=== PATIENT | female | born 1960 | race Caucasian/White ===

== ENCOUNTER 2020-04-18 10:58 | Outpatient (REF) | payer OTHER, SELFPAY ==
[2020-04-18 13:28] LABS: MANUAL DIFF FLAG NO
[2020-04-18 13:29] LABS: Basophils Absolute Auto 0.1 X10*3/uL (0.0-0.2); Basophils Percent Auto 0.6 % (0-2); Eosinophils Absolute Auto 0.2 X10*3/uL (0.0-0.4); Eosinophils Percent Auto 1.8 % (0-4); Hematocrit 41.8 % (37-47); Hemoglobin 14.6 g/dl (12.0-16.0); Imm Gran Abs Auto 0.02 X10*3/uL (0.00-0.03); Imm Gran Pct Auto 0.2 % (0.0-0.4); Lymphocytes Absolute Auto 2.3 X10*3/uL (1.2-4.9); Lymphocytes Percent Auto 25.7 % (20-40); Mean Corpuscular HGB Conc 34.9 g/dl (31.0-35.0); Mean Corpuscular Hemoglobin 32.3 pg (27.0-33.0); Mean Corpuscular Volume 92.5 fL (80-98); Mean Platelet Volume 10.5 fL (9.4-12.3); Monocytes Absolute Auto 0.6 X10*3/uL (0.1-1.2); Monocytes Percent Auto 6.2 % (2-11); Neutrophils Absolute Auto 5.9 X10*3/uL (2.0-8.3); Neutrophils Percent Auto 65.5 % (45-73); Platelet Count 192 X10*3/uL (160-400); Red Blood Count 4.52 X10*6/uL (4.20-5.50); Red Cell Distribution Width 13.1 % (11.0-16.0); White Blood Count 8.9 X10*3/uL (4.8-10.8)
[2020-04-18 13:59] LABS: Alanine Aminotransferase 12 U/L (0-31); Albumin Level 4.5 g/dL (3.5-5.0); Alkaline Phosphatase 111 U/L (39-117); Anion Gap 11 (12-20); Aspartate Amino Transferase 13 U/L (5-31); Bilirubin Total 0.6 mg/dL (0.0-1.0); Blood Urea Nitrogen 13 mg/dL (9-16); C Reactive Protein 0.04 mg/dL (< or = 0.50); Calcium 9.3 mg/dL (8.4-10.2); Carbon Dioxide 26 mmol/L (22-29); Chloride 106 mmol/L (96-108); Estimated Glomerular Filt Rate 60; Glucose Random 101 mg/dL (60-115); Potassium 4.3 mmol/l (3.3-5.1); Sodium 139 mmol/L (135-145); Total Protein 6.7 g/dL (6.5-8.0)
== END 2020-04-18 10:59 | disposition home or self-care (01) ==
LOC: HO.WFDLDS 10:58
PROVIDERS: Visit Provider Student in an Organized Health Care Education/Training Program
DX: M05.9 Rheumatoid arthritis with rheumatoid factor, unspecified (principal)
CPT/HCPCS: 36415; 80053; 85025; 86140

== ENCOUNTER 2020-05-17 10:00 | Outpatient (RCR) | payer OTHER, SELFPAY ==
--- NOTE | 2020-04-25 09:42 | MHC.PT.PR ---
[facility] [place] Office [place] Office [place] Office [address] Yovanny Bailey [address] [phone] F: [phone] F: [phone] F: [phone] F: [phone] Physical Therapy Progress Note Diagnosis: RIGHT ACHILLES STRAIN BILATERAL ANKLE PAIN Date of Surgery: Date of Evaluation: 03/24/20 Treatments to Date: 9 Cancellations to Date: No Shows to Date: Subjective: PATIENT REPORTS PAIN IS EXACERBATED WITH WALKING AND CAUSING CONSTANT ACHE TO RIGHT ACHILLES AND DISTAL LE MM. PATIENT REPORTS SENSATION OF ZINGING: SENSATION THAT RIDES UP FROM ACHILLES HEEL ATTACHMENT TO DISTAL GASTROCNEMIUS. PATIENT REPORTS INSTABILITY WITH ECCENTRIC CONTROL THROUGH DECELERATION AND STEP DOWN A STEP. PATIENT HAS CHANGED SHOE WEAR TO ALLOW FOR IMPROVED STABILITY AND COMFORT WELL TRIAL OF ORTHOTIC. Pain Score: 5 Pain Location: LATERAL ACHILLES MID BELLY OF RIGHT ACHILLES AND SOLEUS Objective Measures: RIGHT CIRCUMFERENTIAL: AD MID MALLEOLUS 25.4 CM LEFT: 27.6 RIGHT FIGURE 8: RIGHT: 53 CM LEFT: 53.3 CM POSITIVE VARUS STRESS TEST ON RIGHT: WITH PAIN TO LATERAL ACHILLES AND ATFL AROM: DF: RIGHT: 11 LEFT: 13 PF: RIGHT 26 LEFT 30 INVERSION RIGHT 22 LEFT 25 EVERSION RIGHT: 6 LEFT: 9 MMT: PF RIGHT 3-/5 LEFT 5/5 DF RIGHT 5/5 LEFT 5/5 INVERSION RIGHT 4/5 LEFT 5/5 EVERSION RIGHT 4-/5 LEFT 5/5 Assessment: PATIENT TOLERATED TREATMENT WELL WITH EMPHASIS ON STEPPING STRATEGIES AND SYMMETRICAL WEIGHT SHIFT. PT Plan: Continue with PT Frequency and Duration: The patient will be seen 2X WEEK X 4 WEEKS Treatment Plan: Therapeutic Exercise Dynamic Therapeutic Activities Neuromuscular Re-ed Manual Therapies Joint Mobilization Taping Gait Home Exercise Program Patient Education Ultrasound Hot or Cold Pack PATIENT IS A 60 Y/O FEMALE WITH C/O OF RIGHT ANKLE AND HEEL PAIN. PATIENT PRESENTS WITH WITH SIGNS AND SYMPTOMS CONSISTENT IF ACHILLES STRAIN. PATIENT HAS MADE STEADY PROGRESS IN REGARDS OF STRENGTHENING ACCESSORY LE AND HIP GIRDLE MUSCULATURE, IMPROVING SUPPORTIVE SHOE WEAR AND REDUCING SWELLING TO RIGHT ACHILLES BODY. PATIENT DOES PRESENT WITH INSTABILITY AND WEAKNESS THROUGH RECRUITMENT OF RIGHT PLANTARFLEXORS AND THROUGH ECCENTRIC CONTROL OF DISTAL LE WITH STEP DOWNS. PATIENT IS A GOOD CANDIDATE FOR UPCOMING ASSESSMENT BY LACING OPERATOR TO RULE OUT FURTHER DERANGEMENT TO ACHILLES ON RIGHT ANKLE. GOOD CANDIDATE FOR IMAGING PRESCRIBED BY PHYSICIAN FUTURE ASSESSMENT. PLAN OF CARE TO CONTINUE WITH PROGRESSION OF GAIT TRAINING AND ECCENTRIC CONTROL WITH MODIFIED EXERCISES TO RIGHT ANKLE. Reviewed/ Agreed with Student Documentation: Therapist: Thank you once again for your referral.
== END 2020-08-03 09:43 | disposition other institution (70) ==
LOC: HO.PTWFD 10:00
PROVIDERS: PCP Internal Medicine; Visit Provider Student in an Organized Health Care Education/Training Program
DX: M05.9 Rheumatoid arthritis with rheumatoid factor, unspecified (principal)
CPT/HCPCS: 97014; 97033; 97035; 97110; 97112; 97140; 97164; 97530

== ENCOUNTER → 2020-05-23 14:26 | Outpatient (BNVA) | payer OTHER, SELFPAY | PROVIDERS: PCP Internal Medicine; Referring Provider Internal Medicine; Visit Provider Student in an Organized Health Care Education/Training Program | DX: M05.9 Rheumatoid arthritis with rheumatoid factor, unspecified (principal); Z79.899 Other long term (current) drug therapy | CPT/HCPCS: 99212 ==

== ENCOUNTER 2020-08-17 15:24 | Outpatient (REF) | payer OTHER, SELFPAY ==
--- NOTE | ~2020-08-17 | MR_ITS ---
EXAMINATION: MR ANKLE WITHOUT AND WITH CONTRAST, RIGHT CLINICAL INFORMATION: Rheumatoid arthritis. COMPARISON: None TECHNIQUE: MRI of the ankle was performed before and after the intravenous administration of 10 mL Gadavist on a high-field scanner. FINDINGS: The Achilles tendon is diffusely thickened with a maximal AP diameter of 1.4 cm. In this location, approximately 2.5-5.5 cm proximal to the calcaneal insertion, there are linear foci of fluid signal intensity likely representing small interstitial partial tears. The tendon appears otherwise intact. The posterior tibialis tendon, peroneal tendons, flexor and extensor tendons are intact. Mild peroneal tenosynovitis. Ankle ligaments appear intact. Probable remote anterior talofibular sprain with attenuation of the ligament. No ankle joint effusion. No talar OCD. Small heel spur. Mild thickening of the proximal plantar fascia. No tear. The sinus tarsi is normal. No abnormal enhancement. MR/MR ankle RT wo/w con IMPRESSION: Moderate chronic Achilles tendinopathy with minimal interstitial partial tearing. Mild peroneal tenosynovitis. Mild chronic plantar fasciitis.
[2020-08-17 15:53] LABS: MANUAL DIFF FLAG NO
[2020-08-17 15:57] LABS: Basophils Percent Auto 0.3 % (0-2); Eosinophils Absolute Auto 0.1 X10*3/uL (0.0-0.4); Eosinophils Percent Auto 0.6 % (0-4); Hematocrit 40.7 % (37-47); Hemoglobin 13.7 g/dl (12.0-16.0); Imm Gran Abs Auto 0.03 X10*3/uL (0.00-0.03); Imm Gran Pct Auto 0.3 % (0.0-0.4); Lymphocytes Absolute Auto 2.9 X10*3/uL (1.2-4.9); Mean Corpuscular HGB Conc 33.7 g/dl (31.0-35.0); Mean Corpuscular Hemoglobin 31.4 pg (27.0-33.0); Mean Corpuscular Volume 93.1 fL (80-98); Mean Platelet Volume 9.7 fL (9.4-12.3); Monocytes Absolute Auto 0.6 X10*3/uL (0.1-1.2); Monocytes Percent Auto 6.6 % (2-11); Neutrophils Absolute Auto 5.7 X10*3/uL (2.0-8.3); Neutrophils Percent Auto 61.2 % (45-73); Platelet Count 256 X10*3/uL (160-400); Red Blood Count 4.37 X10*6/uL (4.20-5.50); White Blood Count 9.3 X10*3/uL (4.8-10.8)
[2020-08-17 16:18] LABS: Alanine Aminotransferase 9 U/L (0-31); Albumin Level 4.1 g/dL (3.5-5.0); Alkaline Phosphatase 115 U/L (39-117); Anion Gap 15 (12-20); Aspartate Amino Transferase 11 U/L (5-31); Bilirubin Total 0.3 mg/dL (0.0-1.0); Blood Urea Nitrogen 18 mg/dL (9-16); C Reactive Protein 0.36 mg/dL (< or = 0.50); Calcium 9.7 mg/dL (8.4-10.2); Carbon Dioxide 27 mmol/L (22-29); Chloride 107 mmol/L (96-108); Cholesterol 203 mg/dL; Estimated Glomerular Filt Rate 58; Glucose Random 102 mg/dL (60-115); HDL Cholesterol 54 mg/dL; LDL Cholesterol Calculated 110 mg/dl; Potassium 5.1 mmol/L (3.3-5.1); Sodium 144 mmol/L (135-145); Total Protein 6.9 g/dL (6.5-8.0); Triglycerides 197 mg/dL
[2020-08-17 17:51] LABS: Erythrocyte Sedimentation Rate 18 MM/HR (0-20)
[2020-08-17 19:35] LABS: Reflex LDLD? No
== END 2020-08-17 15:25 | disposition home or self-care (01) ==
LOC: HO.MRI 15:24
PROVIDERS: PCP Internal Medicine; Visit Provider Student in an Organized Health Care Education/Training Program
DX: M05.9 Rheumatoid arthritis with rheumatoid factor, unspecified (principal)
CPT/HCPCS: 36415; 73723; 80053; 80061; 85025; 85652; 86140; A9585

== ENCOUNTER → 2020-08-23 13:32 | Outpatient (BNVA) | payer OTHER, SELFPAY | PROVIDERS: PCP Internal Medicine; Referring Provider Internal Medicine; Visit Provider Student in an Organized Health Care Education/Training Program | DX: M05.9 Rheumatoid arthritis with rheumatoid factor, unspecified (principal) | CPT/HCPCS: 99212 ==

== ENCOUNTER → 2020-12-06 15:46 | Outpatient (BNVA) | payer OTHER, SELFPAY | PROVIDERS: PCP Internal Medicine; Visit Provider Student in an Organized Health Care Education/Training Program | DX: M05.9 Rheumatoid arthritis with rheumatoid factor, unspecified (principal); M77.11 Lateral epicondylitis, right elbow; M77.12 Lateral epicondylitis, left elbow; F17.200 Nicotine dependence, unspecified, uncomplicated; Z79.899 Other long term (current) drug therapy; Z71.6 Tobacco abuse counseling | CPT/HCPCS: 99212 ==

== ENCOUNTER → 2021-02-22 09:00 | Outpatient (BNVA) | payer OTHER, SELFPAY | PROVIDERS: Visit Provider Anesthesiology | DX: M53.3 Sacrococcygeal disorders, not elsewhere classified (principal); M46.1 Sacroiliitis, not elsewhere classified; M51.36 Other intervertebral disc degeneration, lumbar region; M47.816 Spondylosis without myelopathy or radiculopathy, lumbar region; Z79.891 Long term (current) use of opiate analgesic | CPT/HCPCS: 99212 ==

== ENCOUNTER 2021-02-22 10:42 | Outpatient (REF) | payer OTHER, SELFPAY ==
[2021-02-22 13:27] LABS: MANUAL DIFF FLAG NO
[2021-02-22 13:35] LABS: Basophils Percent Auto 0.4 % (0-2); Eosinophils Percent Auto 0.4 % (0-4); Hematocrit 38.8 % (37-47); Hemoglobin 12.5 g/dl (12.0-16.0); Imm Gran Abs Auto 0.03 X10*3/uL (0.00-0.03); Imm Gran Pct Auto 0.3 % (0.0-0.4); Lymphocytes Absolute Auto 1.4 X10*3/uL (1.2-4.9); Lymphocytes Percent Auto 14.6 % (20-40); Mean Corpuscular HGB Conc 32.2 g/dl (31.0-35.0); Mean Corpuscular Hemoglobin 30.5 pg (27.0-33.0); Mean Corpuscular Volume 94.6 fL (80-98); Mean Platelet Volume 10.2 fL (9.4-12.3); Monocytes Absolute Auto 0.6 X10*3/uL (0.1-1.2); Monocytes Percent Auto 5.7 % (2-11); Neutrophils Absolute Auto 7.8 X10*3/uL (2.0-8.3); Neutrophils Percent Auto 78.6 % (45-73); Platelet Count 248 X10*3/uL (160-400); Red Cell Distribution Width 13.5 % (11.0-16.0); White Blood Count 9.9 X10*3/uL (4.8-10.8)
[2021-02-22 14:32] LABS: Erythrocyte Sedimentation Rate 32 MM/HR (0-20)
[2021-02-22 14:47] LABS: Alanine Aminotransferase 10 U/L (0-31); Albumin Level 4.2 g/dL (3.5-5.0); Alkaline Phosphatase 108 U/L (39-117); Anion Gap 14 (12-20); Aspartate Amino Transferase 10 U/L (5-31); Bilirubin Total 0.6 mg/dL (0.0-1.0); Blood Urea Nitrogen 15 mg/dL (9-16); C Reactive Protein 1.54 mg/dL (< or = 0.50); Calcium 9.3 mg/dL (8.4-10.2); Carbon Dioxide 23 mmol/L (22-29); Chloride 108 mmol/L (96-108); Cholesterol 186 mg/dL; Estimated Glomerular Filt Rate > 60; Glucose Random 116 mg/dL (60-115); HDL Cholesterol 53 mg/dL; LDL Cholesterol Calculated 104 mg/dl; Potassium 4.6 mmol/L (3.3-5.1); Sodium 140 mmol/L (135-145); Total Protein 6.9 g/dL (6.5-8.0); Triglycerides 145 mg/dL
[2021-02-22 17:53] LABS: Reflex LDLD? No
== END 2021-02-22 10:43 | disposition home or self-care (01) ==
LOC: HO.10HDL 10:42
PROVIDERS: Visit Provider Student in an Organized Health Care Education/Training Program
DX: M05.9 Rheumatoid arthritis with rheumatoid factor, unspecified (principal)
CPT/HCPCS: 36415; 80053; 80061; 85025; 85652; 86140

== ENCOUNTER → 2021-02-23 09:57 | Outpatient (BNVA) | payer OTHER, SELFPAY | PROVIDERS: PCP Internal Medicine; Visit Provider Nurse Practitioner Family | DX: M05.9 Rheumatoid arthritis with rheumatoid factor, unspecified (principal); M77.11 Lateral epicondylitis, right elbow; M77.12 Lateral epicondylitis, left elbow; Z79.899 Other long term (current) drug therapy | CPT/HCPCS: 99212 ==

== ENCOUNTER → 2021-03-05 09:44 | Outpatient (BNVA) | payer OTHER, SELFPAY | PROVIDERS: PCP Internal Medicine; Visit Provider Anesthesiology | DX: M46.1 Sacroiliitis, not elsewhere classified (principal); M53.3 Sacrococcygeal disorders, not elsewhere classified; M51.36 Other intervertebral disc degeneration, lumbar region; M47.816 Spondylosis without myelopathy or radiculopathy, lumbar region; Z79.891 Long term (current) use of opiate analgesic | CPT/HCPCS: 99212 ==

== ENCOUNTER → 2021-04-02 08:59 | Outpatient (BNVA) | payer OTHER, SELFPAY | PROVIDERS: PCP Internal Medicine; Visit Provider Anesthesiology | DX: Z51.81 Encounter for therapeutic drug level monitoring (principal); M46.1 Sacroiliitis, not elsewhere classified; M53.3 Sacrococcygeal disorders, not elsewhere classified; M51.36 Other intervertebral disc degeneration, lumbar region; M47.816 Spondylosis without myelopathy or radiculopathy, lumbar region; Z79.891 Long term (current) use of opiate analgesic | CPT/HCPCS: 99212 ==

== ENCOUNTER → 2021-05-07 08:51 | Outpatient (BNVA) | payer OTHER, SELFPAY | PROVIDERS: PCP Internal Medicine; Visit Provider Anesthesiology ==

== ENCOUNTER 2021-05-07 10:10 | Outpatient (REF) | payer OTHER, SELFPAY ==
[2021-05-07 13:41] LABS: MANUAL DIFF FLAG NO
[2021-05-07 13:43] LABS: Basophils Percent Auto 0.5 % (0-2); Eosinophils Absolute Auto 0.1 X10*3/uL (0.0-0.4); Hematocrit 40.8 % (37.0-47.0); Hemoglobin 13.8 g/dl (12.0-16.0); Imm Gran Abs Auto 0.02 X10*3/uL (0.00-0.03); Imm Gran Pct Auto 0.3 % (0.0-0.4); Lymphocytes Absolute Auto 1.8 X10*3/uL (1.2-4.9); Mean Corpuscular HGB Conc 33.8 g/dl (31.0-35.0); Mean Corpuscular Hemoglobin 31.3 pg (27.0-33.0); Mean Corpuscular Volume 92.5 fL (80.0-98.0); Mean Platelet Volume 10.4 fL (9.4-12.3); Monocytes Absolute Auto 0.4 X10*3/uL (0.1-1.2); Monocytes Percent Auto 5.6 % (2-11); Neutrophils Absolute Auto 5.22 x10*3/uL (2.0-8.3); Neutrophils Percent Auto 68.6 % (45-73); Platelet Count 232 X10*3/uL (160-400); Red Blood Count 4.41 X10*6/uL (4.20-5.50); Red Cell Distribution Width 12.9 % (11.0-16.0); White Blood Count 7.6 X10*3/uL (4.8-10.8)
[2021-05-07 14:09] LABS: Alanine Aminotransferase 16 U/L (0-31); Albumin Level 4.4 g/dL (3.5-5.0); Alkaline Phosphatase 105 U/L (39-117); Anion Gap 12 (12-20); Aspartate Amino Transferase 18 U/L (5-31); Bilirubin Total 0.4 mg/dL (0.0-1.0); Blood Urea Nitrogen 12 mg/dL (9-16); C Reactive Protein 0.34 mg/dL (< or = 0.50); Calcium 9.3 mg/dL (8.4-10.2); Carbon Dioxide 24 mmol/L (22-29); Chloride 110 mmol/L (96-108); Cholesterol 176 mg/dL; Estimated Glomerular Filt Rate 57; Glucose Random 117 mg/dL (60-115); HDL Cholesterol 47 mg/dL; LDL Cholesterol Calculated 93 mg/dl; Potassium 4.9 mmol/L (3.3-5.1); Sodium 141 mmol/L (135-145); Total Protein 6.9 g/dL (6.5-8.0); Triglycerides 182 mg/dL
[2021-05-07 14:24] LABS: Erythrocyte Sedimentation Rate 12 MM/HR (0-20)
== END 2021-05-07 10:11 | disposition home or self-care (01) ==
LOC: HO.10HDL 10:10
PROVIDERS: Nurse Practitioner Family; Visit Provider Student in an Organized Health Care Education/Training Program
DX: M05.9 Rheumatoid arthritis with rheumatoid factor, unspecified (principal)
CPT/HCPCS: 36415; 80053; 80061; 85025; 85652; 86140

== ENCOUNTER → 2021-05-25 11:28 | Outpatient (BNVA) | payer OTHER, SELFPAY | PROVIDERS: PCP Internal Medicine; Visit Provider Nurse Practitioner Family | DX: M05.9 Rheumatoid arthritis with rheumatoid factor, unspecified (principal) | CPT/HCPCS: 99212 ==

== ENCOUNTER → 2021-06-04 09:51 | Outpatient (BNVA) | payer OTHER, SELFPAY | PROVIDERS: PCP Internal Medicine; Visit Provider Anesthesiology | DX: Z51.81 Encounter for therapeutic drug level monitoring (principal); M53.3 Sacrococcygeal disorders, not elsewhere classified; M46.1 Sacroiliitis, not elsewhere classified; M51.36 Other intervertebral disc degeneration, lumbar region; M47.816 Spondylosis without myelopathy or radiculopathy, lumbar region; G60.9 Hereditary and idiopathic neuropathy, unspecified; G89.4 Chronic pain syndrome; Z79.891 Long term (current) use of opiate analgesic | CPT/HCPCS: 99212 ==

== ENCOUNTER → 2021-07-04 14:08 | Outpatient (BNVA) | payer OTHER, SELFPAY | PROVIDERS: PCP Internal Medicine; Visit Provider Anesthesiology | DX: Z51.81 Encounter for therapeutic drug level monitoring (principal); F11.20 Opioid dependence, uncomplicated; M46.1 Sacroiliitis, not elsewhere classified; M53.3 Sacrococcygeal disorders, not elsewhere classified; M51.36 Other intervertebral disc degeneration, lumbar region; M47.816 Spondylosis without myelopathy or radiculopathy, lumbar region; G60.9 Hereditary and idiopathic neuropathy, unspecified; G89.4 Chronic pain syndrome; Z79.891 Long term (current) use of opiate analgesic | CPT/HCPCS: 99212 ==

== ENCOUNTER → 2021-08-09 08:38 | Outpatient (BNVA) | payer OTHER, SELFPAY | PROVIDERS: PCP Internal Medicine; Visit Provider Anesthesiology | DX: M46.1 Sacroiliitis, not elsewhere classified (principal); M53.3 Sacrococcygeal disorders, not elsewhere classified; M51.36 Other intervertebral disc degeneration, lumbar region; M47.816 Spondylosis without myelopathy or radiculopathy, lumbar region; G89.4 Chronic pain syndrome; G60.9 Hereditary and idiopathic neuropathy, unspecified; Z79.891 Long term (current) use of opiate analgesic | CPT/HCPCS: 99212 ==

== ENCOUNTER 2021-08-09 09:38 | Outpatient (REF) | payer OTHER, SELFPAY ==
[2021-08-09 10:35] LABS: MANUAL DIFF FLAG NO
[2021-08-09 10:42] LABS: Basophils Percent Auto 0.3 % (0-2); Eosinophils Percent Auto 0.2 % (0-4); Hematocrit 42.8 % (37.0-47.0); Hemoglobin 14.4 g/dl (12.0-16.0); Imm Gran Abs Auto 0.04 X10*3/uL (0.00-0.03); Imm Gran Pct Auto 0.4 % (0.0-0.4); Lymphocytes Absolute Auto 1.3 X10*3/uL (1.2-4.9); Lymphocytes Percent Auto 13.4 % (20-40); Mean Corpuscular HGB Conc 33.6 g/dl (31.0-35.0); Mean Corpuscular Hemoglobin 31.6 pg (27.0-33.0); Mean Corpuscular Volume 94.1 fL (80.0-98.0); Mean Platelet Volume 10.2 fL (9.4-12.3); Monocytes Absolute Auto 0.6 X10*3/uL (0.1-1.2); Monocytes Percent Auto 5.8 % (2-11); Neutrophils Absolute Auto 7.8 x10*3/uL (2.0-8.3); Neutrophils Percent Auto 79.9 % (45-73); Platelet Count 266 X10*3/uL (160-400); Red Blood Count 4.55 X10*6/uL (4.20-5.50); Red Cell Distribution Width 12.9 % (11.0-16.0); White Blood Count 9.7 X10*3/uL (4.8-10.8)
[2021-08-09 11:03] LABS: Alanine Aminotransferase 12 U/L (0-31); Albumin Level 4.4 g/dL (3.5-5.0); Alkaline Phosphatase 114 U/L (39-117); Anion Gap 12 (12-20); Aspartate Amino Transferase 16 U/L (5-31); Bilirubin Total 0.8 mg/dL (0.0-1.0); Blood Urea Nitrogen 14 mg/dL (9-16); C Reactive Protein 0.58 mg/dL (< or = 0.50); Calcium 10.1 mg/dL (8.4-10.2); Carbon Dioxide 26 mmol/L (22-29); Chloride 108 mmol/L (96-108); Estimated Glomerular Filt Rate > 60; Glucose Random 122 mg/dL (60-115); Potassium 4.9 mmol/L (3.3-5.1); Sodium 141 mmol/L (135-145); Total Protein 7.3 g/dL (6.5-8.0)
== END 2021-08-09 09:39 | disposition home or self-care (01) ==
LOC: HO.10HDL 09:38
PROVIDERS: Visit Provider Nurse Practitioner Family
DX: M05.9 Rheumatoid arthritis with rheumatoid factor, unspecified (principal)
CPT/HCPCS: 36415; 80053; 85025; 86140

== ENCOUNTER → 2021-08-23 10:30 | Outpatient (BNVA) | payer OTHER, SELFPAY | PROVIDERS: PCP Internal Medicine; Visit Provider Nurse Practitioner Family | DX: M05.9 Rheumatoid arthritis with rheumatoid factor, unspecified (principal) | CPT/HCPCS: 99212 ==

== ENCOUNTER → 2021-09-06 08:41 | Outpatient (BNVA) | payer OTHER, SELFPAY | PROVIDERS: PCP Internal Medicine; Visit Provider Anesthesiology | DX: Z51.81 Encounter for therapeutic drug level monitoring (principal); F11.20 Opioid dependence, uncomplicated; M46.1 Sacroiliitis, not elsewhere classified; M53.3 Sacrococcygeal disorders, not elsewhere classified; M51.36 Other intervertebral disc degeneration, lumbar region; M47.816 Spondylosis without myelopathy or radiculopathy, lumbar region; G60.9 Hereditary and idiopathic neuropathy, unspecified; G89.4 Chronic pain syndrome; Z79.891 Long term (current) use of opiate analgesic | CPT/HCPCS: 99212 ==

== ENCOUNTER → 2021-10-03 10:57 | Outpatient (BNVA) | payer OTHER, SELFPAY | PROVIDERS: PCP Internal Medicine; Visit Provider Anesthesiology | DX: Z51.81 Encounter for therapeutic drug level monitoring (principal); F11.20 Opioid dependence, uncomplicated | CPT/HCPCS: 99211 ==

== ENCOUNTER 2021-10-18 13:08 | Day surgery (SDC) | payer OTHER, SELFPAY ==
[2021-10-12 13:27] VITALS: BMI 35.2
--- NOTE | 2021-10-17 10:33 | HO.ANESPROP2 ---
Documented by User: Felicia Hernandez NP 10/17/21 10:36 HPI - Anesthesia Eval Consult details Narrative: 61yo F for Lumbar Spinal Cord Stimulation Trial Chronic opioids PMFSH Active Problems Active Problems: All Active Problems (Updated 10/12/21 @ 13:25 by Bhavna Navarro RN) Lateral epicondylitis of both elbows (Acute) Chronic pain syndrome (Acute) Idiopathic peripheral neuropathy (Acute) assisted (current) use of opiate analgesic (Acute) Spondylosis of lumbar region without myelopathy or radiculopathy (Acute) Disc degeneration, lumbar (Acute) Sacroiliac joint dysfunction of right side (Acute) Sacroiliitis (Acute) Seropositive rheumatoid arthritis (Acute) Past Medical History Medical History (Updated 10/12/21 @ 13:25 by Bhavna Navarro RN) Carpal tunnel syndrome, bilateral Chronic pain syndrome COVID-19 vaccine series completed Disc degeneration, lumbar Fluid retention in legs 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 Rheumatoid arthritis Sacroiliac joint dysfunction of right side Sacroiliitis Seropositive rheumatoid arthritis Spondylosis of lumbar region without myelopathy or radiculopathy Family History Family History Father Esophagus cancer Mother CVD (cardiovascular disease) Brother CVD (cardiovascular disease) Diabetes Surgical History Surgical History (Updated 10/12/21 @ 13:24 by Bhavna Navarro RN) H/O hernia repair H/O lithotripsy History of left knee replacement History of meniscectomy of left knee Hx of laparoscopy Hx of shoulder surgery Social History Social History Alcohol intake: never Patient Tobacco Use Status: Current everyday Tobacco user Tobacco use type: Cigarette Cigarettes Per Day: 10 Years Smoked: 40 Advance Directives Date on File: 04/11/20 Meds Allergies Allergy/AdvReac Type Severity Reaction Status Date / Time sarilumab [From Martinezzara] Allergy Severe blistery Verified 10/03/21 11:14 rash gabapentin Allergy Intermediate rash Verified 10/12/21 13:26 pregabalin Allergy Intermediate rash Verified 10/12/21 13:26 tofacitinib [Xeljanz] Allergy Intermediate Rash Verified 10/03/21 11:14 Home Medications Medication Instructions Recorded Confirmed Last Taken Type atorvastatin 10 mg tablet 10 mg PO DAILY 05/23/20 10/12/21 Unknown History melatonin 10 mg capsule 50 mg PO BEDTIME PRN cap 05/07/21 10/12/21 Unknown History diclofenac sodium 1 % topical gel 2 g TOPICAL QID g 08/23/21 10/12/21 Unknown History (Voltaren) hydrochlorothiazide 12.5 mg tablet 12.5 mg PO DAILY PRN 08/23/21 10/12/21 Unknown History duloxetine 60 mg capsule,delayed 60 mg PO BEDTIME 10/12/21 10/12/21 Unknown History release (Cymbalta) Exam Exam Date and Time: October 17, 2021 1033 Height,Weight and Vital Signs: Height 5 ft 5 in Weight 96.162 kg Pertinent Lab Results Pertinent Lab Results: Laboratory Tests 08/09/21 08/09/21 09:12 09:12 WBC 9.7 Hgb 14.4 Hct 42.8 Plt Count 266 Sodium 141 Potassium 4.9 Chloride 108 Carbon Dioxide 26 BUN 14 Creatinine 0.94 Assessment and Plan Assessment Anesthesia Assessment: Chart Reviewed Documented by User: Elvis Reyes MD 10/19/21 08:14 HPI - Anesthesia Eval Consult details Narrative: 61yo F for Lumbar Spinal Cord Stimulation Trial Active smoker Chronic opioids [facility] Past Medical History Medical History (Updated 10/12/21 @ 13:25 by Bhavna Navarro RN) Carpal tunnel syndrome, bilateral Chronic pain syndrome COVID-19 vaccine series completed Disc degeneration, lumbar Fluid retention in legs 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 Rheumatoid arthritis Sacroiliac joint dysfunction of right side Sacroiliitis Seropositive rheumatoid arthritis Spondylosis of lumbar region without myelopathy or radiculopathy Family History Family History Father Esophagus cancer Mother CVD (cardiovascular disease) Brother CVD (cardiovascular disease) Diabetes Family history of problems with anesthesia: No Surgical History Surgical History (Updated 10/12/21 @ 13:24 by Bhavna Navarro RN) H/O hernia repair H/O lithotripsy History of left knee replacement History of meniscectomy of left knee Hx of laparoscopy Hx of shoulder surgery History of Problems with Anesthesia: No Social History Social History Alcohol intake: never Patient Tobacco Use Status: Current everyday Tobacco user Tobacco use type: Cigarette Cigarettes Per Day: 10 Years Smoked: 40 Advance Directives Date on File: 04/11/20 Meds Allergies Allergy/AdvReac Type Severity Reaction Status Date / Time sarilumab [From Kevzara] Allergy Severe blistery Verified 10/03/21 11:14 rash gabapentin Allergy Intermediate rash Verified 10/12/21 13:26 pregabalin Allergy Intermediate rash Verified 10/12/21 13:26 tofacitinib [Xeljanz] Allergy Intermediate Rash Verified 10/03/21 11:14 Home Medications Medication Instructions Recorded Confirmed Last Taken Type atorvastatin 10 mg tablet 10 mg PO DAILY 05/23/20 10/12/21 Unknown History melatonin 10 mg capsule 50 mg PO BEDTIME PRN cap 05/07/21 10/12/21 Unknown History diclofenac sodium 1 % topical gel 2 g TOPICAL QID g 08/23/21 10/12/21 Unknown History (Voltaren) hydrochlorothiazide 12.5 mg tablet 12.5 mg PO DAILY PRN 08/23/21 10/12/21 Unknown History duloxetine 60 mg capsule,delayed 60 mg PO BEDTIME 10/12/21 10/12/21 Unknown History release (Cymbalta) Exam Airway Mallampati Class: II TM Dist: >3cm Neck ROM: Full Partial: Upper and Lower Loose/Missing/Broken Teeth: Yes (Chipped teeth and missing ) Heart: S1 S2 Lungs: b/l breath sounds Assessment and Plan Final Anesthetic Review Family History of Problems with Anesthesia: No History of Problems with Anesthesia: No NPO: Yes ASA Class: III Final Preanesthetic Review: No Changes in Pt Med Stat, Meds/Allgs Chart Reviewed, Consent Obtained/Reviewed and Anes Risks/Benef Reviewed Patient Risk: Intermediate Procedure Risk: Intermediate Anesthetic Plan Anesthetic Plan: MAC: Disposition: Standard PACU
--- NOTE | ~2021-10-18 | FL_ITS ---
EXAMINATION: XR FLUOROSCOPY WITH IMAGES CLINICAL INFORMATION: Spinal stimulation. COMPARISON: Radiographs lumbar spine 09/26/2014; chest radiographs 11/07/2011 TECHNIQUE: Fluoroscopy performed by Dr. Jason Ceron. Fluoroscopy time: 3.8 minutes DAP: 19.7 Gycm2 Images: 3 FINDINGS: There are 2 spinal stimulator leads ascending the posterior spinal canal with tips at mid dorsal spine. There is borderline loss of height midthoracic vertebral body. No spondylolisthesis. FL/FL guidance in OR IMPRESSION: Fluoroscopy for pain management procedure.
--- NOTE | 2021-10-18 12:10 | MHC.SHP ---
Pre-Procedural Eval Section A Date of Service: 10/18/21 Section B Chief Complaint: Hereditary and idiopathic neuropathy, Details of Present Illness: as above Relevant Family History (Specify if Yes): No Relevant Social History: None Present Medications: None Medical History: Significant History History of Previous Operations: No relevant previous surgery Allergies: Allergies Allergy/AdvReac Type Severity Reaction Status Date / Time sarilumab [From Kevzara] Allergy Severe blistery Verified 10/03/21 11:14 rash gabapentin Allergy Intermediate rash Verified 10/12/21 13:26 pregabalin Allergy Intermediate rash Verified 10/12/21 13:26 tofacitinib [Xeljanz] Allergy Intermediate Rash Verified 10/03/21 11:14 Review of Systems Sugical H&P ROS: Negative: Constitution, Cardiovascular, Respiratory, Neurological, Psychiatric, Hem-Onc, Allergic/Immunologic, Gastrointestinal, Genitourinary, Musculoskeletal, Integumentary, Endocrine and Eyes/Ears/Nose/Throat Exam Surgical H&P Exam: Normal: HEENT, Normal: Heart, Normal: Lungs, Normal: Extremities, Normal: Abdomen, Normal: Skin and Normal: Neurological Plan Diagnosis/Plan: Unchanged I have reviewed the history and physical and performed a pertinent physical examination on my patient. No changes have occurred unless specified.
--- NOTE | 2021-10-18 12:11 | W.PM.OPN ---
Operative Note Operative Note Date of Service: 10/18/21 Narrative: Raquel is 61 y.o. female? who came today into the operating room for trial of?[employer] scientific spinal cord stimulator for the treatment of axial lower back pain. Preoperatively patient received cefasolin 2 g approximately 30 minutes before the procedure. After obtaining informed consent the patient was brought to the operating room, She was positioned prone on operating table, [employer] monitors were applied and patient was deeply sedated.? ?Time-out was performed delineating correct site, side, the nature of the procedure, patient's allergy, preoperative antibiotic if needed.? All operating room staff was participating in OR time-out procedure. Patient's entire back was prepped with DuraPrep twice and draped with full body fenestrated drape.? Sterilely draped C-arm was brought over operating field and sqare picture of T12 L1 L2 L3 vertebrae as were demonstrated on the screen.? Attention FIRST? was concentrated on the L1-L2 epidural interspace.? The location of the projection of the right pedicle center of the? L3 vertebra was found on the skin using C-arm.? This location was injected with mixture of lidocaine 2% and Marcaine 0.5% 5 cc.? After that 11 blade was used to make a madhav on the skin.? 10 cm 14 gauge? introducer epidural needle was inserted through the madhav and advanced to? L1-L2 epidural interspace.? The advancement of the needle was performed on anterior posterior and lateral views.? Guitar wire and loss of resistance technique were used to locate epidural space.? When guitar wire was spread in the epidural fashion, epidural lead was inserted through the skin and it was advanced to ? top of [id number]? SLIGHTLY? right of the MIDLINE.? position of the lead in the posterior epidural space was verified. After that location of the projection of the LEFT pedicle center of the L3 vertebra was found on the skin using C-arm.? This location was injected with mixture of lidocaine 2% and Marcaine 0.5% 5 cc.? After that 11 blade was used to make a madhav on the skin.? 10 cm 14 gauge curved introducer epidural needle was inserted through the madhav and advanced to L1-L2 epidural interspace.? The advancement of the needle was performed on anterior posterior and lateral views.? Guitar wire and loss of resistance technique were used to locate epidural space.? When guitar wire was spread in the epidural fashion, epidural lead was inserted through the needle and advanced to the middle of T7 epidural interspace?.? It was inserted slightly? left to the existing electrode. position of the lead in the posterior epidural space was verified. After that the patient was awaken. Impedance was checked and was satisfactory . The trial of intra-operative stimulation was performed. The stimulation laterality was satisfactory. The patient reported the stimulation corresponding to her pain in the Lower back with radiation into the lower extremities. The needles were withdrawn, the stylette wires were removed from the epidural leads.? The anchoring devices were dislodged on the leads and advanced to the level of the skin.? The anchoring devices were sutured with two 0-0 silk sutures per each anchor to the skin of the patient. The central fixation screw of each anchor was rotated until three clicks were heard. The leads were connected to testing device.? Bacitracin ointment was applied to the entrance point of bilateral needles.? Sterile dressing was applied to the patient's back Using Medipore tape.? The testing device was also glued to the patient's back.? The patient tolerated procedure well she was taking outside of the operating room to recovery room where she recovered uneventfully.
[2021-10-18 13:11] VITALS: BP 154/78; PULSE 83; RESP 18; TEMP 36.9; O2SAT 97
[2021-10-18] MEDS: Lactated Ringers 1,000 ML 100 ML IVCONT (13:29)
--- NOTE | 2021-10-18 15:51 | P.BOP_ITS ---
Brief Operative Note Date of Service: 10/18/21 Pre-op diagnosis: peripheral neuropathy Post-op diagnosis: same Procedure: trial of spinal cord stimulator [employer] Implants: none per Surgeon: Jason Ceron MD Anesthesia: GETA Was an Lump Receiver used for this Procedure?: No Estimated blood loss (mL): 2 Pathology: none sent Condition: stable Disposition: PACU
[2021-10-18 15:53] VITALS: BP 168/84; PULSE 68; RESP 18; TEMP 36.5; O2SAT 100
[2021-10-18 16:03] VITALS: RESP 18
[2021-10-18] MEDS: fentaNYL citrate/PF 100 MCG/2 ML VIAL 25 MCG IVPUSH (16:03)
[2021-10-18] MEDS: Acetaminophen 325 MG TABLET 650 MG PO (16:03)
[2021-10-18 16:08] VITALS: BP 147/65; PULSE 63; RESP 18; TEMP 36.6; O2SAT 100
[2021-10-18 16:23] VITALS: BP 145/98; PULSE 55; RESP 18; O2SAT 100
== END 2021-10-18 16:52 | disposition home or self-care (01) ==
PROVIDERS: PCP Internal Medicine; Visit Provider Anesthesiology
PROC: (CPT 63650; principal; 2021-10-18 14:00)
DX: G60.9 Hereditary and idiopathic neuropathy, unspecified (principal); G89.29 Other chronic pain; M46.1 Sacroiliitis, not elsewhere classified; M53.3 Sacrococcygeal disorders, not elsewhere classified; M51.36 Other intervertebral disc degeneration, lumbar region; M47.816 Spondylosis without myelopathy or radiculopathy, lumbar region; M05.9 Rheumatoid arthritis with rheumatoid factor, unspecified; Z79.891 Long term (current) use of opiate analgesic; Z88.8 Allergy status to other drugs, medicaments and biological substances; Z96.652 Presence of left artificial knee joint; Z98.890 Other specified postprocedural states; F17.210 Nicotine dependence, cigarettes, uncomplicated
CPT/HCPCS: 63650 ×2; C1713; C1778; C1897; J0690; J2250; J3010

== ENCOUNTER → 2021-10-24 14:31 | Outpatient (BNVA) | payer OTHER, SELFPAY | PROVIDERS: PCP Internal Medicine; Visit Provider Anesthesiology | DX: M46.1 Sacroiliitis, not elsewhere classified (principal); M53.3 Sacrococcygeal disorders, not elsewhere classified; M51.36 Other intervertebral disc degeneration, lumbar region; M47.816 Spondylosis without myelopathy or radiculopathy, lumbar region; G60.9 Hereditary and idiopathic neuropathy, unspecified; G89.4 Chronic pain syndrome; Z79.891 Long term (current) use of opiate analgesic | CPT/HCPCS: 99212 ==

== ENCOUNTER → 2021-10-31 09:48 | Outpatient (BNVA) | payer OTHER, SELFPAY | PROVIDERS: PCP Internal Medicine; Visit Provider Anesthesiology | DX: Z51.81 Encounter for therapeutic drug level monitoring (principal); F11.20 Opioid dependence, uncomplicated | CPT/HCPCS: 99211 ==

== ENCOUNTER → 2021-12-05 09:59 | Outpatient (BNVA) | payer OTHER, SELFPAY | PROVIDERS: PCP Internal Medicine; Visit Provider Anesthesiology | DX: Z51.81 Encounter for therapeutic drug level monitoring (principal); F11.20 Opioid dependence, uncomplicated | CPT/HCPCS: 99211 ==

== ENCOUNTER → 2022-01-02 10:30 | Outpatient (BNVA) | payer OTHER, SELFPAY | PROVIDERS: PCP Internal Medicine; Visit Provider Nurse Practitioner Family | DX: G89.4 Chronic pain syndrome (principal); M46.1 Sacroiliitis, not elsewhere classified; M51.36 Other intervertebral disc degeneration, lumbar region; M47.816 Spondylosis without myelopathy or radiculopathy, lumbar region; G60.9 Hereditary and idiopathic neuropathy, unspecified; Z79.891 Long term (current) use of opiate analgesic | CPT/HCPCS: 99212 ==

== ENCOUNTER 2022-01-15 08:57 | Outpatient (REF) | payer OTHER, SELFPAY ==
[2022-01-15 11:25] LABS: MANUAL DIFF FLAG NO
[2022-01-15 11:36] LABS: Basophils Absolute Auto 0.1 X10*3/uL (0.0-0.2); Basophils Percent Auto 0.5 % (0-2); Eosinophils Absolute Auto 0.1 X10*3/uL (0.0-0.4); Eosinophils Percent Auto 1.2 % (0-4); Hematocrit 40.8 % (37.0-47.0); Imm Gran Abs Auto 0.03 X10*3/uL (0.00-0.03); Imm Gran Pct Auto 0.3 % (0.0-0.4); Lymphocytes Absolute Auto 1.7 X10*3/uL (1.2-4.9); Lymphocytes Percent Auto 18.5 % (20-40); Mean Corpuscular HGB Conc 34.3 g/dl (31.0-35.0); Mean Corpuscular Hemoglobin 31.6 pg (27.0-33.0); Mean Corpuscular Volume 92.1 fL (80.0-98.0); Mean Platelet Volume 10.5 fL (9.4-12.3); Monocytes Absolute Auto 0.8 X10*3/uL (0.1-1.2); Neutrophils Absolute Auto 6.7 x10*3/uL (2.0-8.3); Neutrophils Percent Auto 71.5 % (45-73); Platelet Count 278 X10*3/uL (160-400); Red Blood Count 4.43 X10*6/uL (4.20-5.50); Red Cell Distribution Width 13.2 % (11.0-16.0); White Blood Count 9.4 X10*3/uL (4.8-10.8)
[2022-01-15 11:48] LABS: Alanine Aminotransferase 12 U/L (0-31); Albumin Level 4.5 g/dL (3.5-5.0); Alkaline Phosphatase 115 U/L (39-117); Anion Gap 13 (12-20); Aspartate Amino Transferase 14 U/L (5-31); Bilirubin Total 0.7 mg/dL (0.0-1.0); Blood Urea Nitrogen 16 mg/dL (9-16); C Reactive Protein 0.38 mg/dL (< or = 0.50); Calcium 9.6 mg/dL (8.4-10.2); Carbon Dioxide 23 mmol/L (22-29); Chloride 108 mmol/L (96-108); Estimated Glomerular Filt Rate 51; Glucose Random 117 mg/dL (60-115); Potassium 4.7 mmol/L (3.3-5.1); Sodium 139 mmol/L (135-145); Total Protein 7.2 g/dL (6.5-8.0)
[2022-01-15 12:18] LABS: Erythrocyte Sedimentation Rate 19 MM/HR (0-20)
== END 2022-01-15 08:58 | disposition home or self-care (01) ==
LOC: HO.WFDLDS 08:57
PROVIDERS: Visit Provider Nurse Practitioner Family
DX: M05.9 Rheumatoid arthritis with rheumatoid factor, unspecified (principal)
CPT/HCPCS: 36415; 80053; 85025; 85652; 86140

== ENCOUNTER → 2022-02-06 09:19 | Outpatient (BNVA) | payer OTHER, SELFPAY | PROVIDERS: PCP Internal Medicine; Visit Provider Nurse Practitioner Family | DX: M46.1 Sacroiliitis, not elsewhere classified (principal); M51.36 Other intervertebral disc degeneration, lumbar region; M47.816 Spondylosis without myelopathy or radiculopathy, lumbar region; M47.27 Other spondylosis with radiculopathy, lumbosacral region; M25.551 Pain in right hip; M25.552 Pain in left hip; M54.2 Cervicalgia; M05.9 Rheumatoid arthritis with rheumatoid factor, unspecified; G60.9 Hereditary and idiopathic neuropathy, unspecified; G89.4 Chronic pain syndrome; Z79.899 Other long term (current) drug therapy; Z79.891 Long term (current) use of opiate analgesic | CPT/HCPCS: 99212 ==

== ENCOUNTER → 2022-02-07 09:35 | Outpatient (BNVA) | payer OTHER, SELFPAY | PROVIDERS: PCP Internal Medicine; Visit Provider Nurse Practitioner Family | DX: M05.9 Rheumatoid arthritis with rheumatoid factor, unspecified (principal); M47.27 Other spondylosis with radiculopathy, lumbosacral region | CPT/HCPCS: 99212 ==

== ENCOUNTER 2022-02-25 13:42 | Outpatient (REF) | payer OTHER, SELFPAY ==
--- NOTE | ~2022-02-25 | XR_ITS ---
EXAMINATION: XR LUMBOSACRAL SPINE CLINICAL INFORMATION: Radiculopathy. COMPARISON: Radiograph of the lumbar spine 09/26/2014. TECHNIQUE: Three views of the lumbosacral spine. FINDINGS: No acute compression deformity or subluxation. Mild to moderate multilevel degenerative changes, more notable at L5-S1, progressed since 2014. Sacroiliac joints are symmetric. Upper abdominal surgical clips noted. Surgical tacks from prior hernia repair noted in the left hemiabdomen. Atherosclerotic disease of the abdominal aorta. XR/XR lumbar spine 2-3V IMPRESSION: No acute compression deformity or malalignment. Mild to moderate multilevel lumbar spondylosis, more apparent in the lower lumbar spine, progressed since 2014.
--- NOTE | ~2022-02-25 | XR_ITS ---
EXAMINATION: XR CERVICAL SPINE CLINICAL INFORMATION: Cervicalgia. COMPARISON: No similar priors. TECHNIQUE: 3 views of the cervical spine were obtained. FINDINGS: No acute compression deformity or malalignment. On the odontoid view, the dens appears intact. The atlantooccipital and atlantoaxial articulations are maintained. Mild multilevel cervical spondylosis. Multilevel anterior osteophytes, more prominent at C5. No prevertebral soft tissue thickening. The imaged lung apices are clear. XR/XR cervical spine 3V IMPRESSION: No acute fracture or malalignment. Mild cervical spondylosis.
--- NOTE | ~2022-02-25 | XR_ITS ---
EXAMINATION: XR PELVIS CLINICAL INFORMATION: Chronic pain syndrome. COMPARISON: Radiograph of the pelvis dated from 05/04/2013. TECHNIQUE: AP view of the pelvis. FINDINGS: No acute fracture or malalignment. Mild degenerative osteoarthritis in both hips with joint space narrowing and subcortical sclerosis. Sacroiliac joints are symmetric. Pubic symphysis is maintained. No significant soft tissue abnormality. Redemonstration of surgical tacks in the left abdominal wall. XR/XR pelvis 1-2V IMPRESSION: No acute fracture or malalignment. Mild osteoarthrosis of both hips.
== END 2022-02-25 13:43 | disposition home or self-care (01) ==
LOC: HO.XRAY 13:42
PROVIDERS: Visit Provider Nurse Practitioner Family
DX: M25.551 Pain in right hip (principal); M25.552 Pain in left hip; M54.2 Cervicalgia; G89.4 Chronic pain syndrome; M47.27 Other spondylosis with radiculopathy, lumbosacral region
CPT/HCPCS: 72040; 72100; 72170

== ENCOUNTER → 2022-03-06 09:35 | Outpatient (BNVA) | payer OTHER, SELFPAY | PROVIDERS: PCP Internal Medicine; Visit Provider Anesthesiology | DX: M46.1 Sacroiliitis, not elsewhere classified (principal); M51.36 Other intervertebral disc degeneration, lumbar region; M47.816 Spondylosis without myelopathy or radiculopathy, lumbar region; G60.9 Hereditary and idiopathic neuropathy, unspecified; G89.4 Chronic pain syndrome; M05.9 Rheumatoid arthritis with rheumatoid factor, unspecified; Z79.891 Long term (current) use of opiate analgesic | CPT/HCPCS: 99212 ==

== ENCOUNTER → 2022-04-03 09:01 | Outpatient (BNVA) | payer OTHER, SELFPAY | PROVIDERS: PCP Internal Medicine; Visit Provider Anesthesiology | DX: Z51.81 Encounter for therapeutic drug level monitoring (principal); F11.20 Opioid dependence, uncomplicated | CPT/HCPCS: 99211 ==

== ENCOUNTER → 2022-05-08 10:45 | Outpatient (BNVA) | payer OTHER, SELFPAY | PROVIDERS: PCP Internal Medicine; Visit Provider Anesthesiology | DX: Z51.81 Encounter for therapeutic drug level monitoring (principal); F11.20 Opioid dependence, uncomplicated; M46.1 Sacroiliitis, not elsewhere classified; M51.36 Other intervertebral disc degeneration, lumbar region; M47.816 Spondylosis without myelopathy or radiculopathy, lumbar region; G60.9 Hereditary and idiopathic neuropathy, unspecified; G89.4 Chronic pain syndrome; M05.9 Rheumatoid arthritis with rheumatoid factor, unspecified | CPT/HCPCS: 99212 ==

== ENCOUNTER → 2022-06-06 08:54 | Outpatient (BNVA) | payer OTHER, SELFPAY | PROVIDERS: PCP Internal Medicine; Visit Provider Anesthesiology | DX: Z51.81 Encounter for therapeutic drug level monitoring (principal); F11.20 Opioid dependence, uncomplicated | CPT/HCPCS: 99211 ==

== ENCOUNTER 2022-06-06 10:15 | Outpatient (REF) | payer OTHER, SELFPAY ==
[2022-06-06 13:40] LABS: MANUAL DIFF FLAG NO
[2022-06-06 13:44] LABS: Basophils Percent Auto 0.4 % (0-2); Eosinophils Percent Auto 0.4 % (0-4); Hemoglobin 13.4 g/dl (12.0-16.0); Imm Gran Abs Auto 0.02 X10*3/uL (0.00-0.03); Imm Gran Pct Auto 0.2 % (0.0-0.4); Lymphocytes Absolute Auto 1.9 X10*3/uL (1.2-4.9); Lymphocytes Percent Auto 17.9 % (20-40); Mean Corpuscular HGB Conc 33.5 g/dl (31.0-35.0); Mean Corpuscular Hemoglobin 31.8 pg (27.0-33.0); Mean Platelet Volume 10.2 fL (9.4-12.3); Monocytes Absolute Auto 0.5 X10*3/uL (0.1-1.2); Monocytes Percent Auto 4.6 % (2-11); Neutrophils Percent Auto 76.5 % (45-73); Platelet Count 258 X10*3/uL (160-400); Red Blood Count 4.21 X10*6/uL (4.20-5.50); Red Cell Distribution Width 13.2 % (11.0-16.0); White Blood Count 10.5 X10*3/uL (4.8-10.8)
[2022-06-06 13:57] LABS: Alanine Aminotransferase 8 U/L (0-31); Aspartate Amino Transferase 12 U/L (5-31); C Reactive Protein 0.21 mg/dL (< or = 0.50); Estimated Glomerular Filt Rate > 60
[2022-06-06 14:46] LABS: Erythrocyte Sedimentation Rate 21 MM/HR (0-20)
== END 2022-06-06 10:16 | disposition home or self-care (01) ==
LOC: HO.10HDL 10:15
PROVIDERS: Visit Provider Nurse Practitioner Family
DX: M05.9 Rheumatoid arthritis with rheumatoid factor, unspecified (principal); Z79.899 Other long term (current) drug therapy
CPT/HCPCS: 36415; 82565; 84450; 84460; 85025; 85652; 86140

== ENCOUNTER → 2022-06-11 10:22 | Outpatient (BNVA) | payer OTHER, SELFPAY | PROVIDERS: PCP Internal Medicine; Visit Provider Nurse Practitioner Family | DX: M05.9 Rheumatoid arthritis with rheumatoid factor, unspecified (principal); M47.27 Other spondylosis with radiculopathy, lumbosacral region; Z79.899 Other long term (current) drug therapy | CPT/HCPCS: 99212 ==

== ENCOUNTER → 2022-07-11 09:04 | Outpatient (BNVA) | payer OTHER, SELFPAY | PROVIDERS: PCP Internal Medicine; Visit Provider Anesthesiology | DX: M46.1 Sacroiliitis, not elsewhere classified (principal); G89.4 Chronic pain syndrome; M51.36 Other intervertebral disc degeneration, lumbar region; M47.816 Spondylosis without myelopathy or radiculopathy, lumbar region; G60.9 Hereditary and idiopathic neuropathy, unspecified; M05.9 Rheumatoid arthritis with rheumatoid factor, unspecified; Z79.891 Long term (current) use of opiate analgesic; Z79.899 Other long term (current) drug therapy | CPT/HCPCS: 99212 ==

== ENCOUNTER → 2022-08-07 09:24 | Outpatient (BNVA) | payer OTHER, SELFPAY | PROVIDERS: PCP Internal Medicine; Visit Provider Anesthesiology | DX: Z51.81 Encounter for therapeutic drug level monitoring (principal); F11.20 Opioid dependence, uncomplicated; M46.1 Sacroiliitis, not elsewhere classified; M51.36 Other intervertebral disc degeneration, lumbar region; M47.816 Spondylosis without myelopathy or radiculopathy, lumbar region; M05.9 Rheumatoid arthritis with rheumatoid factor, unspecified; G60.9 Hereditary and idiopathic neuropathy, unspecified; G89.4 Chronic pain syndrome | CPT/HCPCS: 99212 ==

== ENCOUNTER 2022-08-20 06:19 | Outpatient (REF) | payer OTHER, SELFPAY ==
--- NOTE | ~2022-08-20 | FL_ITS ---
EXAMINATION: XR FLUOROSCOPY WITH IMAGES CLINICAL INFORMATION: Sacrococcygeal disorder. COMPARISON: None. TECHNIQUE: Fluoroscopy Supervised By: Dr. Jason Ceron. Fluoroscopy Time: 0.1 minutes. Cumulative Dose: 1.38 mGy. DAP: 0.378 Gycm2. Images: 1. FINDINGS: Needle and contrast seen overlying the right sacroiliac joint. FL/FL guidance in treatment room IMPRESSION: Intraoperative fluoroscopy for pain management procedure.
== END 2022-08-20 06:20 | disposition home or self-care (01) ==
LOC: CF 06:19
PROVIDERS: Visit Provider Anesthesiology
DX: M53.3 Sacrococcygeal disorders, not elsewhere classified (principal); M46.1 Sacroiliitis, not elsewhere classified; M51.36 Other intervertebral disc degeneration, lumbar region; M47.816 Spondylosis without myelopathy or radiculopathy, lumbar region; G60.9 Hereditary and idiopathic neuropathy, unspecified; G89.4 Chronic pain syndrome
CPT/HCPCS: 27096

== ENCOUNTER → 2022-08-29 11:36 | Outpatient (BNVA) | payer OTHER, SELFPAY | PROVIDERS: PCP Internal Medicine; Visit Provider Anesthesiology | DX: Z13.89 Encounter for screening for other disorder (principal) ==

== ENCOUNTER → 2022-09-09 09:21 | Outpatient (BNVA) | payer OTHER, SELFPAY | PROVIDERS: PCP Internal Medicine; Visit Provider Anesthesiology | DX: G89.4 Chronic pain syndrome (principal); M46.1 Sacroiliitis, not elsewhere classified; M51.36 Other intervertebral disc degeneration, lumbar region; M47.816 Spondylosis without myelopathy or radiculopathy, lumbar region; G60.9 Hereditary and idiopathic neuropathy, unspecified; M05.9 Rheumatoid arthritis with rheumatoid factor, unspecified; Z79.891 Long term (current) use of opiate analgesic | CPT/HCPCS: 99212 ==

== ENCOUNTER 2022-09-24 06:35 | Outpatient (REF) | payer OTHER, SELFPAY ==
--- NOTE | ~2022-09-24 | FL_ITS ---
EXAMINATION: XR FLUOROSCOPY WITH IMAGES CLINICAL INFORMATION: M53.3 - Sacrococcygeal disorders, not elsewhere classified COMPARISON: Radiograph pelvis 02/25/2022 TECHNIQUE: Fluoroscopy Supervised By: Dr. Jason Ceron. Fluoroscopy Time: Under 1 minute. Cumulative Dose: 2.16 mGy. DAP: 0.588 Gycm2. Images: 1. FINDINGS: Spinal needle overlies mid right SI joint. There is contrast in the periarticular soft tissues with probable early intra-articular contrast. No vasculature communication appreciated. FL/FL guidance in treatment room IMPRESSION: Fluoroscopy for pain management procedure.
== END 2022-09-24 06:36 | disposition home or self-care (01) ==
LOC: CF 06:35
PROVIDERS: Visit Provider Anesthesiology
DX: M53.3 Sacrococcygeal disorders, not elsewhere classified (principal); M46.1 Sacroiliitis, not elsewhere classified; M51.36 Other intervertebral disc degeneration, lumbar region; M47.816 Spondylosis without myelopathy or radiculopathy, lumbar region; G60.9 Hereditary and idiopathic neuropathy, unspecified; G89.4 Chronic pain syndrome; M05.9 Rheumatoid arthritis with rheumatoid factor, unspecified
CPT/HCPCS: 27096

== ENCOUNTER → 2022-10-07 09:17 | Outpatient (BNVA) | payer OTHER, SELFPAY | PROVIDERS: PCP Internal Medicine; Visit Provider Anesthesiology | DX: Z51.81 Encounter for therapeutic drug level monitoring (principal); F11.20 Opioid dependence, uncomplicated | CPT/HCPCS: 99211 ==

== ENCOUNTER 2022-10-07 10:19 | Outpatient (REF) | payer OTHER, SELFPAY ==
[2022-10-07 14:03] LABS: MANUAL DIFF FLAG NO
[2022-10-07 14:22] LABS: Basophils Absolute Auto 0.1 X10*3/uL (0.0-0.2); Basophils Percent Auto 0.6 % (0-2); Eosinophils Absolute Auto 0.1 X10*3/uL (0.0-0.4); Eosinophils Percent Auto 0.6 % (0-4); Hematocrit 41.2 % (37.0-47.0); Hemoglobin 13.7 g/dl (12.0-16.0); Imm Gran Abs Auto 0.03 X10*3/uL (0.00-0.03); Imm Gran Pct Auto 0.3 % (0.0-0.4); Lymphocytes Absolute Auto 1.7 X10*3/uL (1.2-4.9); Lymphocytes Percent Auto 18.8 % (20-40); Mean Corpuscular HGB Conc 33.3 g/dl (31.0-35.0); Mean Corpuscular Hemoglobin 31.6 pg (27.0-33.0); Mean Corpuscular Volume 94.9 fL (80.0-98.0); Mean Platelet Volume 9.7 fL (9.4-12.3); Monocytes Absolute Auto 0.6 X10*3/uL (0.1-1.2); Monocytes Percent Auto 6.4 % (2-11); Neutrophils Absolute Auto 6.6 x10*3/uL (2.0-8.3); Neutrophils Percent Auto 73.3 % (45-73); Platelet Count 262 X10*3/uL (160-400); Red Blood Count 4.34 X10*6/uL (4.20-5.50); Red Cell Distribution Width 13.4 % (11.0-16.0)
[2022-10-07 14:35] LABS: Alanine Aminotransferase 17 U/L (0-31); Aspartate Amino Transferase 16 U/L (5-31); C Reactive Protein < 0.10 mg/dL (< or = 0.50); Estimated Glomerular Filt Rate > 60
[2022-10-07 15:23] LABS: Erythrocyte Sedimentation Rate 9 MM/HR (0-20)
== END 2022-10-07 10:20 | disposition home or self-care (01) ==
LOC: HO.10HDL 10:19
PROVIDERS: Visit Provider Nurse Practitioner Family
DX: M05.9 Rheumatoid arthritis with rheumatoid factor, unspecified (principal); Z79.899 Other long term (current) drug therapy
CPT/HCPCS: 36415; 82565; 84450; 84460; 85025; 85652; 86140

== ENCOUNTER → 2022-10-10 10:19 | Outpatient (BNVA) | payer OTHER, SELFPAY | PROVIDERS: PCP Family Medicine; Visit Provider Nurse Practitioner Family | DX: M05.9 Rheumatoid arthritis with rheumatoid factor, unspecified (principal); M47.27 Other spondylosis with radiculopathy, lumbosacral region | CPT/HCPCS: 99212 ==

== ENCOUNTER 2022-10-18 10:43 | Outpatient (REF) | payer OTHER, SELFPAY ==
--- NOTE | ~2022-10-18 | MM_ITS ---
EXAMINATION: BONE DENSITOMETRY CLINICAL INDICATION: Rheumatoid arthritis, unspecified. COMPARISON: Previous BD dated 04/12/2014 and baseline BD dated 11/07/2011. TECHNIQUE: Using a MADS DXA System (software version: 13.1) manufactured by [employer], dual-energy x-ray absorptiometry was performed of the lumbar spine and left hip. The images are of good technical quality. Summary results are attached. FINDINGS: AP SPINE L1-L4 (excluding L3): The data of L1-L4 has been changed to exclude the L3 vertebral body, because degenerative changes at this level may cause overestimation of lumbar spine density. Current: BMD 1.004 g/cm2, Z-score 0.1, T-score -1.4, osteopenia, 13.3% decrease from previous, 11.5% decrease from baseline (<5% change is not significant). Prior: BMD 1.158 g/cm2. Baseline: BMD 1.134 g/cm2. LEFT FEMUR, NECK: Current: BMD 0.833 g/cm2, Z-score -0.1, T-score -1.5, osteopenia. Prior: BMD 0.929 g/cm2. Baseline: BMD 0.907 g/cm2. LEFT FEMUR, TOTAL: Current: BMD 0.849 g/cm2, Z-score -0.2, T-score -1.3, osteopenia, 15.7% decrease from previous, 17.9% decrease from baseline (<5% change is not significant). Prior: BMD 1.007 g/cm2. Baseline: BMD 1.034 g/cm2. IDENTIFIED RISK FACTORS: Thiazide, menopause, history of fracture (adult), rheumatoid arthritis, osteoporosis, tobacco use (current smoker), height loss, low calcium intake. HISTORY OF FRACTURE: Ribs. MEDICATIONS: None listed. MM/XR DEXA axial skeleton IMPRESSION: 1. DIAGNOSIS: Osteopenia based on the lowest T-score value of -1.5 in the femoral neck applying World Health Organization criteria. 2. 10-YEAR FRACTURE RISK PREDICTION, FRAX: Major osteoporotic fracture (clinical spine, forearm, hip or shoulder) 19.1%. Hip fracture 3.7%. 3. Treatment Recommendations: NOF guidelines recommend consideration for treatment in postmenopausal women and men age 50 and older presenting with the following: -A hip or vertebral (clinical or morphometric) fracture. -T-score less than or equal to -2.5 at the femoral neck or spine after appropriate evaluation to exclude secondary causes. -Low bone mass at the hip or spine and a 10-year fracture probability by FRAX of greater than or equal to 3% for hip fracture or greater than or equal to 20% for major osteoporotic fracture based on the [place] adapted WHO algorithm. 4. Other Recommendations: All treatment decisions require clinical judgment and consideration of individual patient factors, including patient preferences, comorbidities, previous drug use, risk factors not captured in the FRAX model (e.g. frailty, falls, vitamin D deficiency, increased bone turnover, interval significant decline in bone density) and possible under or overestimation of fracture risk by FRAX. Additional medical evaluation for secondary cause of low bone mineral density may be appropriate. FUTURE SCAN RECOMMENDATION: People with diagnosed cases of osteoporosis or at high risk for fracture should have regular bone mineral density tests. For patients eligible for Medicare, routine testing is allowed once every 2 years. The testing frequency can be increased to one year for patients who have rapidly progressing disease, those who are receiving or discontinuing medical therapy to restore bone mass, or have additional risk factors.
== END 2022-10-18 10:44 | disposition home or self-care (01) ==
LOC: HO.MAMMO 10:43
PROVIDERS: PCP Internal Medicine; Visit Provider Nurse Practitioner Family
DX: Z13.820 Encounter for screening for osteoporosis (principal); M06.9 Rheumatoid arthritis, unspecified; Z78.0 Asymptomatic menopausal state
CPT/HCPCS: 77080

== ENCOUNTER → 2022-10-23 13:08 | Outpatient (BNVA) | payer OTHER, SELFPAY | PROVIDERS: PCP Internal Medicine; Visit Provider Anesthesiology | DX: M46.1 Sacroiliitis, not elsewhere classified (principal); M51.36 Other intervertebral disc degeneration, lumbar region; M47.816 Spondylosis without myelopathy or radiculopathy, lumbar region; M05.9 Rheumatoid arthritis with rheumatoid factor, unspecified; G60.9 Hereditary and idiopathic neuropathy, unspecified; G89.4 Chronic pain syndrome | CPT/HCPCS: 99212 ==

== ENCOUNTER → 2022-10-25 07:27 | Outpatient (BNVA) | payer OTHER, SELFPAY | PROVIDERS: PCP Internal Medicine; Visit Provider Nurse Practitioner Family | DX: M05.9 Rheumatoid arthritis with rheumatoid factor, unspecified (principal) | CPT/HCPCS: 99212 ==

== ENCOUNTER 2022-10-25 08:37 | Outpatient (REF) | payer OTHER, SELFPAY ==
[2022-10-25 11:29] LABS: Blood Urea Nitrogen 24 mg/dL (9-16); Calcium 9.3 mg/dL (8.4-10.2)
[2022-10-25 11:46] LABS: Vitamin D 25-OH Total 54.7 ng/mL (>30)
== END 2022-10-25 08:38 | disposition home or self-care (01) ==
LOC: HO.10HDL 08:37
PROVIDERS: Visit Provider Nurse Practitioner Family
DX: M85.80 Other specified disorders of bone density and structure, unspecified site (principal)
CPT/HCPCS: 36415; 82306; 82310; 84520

== ENCOUNTER → 2022-11-04 13:41 | Outpatient (BNVA) | payer OTHER, SELFPAY | PROVIDERS: PCP Internal Medicine; Visit Provider Anesthesiology | DX: Z51.81 Encounter for therapeutic drug level monitoring (principal); F11.20 Opioid dependence, uncomplicated; M46.1 Sacroiliitis, not elsewhere classified; M51.36 Other intervertebral disc degeneration, lumbar region; M47.816 Spondylosis without myelopathy or radiculopathy, lumbar region; M05.9 Rheumatoid arthritis with rheumatoid factor, unspecified; G60.9 Hereditary and idiopathic neuropathy, unspecified; G89.4 Chronic pain syndrome | CPT/HCPCS: 99212 ==

== ENCOUNTER → 2022-11-26 11:00 | Outpatient (BNVA) | payer OTHER, SELFPAY | PROVIDERS: PCP Internal Medicine; Visit Provider Nurse Practitioner Family ==

== ENCOUNTER → 2022-12-03 11:22 | Outpatient (BNVA) | payer OTHER, SELFPAY | PROVIDERS: PCP Internal Medicine; Visit Provider Anesthesiology | DX: Z79.891 Long term (current) use of opiate analgesic (principal) | CPT/HCPCS: 99211 ==

== ENCOUNTER → 2023-01-01 11:06 | Outpatient (BNVA) | payer OTHER, SELFPAY | PROVIDERS: PCP Internal Medicine; Visit Provider Anesthesiology | DX: Z51.81 Encounter for therapeutic drug level monitoring (principal); F11.20 Opioid dependence, uncomplicated; M46.1 Sacroiliitis, not elsewhere classified; M51.36 Other intervertebral disc degeneration, lumbar region; M47.816 Spondylosis without myelopathy or radiculopathy, lumbar region; M05.9 Rheumatoid arthritis with rheumatoid factor, unspecified; G60.9 Hereditary and idiopathic neuropathy, unspecified; G89.4 Chronic pain syndrome | CPT/HCPCS: 99212 ==

== ENCOUNTER 2023-01-01 12:13 | Outpatient (REF) | payer OTHER, SELFPAY ==
[2023-01-01 13:33] LABS: MANUAL DIFF FLAG NO
[2023-01-01 13:40] LABS: Basophils Percent Auto 0.4 % (0-2); Eosinophils Absolute Auto 0.1 X10*3/uL (0.0-0.4); Eosinophils Percent Auto 0.7 % (0-4); Hematocrit 36.7 % (37.0-47.0); Hemoglobin 12.4 g/dl (12.0-16.0); Imm Gran Abs Auto 0.03 X10*3/uL (0.00-0.03); Imm Gran Pct Auto 0.4 % (0.0-0.4); Lymphocytes Absolute Auto 1.4 X10*3/uL (1.2-4.9); Lymphocytes Percent Auto 18.9 % (20-40); Mean Corpuscular HGB Conc 33.8 g/dl (31.0-35.0); Mean Corpuscular Hemoglobin 31.9 pg (27.0-33.0); Mean Corpuscular Volume 94.3 fL (80.0-98.0); Mean Platelet Volume 9.9 fL (9.4-12.3); Monocytes Absolute Auto 0.5 X10*3/uL (0.1-1.2); Monocytes Percent Auto 6.5 % (2-11); Neutrophils Absolute Auto 5.5 x10*3/uL (2.0-8.3); Neutrophils Percent Auto 73.1 % (45-73); Platelet Count 199 X10*3/uL (160-400); Red Blood Count 3.89 X10*6/uL (4.20-5.50); Red Cell Distribution Width 12.7 % (11.0-16.0); White Blood Count 7.5 X10*3/uL (4.8-10.8)
[2023-01-01 14:29] LABS: Alanine Aminotransferase 11 U/L (0-31); Albumin Level 3.9 g/dL (3.5-5.0); Alkaline Phosphatase 67 U/L (39-117); Anion Gap 14 (12-20); Aspartate Amino Transferase 12 U/L (5-31); Bilirubin Total 0.5 mg/dL (0.0-1.0); Blood Urea Nitrogen 31 mg/dL (9-16); Calcium 9.9 mg/dL (8.4-10.2); Carbon Dioxide 25 mmol/L (22-29); Chloride 106 mmol/L (96-108); Estimated Glomerular Filt Rate 57; Glucose Random 98 mg/dL (60-115); Potassium 4.5 mmol/L (3.3-5.1); Sodium 140 mmol/L (135-145); Total Protein 6.6 g/dL (6.5-8.0)
[2023-01-01 14:34] LABS: Erythrocyte Sedimentation Rate 12 MM/HR (0-20)
== END 2023-01-01 12:14 | disposition home or self-care (01) ==
LOC: HO.10HDL 12:13
PROVIDERS: Visit Provider Nurse Practitioner Family
DX: M05.9 Rheumatoid arthritis with rheumatoid factor, unspecified (principal)
CPT/HCPCS: 36415; 80053; 85025; 85652; 86140

== ENCOUNTER 2023-01-30 09:51 | Outpatient (AMB) | payer OTHER, SELFPAY ==
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
[2023-01-30 10:04] VITALS: BP 155/90; PULSE 65; O2SAT 97; BMI 26.6
== END 2023-01-30 10:14 | disposition home or self-care (01) ==
PROVIDERS: PCP Internal Medicine; Visit Provider Nurse Practitioner Family
DX: M46.1 Sacroiliitis, not elsewhere classified (principal); M51.36 Other intervertebral disc degeneration, lumbar region; M47.816 Spondylosis without myelopathy or radiculopathy, lumbar region; G89.4 Chronic pain syndrome; M53.3 Sacrococcygeal disorders, not elsewhere classified
CPT/HCPCS: 99214

== ENCOUNTER → 2023-01-30 09:51 | Outpatient (BNVA) | payer OTHER, SELFPAY | PROVIDERS: PCP Internal Medicine; Visit Provider Nurse Practitioner Family | DX: Z51.81 Encounter for therapeutic drug level monitoring (principal); F11.20 Opioid dependence, uncomplicated; M46.1 Sacroiliitis, not elsewhere classified; M51.36 Other intervertebral disc degeneration, lumbar region; M47.816 Spondylosis without myelopathy or radiculopathy, lumbar region; M53.3 Sacrococcygeal disorders, not elsewhere classified; G89.4 Chronic pain syndrome | CPT/HCPCS: 99212 ==

== ENCOUNTER 2023-02-27 09:29 | Outpatient (AMB) | payer OTHER, SELFPAY ==
--- NOTE | 2023-02-27 09:33 | A.OFFVIS_ITS ---
Intake Vital Signs 02/27/23 09:41 Height 5 ft 5 in Weight 164 lb 2 oz BMI 27.3 BP 128/76 Blood Pressure Location Lt brachial Position Sitting Respiration 18 Pulse 72 Pulse Source Pulse Oximeter Pulse Oximetry (%) 100 Oxygen Delivery Method Room Air Intake Visit Reasons: PILL COUNT Intake Note: patient comes in for pill count to oxycodone. Allergies sarilumab [From Kevzara] Allergy (Severe, Verified 02/27/23 09:40) blistery rash gabapentin Allergy (Intermediate, Verified 02/27/23 09:40) rash pregabalin Allergy (Intermediate, Verified 02/27/23 09:40) rash tofacitinib [Xeljanz] Allergy (Intermediate, Verified 02/27/23 09:40) Rash HPI HPI Comments History of Present Illness Details Raquel is in the office for t the follow-up and pill count.? She came today for the pill count: She is supposed to have 72 pills in her possession. She presented with 74 pills in her possession. She complains on new pain in the projection of the thoracic spine spreading in between T5 and T10 vertebra as. She reports that on palpation approximately T5-T8 and T10 vertebra is are tender. Paraspinal and spinal region tender at the same time. She had therapeutic SI joint injection which was performed on 09/24/2022.? She reported 4 weeks of pain reduction about 50% her pain level became 3/10 before the injection it was 6/10.? She reports about her sacroiliac joint pain that the pain is more it tends now however it is less frequent. I offered her to perform therapeutic T7-T8 T9 medial branch block. I will schedule her for this procedure. Again we discussed PNS for sacroiliac joint. And again she stated that she would not accept any implantable device. Prior:? the results of sacroiliac joint injections which was done on 08/20/2022.She reports this particular pain 100% pain relief to hours after the procedure.? She enjoyed very minimal pain in the right joint area for the next 4 hours after the procedure.? She reported very good pain relief for total of 6 hours after the procedure and she said that she was able to sleep through the night without waking up from the pain the night after the injection.? I gave her options of peripheral nerve stimulation versus steroid injections and she chose to go for steroid injections.? I will schedule her for this procedure without sedation.? he patient complains on pain in the right side of the lower back with radiation into the right buttock.? Jay test pelvis destruction test and pelvis compression test as well as Stinchfield test are positive for right sacroiliac joint information.? I offered her to perform sacroiliac joint injection diagnostic on the right.? ?From time to time she is riding 5 miles on her stationary bike.?. PFSH Medical History Carpal tunnel syndrome, bilateral Chronic pain syndrome COVID-19 vaccine series completed Disc degeneration, lumbar Fluid retention in legs Idiopathic peripheral neuropathy jail (current) use of opiate analgesic Rheumatoid arthritis Sacroiliac joint dysfunction of right side Sacroiliitis Seropositive rheumatoid arthritis Spondylosis of lumbar region without myelopathy or radiculopathy Surgical History H/O hernia repair H/O lithotripsy History of left knee replacement History of meniscectomy of left knee Hx of laparoscopy Hx of shoulder surgery Family History Father Esophagus cancer Mother CVD (cardiovascular disease) Brother CVD (cardiovascular disease) Diabetes Social History Alcohol intake: never Patient Tobacco Use Status: Current everyday Tobacco user Tobacco use type: Cigarette Cigarettes Per Day: 12 Years Smoked: 40 Advance Directives Date on File: 04/11/20 Review of Systems Const All systems reviewed & are unremarkable except as noted in HPI and below ENT Reports Normal hearing present Neuro Reports Normal hearing present, Denies Abnormal speech present and Denies confusion Psych Denies confusion Physical Exam Vital Signs: Last Vital Signs Pulse 72 02/27/23 09:41 Resp 18 02/27/23 09:41 BP 128/76 02/27/23 09:41 Pulse Ox 100 02/27/23 09:41 Oxygen Delivery Method Room Air 02/27/23 09:41 BMI result Body Mass Index 27.3 Const General: cooperative, healthy appearing, no acute distress, alert, awake and well groomed; No confusion Nutritional Appearance: average body habitus and well nourished Orientation/consciousness: No confusion Limitations: ambulation with cane HEENT Head: Yes normocephalic and Yes atraumatic Ears: hearing grossly normal bilaterally Eyes General: appearance normal, both eyes and all related structures Eyelids: Yes eyelids normal Pupils: Equal, round and reactive pupils present EOM: EOMs intact bilaterally Neck Neck: Yes normal visual inspection and Yes no JVD Chest Chest palpation & inspection: normal inspection of the chest Resp Effort & Inspection: normal respiratory effort, able to speak in complete sentences, normal respiratory pattern, no audible wheezes, no cough, respiratory effort not decreased and no grunting Cardio Jugular venous distension: no JVD GI Inspection: Yes normal to inspection Back/Spine/Pelvis Other: Tenderness on palpation in paraspinal spinal region thoracic spine projection of the T5-T8 and T10 vertebra as. Neuro General: No confusion Cranial nerves: Yes Equal, round and reactive pupils present and Yes Normal hearing present Cognition (Neuro): normal cognition Speech: No Abnormal speech present Assessment & Plan Assessment & Plan (1) Sacroiliitis: Code(s): M46.1 - Sacroiliitis, not elsewhere classified (2) Disc degeneration, lumbar: Code(s): M51.36 - Other intervertebral disc degeneration, lumbar region (3) Spondylosis of lumbar region without myelopathy or radiculopathy: Code(s): M47.816 - Spondylosis without myelopathy or radiculopathy, lumbar region (4) Idiopathic peripheral neuropathy: Code(s): G60.9 - Hereditary and idiopathic neuropathy, unspecified (5) Chronic pain syndrome: Code(s): G89.4 - Chronic pain syndrome (6) Seropositive rheumatoid arthritis: Comment: Humira- 09/2013-02/2014 Methotrexate - 05/2016-11/2015 Sulfasalazine 09/2012-02/2014 Arava- 04/2016-04/2017 Xeljanz- 12/2013-06/2014 -tunnel vision Kevzara- 06/2018-03/2020 Olumiant- 05/2020- present Code(s): M05.9 - Rheumatoid arthritis with rheumatoid factor, unspecified (7) Spondylosis of thoracic spine: Code(s): M47.814 - Spondylosis without myelopathy or radiculopathy, thoracic region (8) Spondylosis of thoracic region without myelopathy or radiculopathy: Code(s): M47.814 - Spondylosis without myelopathy or radiculopathy, thoracic region Plan Diagnostic sacroiliac joint injection resulted in very good pain relief for the next 6 hours after the procedure. Given the choice between PNS and sacroiliac joint steroid injections patient chose to go for steroid injections. Steroid injection in the sacroiliac joint resulted in 1 month of sustained 50% pain relief. Now she reports that her pain is back from the sacroiliac joint, she reports more intense pain in the sacroiliac joint but the pain is less frequent than before. I offered her again PNS but she rejected it. As of her pain in the thoracic spine I offered her therapeutic T6-T7 T8 MBB. This will be scheduled without sedation. The medication will be renewed for her as oxycodone 10 mg 4 times a day on 03/17/2023 She was send today for the random UDS to be performed within 2 hours of the appointment. Next appointment in 1 month. Medications: Refilled oxycodone 10 mg PO Q6H PRN 120 tabs 0RF pain, severe 30 days G89.4 - Chronic pain syndrome, M25.551 - Pain in right hip, M25.552 - Pain in left hip, M47.27 - Other spondylosis with radiculopathy, lumbosacral region, M54.2 - Cervicalgia, Z79.891 - jail (current) use of opiate analgesic Coding Level of Care Code Est Pt Level 4 (99577) Diagnoses Sacroiliitis M46.1 Disc degeneration, lumbar M51.36 Spondylosis of lumbar region without myelopathy or radiculopathy M47.816 Idiopathic peripheral neuropathy G60.9 Chronic pain syndrome G89.4 Seropositive rheumatoid arthritis M05.9 Spondylosis of thoracic spine M47.814 Spondylosis of thoracic region without myelopathy or radiculopathy M47.814
[2023-02-27 09:41] VITALS: BP 128/76; PULSE 72; RESP 18; O2SAT 100; BMI 27.3
== END 2023-02-27 09:48 | disposition home or self-care (01) ==
PROVIDERS: PCP Internal Medicine; Visit Provider Anesthesiology
DX: M46.1 Sacroiliitis, not elsewhere classified (principal); M51.36 Other intervertebral disc degeneration, lumbar region; M47.816 Spondylosis without myelopathy or radiculopathy, lumbar region; G60.9 Hereditary and idiopathic neuropathy, unspecified; G89.4 Chronic pain syndrome; M05.9 Rheumatoid arthritis with rheumatoid factor, unspecified; M47.814 Spondylosis without myelopathy or radiculopathy, thoracic region
CPT/HCPCS: 99214

== ENCOUNTER → 2023-02-27 09:29 | Outpatient (BNVA) | payer OTHER, SELFPAY | PROVIDERS: PCP Internal Medicine; Visit Provider Anesthesiology | DX: M85.80 Other specified disorders of bone density and structure, unspecified site (principal); M47.27 Other spondylosis with radiculopathy, lumbosacral region; M05.9 Rheumatoid arthritis with rheumatoid factor, unspecified; M46.1 Sacroiliitis, not elsewhere classified; M51.36 Other intervertebral disc degeneration, lumbar region; M47.816 Spondylosis without myelopathy or radiculopathy, lumbar region; G60.9 Hereditary and idiopathic neuropathy, unspecified; G89.4 Chronic pain syndrome; M47.814 Spondylosis without myelopathy or radiculopathy, thoracic region; Z79.60 Long term (current) use of unspecified immunomodulators and immunosuppressants; Z79.891 Long term (current) use of opiate analgesic | CPT/HCPCS: 99212 ==

== ENCOUNTER 2023-02-27 10:06 | Outpatient (AMB) | payer OTHER, SELFPAY ==
[2023-02-27 10:30] VITALS: BP 112/68; PULSE 68; TEMP 36.6; O2SAT 100; BMI 27.4
--- NOTE | 2023-02-27 10:30 | MHC.OFFVIS ---
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 Accompanied by: Self / Same As Patient Allergies sarilumab [From Martinezzara] Allergy (Severe, Verified 02/27/23 10:34) blistery rash gabapentin Allergy (Intermediate, Verified 02/27/23 10:34) rash pregabalin Allergy (Intermediate, Verified 02/27/23 10:34) rash tofacitinib [Xeljanz] Allergy (Intermediate, Verified 02/27/23 10:34) Rash Medication List - Last Reconciled 02/27/23 by Kurt London MD alendronate 70 mg PO QWEEK atorvastatin 10 mg PO DAILY baricitinib (Olumiant) 2 mg PO DAILY duloxetine 60 mg PO DAILY ibuprofen 200 mg PO Q6H PRN naloxone 4 mg/actuation (Narcan) 4 mg intranasal Q2M PRN oxycodone 10 mg PO Q6H PRN 30 days topiramate 100 mg PO BID trazodone 200 mg PO BEDTIME PRN varenicline (Chantix) 1 mg PO BID HPI HPI Comments History of Present Illness Details The patient presents for evaluation of her rheumatoid arthritis, osteopenia and lumbar osteoarthritis. She remains on Olumiant 2 mg daily, alendronate 70 mg weekly, duloxetine 60 mg daily, ibuprofen 200-400 mg t.i.d., oxycodone 10 mg q.6 hours, Topamax 100 b.i.d., trazodone at night, and recently started on Chantix. In general symptoms of peripheral joint pains are well controlled with current treatment. She does have left knee replacement that is occasionally uncomfortable but she walks much better than before the replacement. Most problematic remains the lower back. This seems to bother her with more prolonged standing or walking. There is some radiation down the left leg at times. She has been followed by pain management. [facility], [facility] Medical History Carpal tunnel syndrome, bilateral Chronic pain syndrome COVID-19 vaccine series completed Disc degeneration, lumbar Fluid retention in legs Idiopathic peripheral neuropathy residential (current) use of opiate analgesic Rheumatoid arthritis Sacroiliac joint dysfunction of right side Sacroiliitis Seropositive rheumatoid arthritis Spondylosis of lumbar region without myelopathy or radiculopathy Surgical History H/O hernia repair H/O lithotripsy History of left knee replacement History of meniscectomy of left knee Hx of laparoscopy Hx of shoulder surgery Family History Father Esophagus cancer Mother CVD (cardiovascular disease) Brother CVD (cardiovascular disease) Diabetes Social History Alcohol intake: never Patient Tobacco Use Status: Current everyday Tobacco user Tobacco use type: Cigarette Cigarettes Per Day: 12 Years Smoked: 40 Advance Directives Date on File: 04/11/20 Review of Systems Const Details: Negative for appetite change, weight change, fever, chills, malaise and fatigue Eyes Details: Negative for vision change, dry eyes,headaches and dizziness ENT Details: Negative for hearing change, tinnitus, oral ulcer, nose bleeds and oral dryness. Card Details: Negative chest pain, edema and syncope Resp Details: Negative for SOB, cough and wheezing GI Details: Negative indigestion/heartburn, nausea, abdominal pain, bowel changes, diarrhea, constipation and bloody stool. Endo Details: Negative for polyuria and polydypsia Brendan/Lymph Details: Negative for excessive bruising or bleeding. Physical Exam Vital Signs: Last Vital Signs Temp 97.9 F 02/27/23 10:30 Pulse 68 02/27/23 10:30 BP 112/68 02/27/23 10:30 Pulse Ox 100 02/27/23 10:30 BMI result Body Mass Index 27.4 APPEARANCE: Patient in no acute distress EYES no redness, pupils equal and reactive to light, eyelids normal. No temporal artery tenderness, redness or swelling. Cervical Spine:? Full range of motion without pain; no tenderness. Thoracic Spine: No scoliosis.? No tenderness on palpation. Lumbar Spine:? Alignment normal.? Mild pain with flexion at 60 degrees or attempts at hyperextension. No tenderness. Hands: Right: There is no swelling or tenderness in the MCP joints. There is mild bony enlargement at the thumb IP, all the PIP and the 2nd, 3rd and 5th D IP joints. Only the 2nd and 3rd PIP are slightly tender. Left: Normal pain-free range of motion. There is mild bony enlargement the 2nd, 3rd 5th PIP joints and the 2nd PIP joint. The 3rd PIP is slightly tender. There is no flexor tendon triggering, tenderness, thenar atrophy or sensory loss. Wrists: Left: Normal flexion or extension to 75 degrees with some slight dorsal tenderness but no swelling. Right: Normal pain-free range of motion without tenderness, swelling, increased warmth or erythema. Elbows: Normal pain-free range of motion without tenderness, swelling, increased warmth or erythema. Shoulders:?? Full range of motion without pain. No tenderness, weakness, swelling, increased warmth or erythema. Hips: Full range of motion without pain. Hip bursa:? No tenderness. Knees: LEFT:? Normal pain-free range of motion without tenderness, swelling, increased warmth or erythema.? There is no effusion or crepitation. Healed arthopalsty scar. ? ? ? RIGHT: Normal pain-free range of motion without tenderness, swelling, increased warmth or erythema.? There is no effusion or crepitation. Ankles:? Right: Slight pain with extremes of inversion and eversion with some minimal lateral tenderness but no redness or swelling. Left: Normal pain-free range of motion without tenderness, swelling, increased warmth or erythema. Feet: LEFT:? Normal pain-free range of motion with mild 1st MTP bony enlargement. There are hammertoe deformities in the 2nd through 4th toes but none of these areas a. No redness or warmth.. ? RIGHT:? Very slight cock-up deformity of the 2nd toe, consistent with hammertoe; slight evidence for hammertoe deformities in the 3rd and 4th toes. None of these are tender. The 1st MTP has bony enlargement but no erythema, swelling or warmth noted. ? Results Reviewed Results Reviewed: Laboratory Tests 01/01/23 01/01/23 01/01/23 12:17 12:17 12:17 WBC 7.5 Hgb 12.4 ESR 12 Creatinine 0.98 AST 12 ALT 11 C-Reactive Protein 0.10 Assessment & Plan Assessment & Plan (1) Osteopenia with high risk of fracture: Comment: 10/2022 T-score-1.5 in the femoral neck, major risk for fracture 19.1%, hip fracture 3.7%. Alendronate: 10/2022 - present Code(s): M85.80 - Other specified disorders of bone density and structure, unspecified site (2) Spondylosis of lumbosacral spine with radiculopathy: Code(s): M47.27 - Other spondylosis with radiculopathy, lumbosacral region (3) Long-term use of immunosuppressant medication: Code(s): Z79.60 - residential (current) use of unspecified immunomodulators and immunosuppressants (4) Seropositive rheumatoid arthritis: Comment: Humira- 09/2013-02/2014 Methotrexate - 05/2016-11/2015 Sulfasalazine 09/2012-02/2014 Arava- 04/2016-04/2017 Xeljanz- 12/2013-06/2014 -tunnel vision Kevzara- 06/2018-03/2020 Olumiant- 05/2020- present Code(s): M05.9 - Rheumatoid arthritis with rheumatoid factor, unspecified Plan Rheumatoid arthritis with I think good control of synovitis with current treatment. She does have some minimal changes of OA in the hands and certainly has OA in the lower back region. She seems to tolerate the current medications so we will continue as above. We will check lab work before her next visit in about 2-3 months. I congratulated her on stopping the cigarettes as that could give her some benefit terms of her osteopenia and RA. Coding Level of Care Code Est Pt Level 3 (13206) Diagnoses Osteopenia with high risk of fracture M85.80 Spondylosis of lumbosacral spine with radiculopathy M47.27 Long-term use of immunosuppressant medication Z79.60 Seropositive rheumatoid arthritis M05.9
== END 2023-02-27 11:30 | disposition home or self-care (01) ==
PROVIDERS: PCP Internal Medicine; Visit Provider Internal Medicine Rheumatology
DX: M05.79 Rheumatoid arthritis with rheumatoid factor of multiple sites without organ or systems involvement (principal); M85.80 Other specified disorders of bone density and structure, unspecified site; M47.27 Other spondylosis with radiculopathy, lumbosacral region; Z79.622 Long term (current) use of Janus kinase inhibitor; Z79.60 Long term (current) use of unspecified immunomodulators and immunosuppressants
CPT/HCPCS: 99213

== ENCOUNTER 2023-03-18 06:09 | Outpatient (REF) | payer OTHER, SELFPAY ==
--- NOTE | ~2023-03-18 | FL_ITS ---
EXAMINATION: XR FLUOROSCOPY WITH IMAGES CLINICAL INFORMATION: Chronic pain syndrome. COMPARISON: None available. TECHNIQUE: Fluoroscopy Supervised By: Dr. Jason Ceron. Fluoroscopy Time: 0.5 minutes. Cumulative Dose: 8.49 mGy. DAP: 1.76 Gycm2. Images: 6. FINDINGS: Images demonstrate needle placement and contrast injection adjacent to the bilateral lateral lower thoracic vertebral bodies. FL/FL guidance in treatment room IMPRESSION: Fluoroscopic guidance for pain management procedure.
== END 2023-03-18 06:10 | disposition home or self-care (01) ==
LOC: CF 06:09
PROVIDERS: Visit Provider Anesthesiology
DX: G89.4 Chronic pain syndrome (principal); M47.814 Spondylosis without myelopathy or radiculopathy, thoracic region
CPT/HCPCS: 64490; 64491; J3301

== ENCOUNTER 2023-03-18 13:06 | Outpatient (AMB) | payer OTHER, SELFPAY ==
--- NOTE | 2023-03-18 13:45 | A.OFFVIS_ITS ---
Intake Vital Signs 03/18/23 14:35 03/18/23 14:35 Height 5 ft 5 in 5 ft 5 in Weight 164 lb 164 lb BMI 27.3 27.3 BP 104/58 L 112/60 Blood Pressure Location Rt brachial Lt brachial Position Sitting Sitting Respiration 16 16 Pulse 74 70 Pulse Source Pulse Oximeter Pulse Oximeter Pulse Oximetry (%) 98 98 Oxygen Delivery Method Room Air Room Air Comment pre-op post-op Intake Visit Reasons: Bilateral Therapeutic T8-T9-T10 MBB/ LOCAL Allergies sarilumab [From Kevzara] Allergy (Severe, Verified 03/18/23 14:37) blistery rash gabapentin Allergy (Intermediate, Verified 03/18/23 14:37) rash pregabalin Allergy (Intermediate, Verified 03/18/23 14:37) rash tofacitinib [Xeljanz] Allergy (Intermediate, Verified 03/18/23 14:37) Rash PFSH Medical History Carpal tunnel syndrome, bilateral Chronic pain syndrome COVID-19 vaccine series completed Disc degeneration, lumbar Fluid retention in legs Idiopathic peripheral neuropathy correction (current) use of opiate analgesic Rheumatoid arthritis Sacroiliac joint dysfunction of right side Sacroiliitis Seropositive rheumatoid arthritis Spondylosis of lumbar region without myelopathy or radiculopathy Surgical History H/O hernia repair H/O lithotripsy History of left knee replacement History of meniscectomy of left knee Hx of laparoscopy Hx of shoulder surgery Family History Father Esophagus cancer Mother CVD (cardiovascular disease) Brother CVD (cardiovascular disease) Diabetes Social History Alcohol intake: never Patient Tobacco Use Status: Current everyday Tobacco user Tobacco use type: Cigarette Cigarettes Per Day: 12 Years Smoked: 40 Advance Directives Date on File: 04/11/20 Physical Exam Vital Signs: Last Vital Signs Pulse 70 03/18/23 14:35 Resp 16 03/18/23 14:35 BP 112/60 03/18/23 14:35 Pulse Ox 98 03/18/23 14:35 Oxygen Delivery Method Room Air 09/12/23 14:35 BMI result Body Mass Index 27.3 Assessment & Plan Assessment & Plan (1) Spondylosis of thoracic region without myelopathy or radiculopathy: Code(s): M47.814 - Spondylosis without myelopathy or radiculopathy, thoracic region Plan: Therapeutic medial branch block thoracic T8-T9-T10 bilateral.? ? ?Informed consent was explained to the patient. All questions were explained and? answered.? The patient was taken inside the operating room where she was positioned prone on the operating table. Time-out was performed delineating correct site, side, the nature of the procedure, patient's allergy, . All operating room staff was participating in OR time-out procedure. ? ? The lower back was prepped with ChloraPrep and draped with sterile towels.? C- arm was brought over the operating field and sq picture of T8-T9-T10 vertebra were delineated on the screen.? Point of interest were delineated as MOST LATERAL AND MOST SUPERIOR POINTS of the transverse processes of the above named vertebrae bilaterally. The projection of the point of interest to the skin were injected with the small amount of local anesthetic lidocaine 2% 1-1.5 cc.? After that 22 gauge 3.5 inch spinal needle was driven sequentially to the points of interest in tunnel vision fashion. After needles gently contacted the bone at the point of interests the needle was injected with small amount of the contrast.? The injection of the contrast did not demonstrate any intravascular, pleural or intrathecal spread of the contrast.? After that injection of the? ropivacaine 0.5%-1cc mixed with kenalog was performed at each needle location.?total dose of kenalog was 60 mg.?After that the needle was removed and Bandaids were applied. Orders: Orders FL guidance in treatment room Today G89.4 - Chronic pain syndrome Coding Level of Care Code Procedure Only Diagnoses Spondylosis of thoracic region without myelopathy or radiculopathy M47.814
[2023-03-18 14:35] VITALS: BP 104/58; BP 112/60; PULSE 70; PULSE 74; RESP 16; O2SAT 98; BMI 27.3
== END 2023-03-18 13:50 | disposition home or self-care (01) ==
LOC: HO.PMCPRC 13:06
PROVIDERS: PCP Internal Medicine; Visit Provider Anesthesiology
DX: M47.814 Spondylosis without myelopathy or radiculopathy, thoracic region (principal)
CPT/HCPCS: 64490; 64491

== ENCOUNTER 2023-03-27 08:52 | Outpatient (AMB) | payer OTHER, SELFPAY ==
--- NOTE | 2023-03-27 08:54 | A.OFFVIS_ITS ---
Intake Vital Signs 03/27/23 09:04 Height 5 ft 5 in Weight 163 lb BMI 27.1 BP 138/66 Blood Pressure Location Rt brachial Position Sitting Respiration 16 Pulse 68 Pulse Source Pulse Oximeter Pulse Oximetry (%) 100 Oxygen Delivery Method Room Air Intake Visit Reasons: Pill Count/Lvm Intake Note: patient comes in for pill count. Allergies sarilumab [From Kevzara] Allergy (Severe, Verified 03/27/23 09:05) blistery rash gabapentin Allergy (Intermediate, Verified 03/27/23 09:05) rash pregabalin Allergy (Intermediate, Verified 03/27/23 09:05) rash tofacitinib [Xeljanz] Allergy (Intermediate, Verified 03/27/23 09:05) Rash HPI HPI Comments History of Present Illness Details Raquel is in the office for t the follow-up and pill count.? She came today for the pill count: She is supposed to have 80 pills in her possession. She presented with 78 pills in her possession. She reported that she took couple of extra pain medications yesterday because she had to go for very large shopping. I advised her that the next time if she feels some extra pain it better if she will take some NSAIDs and or Tylenol. We performed 10 days ago therapeutic T8-T9 T10 medial branch block bilateral. She reports in general very good pain relief in the area she reports in the projection of T5 vertebra still significant tenderness and pain. We could not possibly be able to do the procedure on her this widespread. But overall she reports that her pain in the lower thoracic spine is much better. She had therapeutic SI joint injection which was performed on 09/24/2022.? She reported 4 weeks of pain reduction about 50% her pain level became 3/10 before the injection it was 6/10.? She reports about her sacroiliac joint pain that the pain is more it tends now however it is less frequent. In the past we discussed PNS for sacroiliac joint. she stated that she would not accept any implantable device. Prior:? the results of sacroiliac joint injections which was done on 08/20/2022.She reports this particular pain 100% pain relief to hours after the procedure.? She enjoyed very minimal pain in the right joint area for the next 4 hours after the procedure.? She reported very good pain relief for total of 6 hours after the procedure and she said that she was able to sleep through the night without waking up from the pain the night after the injection.? I gave her options of peripheral nerve stimulation versus steroid injections and she chose to go for steroid injections.? I will schedule her for this procedure without sedation.? he patient complains on pain in the right side of the lower back with radiation into the right buttock.? Jay test pelvis destruction test and pelvis compression test as well as Stinchfield test are positive for right sacroiliac joint information.? I offered her to perform sacroiliac joint injection diagnostic on the right.? ?From time to time she is riding 5 miles on her stationary bike.?. [facility] Medical History Carpal tunnel syndrome, bilateral Chronic pain syndrome COVID-19 vaccine series completed Disc degeneration, lumbar Fluid retention in legs Idiopathic peripheral neuropathy group home (current) use of opiate analgesic Rheumatoid arthritis Sacroiliac joint dysfunction of right side Sacroiliitis Seropositive rheumatoid arthritis Spondylosis of lumbar region without myelopathy or radiculopathy Surgical History H/O hernia repair H/O lithotripsy History of left knee replacement History of meniscectomy of left knee Hx of laparoscopy Hx of shoulder surgery Family History Father Esophagus cancer Mother CVD (cardiovascular disease) Brother CVD (cardiovascular disease) Diabetes Social History Alcohol intake: never Patient Tobacco Use Status: Current everyday Tobacco user Tobacco use type: Cigarette Cigarettes Per Day: 12 Years Smoked: 40 Advance Directives Date on File: 04/11/20 Review of Systems Const All systems reviewed & are unremarkable except as noted in HPI and below ENT Reports Normal hearing present Neuro Reports Normal hearing present, Denies Abnormal speech present and Denies confusion Psych Denies confusion Physical Exam Const General: cooperative, healthy appearing, no acute distress, alert, awake and well groomed; No confusion Nutritional Appearance: average body habitus and well nourished Orientation/consciousness: No confusion Limitations: ambulation with cane HEENT Head: Yes normocephalic and Yes atraumatic Ears: hearing grossly normal bilaterally Eyes General: appearance normal, both eyes and all related structures Eyelids: Yes eyelids normal Pupils: Equal, round and reactive pupils present EOM: EOMs intact bilaterally Neck Neck: Yes normal visual inspection and Yes no JVD Chest Chest palpation & inspection: normal inspection of the chest Resp Effort & Inspection: normal respiratory effort, able to speak in complete sentences, normal respiratory pattern, no audible wheezes, no cough, respiratory effort not decreased and no grunting Cardio Jugular venous distension: no JVD GI Inspection: Yes normal to inspection Back/Spine/Pelvis Other: Tenderness on palpation in paraspinal spinal region thoracic spine projection of the T5-T8 and T10 vertebra as. Neuro General: No confusion Cranial nerves: Yes Equal, round and reactive pupils present and Yes Normal hearing present Cognition (Neuro): normal cognition Speech: No Abnormal speech present Assessment & Plan Assessment & Plan (1) Sacroiliitis: Code(s): M46.1 - Sacroiliitis, not elsewhere classified (2) Disc degeneration, lumbar: Code(s): M51.36 - Other intervertebral disc degeneration, lumbar region (3) Spondylosis of lumbar region without myelopathy or radiculopathy: Code(s): M47.816 - Spondylosis without myelopathy or radiculopathy, lumbar region (4) Idiopathic peripheral neuropathy: Code(s): G60.9 - Hereditary and idiopathic neuropathy, unspecified (5) Chronic pain syndrome: Code(s): G89.4 - Chronic pain syndrome (6) Seropositive rheumatoid arthritis: Comment: Humira- 09/2013-02/2014 Methotrexate - 05/2016-11/2015 Sulfasalazine 09/2012-02/2014 Arava- 04/2016-04/2017 Xeljanz- 12/2013-06/2014 -tunnel vision Kevzara- 06/2018-03/2020 Olumiant- 05/2020- present Code(s): M05.9 - Rheumatoid arthritis with rheumatoid factor, unspecified (7) Spondylosis of thoracic spine: Code(s): M47.814 - Spondylosis without myelopathy or radiculopathy, thoracic region (8) Spondylosis of thoracic region without myelopathy or radiculopathy: Code(s): M47.814 - Spondylosis without myelopathy or radiculopathy, thoracic region Plan Diagnostic sacroiliac joint injection resulted in very good pain relief for the next 6 hours after the procedure. Given the choice between PNS and sacroiliac joint steroid injections patient chose to go for steroid injections. Steroid injection in the sacroiliac joint resulted in 1 month of sustained 50% pain relief. I offered her PNS but she rejected it. She does not want any implantable device. A therapeutic T8-T9 T10 MBB. Was performed 10 days ago. She reports pain improvement in lower thoracic spine. The medication will be renewed for her as oxycodone 10 mg 4 times a day on 04/16/2023 Appointment in 1 month. 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
[2023-03-27 09:04] VITALS: BP 138/66; PULSE 68; RESP 16; O2SAT 100; BMI 27.1
== END 2023-03-27 09:11 | disposition home or self-care (01) ==
PROVIDERS: PCP Internal Medicine; Visit Provider Anesthesiology
DX: M46.1 Sacroiliitis, not elsewhere classified (principal); M51.36 Other intervertebral disc degeneration, lumbar region; M47.816 Spondylosis without myelopathy or radiculopathy, lumbar region; G89.4 Chronic pain syndrome; G60.9 Hereditary and idiopathic neuropathy, unspecified; M05.9 Rheumatoid arthritis with rheumatoid factor, unspecified; M47.814 Spondylosis without myelopathy or radiculopathy, thoracic region
CPT/HCPCS: 99214

== ENCOUNTER → 2023-03-27 08:52 | Outpatient (BNVA) | payer OTHER, SELFPAY | PROVIDERS: PCP Internal Medicine; Visit Provider Anesthesiology | DX: G89.4 Chronic pain syndrome (principal); M46.1 Sacroiliitis, not elsewhere classified; M51.36 Other intervertebral disc degeneration, lumbar region; M47.816 Spondylosis without myelopathy or radiculopathy, lumbar region; M47.814 Spondylosis without myelopathy or radiculopathy, thoracic region; G60.9 Hereditary and idiopathic neuropathy, unspecified; M05.9 Rheumatoid arthritis with rheumatoid factor, unspecified; Z79.891 Long term (current) use of opiate analgesic; Z79.899 Other long term (current) drug therapy | CPT/HCPCS: 99212 ==

== ENCOUNTER 2023-03-27 09:23 | Outpatient (REF) | payer OTHER, SELFPAY ==
[2023-03-27 10:56] LABS: Alanine Aminotransferase 13 U/L (0-31); Albumin Level 4.2 g/dL (3.5-5.0); Alkaline Phosphatase 56 U/L (39-117); Anion Gap 12 (12-20); Aspartate Amino Transferase 13 U/L (5-31); Bilirubin Total 0.4 mg/dL (0.0-1.0); Blood Urea Nitrogen 29 mg/dL (9-16); Calcium 9.9 mg/dL (8.4-10.2); Carbon Dioxide 27 mmol/L (22-29); Chloride 105 mmol/L (96-108); Estimated Glomerular Filt Rate 52; Glucose Random 99 mg/dL (60-115); Sodium 139 mmol/L (135-145); Total Protein 7.1 g/dL (6.5-8.0)
== END 2023-03-27 09:24 | disposition home or self-care (01) ==
LOC: HO.10HDL 09:23
PROVIDERS: Visit Provider Anesthesiology
DX: G60.9 Hereditary and idiopathic neuropathy, unspecified (principal); M47.27 Other spondylosis with radiculopathy, lumbosacral region
CPT/HCPCS: 36415; 80053

== ENCOUNTER → 2023-04-24 08:57 | Outpatient (BNVA) | payer MEDICARE, MEDICAID, SELFPAY | PROVIDERS: PCP Internal Medicine; Visit Provider Anesthesiology ==

== ENCOUNTER 2023-05-15 10:26 | Outpatient (AMB) | payer MEDICARE, SELFPAY ==
[2023-05-15 10:28] VITALS: BP 124/60; PULSE 73; TEMP 36.6; O2SAT 100; BMI 28.6
--- NOTE | 2023-05-15 10:28 | A.OFFVIS_ITS ---
Intake Vital Signs 05/15/23 10:28 Height 5 ft 5 in Weight 171 lb 11.841 oz BMI 28.6 BP 124/60 Blood Pressure Location Lt brachial Position Sitting Pulse 73 Pulse Source Pulse Oximeter Temp 97.9 F Temp Source Skin Pulse Oximetry (%) 100 Oxygen Delivery Method Room Air Intake Visit Reasons: ra Intake Note: Patient presents today to follow up on RA. Patient has new insurance, [employer]. Will need new PA for Olumiant. Ref[employer] Required: No Accompanied by: Self / Same As Patient Allergies sarilumab [From Kevzara] Allergy (Severe, Verified 05/15/23 10:33) blistery rash gabapentin Allergy (Intermediate, Verified 05/15/23 10:33) rash pregabalin Allergy (Intermediate, Verified 05/15/23 10:33) rash tofacitinib [Xeljanz] Allergy (Intermediate, Verified 05/15/23 10:33) Rash Medication List - Last Reconciled 05/15/23 by Kurt London MD alendronate 70 mg PO QWEEK atorvastatin 10 mg PO DAILY baricitinib (Olumiant) 2 mg PO DAILY duloxetine 60 mg PO DAILY 30 days ibuprofen 200 mg PO Q6H PRN naloxone 4 mg/actuation (Narcan) 4 mg intranasal Q2M PRN oxycodone 10 mg PO Q6H PRN 30 days topiramate 100 mg PO BID trazodone 200 mg PO BEDTIME PRN varenicline 1 ea PO BID varenicline (Chantix) 1 mg PO BID HPI HPI Comments History of Present Illness Details The patient returns for evaluation of her rheumatoid arthritis. She remains on Olumiant 2 mg daily, duloxetine 60 mg daily, oxycodone 10 mg q.i.d., trazodone 200 q.h.s., and ibuprofen 200 mg 3 or 4 times a day. Most of the pain medicine is for her back problem due to osteoarthritis. She receives the prescriptions and monitoring of her oxycodone through Pain Management. In general the peripheral joints are doing okay. There is occasional swelling around her thumbs and the PIP joints. PENDING SALE TO [facility] Medical History (Updated 05/15/23 @ 08:54 by Kurt London MD) Fluid retention in legs COVID-19 vaccine series completed Rheumatoid arthritis Chronic pain syndrome Idiopathic peripheral neuropathy care home (current) use of opiate analgesic Spondylosis of lumbar region without myelopathy or radiculopathy Disc degeneration, lumbar Sacroiliac joint dysfunction of right side Sacroiliitis Seropositive rheumatoid arthritis Carpal tunnel syndrome, bilateral Surgical History Hx of shoulder surgery History of meniscectomy of left knee H/O lithotripsy History of left knee replacement H/O hernia repair Hx of laparoscopy Family History Father Esophagus cancer Mother CVD (cardiovascular disease) Brother CVD (cardiovascular disease) Diabetes Social History Alcohol intake: never Patient Tobacco Use Status: Current everyday Tobacco user Tobacco use type: Cigarette Cigarettes Per Day: 12 Years Smoked: 40 Advance Directives Date on File: 04/11/20 Review of Systems Const Details: Negative for appetite change, weight change, fever, chills, malaise and fatigue Eyes Details: Negative for vision change, dry eyes,headaches and dizziness Card Details: Negative chest pain, edema and syncope Resp Details: Negative for SOB, cough and wheezing GI Details: Negative indigestion/heartburn, nausea, abdominal pain, bowel changes, diarrhea, constipation and bloody stool. Neuro Details: There is numbness and occasional tingling in the hands and feet that she attributes to neuropathy. Negative for epilepsy, palsy, stroke, changes in speech, and weakness Endo Details: Negative for polyuria and polydypsia Brenadn/Lymph Details: Negative for excessive bruising or bleeding. Physical Exam Vital Signs: Last Vital Signs Temp 97.9 F 05/15/23 10:28 Pulse 73 05/15/23 10:28 BP 124/60 05/15/23 10:28 Pulse Ox 100 05/15/23 10:28 Oxygen Delivery Method Room Air 05/15/23 10:28 BMI result Body Mass Index 28.6 APPEARANCE: Patient in no acute distress EYES no redness, pupils equal and reactive to light, eyelids normal. No temporal artery tenderness, redness or swelling. Cervical Spine:? Full range of motion without pain; no tenderness. Thoracic Spine: No scoliosis.? No tenderness on palpation. Lumbar Spine:? Alignment normal.? Mild pain with flexion at 60 degrees or attempts at hyperextension. No tenderness. Hands: Right: There is no swelling or tenderness in the MCP joints. There is mild bony enlargement at the thumb IP, all the PIP and the 2nd, 3rd and 5th D IP joints. Only the 2nd and 3rd PIP are slightly tender. Left: Normal pain-free range of motion. There is mild bony enlargement the 2nd, 3rd 5th PIP joints and the 2nd DIP joint. The 1st 2 MCP and the 3rd PIP are slightly tender. There is no flexor tendon triggering, tenderness, thenar atrophy or sensory loss. Wrists: Left: Normal flexion or extension to 75 degrees with some slight discomfort. There is also some slight dorsal tenderness but no swelling. Right: Mild discomfort with flexion at 80 degrees with some slight dorsal tenderness but no swelling, increased warmth or erythema. Elbows: Normal pain-free range of motion without tenderness, swelling, increased warmth or erythema. Shoulders:?? Full range of motion without pain. No tenderness, weakness, swelling, increased warmth or erythema. Hips: Right: There is some slight groin pain with the extremes of normal external rotation or internal rotation. No groin tenderness. Left: Full range of motion without pain. Hip bursa:? No tenderness. Knees: LEFT:? Normal pain-free range of motion without tenderness, swelling, increased warmth or erythema.? There is no effusion or crepitation. Healed arthopalsty scar. ? ? ? RIGHT: Normal pain-free range of motion without tenderness, swelling, increased warmth or erythema.? There is no effusion or crepitation. Ankles:? Right: Slight pain with extremes of inversion and eversion with some minimal lateral tenderness but no redness or swelling. Left: Normal pain-free range of motion without tenderness, swelling, increased warmth or erythema. Feet: LEFT:? Normal pain-free range of motion with mild 1st MTP bony enlargement. There are early hammertoe deformities in the 2nd through 4th toes but none of these areas are tender. No redness or warmth. ? RIGHT:? Very slight cock-up deformity of the 2nd toe, consistent with hammertoe; slight evidence for hammertoe deformities in the 3rd and 4th toes. None of these are tender. The 1st MTP has bony enlargement but no erythema, swelling or warmth noted. ?? Results Reviewed Results Reviewed: Laboratory Tests 06/01/01/23 03/27/23 12:17 12:17 09:30 WBC 7.5 ESR 12 Creatinine 1.07 C-Reactive Protein 0.10 Assessment & Plan Assessment & Plan (1) Long-term use of immunosuppressant medication: Code(s): Z79.60 - technician terminal and repeater (current) use of unspecified immunomodulators and immunosuppressants (2) Spondylosis of lumbar region without myelopathy or radiculopathy: Code(s): M47.816 - Spondylosis without myelopathy or radiculopathy, lumbar region (3) Seropositive rheumatoid arthritis: Comment: Humira- 09/2013-02/2014 Methotrexate - 05/2016-11/2015 Sulfasalazine 09/2012-02/2014 Arava- 04/2016-04/2017 Xeljanz- 12/2013-06/2014 -tunnel vision Kevzara- 06/2018-03/2020 Olumiant- 05/2020- present Code(s): M05.9 - Rheumatoid arthritis with rheumatoid factor, unspecified Plan There appears to be good control of synovitis from her RA the with her current regimen. Some of the findings in the hands and her symptoms could be due to some concomitant osteoarthritis. She is due for lab work which she will have done today. Assuming that is okay I think she can continue with the Olumiant as above. She will follow through with Pain Management on her other pain medicines that she takes for her lumbar osteoarthritis. She was advised to get the flu shot and COVID shot this fall. She should hold the Olumiant for 5 days after the vaccinations to optimize her immune response. Her Olumiant will be coming from a different supplier so we may need to pursue prior authorization with that. We would see her back in about 4 months with lab work before that visit. Orders: Orders Erythrocyte Sedimentation Rate 1 Month M05.9 - Rheumatoid arthritis with rheumatoid factor, unspecified Alanine Aminotransferase 1 Month M05.9 - Rheumatoid arthritis with rheumatoid factor, unspecified, Z79.899 - Other fci (current) drug therapy Aspartate Amino Transferase 1 Month M05.9 - Rheumatoid arthritis with rheumatoid factor, unspecified, Z79.899 - Other intermediate project manager (current) drug therapy Creatinine 1 Month M05.9 - Rheumatoid arthritis with rheumatoid factor, unspecified, Z79.899 - Other intermediate project manager (current) drug therapy C Reactive Protein 1 Month M05.9 - Rheumatoid arthritis with rheumatoid factor, unspecified Complete Blood Count Auto Diff 1 Month M05.9 - Rheumatoid arthritis with rheumatoid factor, unspecified, Z79.899 - Other intermediate project manager (current) drug therapy Medications: Refilled baricitinib (Olumiant) 2 mg PO DAILY 30 tabs 3RF M05.9 - Rheumatoid arthritis with rheumatoid factor, unspecified Coding Level of Care Code Est Pt Level 3 (58520) Diagnoses Long-term use of immunosuppressant medication Z79.60 Spondylosis of lumbar region without myelopathy or radiculopathy M47.816 Seropositive rheumatoid arthritis M05.9
== END 2023-05-15 11:00 | disposition home or self-care (01) ==
PROVIDERS: PCP Internal Medicine; Visit Provider Internal Medicine Rheumatology
DX: M05.79 Rheumatoid arthritis with rheumatoid factor of multiple sites without organ or systems involvement (principal); Z79.60 Long term (current) use of unspecified immunomodulators and immunosuppressants; M47.816 Spondylosis without myelopathy or radiculopathy, lumbar region
CPT/HCPCS: 99214

== ENCOUNTER → 2023-05-15 10:26 | Outpatient (BNVA) | payer MEDICARE, SELFPAY | PROVIDERS: PCP Internal Medicine; Visit Provider Internal Medicine Rheumatology | DX: M05.9 Rheumatoid arthritis with rheumatoid factor, unspecified (principal); M47.816 Spondylosis without myelopathy or radiculopathy, lumbar region; Z79.60 Long term (current) use of unspecified immunomodulators and immunosuppressants | CPT/HCPCS: 99212 ==

== ENCOUNTER 2023-05-15 11:06 | Outpatient (REF) | payer MEDICARE, SELFPAY ==
[2023-05-15 13:11] LABS: MANUAL DIFF FLAG NO
[2023-05-15 13:25] LABS: Basophils Percent Auto 0.6 % (0-2); Eosinophils Percent Auto 0.6 % (0-4); Hematocrit 38.1 % (37.0-47.0); Imm Gran Abs Auto 0.02 X10*3/uL (0.00-0.03); Imm Gran Pct Auto 0.3 % (0.0-0.4); Lymphocytes Absolute Auto 1.7 X10*3/uL (1.2-4.9); Lymphocytes Percent Auto 24.6 % (20-40); Mean Corpuscular HGB Conc 34.1 g/dl (31.0-35.0); Mean Corpuscular Hemoglobin 31.5 pg (27.0-33.0); Mean Corpuscular Volume 92.3 fL (80.0-98.0); Mean Platelet Volume 9.7 fL (9.4-12.3); Monocytes Absolute Auto 0.5 X10*3/uL (0.1-1.2); Monocytes Percent Auto 6.9 % (2-11); Neutrophils Absolute Auto 4.6 x10*3/uL (2.0-8.3); Platelet Count 221 X10*3/uL (160-400); Red Blood Count 4.13 X10*6/uL (4.20-5.50); Red Cell Distribution Width 13.2 % (11.0-16.0); White Blood Count 6.9 X10*3/uL (4.8-10.8)
[2023-05-15 13:47] LABS: Alanine Aminotransferase 13 U/L (0-31); Aspartate Amino Transferase 16 U/L (5-31); C Reactive Protein < 0.10 mg/dL (< or = 0.50); Estimated Glomerular Filt Rate 47
[2023-05-15 14:13] LABS: Erythrocyte Sedimentation Rate 9 MM/HR (0-20)
== END 2023-05-15 11:07 | disposition home or self-care (01) ==
LOC: HO.10HDL 11:06
PROVIDERS: Visit Provider Internal Medicine Rheumatology
DX: M05.9 Rheumatoid arthritis with rheumatoid factor, unspecified (principal); Z79.899 Other long term (current) drug therapy
CPT/HCPCS: 36415; 82565; 84450; 84460; 85025; 85652; 86140

== ENCOUNTER 2023-05-22 09:29 | Outpatient (AMB) | payer OTHER, SELFPAY ==
--- NOTE | 2023-05-22 09:44 | A.OFFVIS_ITS ---
Intake Vital Signs 05/22/23 09:55 Height 5 ft 5 in Weight 172 lb 8 oz BMI 28.7 BP 133/68 Blood Pressure Location Lt brachial Position Sitting Respiration 16 Pulse 77 Pulse Source Pulse Oximeter Pulse Oximetry (%) 100 Oxygen Delivery Method Room Air Intake Visit Reasons: PILL COUNT Allergies sarilumab [From Kevzara] Allergy (Severe, Verified 05/22/23 09:56) blistery rash gabapentin Allergy (Intermediate, Verified 05/22/23 09:56) rash pregabalin Allergy (Intermediate, Verified 05/22/23 09:56) rash tofacitinib [Xeljanz] Allergy (Intermediate, Verified 05/22/23 09:56) Rash HPI HPI Comments History of Present Illness Details Raquel is a very pleasant 63 year old female who presents to the office for follow up chronic pain and chronic opioid therapy management. Patient is prescribed Oxycodone 10mg take 1 tablet four times daily as needed. Patient arrived today with the expectation of having 96 pills, she presented 94 pills which were counted in the presence of two staff members and returned to the patient in the original prescription bottle. This demonstrates responsible attitude toward patient's opioid medications. Pain is reported today as 7/10 and last dose of pain medication was taken at 08:15 this morning. Pain is well managed on current opioid regimen. Patient denies any recent changes or exacerbations of chronic back pain and states she is able to engage in activities of daily living with minimal interruption due to chronic pain. Patient denies side effects including somnolence, constipation, itching, dyspnea, rash, dizziness or weakness. Patient previously underwent therapeutic injections of her thoracic spine and SIJ, she states they are focusing on her mid/lower back before moving on to treatment of her neck. She states that recently she has been having some increased pain in the back and neck, requesting nondrowsy muscle relaxant to help with the discomfort. She has taken them in the remote past with good effect and tolerated well. Prior: Raquel is in the office for t the follow-up and pill count.? She came today for the pill count: She is supposed to have 80 pills in her possession. She presented with 78 pills in her possession. She reported that she took couple of extra pain medications yesterday because she had to go for very large shopping. I advised her that the next time if she feels some extra pain it better if she will take some NSAIDs and or Tylenol. We performed 10 days ago therapeutic T8- T9 T10 medial branch block bilateral. She reports in general very good pain relief in the area she reports in the projection of T5 vertebra still significant tenderness and pain. We could not possibly be able to do the procedure on her this widespread. But overall she reports that her pain in the lower thoracic spine is much better. She had therapeutic SI joint injection which was performed on 09/24/2022.? She reported 4 weeks of pain reduction about 50% her pain level became 3/10 before the injection it was 6/10.? She reports about her sacroiliac joint pain that the pain is more it tends now however it is less frequent. In the past we discussed PNS for sacroiliac joint. she stated that she would not accept any implantable device. Prior:? the results of sacroiliac joint injections which was done on 08/20/2022.She reports this particular pain 100% pain relief to hours after the procedure.? She enjoyed very minimal pain in the right joint area for the next 4 hours after the procedure.? She reported very good pain relief for total of 6 hours after the procedure and she said that she was able to sleep through the night without waking up from the pain the night after the injection.? I gave her options of peripheral nerve stimulation versus steroid injections and she chose to go for steroid injections.? I will schedule her for this procedure without sedation.? he patient complains on pain in the right side of the lower back with radiation into the right buttock.? Jay test pelvis destruction test and pelvis compression test as well as Stinchfield test are positive for right sacroiliac joint information.? I offered her to perform sacroiliac joint injection diagnostic on the right.? ?From time to time she is riding 5 miles on her stationary bike.?. 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 Spondylosis of lumbar region without myelopathy or radiculopathy Disc degeneration, lumbar Sacroiliac joint dysfunction of right side Sacroiliitis Seropositive rheumatoid arthritis Carpal tunnel syndrome, bilateral Surgical History Hx of shoulder surgery History of meniscectomy of left knee H/O lithotripsy History of left knee replacement H/O hernia repair Hx of laparoscopy Family History Father Esophagus cancer Mother CVD (cardiovascular disease) Brother CVD (cardiovascular disease) Diabetes Social History Alcohol intake: never Patient Tobacco Use Status: Current everyday Tobacco user Tobacco use type: Cigarette Cigarettes Per Day: 12 Years Smoked: 40 Advance Directives Date on File: 04/11/20 Review of Systems Const All systems reviewed & are unremarkable except as noted in HPI and below Physical Exam Vital Signs: Last Vital Signs Pulse 77 05/22/23 09:55 Resp 16 05/22/23 09:55 BP 133/68 05/22/23 09:55 Pulse Ox 100 05/22/23 09:55 Oxygen Delivery Method Room Air 05/22/23 09:55 BMI result Body Mass Index 28.7 General: awake, alert, oriented. Answers questions appropriately. Fully engaged in examination. Skin: warm, dry, intact HEENT: Normocephalic. Hearing intact. Cardiac: External chest normal in appearance. Respiratory: No cough, audible wheezing or stridor. Abdomen: without gross distension. MS: No obvious swelling or deformities. Able to transition from sit to stand unassisted. Ambulates with bilaterally normal heel strike and toe off Neurological: Oriented to person, place, time and situation. Thought process intact. No gait abnormalities appreciated. Psychiatric: Appropriate mood and affect. Good judgment and insight. Assessment & Plan Assessment & Plan (1) Sacroiliitis: Code(s): M46.1 - Sacroiliitis, not elsewhere classified (2) Disc degeneration, lumbar: Code(s): M51.36 - Other intervertebral disc degeneration, lumbar region (3) Spondylosis of lumbar region without myelopathy or radiculopathy: Code(s): M47.816 - Spondylosis without myelopathy or radiculopathy, lumbar region (4) Idiopathic peripheral neuropathy: Code(s): G60.9 - Hereditary and idiopathic neuropathy, unspecified (5) Chronic pain syndrome: Code(s): G89.4 - Chronic pain syndrome (6) Seropositive rheumatoid arthritis: Comment: Humira- 09/2013-02/2014 Methotrexate - 05/2016-11/2015 Sulfasalazine 09/2012-02/2014 Arava- 04/2016-04/2017 Xeljanz- 12/2013-06/2014 -tunnel vision Kevzara- 06/2018-03/2020 Olumiant- 05/2020- present Code(s): M05.9 - Rheumatoid arthritis with rheumatoid factor, unspecified (7) Spondylosis of thoracic spine: Code(s): M47.814 - Spondylosis without myelopathy or radiculopathy, thoracic region (8) Spondylosis of thoracic region without myelopathy or radiculopathy: Code(s): M47.814 - Spondylosis without myelopathy or radiculopathy, thoracic region Plan Masspat was reviewed and without concerns. No obvious signs of diversion, abuse or misuse of the opioid medications. Will send in prescription for Oxycodone 10mg PQ Q6H PRN with an advanced date of 06/14/2023. Baclofen 5mg po BID as needed for muscle spasm, she was advised on cautions for use. All questions and concerns have been answered and patient agrees with the plan. Patient to follow-up in the office in 1 month, sooner if needed. 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
[2023-05-22 09:55] VITALS: BP 133/68; PULSE 77; RESP 16; O2SAT 100; BMI 28.7
== END 2023-05-22 10:02 | disposition home or self-care (01) ==
PROVIDERS: PCP Internal Medicine; Visit Provider Registered Nurse Emergency
DX: M46.1 Sacroiliitis, not elsewhere classified (principal); M51.36 Other intervertebral disc degeneration, lumbar region; M47.816 Spondylosis without myelopathy or radiculopathy, lumbar region; G60.9 Hereditary and idiopathic neuropathy, unspecified; G89.4 Chronic pain syndrome; M05.9 Rheumatoid arthritis with rheumatoid factor, unspecified; M47.814 Spondylosis without myelopathy or radiculopathy, thoracic region
CPT/HCPCS: 99213

== ENCOUNTER → 2023-05-22 09:29 | Outpatient (BNVA) | payer OTHER, SELFPAY | PROVIDERS: PCP Internal Medicine; Visit Provider Registered Nurse Emergency | DX: Z51.81 Encounter for therapeutic drug level monitoring (principal); F11.20 Opioid dependence, uncomplicated; M46.1 Sacroiliitis, not elsewhere classified; M51.36 Other intervertebral disc degeneration, lumbar region; M47.816 Spondylosis without myelopathy or radiculopathy, lumbar region; M05.9 Rheumatoid arthritis with rheumatoid factor, unspecified; M47.814 Spondylosis without myelopathy or radiculopathy, thoracic region; G60.9 Hereditary and idiopathic neuropathy, unspecified; G89.4 Chronic pain syndrome | CPT/HCPCS: 99212 ==

== ENCOUNTER 2023-06-26 09:28 | Outpatient (AMB) | payer OTHER, SELFPAY ==
[2023-06-26 09:42] VITALS: BP 149/68; PULSE 78; RESP 16; O2SAT 100; BMI 27.6
--- NOTE | 2023-06-26 09:42 | A.OFFVIS_ITS ---
Intake Vital Signs 06/26/23 09:42 Height 5 ft 5 in Weight 166 lb BMI 27.6 BP 149/68 H Blood Pressure Location Lt brachial Position Sitting Respiration 16 Pulse 78 Pulse Source Pulse Oximeter Pulse Oximetry (%) 100 Oxygen Delivery Method Room Air Intake Visit Reasons: Pill Count/lvm Allergies sarilumab [From Kevzara] Allergy (Severe, Verified 06/26/23 09:44) blistery rash gabapentin Allergy (Intermediate, Verified 06/26/23 09:44) rash pregabalin Allergy (Intermediate, Verified 06/26/23 09:44) rash tofacitinib [Xeljanz] Allergy (Intermediate, Verified 06/26/23 09:44) Rash HPI HPI Comments History of Present Illness Details Raquel is a very pleasant 63 year old female who presents to the office for follow up chronic pain and chronic opioid therapy management. Patient is prescribed Oxycodone 10mg take 1 tablet four times daily as needed. Patient arrived today with the expectation of having 80 pills, she presented 78 pills which were counted in the presence of two staff members and returned to the patient in the original prescription bottle. This demonstrates responsible attitude toward patient's opioid medications. Pain is reported today as 8/10 and last dose of pain medication was taken at 08:00 this morning. Pain is adequately managed on current opioid regimen. Patient denies any recent changes or exacerbations of chronic back pain and states she is able to engage in activities of daily living with minimal interruption due to chronic pain. Patient denies side effects including somnolence, constipation, itching, dyspnea, rash, dizziness or weakness. Patient continues with some lower back muscle spasms, states pharmacy did not receive baclofen sent at last visit. Recent in family, spent last week with her kids cleaning out an apartment and being more physically active than normal. Did feel the effects during the week but is improving now that she has time to rest. Previous visit with Dr Ceron: Raquel is in the office for t the follow-up and pill count.? She came today for the pill count: She is supposed to have 80 pills in her possession. She presented with 78 pills in her possession. She reported that she took couple of extra pain medications yesterday because she had to go for very large shopping. I advised her that the next time if she feels some extra pain it better if she will take some NSAIDs and or Tylenol. We performed 10 days ago therapeutic T8- T9 T10 medial branch block bilateral. She reports in general very good pain relief in the area she reports in the projection of T5 vertebra still significant tenderness and pain. We could not possibly be able to do the procedure on her this widespread. But overall she reports that her pain in the lower thoracic spine is much better. She had therapeutic SI joint injection which was performed on 09/24/2022.? She reported 4 weeks of pain reduction about 50% her pain level became 3/10 before the injection it was 6/10.? She reports about her sacroiliac joint pain that the pain is more it tends now however it is less frequent. In the past we discussed PNS for sacroiliac joint. she stated that she would not accept any implantable device. Prior:? the results of sacroiliac joint injections which was done on 08/20/2022.She reports this particular pain 100% pain relief to hours after the procedure.? She enjoyed very minimal pain in the right joint area for the next 4 hours after the procedure.? She reported very good pain relief for total of 6 hours after the procedure and she said that she was able to sleep through the night without waking up from the pain the night after the injection.? I gave her options of peripheral nerve stimulation versus steroid injections and she chose to go for steroid injections.? I will schedule her for this procedure without sedation.? he patient complains on pain in the right side of the lower back with radiation into the right buttock.? Jay test pelvis destruction test and pelvis compression test as well as Stinchfield test are positive for right sacroiliac joint information.? I offered her to perform sacroiliac joint injection diagnostic on the right.? ?From time to time she is riding 5 miles on her stationary bike.?. 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 Spondylosis of lumbar region without myelopathy or radiculopathy Disc degeneration, lumbar Sacroiliac joint dysfunction of right side Sacroiliitis Seropositive rheumatoid arthritis Carpal tunnel syndrome, bilateral Surgical History Hx of shoulder surgery History of meniscectomy of left knee H/O lithotripsy History of left knee replacement H/O hernia repair Hx of laparoscopy Family History Father Esophagus cancer Mother CVD (cardiovascular disease) Brother CVD (cardiovascular disease) Diabetes Social History Alcohol intake: never Comment: chronic back pain Patient Tobacco Use Status: Current everyday Tobacco user Tobacco use type: Cigarette Cigarettes Per Day: 12 Years Smoked: 40 Advance Directives Date on File: 04/11/20 Review of Systems Const All systems reviewed & are unremarkable except as noted in HPI and below Physical Exam Vital Signs: Last Vital Signs Pulse 78 06/26/23 09:42 Resp 16 06/26/23 09:42 BP 149/68 H 06/26/23 09:42 Pulse Ox 100 06/26/23 09:42 Oxygen Delivery Method Room Air 06/26/23 09:42 BMI result Body Mass Index 27.6 General: awake, alert, oriented. Answers questions appropriately. Fully engaged in examination. Skin: warm, dry, intact HEENT: Normocephalic. Hearing intact. Cardiac: External chest normal in appearance. Respiratory: No cough, audible wheezing or stridor. Abdomen: without gross distension. MS: No obvious swelling or deformities. Able to transition from sit to stand unassisted. Ambulates with bilaterally normal heel strike and toe off Neurological: Oriented to person, place, time and situation. Thought process intact. No gait abnormalities appreciated. Psychiatric: Appropriate mood and affect. Good judgment and insight. Assessment & Plan Assessment & Plan (1) Sacroiliitis: Code(s): M46.1 - Sacroiliitis, not elsewhere classified (2) Disc degeneration, lumbar: Code(s): M51.36 - Other intervertebral disc degeneration, lumbar region (3) Spondylosis of lumbar region without myelopathy or radiculopathy: Code(s): M47.816 - Spondylosis without myelopathy or radiculopathy, lumbar region (4) Idiopathic peripheral neuropathy: Code(s): G60.9 - Hereditary and idiopathic neuropathy, unspecified (5) Chronic pain syndrome: Code(s): G89.4 - Chronic pain syndrome (6) Seropositive rheumatoid arthritis: Comment: Humira- 09/2013-02/2014 Methotrexate - 05/2016-11/2015 Sulfasalazine 09/2012-02/2014 Arava- 04/2016-04/2017 Xeljanz- 12/2013-06/2014 -tunnel vision Kevzara- 06/2018-03/2020 Olumiant- 05/2020- present Code(s): M05.9 - Rheumatoid arthritis with rheumatoid factor, unspecified (7) Spondylosis of thoracic spine: Code(s): M47.814 - Spondylosis without myelopathy or radiculopathy, thoracic region (8) Spondylosis of thoracic region without myelopathy or radiculopathy: Code(s): M47.814 - Spondylosis without myelopathy or radiculopathy, thoracic region Plan Masspat was reviewed and without concerns. No obvious signs of diversion, abuse or misuse of the opioid medications. Will send in prescription for Oxycodone 10mg PQ Q6H PRN with an advanced date of 07/16/2023. Baclofen 5mg po BID as needed for muscle spasm, she was advised on cautions for use. All questions and concerns have been answered and patient agrees with the plan. Patient to follow-up in the office in 1 month, sooner if needed. 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
== END 2023-06-26 10:03 | disposition home or self-care (01) ==
PROVIDERS: PCP Internal Medicine; Visit Provider Registered Nurse Emergency
DX: G89.4 Chronic pain syndrome (principal); M46.1 Sacroiliitis, not elsewhere classified; M51.36 Other intervertebral disc degeneration, lumbar region; G60.9 Hereditary and idiopathic neuropathy, unspecified; M47.816 Spondylosis without myelopathy or radiculopathy, lumbar region; M05.9 Rheumatoid arthritis with rheumatoid factor, unspecified; M47.814 Spondylosis without myelopathy or radiculopathy, thoracic region
CPT/HCPCS: 99214

== ENCOUNTER → 2023-06-26 09:28 | Outpatient (BNVA) | payer OTHER, SELFPAY | PROVIDERS: PCP Internal Medicine; Visit Provider Registered Nurse Emergency | DX: Z51.81 Encounter for therapeutic drug level monitoring (principal); F11.20 Opioid dependence, uncomplicated; M46.1 Sacroiliitis, not elsewhere classified; M51.36 Other intervertebral disc degeneration, lumbar region; M47.816 Spondylosis without myelopathy or radiculopathy, lumbar region; M05.9 Rheumatoid arthritis with rheumatoid factor, unspecified; M47.814 Spondylosis without myelopathy or radiculopathy, thoracic region; G60.9 Hereditary and idiopathic neuropathy, unspecified; G89.4 Chronic pain syndrome | CPT/HCPCS: 99212 ==

== ENCOUNTER 2023-07-31 09:52 | Outpatient (AMB) | payer MEDICARE, SELFPAY ==
--- NOTE | 2023-07-31 10:06 | A.OFFVIS_ITS ---
Intake Vital Signs 07/31/23 10:07 Height 5 ft 5 in Weight 162 lb 4 oz BMI 27.0 BP 115/66 Blood Pressure Location Lt brachial Position Sitting Respiration 16 Pulse 80 Pulse Source Pulse Oximeter Pulse Oximetry (%) 100 Oxygen Delivery Method Room Air Intake Visit Reasons: PILL COUNT - Confirmed Allergies sarilumab [From Kevzara] Allergy (Severe, Verified 07/31/23 10:06) blistery rash gabapentin Allergy (Intermediate, Verified 07/31/23 10:06) rash pregabalin Allergy (Intermediate, Verified 07/31/23 10:06) rash tofacitinib [Xeljanz] Allergy (Intermediate, Verified 07/31/23 10:06) Rash HPI HPI Comments History of Present Illness Details Raquel is a very pleasant 63 year old female who presents to the office for follow up chronic pain and chronic opioid therapy management. Patient is prescribed Oxycodone 10mg take 1 tablet four times daily as needed. Patient arrived today with the expectation of having 60 pills, she presented 62 pills which were counted in the presence of two staff members and returned to the patient in the original prescription bottle. This demonstrates responsible attitude toward patient's opioid medications. Pain is reported today as 7/10 and last dose of pain medication was taken at 08:00 this morning. Pain is adequately managed on current opioid regimen. Patient denies any recent changes or exacerbations of chronic back pain and states she is able to engage in activities of daily living with minimal interruption due to chronic pain. Patient denies side effects including somnolence, constipation, itching, dyspnea, rash, dizziness or weakness. Patient continues with some lower back muscle spasms, has been taking baclofen twice daily with good effect. Requesting refill. Previous visit with Dr Ceron: Raquel is in the office for t the follow-up and pill count.? She came today for the pill count: She is supposed to have 80 pills in her possession. She presented with 78 pills in her possession. She reported that she took couple of extra pain medications yesterday because she had to go for very large shopping. I advised her that the next time if she feels some extra pain it better if she will take some NSAIDs and or Tylenol. We performed 10 days ago therapeutic T8- T9 T10 medial branch block bilateral. She reports in general very good pain relief in the area she reports in the projection of T5 vertebra still significant tenderness and pain. We could not possibly be able to do the procedure on her this widespread. But overall she reports that her pain in the lower thoracic spine is much better. She had therapeutic SI joint injection which was performed on 09/24/2022.? She reported 4 weeks of pain reduction about 50% her pain level became 3/10 before the injection it was 6/10.? She reports about her sacroiliac joint pain that the pain is more it tends now however it is less frequent. In the past we discussed PNS for sacroiliac joint. she stated that she would not accept any implantable device. Prior:? the results of sacroiliac joint injections which was done on 08/20/2022.She reports this particular pain 100% pain relief to hours after the procedure.? She enjoyed very minimal pain in the right joint area for the next 4 hours after the procedure.? She reported very good pain relief for total of 6 hours after the procedure and she said that she was able to sleep through the night without waking up from the pain the night after the injection.? I gave her options of peripheral nerve stimulation versus steroid injections and she chose to go for steroid injections.? I will schedule her for this procedure without sedation.? he patient complains on pain in the right side of the lower back with radiation into the right buttock.? Jay test pelvis destruction test and pelvis compression test as well as Stinchfield test are positive for right sacroiliac joint information.? I offered her to perform sacroiliac joint injection diagnostic on the right.? ?From time to time she is riding 5 miles on her stationary bike.?. 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 Spondylosis of lumbar region without myelopathy or radiculopathy Disc degeneration, lumbar Sacroiliac joint dysfunction of right side Sacroiliitis Seropositive rheumatoid arthritis Carpal tunnel syndrome, bilateral Surgical History Hx of shoulder surgery History of meniscectomy of left knee H/O lithotripsy History of left knee replacement H/O hernia repair Hx of laparoscopy Family History Father Esophagus cancer Mother CVD (cardiovascular disease) Brother CVD (cardiovascular disease) Diabetes Social History Alcohol intake: never Comment: chronic back pain Patient Tobacco Use Status: Current everyday Tobacco user Tobacco use type: Cigarette Cigarettes Per Day: 12 Years Smoked: 40 Advance Directives Date on File: 04/11/20 Review of Systems Const All systems reviewed & are unremarkable except as noted in HPI and below Physical Exam Vital Signs: Last Vital Signs Pulse 80 07/31/23 10:07 Resp 16 07/31/23 10:07 BP 115/66 07/31/23 10:07 Pulse Ox 100 07/31/23 10:07 Oxygen Delivery Method Room Air 07/31/23 10:07 BMI result Body Mass Index 27.0 General: awake, alert, oriented. Answers questions appropriately. Fully engaged in examination. Skin: warm, dry, intact HEENT: Normocephalic. Hearing intact. Cardiac: External chest normal in appearance. Respiratory: No cough, audible wheezing or stridor. Abdomen: without gross distension. MS: No obvious swelling or deformities. Able to transition from sit to stand unassisted. Ambulates with bilaterally normal heel strike and toe off Neurological: Oriented to person, place, time and situation. Thought process intact. No gait abnormalities appreciated. Psychiatric: Appropriate mood and affect. Good judgment and insight. Assessment & Plan Assessment & Plan (1) Sacroiliitis: Code(s): M46.1 - Sacroiliitis, not elsewhere classified (2) Disc degeneration, lumbar: Code(s): M51.36 - Other intervertebral disc degeneration, lumbar region (3) Spondylosis of lumbar region without myelopathy or radiculopathy: Code(s): M47.816 - Spondylosis without myelopathy or radiculopathy, lumbar region (4) Idiopathic peripheral neuropathy: Code(s): G60.9 - Hereditary and idiopathic neuropathy, unspecified (5) Chronic pain syndrome: Code(s): G89.4 - Chronic pain syndrome (6) Seropositive rheumatoid arthritis: Comment: Humira- 09/2013-02/2014 Methotrexate - 05/2016-11/2015 Sulfasalazine 09/2012-02/2014 Arava- 04/2016-04/2017 Xeljanz- 12/2013-06/2014 -tunnel vision Kevzara- 06/2018-03/2020 Olumiant- 05/2020- present Code(s): M05.9 - Rheumatoid arthritis with rheumatoid factor, unspecified (7) Spondylosis of thoracic spine: Code(s): M47.814 - Spondylosis without myelopathy or radiculopathy, thoracic region (8) Spondylosis of thoracic region without myelopathy or radiculopathy: Code(s): M47.814 - Spondylosis without myelopathy or radiculopathy, thoracic region Plan Masspat was reviewed and without concerns. No obvious signs of diversion, abuse or misuse of the opioid medications. Will send in prescription for Oxycodone 10mg PQ Q6H PRN with an advanced date of 08/15/2023. Refill sent for Baclofen 5mg po BID as needed for muscle spasm, she was advised on cautions for use. All questions and concerns have been answered and patient agrees with the plan. Patient to follow-up in the office in 1 month, sooner if needed. Coding Level of Care Code Est Pt Level 4 (11663) Diagnoses Sacroiliitis M46.1 Disc degeneration, lumbar M51.36 Spondylosis of lumbar region without myelopathy or radiculopathy M47.816 Idiopathic peripheral neuropathy G60.9 Chronic pain syndrome G89.4 Seropositive rheumatoid arthritis M05.9 Spondylosis of thoracic spine M47.814 Spondylosis of thoracic region without myelopathy or radiculopathy M47.814
[2023-07-31 10:07] VITALS: BP 115/66; PULSE 80; RESP 16; O2SAT 100; BMI 27.0
== END 2023-07-31 10:22 | disposition home or self-care (01) ==
PROVIDERS: PCP Internal Medicine; Visit Provider Registered Nurse Emergency
DX: M46.1 Sacroiliitis, not elsewhere classified (principal); M51.36 Other intervertebral disc degeneration, lumbar region; M47.816 Spondylosis without myelopathy or radiculopathy, lumbar region; G60.9 Hereditary and idiopathic neuropathy, unspecified; G89.4 Chronic pain syndrome; M05.9 Rheumatoid arthritis with rheumatoid factor, unspecified; M47.814 Spondylosis without myelopathy or radiculopathy, thoracic region
CPT/HCPCS: 99214

== ENCOUNTER → 2023-07-31 09:52 | Outpatient (BNVA) | payer MEDICARE, SELFPAY | PROVIDERS: PCP Internal Medicine; Visit Provider Registered Nurse Emergency | DX: Z51.81 Encounter for therapeutic drug level monitoring (principal); F11.20 Opioid dependence, uncomplicated; M46.1 Sacroiliitis, not elsewhere classified; M51.36 Other intervertebral disc degeneration, lumbar region; M47.816 Spondylosis without myelopathy or radiculopathy, lumbar region; M05.9 Rheumatoid arthritis with rheumatoid factor, unspecified; M47.814 Spondylosis without myelopathy or radiculopathy, thoracic region; G60.9 Hereditary and idiopathic neuropathy, unspecified; G89.4 Chronic pain syndrome | CPT/HCPCS: 99212 ==

== ENCOUNTER 2023-08-29 09:55 | Outpatient (AMB) | payer MEDICARE, MEDICAID, SELFPAY ==
--- NOTE | 2023-08-29 10:12 | A.OFFVIS_ITS ---
Intake Vital Signs 08/29/23 10:13 Height 5 ft 5 in Weight 161 lb BMI 26.8 BP 130/64 Blood Pressure Location Lt brachial Position Sitting Respiration 18 Pulse 87 Pulse Source Pulse Oximeter Pulse Oximetry (%) 98 Oxygen Delivery Method Room Air Intake Visit Reasons: Pill Count - Confirmed Allergies sarilumab [From Kevzara] Allergy (Severe, Verified 08/29/23 10:11) blistery rash gabapentin Allergy (Intermediate, Verified 08/29/23 10:11) rash pregabalin Allergy (Intermediate, Verified 08/29/23 10:11) rash tofacitinib [Xeljanz] Allergy (Intermediate, Verified 08/29/23 10:11) Rash HPI HPI Comments History of Present Illness Details Raquel is a very pleasant 63 year old female who presents to the office for follow up chronic pain and chronic opioid therapy management. Patient is prescribed Oxycodone 10mg take 1 tablet four times daily as needed. Patient arrived today with the expectation of having 64 pills, she presented 62 pills which were counted in the presence of two staff members and returned to the patient in the original prescription bottle. This demonstrates responsible attitude toward patient's opioid medications. Pain is reported today as 6/10 and last dose of pain medication was taken at 09:00 this morning. Pain is adequately managed on current opioid regimen. Patient denies side effects including somnolence, constipation, itching, dyspnea, rash, dizziness or weakness. Patient continues with some lower back muscle spasms, has been taking baclofen twice daily with good effect. She will be going out of town to help a friend recover from surgery, will be away for a couple weeks. Requesting Oxycodone refill be sent to [facility] in [facility], only for next visit then will return to her preferred pharmacy. She would like to discuss injections at next visit, states she received good relief after last set of injections and is ready to repeat. Needs to wait until after she returns from helping her friend recover from surgery. Previous visit with Dr Ceron: Raquel is in the office for t the follow-up and pill count.? She came today for the pill count: She is supposed to have 80 pills in her possession. She presented with 78 pills in her possession. She reported that she took couple of extra pain medications yesterday because she had to go for very large shopping. I advised her that the next time if she feels some extra pain it better if she will take some NSAIDs and or Tylenol. We performed 10 days ago therapeutic T8- T9 T10 medial branch block bilateral. She reports in general very good pain relief in the area she reports in the projection of T5 vertebra still significant tenderness and pain. We could not possibly be able to do the procedure on her this widespread. But overall she reports that her pain in the lower thoracic spine is much better. She had therapeutic SI joint injection which was performed on 09/24/2022.? She reported 4 weeks of pain reduction about 50% her pain level became 3/10 before the injection it was 6/10.? She reports about her sacroiliac joint pain that the pain is more it tends now however it is less frequent. In the past we discussed PNS for sacroiliac joint. she stated that she would not accept any implantable device. Prior:? the results of sacroiliac joint injections which was done on 08/20/2022.She reports this particular pain 100% pain relief to hours after the procedure.? She enjoyed very minimal pain in the right joint area for the next 4 hours after the procedure.? She reported very good pain relief for total of 6 hours after the procedure and she said that she was able to sleep through the night without waking up from the pain the night after the injection.? I gave her options of peripheral nerve stimulation versus steroid injections and she chose to go for steroid injections.? I will schedule her for this procedure without sedation.? he patient complains on pain in the right side of the lower back with radiation into the right buttock.? Jay test pelvis destruction test and pelvis compression test as well as Stinchfield test are positive for right sacroiliac joint information.? I offered her to perform sacroiliac joint injection diagnostic on the right.? ?From time to time she is riding 5 miles on her stationary bike.?. 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 Spondylosis of lumbar region without myelopathy or radiculopathy Disc degeneration, lumbar Sacroiliac joint dysfunction of right side Sacroiliitis Seropositive rheumatoid arthritis Carpal tunnel syndrome, bilateral Surgical History Hx of shoulder surgery History of meniscectomy of left knee H/O lithotripsy History of left knee replacement H/O hernia repair Hx of laparoscopy Family History Father Esophagus cancer Mother CVD (cardiovascular disease) Brother CVD (cardiovascular disease) Diabetes Social History Alcohol intake: never Comment: chronic back pain Patient Tobacco Use Status: Current everyday Tobacco user Tobacco use type: Cigarette Cigarettes Per Day: 12 Years Smoked: 40 Advance Directives Date on File: 04/11/20 Review of Systems Const All systems reviewed & are unremarkable except as noted in HPI and below Physical Exam Vital Signs: Last Vital Signs Pulse 87 08/29/23 10:13 Resp 18 08/29/23 10:13 BP 130/64 08/29/23 10:13 Pulse Ox 98 08/29/23 10:13 Oxygen Delivery Method Room Air 08/29/23 10:13 BMI result Body Mass Index 26.8 General: awake, alert, oriented. Answers questions appropriately. Fully engaged in examination. Skin: warm, dry, intact HEENT: Normocephalic. Hearing intact. Cardiac: External chest normal in appearance. Respiratory: No cough, audible wheezing or stridor. Abdomen: without gross distension. MS: No obvious swelling or deformities. Able to transition from sit to stand unassisted. Ambulates with bilaterally normal heel strike and toe off Neurological: Oriented to person, place, time and situation. Thought process intact. No gait abnormalities appreciated. Psychiatric: Appropriate mood and affect. Good judgment and insight. Assessment & Plan Assessment & Plan (1) Sacroiliitis: Code(s): M46.1 - Sacroiliitis, not elsewhere classified (2) Disc degeneration, lumbar: Code(s): M51.36 - Other intervertebral disc degeneration, lumbar region (3) Spondylosis of lumbar region without myelopathy or radiculopathy: Code(s): M47.816 - Spondylosis without myelopathy or radiculopathy, lumbar region (4) Idiopathic peripheral neuropathy: Code(s): G60.9 - Hereditary and idiopathic neuropathy, unspecified (5) Chronic pain syndrome: Code(s): G89.4 - Chronic pain syndrome (6) Seropositive rheumatoid arthritis: Comment: Humira- 09/2013-02/2014 Methotrexate - 05/2016-11/2015 Sulfasalazine 09/2012-02/2014 Arava- 04/2016-04/2017 Xeljanz- 12/2013-06/2014 -tunnel vision Kevzara- 06/2018-03/2020 Olumiant- 05/2020- present Code(s): M05.9 - Rheumatoid arthritis with rheumatoid factor, unspecified (7) Spondylosis of thoracic spine: Code(s): M47.814 - Spondylosis without myelopathy or radiculopathy, thoracic region (8) Spondylosis of thoracic region without myelopathy or radiculopathy: Code(s): M47.814 - Spondylosis without myelopathy or radiculopathy, thoracic region Plan Masspat was reviewed and without concerns. No obvious signs of diversion, abuse or misuse of the opioid medications. Will send in prescription for Oxycodone 10mg PQ Q6H PRN with an advanced date of 09/14/2023 to [facility]. Next month will return to her preferred pharmacy. C/W baclofen as needed Plan for repeat MBBs, to discuss further at next visit. All questions and concerns have been answered and patient agrees with the plan. Patient to follow-up in the office in 1 month, sooner if needed. 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
[2023-08-29 10:13] VITALS: BP 130/64; PULSE 87; RESP 18; O2SAT 98; BMI 26.8
== END 2023-08-29 10:42 | disposition home or self-care (01) ==
PROVIDERS: PCP Internal Medicine; Visit Provider Registered Nurse Emergency
DX: G89.4 Chronic pain syndrome (principal); M46.1 Sacroiliitis, not elsewhere classified; M51.36 Other intervertebral disc degeneration, lumbar region; M47.816 Spondylosis without myelopathy or radiculopathy, lumbar region; G60.9 Hereditary and idiopathic neuropathy, unspecified; M05.9 Rheumatoid arthritis with rheumatoid factor, unspecified; M47.814 Spondylosis without myelopathy or radiculopathy, thoracic region
CPT/HCPCS: 99214

== ENCOUNTER → 2023-08-29 09:55 | Outpatient (BNVA) | payer MEDICARE, MEDICAID, SELFPAY | PROVIDERS: PCP Internal Medicine; Visit Provider Registered Nurse Emergency | DX: Z51.81 Encounter for therapeutic drug level monitoring (principal); F11.20 Opioid dependence, uncomplicated; M46.1 Sacroiliitis, not elsewhere classified; M51.36 Other intervertebral disc degeneration, lumbar region; M47.816 Spondylosis without myelopathy or radiculopathy, lumbar region; M05.9 Rheumatoid arthritis with rheumatoid factor, unspecified; M47.814 Spondylosis without myelopathy or radiculopathy, thoracic region; G60.9 Hereditary and idiopathic neuropathy, unspecified; G89.4 Chronic pain syndrome | CPT/HCPCS: 99212 ==

== ENCOUNTER 2023-09-05 13:30 | Outpatient (REF) | payer MEDICARE, MEDICAID, SELFPAY ==
[2023-09-05 13:42] LABS: MANUAL DIFF FLAG NO
[2023-09-05 14:11] LABS: Basophils Percent Auto 0.6 % (0-2); Eosinophils Percent Auto 0.3 % (0-4); Hematocrit 40.4 % (37.0-47.0); Hemoglobin 13.8 g/dl (12.0-16.0); Imm Gran Abs Auto 0.03 X10*3/uL (0.00-0.03); Imm Gran Pct Auto 0.4 % (0.0-0.4); Lymphocytes Absolute Auto 1.7 X10*3/uL (1.2-4.9); Lymphocytes Percent Auto 23.7 % (20-40); Mean Corpuscular HGB Conc 34.2 g/dl (31.0-35.0); Mean Corpuscular Hemoglobin 31.9 pg (27.0-33.0); Mean Corpuscular Volume 93.5 fL (80.0-98.0); Mean Platelet Volume 9.4 fL (9.4-12.3); Monocytes Absolute Auto 0.5 X10*3/uL (0.1-1.2); Monocytes Percent Auto 6.9 % (2-11); Neutrophils Absolute Auto 4.9 x10*3/uL (2.0-8.3); Neutrophils Percent Auto 68.1 % (45-73); Platelet Count 240 X10*3/uL (160-400); Red Blood Count 4.32 X10*6/uL (4.20-5.50); Red Cell Distribution Width 12.6 % (11.0-16.0); White Blood Count 7.1 X10*3/uL (4.8-10.8)
[2023-09-05 14:51] LABS: Alanine Aminotransferase 12 U/L (0-31); Aspartate Amino Transferase 20 U/L (5-31); C Reactive Protein 0.13 mg/dL (< or = 0.50); Estimated Glomerular Filt Rate > 60
[2023-09-05 14:52] LABS: Erythrocyte Sedimentation Rate 13 MM/HR (0-20)
== END 2023-09-05 13:31 | disposition home or self-care (01) ==
LOC: HO.LAB 13:30
PROVIDERS: Visit Provider Internal Medicine Rheumatology
DX: M05.9 Rheumatoid arthritis with rheumatoid factor, unspecified (principal); Z79.899 Other long term (current) drug therapy
CPT/HCPCS: 36415; 82565; 84450; 84460; 85025; 85652; 86140

== ENCOUNTER 2023-09-08 10:30 | Outpatient (AMB) | payer MEDICARE, MEDICAID, SELFPAY ==
--- NOTE | 2023-09-08 10:53 | A.OFFVIS_ITS ---
Intake Vital Signs 09/08/23 11:00 Height 5 ft 5 in Weight 165 lb 5.547 oz BMI 27.5 BP 112/70 Blood Pressure Location Rt brachial Position Sitting Pulse 63 Pulse Source Pulse Oximeter Temp 97.6 F Temp Source Skin Pulse Oximetry (%) 97 Oxygen Delivery Method Room Air Intake Visit Reasons: RA Intake Note: Patient last seen 05/15/[address] [place], presents today for follow up and test results. 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 Bui 63-year-old female returns for evaluation of her rheumatoid arthritis. She remains on Olumiant 2 mg daily, duloxetine 60 mg daily, oxycodone 10 mg q.i.d., trazodone 200mg q.h.s., and ibuprofen 200 mg 3 or 4 times a day. Most of the pain medicine is for her back problem due to osteoarthritis. She receives the prescriptions and monitoring of her oxycodone through Pain Management. In general the peripheral joints are doing okay. There is occasional swelling around her thumbs and the PIP joints. 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 Spondylosis of lumbar region without myelopathy or radiculopathy Disc degeneration, lumbar Sacroiliac joint dysfunction of right side Sacroiliitis Seropositive rheumatoid arthritis Carpal tunnel syndrome, bilateral Surgical History Hx of shoulder surgery History of meniscectomy of left knee H/O lithotripsy History of left knee replacement H/O hernia repair Hx of laparoscopy Family History Father Esophagus cancer Mother CVD (cardiovascular disease) Brother CVD (cardiovascular disease) Diabetes Social History Alcohol intake: never Comment: chronic back pain Patient Tobacco Use Status: Current everyday Tobacco user Tobacco use type: Cigarette Cigarettes Per Day: 12 Years Smoked: 40 Advance Directives Date on File: 04/11/20 Review of Systems Const All systems reviewed & are unremarkable except as noted in HPI and below Physical Exam Vital Signs: Last Vital Signs Temp 97.6 F 09/08/23 11:00 Pulse 63 09/08/23 11:00 BP 112/70 09/08/23 11:00 Pulse Ox 97 09/08/23 11:00 Oxygen Delivery Method Room Air 09/08/23 11:00 BMI result Body Mass Index 27.5 APPEARANCE: Patient in no acute distress, groomed, nourished EYES no redness No temporal artery tenderness, redness or swelling. HEART:? Regular rhythm, S1-S2 heard, no murmurs, rubs or gallops. LUNG:? Clear to percussion and auscultation Cervical Spine:? Full range of motion without pain; no tenderness. Thoracic Spine: No scoliosis.? No tenderness on palpation. Lumbar Spine:? Alignment normal.? Mild pain with flexion at 60 degrees or attempts at hyperextension. No tenderness. Hands: Right: There is no swelling but tenderness in the MCP joints. There is mild bony enlargement at the thumb IP, all the PIP and the 2nd, 3rd and 5th DIP joints. Only the 2nd and 3rd PIP are slightly tender. Left: Normal pain-free range of motion. There is mild bony enlargement the 2nd, 3rd 5th PIP joints and the 2nd DIP joint. The 1st 2 MCP and the 3rd PIP are slightly tender. There is no flexor tendon triggering, tenderness, thenar atrophy or sensory loss. Wrists: Left: Normal flexion or extension to 75 degrees with some slight discomfort. There is also some slight dorsal tenderness but no swelling. Right: Mild discomfort with flexion at 80 degrees with some slight dorsal tenderness but no swelling, increased warmth or erythema. Elbows: Normal pain-free range of motion without tenderness, swelling, increased warmth or erythema. Shoulders:?? Full range of motion without pain. No tenderness, weakness, swelling, increased warmth or erythema. Hips: Right: There is some slight groin pain with the extremes of normal external rotation or internal rotation. No groin tenderness. Left: Full range of motion without pain. Hip bursa:? No tenderness. Knees: LEFT:? Normal pain-free range of motion without tenderness, swelling, increased warmth or erythema.? There is no effusion or crepitation. Healed arthopalsty scar. ? ? ? RIGHT: Normal pain-free range of motion without tenderness, swelling, increased warmth or erythema.? There is no effusion or crepitation. Ankles:? Right: Slight pain with extremes of inversion and eversion with some minimal lateral tenderness but no redness or swelling. Left: Normal pain-free range of motion without tenderness, swelling, increased warmth or erythema. Feet: LEFT:? Normal pain-free range of motion with mild 1st MTP bony enlargement. There are early hammertoe deformities in the 2nd through 4th toes but none of these areas are tender. No redness or warmth. ? RIGHT:? Very slight cock-up deformity of the 2nd toe, consistent with hammertoe; slight evidence for hammertoe deformities in the 3rd and 4th toes. None of these are tender. The 1st MTP has bony enlargement but no erythema, swelling or warmth noted. ?? 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 unspecified immunomodulators and immunosuppressants (2) Spondylosis of lumbar region without myelopathy or radiculopathy: Code(s): M47.816 - Spondylosis without myelopathy or radiculopathy, lumbar region (3) Seropositive rheumatoid arthritis: Comment: Humira- 09/2013-02/2014 Methotrexate - 05/2016-11/2015 Sulfasalazine 09/2012-02/2014 Arava- 04/2016-04/2017 Xeljanz- 12/2013-06/2014 -tunnel vision Kevzara- 06/2018-03/2020 Olumiant- 05/2020- present Code(s): M05.9 - Rheumatoid arthritis with rheumatoid factor, unspecified (4) Osteopenia: Code(s): M85.80 - Other specified disorders of bone density and structure, unspecified site Qualifiers: Osteopenia location: multiple sites Qualified Code(s): M85.89 - Other specified disorders of bone density and structure, multiple sites Plan #Rheumatoid arthritis: There appears to be good control of synovitis from her RA the with her current regimen. Some of the findings in the hands and her symptoms could be due to some concomitant osteoarthritis. We will continue with Olumiant 2 mg daily and methotrexate 15 mg q.week with folic acid 1 mg a day. #Long-term use: Her labs are good to continue continue with the Olumiant and methotrexate as above. We will recheck CBC and CMP again 1 week for next visit. Patient knows to hold medication in the event of fevers, infection, surgeries, nonhealing wounds #Lumbar spondylosis: She will continue to follow with Pain Management on her other pain medicines that she takes for her lumbar osteoarthritis. Patient says she will receive 1 more set of cortisone injections and then they will consider nerve ablation. #Osteopenia: Continue with alendronate 70 mg q.week We would see her back in about 4 months with lab work before that visit I spent 35 minutes reviewing history, evaluating patient and documenting Orders: Orders Comprehensive Met. 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 immunomodulators and immunosuppressants C Reactive Protein 4 Months M05.9 - Rheumatoid arthritis with rheumatoid factor, unspecified, Z79.60 - USP (current) use of unspecified immunomodulators and immunosuppressants Erythrocyte Sedimentation Rate 4 Months M05.9 - Rheumatoid arthritis with rheumatoid factor, unspecified, Z79.60 - USP (current) use of unspecified immunomodulators and immunosuppressants Vitamin D 1,25 dihydroxy 4 Months M05.9 - Rheumatoid arthritis with rheumatoid factor, unspecified, Z79.60 - USP (current) use of unspecified immunomodulators and immunosuppressants Complete Blood Count Auto Diff 2 Months Z79.60 - USP (current) use of unspecified immunomodulators and immunosuppressants Medications: New methotrexate sodium 15 mg PO QWEEK 72 tabs 1RF M05.9 - Rheumatoid arthritis with rheumatoid factor, unspecified folic acid 1 mg PO DAILY 90 tabs 1RF Z79.60 - USP (current) use of unspecified immunomodulators and immunosuppressants Discontinued methotrexate sodium Discontinued Reason: Doctor's Order 15 mg PO QWEEK 72 tabs 1RF M05.9 - Rheumatoid arthritis with rheumatoid factor, unspecified Coding Level of Care Code Est Pt Level 3 (81585) Diagnoses Long-term use of immunosuppressant medication Z79.60 Spondylosis of lumbar region without myelopathy or radiculopathy M47.816 Seropositive rheumatoid arthritis M05.9 Osteopenia of multiple sites M85.89 Osteopenia location: multiple sites
[2023-09-08 11:00] VITALS: BP 112/70; PULSE 63; TEMP 36.4; O2SAT 97; BMI 27.5
== END 2023-09-08 11:32 | disposition home or self-care (01) ==
PROVIDERS: PCP Internal Medicine; Visit Provider Nurse Practitioner Family
DX: M05.79 Rheumatoid arthritis with rheumatoid factor of multiple sites without organ or systems involvement (principal); Z79.60 Long term (current) use of unspecified immunomodulators and immunosuppressants; M47.816 Spondylosis without myelopathy or radiculopathy, lumbar region; M85.89 Other specified disorders of bone density and structure, multiple sites
CPT/HCPCS: 99214

== ENCOUNTER → 2023-09-08 10:30 | Outpatient (BNVA) | payer MEDICARE, MEDICAID, SELFPAY | PROVIDERS: PCP Internal Medicine; Visit Provider Nurse Practitioner Family | DX: M47.816 Spondylosis without myelopathy or radiculopathy, lumbar region (principal); M05.9 Rheumatoid arthritis with rheumatoid factor, unspecified; M85.89 Other specified disorders of bone density and structure, multiple sites; Z79.60 Long term (current) use of unspecified immunomodulators and immunosuppressants | CPT/HCPCS: 99212 ==

== ENCOUNTER 2023-10-03 09:45 | Outpatient (AMB) | payer MEDICARE, SELFPAY ==
--- NOTE | 2023-10-03 10:00 | MHC.OFFVIS ---
Intake Vital Signs 10/03/23 10:03 Height 5 ft 5 in Weight 157 lb BMI 26.1 BP 122/65 Blood Pressure Location Lt brachial Position Sitting Respiration 16 Pulse 70 Pulse Source Pulse Oximeter Pulse Oximetry (%) 99 Oxygen Delivery Method Room Air Intake Visit Reasons: Pill Count/random UDS Allergies sarilumab [From Kevzara] Allergy (Severe, Verified 10/03/23 09:59) blistery rash gabapentin Allergy (Intermediate, Verified 10/03/23 09:59) rash pregabalin Allergy (Intermediate, Verified 10/03/23 09:59) rash tofacitinib [Xeljanz] Allergy (Intermediate, Verified 10/03/23 09:59) Rash HPI HPI Comments History of Present Illness Details Raquel is a very pleasant 63 year old female who presents to the office for follow up chronic pain and chronic opioid therapy management. Patient is prescribed Oxycodone 10mg take 1 tablet four times daily as needed. Patient arrived today with the expectation of having 44 pills, she presented 42 pills which were counted in the presence of two staff members and returned to the patient in the original prescription bottle. This demonstrates responsible attitude toward patient's opioid medications. Pain is reported today as 6/10 and last dose of pain medication was taken at 08:00 this morning. Pain is adequately managed on current opioid regimen. Patient denies side effects including somnolence, constipation, itching, dyspnea, rash, dizziness or weakness. Today she would like to further discuss proceeding with some injections for her lower back pain. Her most significant pain is over her left PSIS, some discomfort to the right but left is much worse. Radiation of the pain into the thigh that stops at the level of the knee, also with some radiation to the groin. She states that this became increasingly painful after recent visit to help her friend. She was doing a lot of work bending lifting while caring for her friend and her friend's animals. Pain is worse with sitting for extended period of times, standing for extended periods of times, lying on her affected side. Previous visit with Dr Ceron: Raquel is in the office for t the follow-up and pill count.? She came today for the pill count: She is supposed to have 80 pills in her possession. She presented with 78 pills in her possession. She reported that she took couple of extra pain medications yesterday because she had to go for very large shopping. I advised her that the next time if she feels some extra pain it better if she will take some NSAIDs and or Tylenol. We performed 10 days ago therapeutic T8-T9 T10 medial branch block bilateral. She reports in general very good pain relief in the area she reports in the projection of T5 vertebra still significant tenderness and pain. We could not possibly be able to do the procedure on her this widespread. But overall she reports that her pain in the lower thoracic spine is much better. She had therapeutic SI joint injection which was performed on 09/24/2022.? She reported 4 weeks of pain reduction about 50% her pain level became 3/10 before the injection it was 6/10.? She reports about her sacroiliac joint pain that the pain is more it tends now however it is less frequent. In the past we discussed PNS for sacroiliac joint. she stated that she would not accept any implantable device. Prior:? the results of sacroiliac joint injections which was done on 08/20/2022.She reports this particular pain 100% pain relief to hours after the procedure.? She enjoyed very minimal pain in the right joint area for the next 4 hours after the procedure.? She reported very good pain relief for total of 6 hours after the procedure and she said that she was able to sleep through the night without waking up from the pain the night after the injection.? I gave her options of peripheral nerve stimulation versus steroid injections and she chose to go for steroid injections.? I will schedule her for this procedure without sedation.? he patient complains on pain in the right side of the lower back with radiation into the right buttock.? Jay test pelvis destruction test and pelvis compression test as well as Stinchfield test are positive for right sacroiliac joint information.? I offered her to perform sacroiliac joint injection diagnostic on the right.? ?From time to time she is riding 5 miles on her stationary bike.?. 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 Spondylosis of lumbar region without myelopathy or radiculopathy Disc degeneration, lumbar Sacroiliac joint dysfunction of right side Sacroiliitis Seropositive rheumatoid arthritis Carpal tunnel syndrome, bilateral Surgical History Hx of shoulder surgery History of meniscectomy of left knee H/O lithotripsy History of left knee replacement H/O hernia repair Hx of laparoscopy Family History Father Esophagus cancer Mother CVD (cardiovascular disease) Brother CVD (cardiovascular disease) Diabetes Social History Alcohol intake: never Comment: chronic back pain Patient Tobacco Use Status: Current everyday Tobacco user Tobacco use type: Cigarette Cigarettes Per Day: 12 Years Smoked: 40 Advance Directives Date on File: 04/11/20 Review of Systems Const All systems reviewed & are unremarkable except as noted in HPI and below Physical Exam Vital Signs: Last Vital Signs Pulse 70 10/03/23 10:03 Resp 16 10/03/23 10:03 BP 122/65 10/03/23 10:03 Pulse Ox 99 10/03/23 10:03 Oxygen Delivery Method Room Air 10/03/23 10:03 BMI result Body Mass Index 26.1 General: awake, alert, oriented. Answers questions appropriately. Fully engaged in examination. Skin: warm, dry, intact HEENT: Normocephalic. Hearing intact. Cardiac: External chest normal in appearance. Respiratory: No cough, audible wheezing or stridor. Abdomen: without gross distension. MS: No obvious swelling or deformities. Able to transition from sit to stand unassisted. Ambulates with bilaterally normal heel strike and toe off Tenderness over bilateral PSIS, left worse than right [place] positive bilaterally ERNESTINA positive bilaterally for pain increased to the groin Thigh thrust positive bilaterally SI compression positive bilaterally Neurological: Oriented to person, place, time and situation. Thought process intact. No gait abnormalities appreciated. Psychiatric: Appropriate mood and affect. Good judgment and insight. Results Reviewed Results Reviewed: LUMBAR SPINE XRAY 2014 FINDINGS: Normal overall alignment. Normal vertebral body heights. Degenerative changes with osteophyte formation and mild decrease in the intervertebral disc space noted at multiple levels. It appears to be worse at L1-L2 and L2-L3 levels. Multilevel facet arthropathy. No acute osseous abnormality. Incidental note is made of bilateral renal calcifications, right greater than left. Surgical clips noted in the left upper quadrant. Postoperative changes compatible with prior hernia repair noted in the left mid abdomen. IMPRESSION: 1. No acute osseous abnormality. 2. Moderate degenerative changes upper to mid lumbar spine. 3. Bilateral renal calcifications. Assessment & Plan Assessment & Plan (1) Sacroiliitis: Code(s): M46.1 - Sacroiliitis, not elsewhere classified (2) Disc degeneration, lumbar: Code(s): M51.36 - Other intervertebral disc degeneration, lumbar region (3) Spondylosis of lumbar region without myelopathy or radiculopathy: Code(s): M47.816 - Spondylosis without myelopathy or radiculopathy, lumbar region (4) Idiopathic peripheral neuropathy: Code(s): G60.9 - Hereditary and idiopathic neuropathy, unspecified (5) Chronic pain syndrome: Code(s): G89.4 - Chronic pain syndrome (6) Seropositive rheumatoid arthritis: Comment: Humira- 09/2013-02/2014 Methotrexate - 05/2016-11/2015 Sulfasalazine 09/2012-02/2014 Arava- 04/2016-04/2017 Xeljanz- 12/2013-06/2014 -tunnel vision Kevzara- 06/2018-03/2020 Olumiant- 05/2020- present Code(s): M05.9 - Rheumatoid arthritis with rheumatoid factor, unspecified (7) Spondylosis of thoracic spine: Code(s): M47.814 - Spondylosis without myelopathy or radiculopathy, thoracic region (8) Spondylosis of thoracic region without myelopathy or radiculopathy: Code(s): M47.814 - Spondylosis without myelopathy or radiculopathy, thoracic region Plan Masspat was reviewed and without concerns. No obvious signs of diversion, abuse or misuse of the opioid medications. Will send in prescription for Oxycodone 10mg PQ Q6H PRN with an advanced date of 10/14/23. C/W baclofen as needed Will schedule for fluoroscopy guided bilateral diagnostic sacroiliac joint injection with local anesthetic. She will expect a call to schedule this procedure. All questions and concerns have been answered and patient agrees with the plan. Patient to follow-up in the office in 1 month, sooner if needed. Medications: Refilled oxycodone 10 mg PO Q6H 30 days PRN 120 tabs 0RF pain, severe G89.4 - Chronic pain syndrome, M25.551 - Pain in right hip, M25.552 - Pain in left hip, M47.27 - Other spondylosis with radiculopathy, lumbosacral region, M54.2 - Cervicalgia, Z79.891 - half-way (current) use of opiate analgesic Coding Level of Care Code Est Pt Level 4 (66866) Diagnoses Sacroiliitis M46.1 Disc degeneration, lumbar M51.36 Spondylosis of lumbar region without myelopathy or radiculopathy M47.816 Idiopathic peripheral neuropathy G60.9 Chronic pain syndrome G89.4 Seropositive rheumatoid arthritis M05.9 Spondylosis of thoracic spine M47.814 Spondylosis of thoracic region without myelopathy or radiculopathy M47.814
[2023-10-03 10:03] VITALS: BP 122/65; PULSE 70; RESP 16; O2SAT 99; BMI 26.1
== END 2023-10-03 10:28 | disposition home or self-care (01) ==
PROVIDERS: PCP Internal Medicine; Visit Provider Registered Nurse Emergency
DX: G89.4 Chronic pain syndrome (principal); M46.1 Sacroiliitis, not elsewhere classified; M51.36 Other intervertebral disc degeneration, lumbar region; Z79.891 Long term (current) use of opiate analgesic; M47.816 Spondylosis without myelopathy or radiculopathy, lumbar region; G60.9 Hereditary and idiopathic neuropathy, unspecified; M05.9 Rheumatoid arthritis with rheumatoid factor, unspecified; M47.814 Spondylosis without myelopathy or radiculopathy, thoracic region
CPT/HCPCS: 99214

== ENCOUNTER → 2023-10-03 09:45 | Outpatient (BNVA) | payer MEDICARE, MEDICAID, SELFPAY | PROVIDERS: PCP Internal Medicine; Visit Provider Registered Nurse Emergency | DX: M46.1 Sacroiliitis, not elsewhere classified (principal); M51.36 Other intervertebral disc degeneration, lumbar region; M47.816 Spondylosis without myelopathy or radiculopathy, lumbar region; G60.9 Hereditary and idiopathic neuropathy, unspecified; G89.4 Chronic pain syndrome; M05.9 Rheumatoid arthritis with rheumatoid factor, unspecified; M47.814 Spondylosis without myelopathy or radiculopathy, thoracic region; M25.551 Pain in right hip; M25.552 Pain in left hip; M47.27 Other spondylosis with radiculopathy, lumbosacral region; M54.2 Cervicalgia; Z79.891 Long term (current) use of opiate analgesic | CPT/HCPCS: 99212 ==

== ENCOUNTER 2023-10-28 06:16 | Outpatient (REF) | payer MEDICARE, BC, SELFPAY | END 2023-10-28 06:17 | disposition home or self-care (01) | LOC: CF 06:16 | PROVIDERS: Visit Provider Anesthesiology | DX: Z13.89 Encounter for screening for other disorder (principal) ==

== ENCOUNTER 2023-10-31 13:01 | Outpatient (AMB) | payer MEDICARE, SELFPAY ==
--- NOTE | 2023-10-31 13:29 | MHC.OFFVIS ---
Vital Signs 10/31/23 13:37 Height 5 ft 5 in Weight 161 lb 2 oz BMI 26.8 BP 138/64 Blood Pressure Location Lt brachial Position Sitting Respiration 14 Pulse 68 Pulse Source Pulse Oximeter Pulse Oximetry (%) 100 Oxygen Delivery Method Room Air Intake Visit Reasons: PILL COUNT Allergies sarilumab [From Kev[facility]] Allergy (Severe, Verified 10/31/23 13:36) blistery rash gabapentin Allergy (Intermediate, Verified 10/31/23 13:36) rash pregabalin Allergy (Intermediate, Verified 10/31/23 13:36) rash tofacitinib [Xeljanz] Allergy (Intermediate, Verified 10/31/23 13:36) Rash HPI Comments Details: Raquel is a very pleasant 63 year old female who presents to the office for follow up chronic pain and chronic opioid therapy management. Patient is prescribed Oxycodone 10mg take 1 tablet four times daily as needed. Patient arrived today with the expectation of having 48 pills, she presented 49 pills which were counted in the presence of two staff members and returned to the patient in the original prescription bottle. This demonstrates responsible attitude toward patient's opioid medications. Pain is reported today as 5/10 and last dose of pain medication was taken at 12:30. Pain is adequately managed on current opioid regimen. Patient denies side effects including somnolence, constipation, itching, dyspnea, rash, dizziness or weakness. Missed her injection appointment week. States that she got appointment mixed up in short about her other doctor's office mistakenly. Does report that her SI joint pain has improved since the last visit and she would like to hold off on the injection at this time. Previous visit with Dr Ceron: Raquel is in the office for t the follow-up and pill count.? She came today for the pill count: She is supposed to have 80 pills in her possession. She presented with 78 pills in her possession. She reported that she took couple of extra pain medications yesterday because she had to go for very large shopping. I advised her that the next time if she feels some extra pain it better if she will take some NSAIDs and or Tylenol. We performed 10 days ago therapeutic T8-T9 T10 medial branch block bilateral. She reports in general very good pain relief in the area she reports in the projection of T5 vertebra still significant tenderness and pain. We could not possibly be able to do the procedure on her this widespread. But overall she reports that her pain in the lower thoracic spine is much better. She had therapeutic SI joint injection which was performed on 09/24/2022.? She reported 4 weeks of pain reduction about 50% her pain level became 3/10 before the injection it was 6/10.? She reports about her sacroiliac joint pain that the pain is more it tends now however it is less frequent. In the past we discussed PNS for sacroiliac joint. she stated that she would not accept any implantable device. Prior:? the results of sacroiliac joint injections which was done on 08/20/2022.She reports this particular pain 100% pain relief to hours after the procedure.? She enjoyed very minimal pain in the right joint area for the next 4 hours after the procedure.? She reported very good pain relief for total of 6 hours after the procedure and she said that she was able to sleep through the night without waking up from the pain the night after the injection.? I gave her options of peripheral nerve stimulation versus steroid injections and she chose to go for steroid injections.? I will schedule her for this procedure without sedation.? he patient complains on pain in the right side of the lower back with radiation into the right buttock.? Jay test pelvis destruction test and pelvis compression test as well as Stinchfield test are positive for right sacroiliac joint information.? I offered her to perform sacroiliac joint injection diagnostic on the right.? ?From time to time she is riding 5 miles on her stationary bike.?. 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 Spondylosis of lumbar region without myelopathy or radiculopathy Disc degeneration, lumbar Sacroiliac joint dysfunction of right side Sacroiliitis Seropositive rheumatoid arthritis Carpal tunnel syndrome, bilateral Surgical History Hx of shoulder surgery History of meniscectomy of left knee H/O lithotripsy History of left knee replacement H/O hernia repair Hx of laparoscopy Family History Father Esophagus cancer Mother CVD (cardiovascular disease) Brother CVD (cardiovascular disease) Diabetes Social History Alcohol intake: never Comment: chronic back pain Patient Tobacco Use Status: Current everyday Tobacco user Tobacco use type: Cigarette Cigarettes Per Day: 12 Years Smoked: 40 Advance Directives Date on File: 04/11/20 Review of Systems Const All systems reviewed & are unremarkable except as noted in HPI and below Physical Exam Vital Signs: Last Vital Signs Pulse 68 10/31/23 13:37 Resp 14 10/31/23 13:37 BP 138/64 10/31/23 13:37 Pulse Ox 100 10/31/23 13:37 Oxygen Delivery Method Room Air 10/31/23 13:37 BMI result Body Mass Index 26.8 General: awake, alert, oriented. Answers questions appropriately. Fully engaged in examination. Skin: warm, dry, intact HEENT: Normocephalic. Hearing intact. Cardiac: External chest normal in appearance. Respiratory: No cough, audible wheezing or stridor. Abdomen: without gross distension. MS: No obvious swelling or deformities. Able to transition from sit to stand unassisted. Ambulates with bilaterally normal heel strike and toe off Neurological: Oriented to person, place, time and situation. Thought process intact. No gait abnormalities appreciated. Psychiatric: Appropriate mood and affect. Good judgment and insight. Results Reviewed Results Reviewed: LUMBAR SPINE XRAY 2014 FINDINGS: Normal overall alignment. Normal vertebral body heights. Degenerative changes with osteophyte formation and mild decrease in the intervertebral disc space noted at multiple levels. It appears to be worse at L1-L2 and L2-L3 levels. Multilevel facet arthropathy. No acute osseous abnormality. Incidental note is made of bilateral renal calcifications, right greater than left. Surgical clips noted in the left upper quadrant. Postoperative changes compatible with prior hernia repair noted in the left mid abdomen. IMPRESSION: 1. No acute osseous abnormality. 2. Moderate degenerative changes upper to mid lumbar spine. 3. Bilateral renal calcifications. Assessment & Plan Assessment & Plan (1) Sacroiliitis: Code(s): M46.1 - Sacroiliitis, not elsewhere classified Category: Medical (2) Disc degeneration, lumbar: Code(s): M51.36 - Other intervertebral disc degeneration, lumbar region Category: Medical (3) Spondylosis of lumbar region without myelopathy or radiculopathy: Code(s): M47.816 - Spondylosis without myelopathy or radiculopathy, lumbar region Category: Medical (4) Idiopathic peripheral neuropathy: Code(s): G60.9 - Hereditary and idiopathic neuropathy, unspecified Category: Medical (5) Chronic pain syndrome: Code(s): G89.4 - Chronic pain syndrome Category: Medical (6) Seropositive rheumatoid arthritis: Comment: Humira- 09/2013-02/2014 Methotrexate - 05/2016-11/2015 Sulfasalazine 09/2012-02/2014 Arava- 04/2016-04/2017 Xeljanz- 12/2013-06/2014 -tunnel vision Kevzara- 06/2018-03/2020 Olumiant- 05/2020- present Code(s): M05.9 - Rheumatoid arthritis with rheumatoid factor, unspecified Category: Medical (7) Spondylosis of thoracic spine: Code(s): M47.814 - Spondylosis without myelopathy or radiculopathy, thoracic region Category: Medical (8) Spondylosis of thoracic region without myelopathy or radiculopathy: Code(s): M47.814 - Spondylosis without myelopathy or radiculopathy, thoracic region Category: Medical [facility]. No obvious signs of diversion, abuse or misuse of the opioid medications. Will send in prescription for Oxycodone 10mg PQ Q6H PRN with an advanced date of 11/13/23. She will call to schedule for fluoroscopy guided bilateral diagnostic sacroiliac joint injection with local anesthetic when she is ready to proceed. All questions and concerns have been answered and patient agrees with the plan. Patient to follow-up in the office in 1 month, sooner if needed. Medications: Refilled oxycodone 10 mg PO Q6H PRN 120 tabs 0RF pain, severe 30 days G89.4 - Chronic pain syndrome, M25.551 - Pain in right hip, M25.552 - Pain in left hip, M47.27 - Other spondylosis with radiculopathy, lumbosacral region, M54.2 - Cervicalgia, Z79.891 - senior care (current) use of opiate analgesic Coding Level of Care Code Est Pt Level 4 (09653) Diagnoses Sacroiliitis M46.1 Disc degeneration, lumbar M51.36 Spondylosis of lumbar region without myelopathy or radiculopathy M47.816 Idiopathic peripheral neuropathy G60.9 Chronic pain syndrome G89.4 Seropositive rheumatoid arthritis M05.9 Spondylosis of thoracic spine M47.814 Spondylosis of thoracic region without myelopathy or radiculopathy M47.814
[2023-10-31 13:37] VITALS: BP 138/64; PULSE 68; RESP 14; O2SAT 100; BMI 26.8
== END 2023-10-31 13:49 | disposition home or self-care (01) ==
LOC: HO.PMC 13:01
PROVIDERS: PCP Internal Medicine; Visit Provider Registered Nurse Emergency
DX: M46.1 Sacroiliitis, not elsewhere classified (principal); M51.36 Other intervertebral disc degeneration, lumbar region; M47.816 Spondylosis without myelopathy or radiculopathy, lumbar region; G60.9 Hereditary and idiopathic neuropathy, unspecified; G89.4 Chronic pain syndrome; M05.9 Rheumatoid arthritis with rheumatoid factor, unspecified; M47.814 Spondylosis without myelopathy or radiculopathy, thoracic region
CPT/HCPCS: 99214

== ENCOUNTER → 2023-10-31 13:01 | Outpatient (BNVA) | payer MEDICARE, SELFPAY | PROVIDERS: PCP Internal Medicine; Visit Provider Registered Nurse Emergency | DX: M46.1 Sacroiliitis, not elsewhere classified (principal); M51.36 Other intervertebral disc degeneration, lumbar region; M47.816 Spondylosis without myelopathy or radiculopathy, lumbar region; G60.9 Hereditary and idiopathic neuropathy, unspecified; G89.4 Chronic pain syndrome; M05.9 Rheumatoid arthritis with rheumatoid factor, unspecified; M47.814 Spondylosis without myelopathy or radiculopathy, thoracic region; M25.551 Pain in right hip; M25.552 Pain in left hip; M47.27 Other spondylosis with radiculopathy, lumbosacral region; M54.2 Cervicalgia; Z51.81 Encounter for therapeutic drug level monitoring; Z79.891 Long term (current) use of opiate analgesic | CPT/HCPCS: 99212 ==

== ENCOUNTER 2023-11-28 10:02 | Outpatient (AMB) | payer BC, MEDICAID, SELFPAY ==
[2023-11-28 10:13] VITALS: BP 100/58; PULSE 93; RESP 16; O2SAT 100; BMI 25.3
--- NOTE | 2023-11-28 10:13 | MHC.OFFVIS ---
Vital Signs 11/28/23 10:13 Height 5 ft 5 in Weight 152 lb BMI 25.3 BP 100/58 L Blood Pressure Location Lt brachial Position Sitting Respiration 16 Pulse 93 Pulse Source Pulse Oximeter Pulse Oximetry (%) 100 Oxygen Delivery Method Room Air Intake Visit Reasons: PILL COUNT Allergies sarilumab [From Kevzara] Allergy (Severe, Verified 11/28/23 10:13) blistery rash gabapentin Allergy (Intermediate, Verified 11/28/23 10:13) rash pregabalin Allergy (Intermediate, Verified 11/28/23 10:13) rash tofacitinib [Xeljanz] Allergy (Intermediate, Verified 11/28/23 10:13) Rash HPI Comments Details: Raquel is a very pleasant 63 year old female who presents to the office for follow up chronic pain and chronic opioid therapy management. Patient is prescribed Oxycodone 10mg take 1 tablet four times daily as needed. Patient arrived today with the expectation of having 60 pills, she presented 59 pills which were counted in the presence of two staff members and returned to the patient in the original prescription bottle. This demonstrates responsible attitude toward patient's opioid medications. Pain is reported today as 6/10 and last dose of pain medication was taken at 8am. Patient denies side effects including somnolence, constipation, itching, dyspnea, rash, dizziness or weakness. Recently neuropathy has been worsening. C/O tingling and burning to feet, hands and shins. Has tried Gabapentin in the past but had side effects. Previous visit with Dr Ceron: Raquel is in the office for t the follow-up and pill count.? She came today for the pill count: She is supposed to have 80 pills in her possession. She presented with 78 pills in her possession. She reported that she took couple of extra pain medications yesterday because she had to go for very large shopping. I advised her that the next time if she feels some extra pain it better if she will take some NSAIDs and or Tylenol. We performed 10 days ago therapeutic T8-T9 T10 medial branch block bilateral. She reports in general very good pain relief in the area she reports in the projection of T5 vertebra still significant tenderness and pain. We could not possibly be able to do the procedure on her this widespread. But overall she reports that her pain in the lower thoracic spine is much better. She had therapeutic SI joint injection which was performed on 09/24/2022.? She reported 4 weeks of pain reduction about 50% her pain level became 3/10 before the injection it was 6/10.? She reports about her sacroiliac joint pain that the pain is more it tends now however it is less frequent. In the past we discussed PNS for sacroiliac joint. she stated that she would not accept any implantable device. Prior:? the results of sacroiliac joint injections which was done on 08/20/2022.She reports this particular pain 100% pain relief to hours after the procedure.? She enjoyed very minimal pain in the right joint area for the next 4 hours after the procedure.? She reported very good pain relief for total of 6 hours after the procedure and she said that she was able to sleep through the night without waking up from the pain the night after the injection.? I gave her options of peripheral nerve stimulation versus steroid injections and she chose to go for steroid injections.? I will schedule her for this procedure without sedation.? he patient complains on pain in the right side of the lower back with radiation into the right buttock.? Jay test pelvis destruction test and pelvis compression test as well as Stinchfield test are positive for right sacroiliac joint information.? I offered her to perform sacroiliac joint injection diagnostic on the right.? ?From time to time she is riding 5 miles on her stationary bike.?. [facility] Medical History (Updated 10/23/23 @ 15:10 by Brittney Arvizu, BUSINESS COMMUNICATIONS INSTRUCTOR, DRYING ROOM SUPERVISOR) Osteopenia Fluid retention in legs COVID-19 vaccine series completed Rheumatoid arthritis Chronic pain syndrome Idiopathic peripheral neuropathy rn on site (current) use of opiate analgesic Spondylosis of lumbar region without myelopathy or radiculopathy Disc degeneration, lumbar Sacroiliac joint dysfunction of right side Sacroiliitis Seropositive rheumatoid arthritis Carpal tunnel syndrome, bilateral Surgical History Hx of shoulder surgery History of meniscectomy of left knee H/O lithotripsy History of left knee replacement H/O hernia repair Hx of laparoscopy Family History Father Esophagus cancer Mother CVD (cardiovascular disease) Brother CVD (cardiovascular disease) Diabetes Social History Alcohol intake: never Comment: chronic back pain Patient Tobacco Use Status: Current everyday Tobacco user Tobacco use type: Cigarette Cigarettes Per Day: 12 Years Smoked: 40 Advance Directives Date on File: 04/11/20 Review of Systems Const All systems reviewed & are unremarkable except as noted in HPI and below Physical Exam Vital Signs: Last Vital Signs Pulse 93 11/28/23 10:13 Resp 16 11/28/23 10:13 BP 100/58 L 11/28/23 10:13 Pulse Ox 100 11/28/23 10:13 Oxygen Delivery Method Room Air 11/28/23 10:13 BMI result Body Mass Index 25.3 General: awake, alert, oriented. Answers questions appropriately. Fully engaged in examination. Skin: warm, dry, intact HEENT: Normocephalic. Hearing intact. Cardiac: External chest normal in appearance. Respiratory: No cough, audible wheezing or stridor. Abdomen: without gross distension. MS: No obvious swelling or deformities. Able to transition from sit to stand unassisted. Ambulates with bilaterally normal heel strike and toe off Neurological: Oriented to person, place, time and situation. Thought process intact. No gait abnormalities appreciated. Psychiatric: Appropriate mood and affect. Good judgment and insight. Results Reviewed Results Reviewed: LUMBAR SPINE XRAY 2014 FINDINGS: Normal overall alignment. Normal vertebral body heights. Degenerative changes with osteophyte formation and mild decrease in the intervertebral disc space noted at multiple levels. It appears to be worse at L1-L2 and L2-L3 levels. Multilevel facet arthropathy. No acute osseous abnormality. Incidental note is made of bilateral renal calcifications, right greater than left. Surgical clips noted in the left upper quadrant. Postoperative changes compatible with prior hernia repair noted in the left mid abdomen. IMPRESSION: 1. No acute osseous abnormality. 2. Moderate degenerative changes upper to mid lumbar spine. 3. Bilateral renal calcifications. Assessment & Plan Assessment & Plan (1) Sacroiliitis: Code(s): M46.1 - Sacroiliitis, not elsewhere classified Category: Medical (2) Disc degeneration, lumbar: Code(s): M51.36 - Other intervertebral disc degeneration, lumbar region Category: Medical (3) Spondylosis of lumbar region without myelopathy or radiculopathy: Code(s): M47.816 - Spondylosis without myelopathy or radiculopathy, lumbar region Category: Medical (4) Idiopathic peripheral neuropathy: Code(s): G60.9 - Hereditary and idiopathic neuropathy, unspecified Category: Medical (5) Chronic pain syndrome: Code(s): G89.4 - Chronic pain syndrome Category: Medical (6) Seropositive rheumatoid arthritis: Comment: Humira- 09/2013-02/2014 Methotrexate - 05/2016-11/2015 Sulfasalazine 09/2012-02/2014 Arava- 04/2016-04/2017 Xeljanz- 12/2013-06/2014 -tunnel vision Kevzara- 06/2018-03/2020 Olumiant- 05/2020- present Code(s): M05.9 - Rheumatoid arthritis with rheumatoid factor, unspecified Category: Medical (7) Spondylosis of thoracic spine: Code(s): M47.814 - Spondylosis without myelopathy or radiculopathy, thoracic region Category: Medical (8) Spondylosis of thoracic region without myelopathy or radiculopathy: Code(s): M47.814 - Spondylosis without myelopathy or radiculopathy, thoracic region Category: Medical Plan [facility] was reviewed and without concerns. No obvious signs of diversion, abuse or misuse of the opioid medications. Will send in prescription for Oxycodone 10mg PQ Q6H PRN with an advanced date of 12/13/23. New RX amitriptyline 25mg po QHS, patient advised on cautions for use. All questions and concerns have been answered and patient agrees with the plan. Patient to follow-up in the office in 1 month, sooner if needed. Medications: New amitriptyline 25 mg PO BEDTIME 30 tabs 0RF Refilled oxycodone 10 mg PO Q6H PRN 120 tabs 0RF pain, severe 30 days G89.4 - Chronic pain syndrome, M25.551 - Pain in right hip, M25.552 - Pain in left hip, M47.27 - Other spondylosis with radiculopathy, lumbosacral region, M54.2 - Cervicalgia, Z79.891 - correction (current) use of opiate analgesic Coding Level of Care Code Est Pt Level 4 (73849) Diagnoses Sacroiliitis M46.1 Disc degeneration, lumbar M51.36 Spondylosis of lumbar region without myelopathy or radiculopathy M47.816 Idiopathic peripheral neuropathy G60.9 Chronic pain syndrome G89.4 Seropositive rheumatoid arthritis M05.9 Spondylosis of thoracic spine M47.814 Spondylosis of thoracic region without myelopathy or radiculopathy M47.814
== END 2023-11-28 10:29 | disposition home or self-care (01) ==
PROVIDERS: PCP Internal Medicine; Visit Provider Registered Nurse Emergency
DX: G89.4 Chronic pain syndrome (principal); M05.9 Rheumatoid arthritis with rheumatoid factor, unspecified; G60.9 Hereditary and idiopathic neuropathy, unspecified; M47.814 Spondylosis without myelopathy or radiculopathy, thoracic region
CPT/HCPCS: 99214

== ENCOUNTER → 2023-11-28 10:02 | Outpatient (BNVA) | payer MEDICARE, SELFPAY | PROVIDERS: PCP Internal Medicine; Visit Provider Registered Nurse Emergency | DX: Z51.81 Encounter for therapeutic drug level monitoring (principal); F11.20 Opioid dependence, uncomplicated; M46.1 Sacroiliitis, not elsewhere classified; M51.36 Other intervertebral disc degeneration, lumbar region; M47.816 Spondylosis without myelopathy or radiculopathy, lumbar region; M05.9 Rheumatoid arthritis with rheumatoid factor, unspecified; M47.814 Spondylosis without myelopathy or radiculopathy, thoracic region; G60.9 Hereditary and idiopathic neuropathy, unspecified; G89.4 Chronic pain syndrome | CPT/HCPCS: 99212 ==

== ENCOUNTER 2023-12-26 09:55 | Outpatient (AMB) | payer BC, SELFPAY ==
[2023-12-26 09:57] VITALS: BP 121/67; BMI 26.5
--- NOTE | 2023-12-26 09:57 | MHC.OFFVIS ---
Vital Signs 12/26/23 09:57 Height 5 ft 5 in Weight 159 lb BMI 26.5 BP 121/67 Blood Pressure Location Rt brachial Position Sitting Intake Visit Reasons: PILL COUNT Allergies sarilumab [From [facility]] Allergy (Severe, Verified 11/28/23 10:13) blistery rash gabapentin Allergy (Intermediate, Verified 11/28/23 10:13) rash pregabalin Allergy (Intermediate, Verified 11/28/23 10:13) rash tofacitinib [Xeljanz] Allergy (Intermediate, Verified 11/28/23 10:13) Rash HPI Comments Details: Raquel is a very pleasant 63 year old female who presents to the office for follow up chronic pain and chronic opioid therapy management. Patient is prescribed Oxycodone 10mg take 1 tablet four times daily as needed. Patient arrived today with the expectation of having 68 pills, she presented 66 pills which were counted in the presence of two staff members and returned to the patient in the original prescription bottle. This demonstrates responsible attitude toward patient's opioid medications. Pain is reported today as 4/10 and last dose of pain medication was taken at 8am. Patient denies side effects including somnolence, constipation, itching, dyspnea, rash, dizziness or weakness. Reports improvement in her peripheral neuropathy since starting the amitriptyline. She needs a refill and would like to continue taking it. Denies any side effects. Previous visit with Dr Ceron: Raquel is in the office for t the follow-up and pill count.? She came today for the pill count: She is supposed to have 80 pills in her possession. She presented with 78 pills in her possession. She reported that she took couple of extra pain medications yesterday because she had to go for very large shopping. I advised her that the next time if she feels some extra pain it better if she will take some NSAIDs and or Tylenol. We performed 10 days ago therapeutic T8-T9 T10 medial branch block bilateral. She reports in general very good pain relief in the area she reports in the projection of T5 vertebra still significant tenderness and pain. We could not possibly be able to do the procedure on her this widespread. But overall she reports that her pain in the lower thoracic spine is much better. She had therapeutic SI joint injection which was performed on 09/24/2022.? She reported 4 weeks of pain reduction about 50% her pain level became 3/10 before the injection it was 6/10.? She reports about her sacroiliac joint pain that the pain is more it tends now however it is less frequent. In the past we discussed PNS for sacroiliac joint. she stated that she would not accept any implantable device. Prior:? the results of sacroiliac joint injections which was done on 08/20/2022.She reports this particular pain 100% pain relief to hours after the procedure.? She enjoyed very minimal pain in the right joint area for the next 4 hours after the procedure.? She reported very good pain relief for total of 6 hours after the procedure and she said that she was able to sleep through the night without waking up from the pain the night after the injection.? I gave her options of peripheral nerve stimulation versus steroid injections and she chose to go for steroid injections.? I will schedule her for this procedure without sedation.? he patient complains on pain in the right side of the lower back with radiation into the right buttock.? Jay test pelvis destruction test and pelvis compression test as well as Stinchfield test are positive for right sacroiliac joint information.? I offered her to perform sacroiliac joint injection diagnostic on the right.? ?From time to time she is riding 5 miles on her stationary bike.?. [facility] Medical History (Updated 10/23/23 @ 15:10 by Brittney Arvizu APRN, DIE REAMER) Osteopenia Fluid retention in legs COVID-19 vaccine series completed Rheumatoid arthritis Chronic pain syndrome Idiopathic peripheral neuropathy intermediate (current) use of opiate analgesic Spondylosis of lumbar region without myelopathy or radiculopathy Disc degeneration, lumbar Sacroiliac joint dysfunction of right side Sacroiliitis Seropositive rheumatoid arthritis Carpal tunnel syndrome, bilateral Surgical History Hx of shoulder surgery History of meniscectomy of left knee H/O lithotripsy History of left knee replacement H/O hernia repair Hx of laparoscopy Family History Father Esophagus cancer Mother CVD (cardiovascular disease) Brother CVD (cardiovascular disease) Diabetes Social History Alcohol intake: never Comment: chronic back pain Patient Tobacco Use Status: Current everyday Tobacco user Tobacco use type: Cigarette Cigarettes Per Day: 12 Years Smoked: 40 Advance Directives Date on File: 04/11/20 Physical Exam Vital Signs: Last Vital Signs BP 121/67 12/26/23 09:57 BMI result Body Mass Index 26.5 General: awake, alert, oriented. Answers questions appropriately. Fully engaged in examination. Skin: warm, dry, intact HEENT: Normocephalic. Hearing intact. Cardiac: External chest normal in appearance. Respiratory: No cough, audible wheezing or stridor. Abdomen: without gross distension. MS: No obvious swelling or deformities. Able to transition from sit to stand unassisted. Ambulates with bilaterally normal heel strike and toe off Neurological: Oriented to person, place, time and situation. Thought process intact. No gait abnormalities appreciated. Psychiatric: Appropriate mood and affect. Good judgment and insight. Results Reviewed Results Reviewed: LUMBAR SPINE XRAY 2014 FINDINGS: Normal overall alignment. Normal vertebral body heights. Degenerative changes with osteophyte formation and mild decrease in the intervertebral disc space noted at multiple levels. It appears to be worse at L1-L2 and L2-L3 levels. Multilevel facet arthropathy. No acute osseous abnormality. Incidental note is made of bilateral renal calcifications, right greater than left. Surgical clips noted in the left upper quadrant. Postoperative changes compatible with prior hernia repair noted in the left mid abdomen. IMPRESSION: 1. No acute osseous abnormality. 2. Moderate degenerative changes upper to mid lumbar spine. 3. Bilateral renal calcifications. Assessment & Plan Assessment & Plan (1) Sacroiliitis: Code(s): M46.1 - Sacroiliitis, not elsewhere classified Category: Medical (2) Disc degeneration, lumbar: Code(s): M51.36 - Other intervertebral disc degeneration, lumbar region Category: Medical (3) Spondylosis of lumbar region without myelopathy or radiculopathy: Code(s): M47.816 - Spondylosis without myelopathy or radiculopathy, lumbar region Category: Medical (4) Idiopathic peripheral neuropathy: Code(s): G60.9 - Hereditary and idiopathic neuropathy, unspecified Category: Medical (5) Chronic pain syndrome: Code(s): G89.4 - Chronic pain syndrome Category: Medical (6) Seropositive rheumatoid arthritis: Comment: Humira- 09/2013-02/2014 Methotrexate - 05/2016-11/2015 Sulfasalazine 09/2012-02/2014 Arava- 04/2016-04/2017 Xeljanz- 12/2013-06/2014 -tunnel vision Kevzara- 06/2018-03/2020 Olumiant- 05/2020- present Code(s): M05.9 - Rheumatoid arthritis with rheumatoid factor, unspecified Category: Medical (7) Spondylosis of thoracic spine: Code(s): M47.814 - Spondylosis without myelopathy or radiculopathy, thoracic region Category: Medical (8) Spondylosis of thoracic region without myelopathy or radiculopathy: Code(s): M47.814 - Spondylosis without myelopathy or radiculopathy, thoracic region Category: Medical Plan Masspat was reviewed and without concerns. No obvious signs of diversion, abuse or misuse of the opioid medications. Will send in prescription for Oxycodone 10mg PQ Q6H PRN with an advanced date of 01/12/24. Continue with amitriptyline 25mg po QHS, patient advised on cautions for use. All questions and concerns have been answered and patient agrees with the plan. Patient to follow-up in the office in 1 month, sooner if needed. Medications: Refilled amitriptyline 25 mg PO BEDTIME 30 tabs 3RF oxycodone 10 mg PO Q6H PRN 120 tabs 0RF pain, severe 30 days G89.4 - Chronic pain syndrome, M25.551 - Pain in right hip, M25.552 - Pain in left hip, M47.27 - Other spondylosis with radiculopathy, lumbosacral region, M54.2 - Cervicalgia, Z79.891 - intermediate (current) use of opiate analgesic Coding Level of Care Code Est Pt Level 4 (67770) Diagnoses Sacroiliitis M46.1 Disc degeneration, lumbar M51.36 Spondylosis of lumbar region without myelopathy or radiculopathy M47.816 Idiopathic peripheral neuropathy G60.9 Chronic pain syndrome G89.4 Seropositive rheumatoid arthritis M05.9 Spondylosis of thoracic spine M47.814 Spondylosis of thoracic region without myelopathy or radiculopathy M47.814
== END 2023-12-26 10:31 | disposition home or self-care (01) ==
PROVIDERS: PCP Internal Medicine; Visit Provider Registered Nurse Emergency
DX: G89.4 Chronic pain syndrome (principal); M46.1 Sacroiliitis, not elsewhere classified; M51.36 Other intervertebral disc degeneration, lumbar region; M47.816 Spondylosis without myelopathy or radiculopathy, lumbar region; G60.9 Hereditary and idiopathic neuropathy, unspecified; M05.9 Rheumatoid arthritis with rheumatoid factor, unspecified; M47.814 Spondylosis without myelopathy or radiculopathy, thoracic region
CPT/HCPCS: 99214

== ENCOUNTER 2023-12-26 10:33 | Outpatient (REF) | payer MEDICARE, SELFPAY ==
[2023-12-26 13:14] LABS: MANUAL DIFF FLAG NO
[2023-12-26 13:19] LABS: Basophils Percent Auto 0.7 % (0-2); Eosinophils Absolute Auto 0.1 X10*3/uL (0.0-0.4); Eosinophils Percent Auto 0.9 % (0-4); Hematocrit 32.1 % (37.0-47.0); Hemoglobin 10.8 g/dl (12.0-16.0); Imm Gran Abs Auto 0.01 X10*3/uL (0.00-0.03); Imm Gran Pct Auto 0.2 % (0.0-0.4); Lymphocytes Absolute Auto 1.6 X10*3/uL (1.2-4.9); Lymphocytes Percent Auto 28.6 % (20-40); Mean Corpuscular HGB Conc 33.6 g/dl (31.0-35.0); Mean Corpuscular Hemoglobin 34.3 pg (27.0-33.0); Mean Corpuscular Volume 101.9 fL (80.0-98.0); Mean Platelet Volume 10.3 fL (9.4-12.3); Monocytes Absolute Auto 0.3 X10*3/uL (0.1-1.2); Neutrophils Absolute Auto 3.5 x10*3/uL (2.0-8.3); Neutrophils Percent Auto 63.6 % (45-73); Platelet Count 186 X10*3/uL (160-400); Red Blood Count 3.15 X10*6/uL (4.20-5.50); White Blood Count 5.5 X10*3/uL (4.8-10.8)
[2023-12-26 13:35] LABS: Alanine Aminotransferase 21 U/L (0-31); Albumin Level 3.8 g/dL (3.5-5.0); Alkaline Phosphatase 53 U/L (39-117); Anion Gap 10 (12-20); Aspartate Amino Transferase 24 U/L (5-31); Bilirubin Total 0.4 mg/dL (0.0-1.0); Blood Urea Nitrogen 15 mg/dL (9-16); C Reactive Protein 0.12 mg/dL (< or = 0.50); Calcium 9.5 mg/dL (8.4-10.2); Carbon Dioxide 24 mmol/L (22-29); Chloride 109 mmol/L (96-108); Estimated Glomerular Filt Rate > 60; Glucose Random 94 mg/dL (60-115); Potassium 4.2 mmol/L (3.3-5.1); Sodium 139 mmol/L (135-145); Total Protein 7.1 g/dL (6.5-8.0)
[2023-12-26 14:25] LABS: Erythrocyte Sedimentation Rate 40 MM/HR (0-20)
[2023-12-31 08:47] LABS: VITAMIN D (1,25 OH) D3 42 pg/mL; Vit D (1,25-Dihydroxy) Total 42 pg/mL (18-72); Vitamin D (1,25 OH) D2 <8 pg/mL
== END 2023-12-26 10:34 | disposition home or self-care (01) ==
LOC: HO.10HDL 10:33
PROVIDERS: Visit Provider Nurse Practitioner Family
DX: M05.9 Rheumatoid arthritis with rheumatoid factor, unspecified (principal); M46.1 Sacroiliitis, not elsewhere classified; M51.36 Other intervertebral disc degeneration, lumbar region; M47.816 Spondylosis without myelopathy or radiculopathy, lumbar region; G60.9 Hereditary and idiopathic neuropathy, unspecified; G89.4 Chronic pain syndrome; M47.814 Spondylosis without myelopathy or radiculopathy, thoracic region; Z51.81 Encounter for therapeutic drug level monitoring; Z79.891 Long term (current) use of opiate analgesic; Z79.60 Long term (current) use of unspecified immunomodulators and immunosuppressants
CPT/HCPCS: 36415; 80053; 82652; 85025; 85652; 86140; 99212

== ENCOUNTER 2024-01-07 12:43 | Outpatient (AMB) | payer MEDICARE, SELFPAY ==
--- NOTE | 2024-01-07 12:43 | MHC.OFFVIS ---
Vital Signs 01/07/24 12:44 Height 5 ft 5 in Weight 162 lb 0.636 oz BMI 27.0 BP 116/64 Blood Pressure Location Lt brachial Position Sitting Pulse 77 Pulse Source Pulse Oximeter Intake Visit Reasons: RA/2 labs then lab before next visit./CONFIRMED Intake Note: Patient last seen by Evelyn Gentile on 09/08/23 presents today for follow up. [employer] Required: No Accompanied by: Self / Same As Patient [facility]ies [facility] Allergy (Severe, Verified 01/07/24 12:45) blistery rash gabapentin Allergy (Intermediate, Verified 01/07/24 12:45) rash pregabalin Allergy (Intermediate, Verified 01/07/24 12:45) rash tofacitinib [Xeljanz] Allergy (Intermediate, Verified 01/07/24 12:45) Rash Medication List - Last Reconciled 01/07/24 by Ronny oDn MD alendronate 70 mg PO QWEEK amitriptyline 25 mg PO BEDTIME atorvastatin 10 mg PO DAILY baclofen 5 mg PO BID PRN 90 days baricitinib (Olumiant) 2 mg PO DAILY duloxetine 60 mg PO DAILY 30 days ibuprofen 200 mg PO Q6H PRN naloxone 4 mg/actuation (Narcan) 4 mg intranasal Q2M PRN oxycodone 10 mg PO Q6H PRN 30 days topiramate 100 mg PO BID trazodone 200 mg PO BEDTIME PRN varenicline 1 ea PO BID varenicline (Chantix) 1 mg PO BID HPI Comments Details: This is a 63-year-old female with seropositive RA who presents for follow-up. She took methotrexate for approximately 2 months after last visit but she developed chest discomfort, chest pain with deep breaths, no significant cough. She went to urgent care and had x-rays done. She was told everything was unremarkable. Stopped methotrexate since then and her symptoms resolved she remains on Olumiant regularly. She gets intermittent pain across her knuckles and her feet but overall doing well. 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 Spondylosis of lumbar region without myelopathy or radiculopathy Disc degeneration, lumbar Sacroiliac joint dysfunction of right side Sacroiliitis Seropositive rheumatoid arthritis Carpal tunnel syndrome, bilateral Surgical History Hx of shoulder surgery History of meniscectomy of left knee H/O lithotripsy History of left knee replacement H/O hernia repair Hx of laparoscopy Family History Father Esophagus cancer Mother CVD (cardiovascular disease) Brother CVD (cardiovascular disease) Diabetes Social History Alcohol intake: never Comment: chronic back pain Patient Tobacco Use Status: Current everyday Tobacco user Tobacco use type: Cigarette Cigarettes Per Day: 12 Years Smoked: 40 Advance Directives Date on File: 04/11/20 Physical Exam Vital Signs: BMI result Body Mass Index 27.0 Const General: cooperative, healthy appearing and comfortable Nutritional Appearance: overweight Orientation/consciousness: patient oriented x3 Limitations: no limitations HEENT Head: Yes normocephalic and Yes atraumatic Mouth: moist mucous membranes Resp Effort & Inspection: normal respiratory effort and able to speak in complete sentences Auscultation: clear to auscultation bilaterally Cardio Rate: regular rate Rhythm: regular rhythm Skin General skin exam: no rashes or lesions noted Neuro General: patient oriented x3 Extrem Other: Osteoarthritic changes of both hands swollen joints Bilateral 1st MCP joint tenderness without swelling Of MCP squeeze test Normal range of motion of elbows and shoulders without pain Left knee crepitus No ankle swelling or tenderness bilaterally Bilateral 4th MTP tenderness Normal nailfold capillaroscopy Assessment & Plan Assessment & Plan (1) Seropositive rheumatoid arthritis: Comment: -ve ++CCP Humira- 09/2013-02/2014 Methotrexate - 05/2016-11/2015 Sulfasalazine 09/2012-02/2014 Arava- 04/2016-04/2017 Xeljanz- 12/2013-06/2014 -tunnel vision Kevzara- 06/2018-03/2020 Olumiant- 05/2020- present MTX added 09/2023-DC 11/2023 due to Pleuritis/pneumonitis episode Code(s): M05.9 - Rheumatoid arthritis with rheumatoid factor, unspecified Category: Medical Plan: This is a 63-year-old female with seropositive RA who presents for follow-up. Patient took methotrexate for approximately 2 months but developed chest discomfort, pain with deep breaths, pleuritis/pneumonitis like episode. No recurrence of symptoms since methotrexate was discontinued. Patient is on Olumiant only today. She is doing quite well overall. Continue Olumiant 2 mg daily Labs before next visit in 4 months (2) Long-term use of immunosuppressant medication: Code(s): Z79.60 - care home (current) use of unspecified immunomodulators and immunosuppressants Category: Medical Plan: Monitor safety labs. Patient receives Shingrix vaccine in 2019 (3) Osteopenia with high risk of fracture: Comment: 10/2022 T-score-1.5 in the femoral neck, major risk for fracture 19.1%, hip fracture 3.7%. Alendronate: 10/2022 - present Code(s): M85.80 - Other specified disorders of bone density and structure, unspecified site Category: Medical Plan: Continue with alendronate. Plan to repeat DEXA 10/2024 Plan I spent 38 minutes reviewing patient's chart, evaluating patient, ordering diagnostic workup, counseling patient and documenting in the chart Orders: Orders Comprehensive Met. Panel 4 Months M05.9 - Rheumatoid arthritis with rheumatoid factor, unspecified C Reactive Protein 4 Months M05.9 - Rheumatoid arthritis with rheumatoid factor, unspecified Erythrocyte Sedimentation Rate 4 Months M05.9 - Rheumatoid arthritis with rheumatoid factor, unspecified T Spot TB 4 Months Z11.7 - Encounter for testing for latent tuberculosis infection Complete Blood Count Auto Diff 4 Months M05.9 - Rheumatoid arthritis with rheumatoid factor, unspecified Hepatitis A,B,C Profile 4 Months Z11.59 - Encounter for screening for other viral diseases Coding Level of Care Code Est Pt Level 5 (91573) Diagnoses Seropositive rheumatoid arthritis M05.9 Long-term use of immunosuppressant medication Z79.60 Osteopenia with high risk of fracture M85.80
[2024-01-07 12:44] VITALS: BP 116/64; PULSE 77; BMI 27.0
== END 2024-01-07 13:04 | disposition home or self-care (01) ==
PROVIDERS: PCP Internal Medicine; Visit Provider Student in an Organized Health Care Education/Training Program
DX: M05.79 Rheumatoid arthritis with rheumatoid factor of multiple sites without organ or systems involvement (principal); Z79.60 Long term (current) use of unspecified immunomodulators and immunosuppressants; M85.80 Other specified disorders of bone density and structure, unspecified site
CPT/HCPCS: 99214

== ENCOUNTER → 2024-01-07 12:43 | Outpatient (BNVA) | payer MEDICARE, SELFPAY | PROVIDERS: PCP Internal Medicine; Visit Provider Student in an Organized Health Care Education/Training Program | DX: M05.9 Rheumatoid arthritis with rheumatoid factor, unspecified (principal); M85.80 Other specified disorders of bone density and structure, unspecified site; Z79.60 Long term (current) use of unspecified immunomodulators and immunosuppressants | CPT/HCPCS: 99212 ==

== ENCOUNTER 2024-01-23 10:51 | Outpatient (AMB) | payer MEDICARE, SELFPAY ==
--- NOTE | 2024-01-23 10:53 | A.OFFVIS_ITS ---
Vital Signs 01/23/24 10:54 Height 5 ft 5 in Weight 164 lb BMI 27.3 BP 158/77 H Blood Pressure Location Rt brachial Position Sitting Pulse 68 Pulse Source Pulse Oximeter Pulse Oximetry (%) 100 Oxygen Delivery Method Room Air Intake Visit Reasons: PILL COUNT Allergies sarilumab [From [facility]] Allergy (Severe, Verified 01/23/24 10:56) blistery rash gabapentin Allergy (Intermediate, Verified 01/23/24 10:56) rash pregabalin Allergy (Intermediate, Verified 01/23/24 10:56) rash tofacitinib [Xeljanz] Allergy (Intermediate, Verified 01/23/24 10:56) Rash Medication List - Last Reconciled 01/23/24 by Bettie Forbes alendronate 70 mg PO QWEEK amitriptyline 25 mg PO BEDTIME atorvastatin 10 mg PO DAILY baclofen 5 mg PO BID PRN 90 days baricitinib (Olumiant) 2 mg PO DAILY duloxetine 60 mg PO DAILY 30 days ibuprofen 200 mg PO Q6H PRN naloxone 4 mg/actuation (Narcan) 4 mg intranasal Q2M PRN oxycodone 10 mg PO Q6H PRN 30 days topiramate 100 mg PO BID trazodone 200 mg PO BEDTIME PRN varenicline 1 ea PO BID varenicline (Chantix) 1 mg PO BID HPI Comments Details: Raquel is a very pleasant 63 year old female who presents to the office for follow up chronic pain and chronic opioid therapy management. Patient is prescribed Oxycodone 10mg take 1 tablet four times daily as needed. Patient arrived today with the expectation of having 76 pills, she presented 74 pills which were counted in the presence of two staff members and returned to the patient in the original prescription bottle. This demonstrates responsible attitude toward patient's opioid medications. Pain is reported today as 5/10 and last dose of pain medication was taken at 8:30am. Patient denies side effects including somnolence, constipation, itching, dyspnea, rash, dizziness or weakness. Previous visit with Dr Ceron: Raquel is in the office for t the follow-up and pill count.? She came today for the pill count: She is supposed to have 80 pills in her possession. She p resented with 78 pills in her possession. She reported that she took couple of extra pain medications yesterday because she had to go for very large shopping. I advised her that the next time if she feels some extra pain it better if she will take some NSAIDs and or Tylenol. We performed 10 days ago therapeutic T8- T9 T10 medial branch block bilateral. She reports in general very good pain relief in the area she reports in the projection of T5 vertebra still significant tenderness and pain. We could not possibly be able to do the procedure on her this widespread. But overall she reports that her pain in the lower thoracic spine is much better. She had therapeutic SI joint injection which was performed on 09/24/2022.? She reported 4 weeks of pain reduction about 50% her pain level became 3/10 before the injection it was 6/10.? She reports about her sacroiliac joint pain that the pain is more it tends now however it is less frequent. In the past we discussed PNS for sacroiliac joint. she stated that she would not accept any implantable device. Prior:? the results of sacroiliac joint injections which was done on 08/20/2022.She reports this particular pain 100% pain relief to hours after the procedure.? She enjoyed very minimal pain in the right joint area for the next 4 hours after the procedure.? She reported very good pain relief for total of 6 hours after the procedure and she said that she was able to sleep through the night without waking up from the pain the night after the injection.? I gave her options of peripheral nerve stimulation versus steroid injections and she chose to go for steroid injections.? I will schedule her for this procedure without sedation.? he patient complains on pain in the right side of the lower back with radiation into the right buttock.? Jay test pelvis destruction test and pelvis compression test as well as Stinchfield test are positive for right sacroiliac joint information.? I offered her to perform sacroiliac joint injection diagnostic on the right.? ?From time to time she is riding 5 miles on her stationary bike.?. 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 Spondylosis of lumbar region without myelopathy or radiculopathy Disc degeneration, lumbar Sacroiliac joint dysfunction of right side Sacroiliitis Seropositive rheumatoid arthritis Carpal tunnel syndrome, bilateral Surgical History Hx of shoulder surgery History of meniscectomy of left knee H/O lithotripsy History of left knee replacement H/O hernia repair Hx of laparoscopy Family History Father Esophagus cancer Mother CVD (cardiovascular disease) Brother CVD (cardiovascular disease) Diabetes Social History Alcohol intake: never Comment: chronic back pain Patient Tobacco Use Status: Current everyday Tobacco user Tobacco use type: Cigarette Cigarettes Per Day: 12 Years Smoked: 40 Advance Directives Date on File: 04/11/20 Review of Systems Const All systems reviewed & are unremarkable except as noted in HPI and below Physical Exam Vital Signs: Last Vital Signs Pulse 68 01/23/24 10:54 BP 158/77 H 01/23/24 10:54 Pulse Ox 100 01/23/24 10:54 Oxygen Delivery Method Room Air 01/23/24 10:54 BMI result Body Mass Index 27.3 General: awake, alert, oriented. Answers questions appropriately. Fully engaged in examination. Skin: warm, dry, intact HEENT: Normocephalic. Hearing intact. Cardiac: External chest normal in appearance. Respiratory: No cough, audible wheezing or stridor. Abdomen: without gross distension. MS: No obvious swelling or deformities. Able to transition from sit to stand unassisted. Ambulates with bilaterally normal heel strike and toe off Neurological: Oriented to person, place, time and situation. Thought process intact. No gait abnormalities appreciated. Psychiatric: Appropriate mood and affect. Good judgment and insight. Results Reviewed Results Reviewed: LUMBAR SPINE XRAY 2014 FINDINGS: Normal overall alignment. Normal vertebral body heights. Degenerative changes with osteophyte formation and mild decrease in the intervertebral disc space noted at multiple levels. It appears to be worse at L1-L2 and L2-L3 levels. Multilevel facet arthropathy. No acute osseous abnormality. Incidental note is made of bilateral renal calcifications, right greater than left. Surgical clips noted in the left upper quadrant. Postoperative changes compatible with prior hernia repair noted in the left mid abdomen. IMPRESSION: 1. No acute osseous abnormality. 2. Moderate degenerative changes upper to mid lumbar spine. 3. Bilateral renal calcifications. Assessment & Plan Assessment & Plan (1) Sacroiliitis: Code(s): M46.1 - Sacroiliitis, not elsewhere classified Category: Medical (2) Disc degeneration, lumbar: Code(s): M51.36 - Other intervertebral disc degeneration, lumbar region Category: Medical (3) Spondylosis of lumbar region without myelopathy or radiculopathy: Code(s): M47.816 - Spondylosis without myelopathy or radiculopathy, lumbar region Category: Medical (4) Idiopathic peripheral neuropathy: Code(s): G60.9 - Hereditary and idiopathic neuropathy, unspecified Category: Medical (5) Chronic pain syndrome: Code(s): G89.4 - Chronic pain syndrome Category: Medical (6) Seropositive rheumatoid arthritis: Comment: -ve ++CCP Humira- 09/2013-02/2014 Methotrexate - 05/2016-11/2015 Sulfasalazine 09/2012-02/2014 Arava- 04/2016-04/2017 Xeljanz- 12/2013-06/2014 -tunnel vision Kevzara- 06/2018-03/2020 Olumiant- 05/2020- present MTX added 09/2023-DC 11/2023 due to Pleuritis/pneumonitis episode Code(s): M05.9 - Rheumatoid arthritis with rheumatoid factor, unspecified Category: Medical (7) Spondylosis of thoracic spine: Code(s): M47.814 - Spondylosis without myelopathy or radiculopathy, thoracic region Category: Medical (8) Spondylosis of thoracic region without myelopathy or radiculopathy: Code(s): M47.814 - Spondylosis without myelopathy or radiculopathy, thoracic region Category: Medical Plan Masspat was reviewed and without concerns. No obvious signs of diversion, abuse or misuse of the opioid medications. Will send in prescription for Oxycodone 10mg PQ Q6H PRN with an advanced date of 02/10/24. Continue with amitriptyline 25mg po QHS All questions and concerns have been answered and patient agrees with the plan. Patient to follow-up in the office in 1 month, sooner if needed. Medications: Refilled oxycodone 10 mg PO Q6H PRN 120 tabs 0RF pain, severe 30 days G89.4 - Chronic pain syndrome, M25.551 - Pain in right hip, M25.552 - Pain in left hip, M47.27 - Other spondylosis with radiculopathy, lumbosacral region, M54.2 - Cervicalgia, Z79.891 - assisted (current) use of opiate analgesic Coding Level of Care Code Est Pt Level 4 (24709) Diagnoses Sacroiliitis M46.1 Disc degeneration, lumbar M51.36 Spondylosis of lumbar region without myelopathy or radiculopathy M47.816 Idiopathic peripheral neuropathy G60.9 Chronic pain syndrome G89.4 Seropositive rheumatoid arthritis M05.9 Spondylosis of thoracic spine M47.814 Spondylosis of thoracic region without myelopathy or radiculopathy M47.814
[2024-01-23 10:54] VITALS: BP 158/77; PULSE 68; O2SAT 100; BMI 27.3
== END 2024-01-23 11:24 | disposition home or self-care (01) ==
PROVIDERS: PCP Internal Medicine; Visit Provider Registered Nurse Emergency
DX: M46.1 Sacroiliitis, not elsewhere classified (principal); M51.36 Other intervertebral disc degeneration, lumbar region; M47.816 Spondylosis without myelopathy or radiculopathy, lumbar region; G60.9 Hereditary and idiopathic neuropathy, unspecified; G89.4 Chronic pain syndrome; M05.9 Rheumatoid arthritis with rheumatoid factor, unspecified; M47.814 Spondylosis without myelopathy or radiculopathy, thoracic region
CPT/HCPCS: 99214

== ENCOUNTER → 2024-01-23 10:51 | Outpatient (BNVA) | payer MEDICARE, SELFPAY | PROVIDERS: PCP Internal Medicine; Visit Provider Registered Nurse Emergency | DX: M46.1 Sacroiliitis, not elsewhere classified (principal); M51.36 Other intervertebral disc degeneration, lumbar region; M47.816 Spondylosis without myelopathy or radiculopathy, lumbar region; G60.9 Hereditary and idiopathic neuropathy, unspecified; G89.4 Chronic pain syndrome; M05.9 Rheumatoid arthritis with rheumatoid factor, unspecified; M47.814 Spondylosis without myelopathy or radiculopathy, thoracic region; Z51.81 Encounter for therapeutic drug level monitoring; Z79.891 Long term (current) use of opiate analgesic | CPT/HCPCS: 99212 ==

== ENCOUNTER 2024-02-19 09:48 | Outpatient (AMB) | payer BC, SELFPAY ==
--- NOTE | 2024-02-19 09:58 | MHC.OFFVIS ---
Vital Signs 02/19/24 10:05 Height 5 ft 5 in Weight 170 lb BMI 28.3 BP 129/63 Blood Pressure Location Rt brachial Position Sitting Pulse 91 Pulse Source Pulse Oximeter Pulse Oximetry (%) 98 Oxygen Delivery Method Room Air Intake Visit Reasons: PILL COUNT Intake Note: Raquel comes i today for a pill count to oxycodone, patient should have 88 tablets and presents with 92 tablets which she last took today 02/19/24 at 2am. Pain today [employer] Required: No Accompanied by: Self / Same As Patient Allergies sarilumab [From Kevzara] Allergy (Severe, Verified 02/19/24 10:05) blistery rash gabapentin Allergy (Intermediate, Verified 02/19/24 10:05) rash pregabalin Allergy (Intermediate, Verified 02/19/24 10:05) rash tofacitinib [Xeljanz] Allergy (Intermediate, Verified 02/19/24 10:05) Rash HPI Comments Details: Patient is a pleasant 63 years old female who has been previously evaluated in this office by Brtitney HERNANDEZ and Dr. Ceron for chronic pain with medical pain management. Today, she is here for a pill count. Patient is supposed to have #88 pills, in her possession has #92 pills. This demonstrates a responsible attitude in regards to the medication regimen. Patient continues to report reasonable pain relief on her regimen of oxycodone 10 mg Q6H prn with no noted side effects. Denies any constipation, nausea, sedation, dizziness, or urinary retention. She reports increased ability to perform activities of daily living, better sleep, better interact socially and be more functional. Takes Senokot about 4 times per month for occasional constipation. Reports recent left cataracts procedure on 02/04/24 and right side was done in October 2023. PRIOR: Raquel is a very pleasant 63 year old female who presents to the office for follow up chronic pain and chronic opioid therapy management. Patient is prescribed Oxycodone 10mg take 1 tablet four times daily as needed. Patient arrived today with the expectation of having 76 pills, she presented 74 pills which were counted in the presence of two staff members and returned to the patient in the original prescription bottle. This demonstrates responsible attitude toward patient's opioid medications. Pain is reported today as 5/10 and last dose of pain medication was taken at 8:30am. Patient denies side effects including somnolence, constipation, itching, dyspnea, rash, dizziness or weakness. Previous visit with Dr Ceron: Raquel is in the office for t the follow-up and pill count.? She came today for the pill count: She is supposed to have 80 pills in her possession. She presented with 78 pills in her possession. She reported that she took couple of extra pain medications yesterday because she had to go for very large shopping. I advised her that the next time if she feels some extra pain it better if she will take some NSAIDs and or Tylenol. We performed 10 days ago therapeutic T8-T9 T10 medial branch block bilateral. She reports in general very good pain relief in the area she reports in the projection of T5 vertebra still significant tenderness and pain. We could not possibly be able to do the procedure on her this widespread. But overall she reports that her pain in the lower thoracic spine is much better. She had therapeutic SI joint injection which was performed on 09/24/2022.? She reported 4 weeks of pain reduction about 50% her pain level became 3/10 before the injection it was 6/10.? She reports about her sacroiliac joint pain that the pain is more it tends now however it is less frequent. In the past we discussed PNS for sacroiliac joint. she stated that she would not accept any implantable device. Prior:? the results of sacroiliac joint injections which was done on 08/20/2022.She reports this particular pain 100% pain relief to hours after the procedure.? She enjoyed very minimal pain in the right joint area for the next 4 hours after the procedure.? She reported very good pain relief for total of 6 hours after the procedure and she said that she was able to sleep through the night without waking up from the pain the night after the injection.? I gave her options of peripheral nerve stimulation versus steroid injections and she chose to go for steroid injections.? I will schedule her for this procedure without sedation.? he patient complains on pain in the right side of the lower back with radiation into the right buttock.? Jay test pelvis destruction test and pelvis compression test as well as Stinchfield test are positive for right sacroiliac joint information.? I offered her to perform sacroiliac joint injection diagnostic on the right.? ?From time to time she is riding 5 miles on her stationary bike.?. [facility] Medical History (Updated 02/19/24 @ 12:27 by MARY Bradshaw) Chronic pain syndrome Fluid retention in legs COVID-19 vaccine series completed Rheumatoid arthritis Idiopathic peripheral neuropathy [facility] (current) use of opiate analgesic Spondylosis of lumbar region without myelopathy or radiculopathy Disc degeneration, lumbar Sacroiliac joint dysfunction of right side Sacroiliitis Seropositive rheumatoid arthritis Carpal tunnel syndrome, bilateral Surgical History Hx of shoulder surgery History of meniscectomy of left knee H/O lithotripsy History of left knee replacement H/O hernia repair Hx of laparoscopy Family History Father Esophagus cancer Mother CVD (cardiovascular disease) Brother CVD (cardiovascular disease) Diabetes Social History Alcohol intake: never Comment: chronic back pain Patient Tobacco Use Status: Current everyday Tobacco user Tobacco use type: Cigarette Cigarettes Per Day: 12 Years Smoked: 40 Advance Directives Date on File: 04/11/20 Review of Systems Const All systems reviewed & are unremarkable except as noted in HPI and below Physical Exam Vital Signs: Last Vital Signs Pulse 91 02/19/24 10:05 BP 129/63 02/19/24 10:05 Pulse Ox 98 02/19/24 10:05 Oxygen Delivery Method Room Air 02/19/24 10:05 BMI result Body Mass Index 28.3 General: Appears afebrile. Alert and oriented. Mood and affect appropriate. Follows and participates in conversation appropriately. Respiratory effort is unlabored. No cough. Able to transition from sit to stand unassisted. Ambulates with bilaterally normal heel strike and toe off. Psych Appearance: grossly normal and well kempt Mental Status: mental status grossly normal Speech and movement: Normal speech and movement present and Clear speech present Affect: normal affect Attitude: cooperative Thought process: Normal thought process present Thought content: Normal thought content present, suicidality (none), no hallucinations and No Depressive thoughts present Insight: Good insight present (Psych) Judgement: Good judgement present (Psych) Results Reviewed Results Reviewed: LUMBAR SPINE XRAY 2015 FINDINGS: Normal overall alignment. Normal vertebral body heights. Degenerative changes with osteophyte formation and mild decrease in the intervertebral disc space noted at multiple levels. It appears to be worse at L1-L2 and L2-L3 levels. Multilevel facet arthropathy. No acute osseous abnormality. Incidental note is made of bilateral renal calcifications, right greater than left. Surgical clips noted in the left upper quadrant. Postoperative changes compatible with prior hernia repair noted in the left mid abdomen. IMPRESSION: 1. No acute osseous abnormality. 2. Moderate degenerative changes upper to mid lumbar spine. 3. Bilateral renal calcifications. Assessment & Plan Assessment & Plan (1) Sacroiliitis: Code(s): M46.1 - Sacroiliitis, not elsewhere classified Category: Medical (2) Disc degeneration, lumbar: Code(s): M51.36 - Other intervertebral disc degeneration, lumbar region Category: Medical (3) Spondylosis of lumbar region without myelopathy or radiculopathy: Code(s): M47.816 - Spondylosis without myelopathy or radiculopathy, lumbar region Category: Medical (4) Idiopathic peripheral neuropathy: Code(s): G60.9 - Hereditary and idiopathic neuropathy, unspecified Category: Medical (5) Chronic pain syndrome: Code(s): G89.4 - Chronic pain syndrome Category: Medical (6) Spondylosis of thoracic spine: Code(s): M47.814 - Spondylosis without myelopathy or radiculopathy, thoracic region Category: Medical (7) Spondylosis of thoracic region without myelopathy or radiculopathy: Code(s): M47.814 - Spondylosis without myelopathy or radiculopathy, thoracic region Category: Medical (8) Sacroiliac dysfunction: Code(s): M53.3 - Sacrococcygeal disorders, not elsewhere classified Category: Medical (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 There is no evidence of misuse, abuse or diversion at this time. [facility] reviewed. Will send in prescription for Oxycodone 10mg PQ Q6H PRN with an advanced date of 03/12/24. Refill sent for Narcan today. Continue with amitriptyline 25mg po QHS. All questions and concerns have been answered and patient agrees with the plan. Patient to follow-up in the office in 1 month with Brittney HERNANDEZ and sooner as needed. 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
[2024-02-19 10:05] VITALS: BP 129/63; PULSE 91; O2SAT 98; BMI 28.3
== END 2024-02-19 10:15 | disposition home or self-care (01) ==
PROVIDERS: PCP Internal Medicine; Visit Provider Nurse Practitioner Family
DX: G89.4 Chronic pain syndrome (principal); M46.1 Sacroiliitis, not elsewhere classified; M51.36 Other intervertebral disc degeneration, lumbar region; Z79.891 Long term (current) use of opiate analgesic; M47.816 Spondylosis without myelopathy or radiculopathy, lumbar region; G60.9 Hereditary and idiopathic neuropathy, unspecified; M47.814 Spondylosis without myelopathy or radiculopathy, thoracic region; M53.3 Sacrococcygeal disorders, not elsewhere classified
CPT/HCPCS: 99214

== ENCOUNTER → 2024-02-19 09:48 | Outpatient (BNVA) | payer MEDICARE, SELFPAY | PROVIDERS: PCP Internal Medicine; Visit Provider Nurse Practitioner Family | DX: G89.4 Chronic pain syndrome (principal); M46.1 Sacroiliitis, not elsewhere classified; M51.36 Other intervertebral disc degeneration, lumbar region; M47.816 Spondylosis without myelopathy or radiculopathy, lumbar region; G60.9 Hereditary and idiopathic neuropathy, unspecified; M47.814 Spondylosis without myelopathy or radiculopathy, thoracic region; M53.3 Sacrococcygeal disorders, not elsewhere classified; Z79.891 Long term (current) use of opiate analgesic | CPT/HCPCS: 99212 ==

== ENCOUNTER 2024-03-25 09:58 | Outpatient (AMB) | payer MEDICARE, SELFPAY ==
[2024-03-25 10:04] VITALS: BP 148/73; PULSE 81; O2SAT 96
--- NOTE | 2024-03-25 10:04 | A.OFFVIS_ITS ---
Vital Signs 03/25/24 10:04 Height 5 ft 5 in Weight 180 lb BMI 30.0 BP 148/73 H Blood Pressure Location Rt brachial Position Sitting Pulse 81 Pulse Source Pulse Oximeter Pulse Oximetry (%) 96 Oxygen Delivery Method Room Air Intake Visit Reasons: PILL COUNT/ Random UDS Allergies sarilumab [From Martinezzara] Allergy (Severe, Verified 03/25/24 10:05) blistery rash gabapentin Allergy (Intermediate, Verified 03/25/24 10:05) rash pregabalin Allergy (Intermediate, Verified 03/25/24 10:05) rash tofacitinib [Xeljanz] Allergy (Intermediate, Verified 03/25/24 10:05) Rash Medication List - Last Reconciled 03/25/24 by Bettie Forbes alendronate 70 mg PO QWEEK amitriptyline 25 mg PO BEDTIME atorvastatin 10 mg PO DAILY baclofen 5 mg PO BID PRN 90 days duloxetine 60 mg PO DAILY 30 days ibuprofen 200 mg PO Q6H PRN naloxone 4 mg/actuation (Narcan) 4 mg intranasal Q2M PRN Olumiant (baricitinib) 2 mg PO DAILY NS oxycodone 10 mg PO Q6H PRN 30 days topiramate 100 mg PO BID trazodone 200 mg PO BEDTIME PRN varenicline 1 ea PO BID varenicline (Chantix) 1 mg PO BID HPI Comments Details: Raquel is a very pleasant 63 year old female who presents to the office for fol low up chronic pain and chronic opioid therapy management. Patient is prescribed Oxycodone 10mg take 1 tablet four times daily as needed. Patient arrived today with the expectation of having 68 pills, she presented 64 pills which were counted in the presence of two staff members and returned to the patient in the original prescription bottle. This demonstrates responsible attitude toward patient's opioid medications. Pain is reported today as 6/10 and last dose of pain medication was taken at 9:00am. Patient denies side effects including somnolence, constipation, itching, dyspnea, rash, dizziness or weakness. Has been taking amitriptyline with good relief of her neuropathy. Previous visit with Dr Ceron: Raquel is in the office for t the follow-up and pill count.? She came today for the pill count: She is supposed to have 80 pills in her possession. She presented with 78 pills in her possession. She reported that she took couple of extra pain medications yesterday because she had to go for very large shopping. I advised her that the next time if she feels some extra pain it better if she will take some NSAIDs and or Tylenol. We performed 10 days ago therapeutic T8- T9 T10 medial branch block bilateral. She reports in general very good pain relief in the area she reports in the projection of T5 vertebra still significant tenderness and pain. We could not possibly be able to do the procedure on her this widespread. But overall she reports that her pain in the lower thoracic spine is much better. She had therapeutic SI joint injection which was performed on 09/24/2022.? She reported 4 weeks of pain reduction about 50% her pain level became 3/10 before the injection it was 6/10.? She reports about her sacroiliac joint pain that the pain is more it tends now however it is less frequent. In the past we discussed PNS for sacroiliac joint. she stated that she would not accept any implantable device. Prior:? the results of sacroiliac joint injections which was done on 08/20/2022.She reports this particular pain 100% pain relief to hours after the procedure.? She enjoyed very minimal pain in the right joint area for the next 4 hours after the procedure.? She reported very good pain relief for total of 6 hours after the procedure and she said that she was able to sleep through the night without waking up from the pain the night after the injection.? I gave her options of peripheral nerve stimulation versus steroid injections and she chose to go for steroid injections.? I will schedule her for this procedure without sedation.? he patient complains on pain in the right side of the lower back with radiation into the right buttock.? Jay test pelvis destruction test and pelvis compression test as well as Stinchfield test are positive for right sacroiliac joint information.? I offered her to perform sacroiliac joint injection diagnostic on the right.? ?From time to time she is riding 5 miles on her stationary bike.?. 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 Spondylosis of lumbar region without myelopathy or radiculopathy Disc degeneration, lumbar Sacroiliac joint dysfunction of right side Sacroiliitis Seropositive rheumatoid arthritis Carpal tunnel syndrome, bilateral Surgical History Hx of shoulder surgery History of meniscectomy of left knee H/O lithotripsy History of left knee replacement H/O hernia repair Hx of laparoscopy Family History Father Esophagus cancer Mother CVD (cardiovascular disease) Brother CVD (cardiovascular disease) Diabetes Social History Alcohol intake: never Comment: chronic back pain Patient Tobacco Use Status: Current everyday Tobacco user Tobacco use type: Cigarette Cigarettes Per Day: 12 Years Smoked: 40 Advance Directives Date on File: 04/11/20 Review of Systems Const All systems reviewed & are unremarkable except as noted in HPI and below Physical Exam Vital Signs: Last Vital Signs Pulse 81 03/25/24 10:04 BP 148/73 H 03/25/24 10:04 Pulse Ox 96 03/25/24 10:04 Oxygen Delivery Method Room Air 03/25/24 10:04 BMI result Body Mass Index 30.0 General: awake, alert, oriented. Answers questions appropriately. Fully engaged in examination. Skin: warm, dry, intact HEENT: Normocephalic. Hearing intact. Cardiac: External chest normal in appearance. Respiratory: No cough, audible wheezing or stridor. Abdomen: without gross distension. MS: No obvious swelling or deformities. Able to transition from sit to stand unassisted. Ambulates with bilaterally normal heel strike and toe off Neurological: Oriented to person, place, time and situation. Thought process intact. No gait abnormalities appreciated. Psychiatric: Appropriate mood and affect. Good judgment and insight. Results Reviewed Results Reviewed: LUMBAR SPINE XRAY 2014 FINDINGS: Normal overall alignment. Normal vertebral body heights. Degenerative changes with osteophyte formation and mild decrease in the intervertebral disc space noted at multiple levels. It appears to be worse at L1-L2 and L2-L3 levels. Multilevel facet arthropathy. No acute osseous abnormality. Incidental note is made of bilateral renal calcifications, right greater than left. Surgical clips noted in the left upper quadrant. Postoperative changes compatible with prior hernia repair noted in the left mid abdomen. IMPRESSION: 1. No acute osseous abnormality. 2. Moderate degenerative changes upper to mid lumbar spine. 3. Bilateral renal calcifications. Assessment & Plan Assessment & Plan (1) Sacroiliitis: Code(s): M46.1 - Sacroiliitis, not elsewhere classified Category: Medical (2) Disc degeneration, lumbar: Code(s): M51.36 - Other intervertebral disc degeneration, lumbar region Category: Medical (3) Spondylosis of lumbar region without myelopathy or radiculopathy: Code(s): M47.816 - Spondylosis without myelopathy or radiculopathy, lumbar region Category: Medical (4) Idiopathic peripheral neuropathy: Code(s): G60.9 - Hereditary and idiopathic neuropathy, unspecified Category: Medical (5) Chronic pain syndrome: Code(s): G89.4 - Chronic pain syndrome Category: Medical (6) Seropositive rheumatoid arthritis: Comment: -ve ++CCP Humira- 09/2013-02/2014 Methotrexate - 05/2016-11/2015 Sulfasalazine 09/2012-02/2014 Arava- 04/2016-04/2017 Xeljanz- 12/2013-06/2014 -tunnel vision Kevzara- 06/2018-03/2020 Olumiant- 05/2020- present MTX added 09/2023-DC 11/2023 due to Pleuritis/pneumonitis episode Code(s): M05.9 - Rheumatoid arthritis with rheumatoid factor, unspecified Category: Medical (7) Spondylosis of thoracic spine: Code(s): M47.814 - Spondylosis without myelopathy or radiculopathy, thoracic region Category: Medical (8) Spondylosis of thoracic region without myelopathy or radiculopathy: Code(s): M47.814 - Spondylosis without myelopathy or radiculopathy, thoracic region Category: Medical Plan [facility] was reviewed and without concerns. No obvious signs of diversion, abuse or misuse of the opioid medications. Will send in prescription for Oxycodone 10mg PQ Q6H PRN with an advanced date of 03/12/24. Continue with amitriptyline 25mg po QHS All questions and concerns have been answered and patient agrees with the plan. Patient to follow-up in the office in 1 month, sooner if needed. 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
== END 2024-03-25 11:02 | disposition home or self-care (01) ==
PROVIDERS: PCP Internal Medicine; Visit Provider Registered Nurse Emergency
DX: M46.1 Sacroiliitis, not elsewhere classified (principal); M51.36 Other intervertebral disc degeneration, lumbar region; M47.816 Spondylosis without myelopathy or radiculopathy, lumbar region; G60.9 Hereditary and idiopathic neuropathy, unspecified; G89.4 Chronic pain syndrome; M05.9 Rheumatoid arthritis with rheumatoid factor, unspecified; M47.814 Spondylosis without myelopathy or radiculopathy, thoracic region
CPT/HCPCS: 99214; G2211

== ENCOUNTER → 2024-03-25 09:58 | Outpatient (BNVA) | payer MEDICARE, SELFPAY | PROVIDERS: PCP Internal Medicine; Visit Provider Registered Nurse Emergency | DX: M46.1 Sacroiliitis, not elsewhere classified (principal); M51.36 Other intervertebral disc degeneration, lumbar region; M47.816 Spondylosis without myelopathy or radiculopathy, lumbar region; G60.9 Hereditary and idiopathic neuropathy, unspecified; G89.4 Chronic pain syndrome; M05.9 Rheumatoid arthritis with rheumatoid factor, unspecified; M47.814 Spondylosis without myelopathy or radiculopathy, thoracic region; Z79.891 Long term (current) use of opiate analgesic; Z79.631 Long term (current) use of antimetabolite agent | CPT/HCPCS: 99212 ==

== ENCOUNTER 2024-05-07 10:32 | Outpatient (AMB) | payer BC, SELFPAY ==
[2024-05-07 11:01] VITALS: BP 128/71; PULSE 74; O2SAT 100
--- NOTE | 2024-05-07 11:01 | A.OFFVIS_ITS ---
Vital Signs 05/07/24 11:01 Height 5 ft 5 in Weight 180 lb BMI 30.0 BP 128/71 Blood Pressure Location Lt brachial Position Sitting Pulse 74 Pulse Source Pulse Oximeter Pulse Oximetry (%) 100 Oxygen Delivery Method Room Air Intake Visit Reasons: PILL COUNT Allergies sarilumab [From Tomás] Allergy (Severe, Verified 05/07/24 11:02) blistery rash gabapentin Allergy (Intermediate, Verified 05/07/24 11:02) rash pregabalin Allergy (Intermediate, Verified 05/07/24 11:02) rash tofacitinib [Xeljanz] Allergy (Intermediate, Verified 05/07/24 11:02) Rash Medication List - Last Reconciled 05/07/24 by Bettie Forbes alendronate 70 mg PO QWEEK amitriptyline 25 mg PO BEDTIME atorvastatin 10 mg PO DAILY baclofen 5 mg PO BID PRN 90 days duloxetine 60 mg PO DAILY 30 days ibuprofen 200 mg PO Q6H PRN naloxone 4 mg/actuation (Narcan) 4 mg intranasal Q2M PRN Olumiant (baricitinib) 2 mg PO DAILY NS oxycodone 10 mg PO Q6H PRN 30 days topiramate 100 mg PO BID trazodone 200 mg PO BEDTIME PRN varenicline 1 ea PO BID varenicline (Chantix) 1 mg PO BID HPI Comments Details: Raquel is a very pleasant 63 year old female who presents to the office for follow up chronic pain and chronic opioid therapy management. Patient is prescribed Oxycodone 10mg take 1 tablet four times daily as needed. Patient arrived today with the expectation of having 16 pills, she presented 14 pills which were counted in the presence of two staff members and returned to the patient in the original prescription bottle. This demonstrates responsible attitude toward patient's opioid medications. Pain is reported today as 5/10 and last dose of pain medication was taken at 8:30am. Patient denies side effects including somnolence, constipation, itching, dyspnea, rash, dizziness or weakness. Taking baclofen 5 mg twice daily, inquiring if this dose can be increased as her muscle spasms are worse now that the colder weather and fall yard work are here Has been taking amitriptyline with good relief of her neuropathy. Previous visit with Dr Ceron: Raquel is in the office for t the follow-up and pill count.? She came today for the pill count: She is supposed to have 80 pills in her possession. She presented with 78 pills in her possession. She reported that she took couple of extra pain medications yesterday because she had to go for very large shopping. I advised her that the next time if she feels some extra pain it better if she will take some NSAIDs and or Tylenol. We performed 10 days ago therapeutic T8- T9 T10 medial branch block bilateral. She reports in general very good pain relief in the area she reports in the projection of T5 vertebra still significant tenderness and pain. We could not possibly be able to do the procedure on her this widespread. But overall she reports that her pain in the lower thoracic spine is much better. She had therapeutic SI joint injection which was performed on 09/24/2022.? She reported 4 weeks of pain reduction about 50% her pain level became 3/10 before the injection it was 6/10.? She reports about her sacroiliac joint pain that the pain is more it tends now however it is less frequent. In the past we discussed PNS for sacroiliac joint. she stated that she would not accept any implantable device. Prior:? the results of sacroiliac joint injections which was done on 08/20/2022.She reports this particular pain 100% pain relief to hours after the procedure.? She enjoyed very minimal pain in the right joint area for the next 4 hours after the procedure.? She reported very good pain relief for total of 6 h ours after the procedure and she said that she was able to sleep through the night without waking up from the pain the night after the injection.? I gave her options of peripheral nerve stimulation versus steroid injections and she chose to go for steroid injections.? I will schedule her for this procedure without sedation.? he patient complains on pain in the right side of the lower back with radiation into the right buttock.? Jay test pelvis destruction test and pelvis compression test as well as Stinchfield test are positive for right sacroiliac joint information.? I offered her to perform sacroiliac joint injection diagnostic on the right.? ?From time to time she is riding 5 miles on her stationary bike.?. 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 Spondylosis of lumbar region without myelopathy or radiculopathy Disc degeneration, lumbar Sacroiliac joint dysfunction of right side Sacroiliitis Seropositive rheumatoid arthritis Carpal tunnel syndrome, bilateral Surgical History Hx of shoulder surgery History of meniscectomy of left knee H/O lithotripsy History of left knee replacement H/O hernia repair Hx of laparoscopy Family History Father Esophagus cancer Mother CVD (cardiovascular disease) Brother CVD (cardiovascular disease) Diabetes Social History Alcohol intake: never Comment: chronic back pain Patient Tobacco Use Status: Current everyday Tobacco user Tobacco use type: Cigarette Cigarettes Per Day: 12 Years Smoked: 40 Advance Directives Date on File: 04/11/20 Review of Systems Const All systems reviewed & are unremarkable except as noted in HPI and below Physical Exam Vital Signs: Last Vital Signs Pulse 74 05/07/24 11:01 BP 128/71 05/07/24 11:01 Pulse Ox 100 05/07/24 11:01 Oxygen Delivery Method Room Air 05/07/24 11:01 BMI result Body Mass Index 30.0 General: awake, alert, oriented. Answers questions appropriately. Fully engaged in examination. Skin: warm, dry, intact HEENT: Normocephalic. Hearing intact. Cardiac: External chest normal in appearance. Respiratory: No cough, audible wheezing or stridor. Abdomen: without gross distension. MS: No obvious swelling or deformities. Able to transition from sit to stand unassisted. Ambulates with bilaterally normal heel strike and toe off Neurological: Oriented to person, place, time and situation. Thought process intact. No gait abnormalities appreciated. Psychiatric: Appropriate mood and affect. Good judgment and insight. Results Reviewed Results Reviewed: LUMBAR SPINE XRAY 2014 FINDINGS: Normal overall alignment. Normal vertebral body heights. Degenerative changes with osteophyte formation and mild decrease in the intervertebral disc space noted at multiple levels. It appears to be worse at L1-L2 and L2-L3 levels. Multilevel facet arthropathy. No acute osseous abnormality. Incidental note is made of bilateral renal calcifications, right greater than left. Surgical clips noted in the left upper quadrant. Postoperative changes compatible with prior hernia repair noted in the left mid abdomen. IMPRESSION: 1. No acute osseous abnormality. 2. Moderate degenerative changes upper to mid lumbar spine. 3. Bilateral renal calcifications. Assessment & Plan Assessment & Plan (1) Sacroiliitis: Code(s): M46.1 - Sacroiliitis, not elsewhere classified Category: Medical (2) Disc degeneration, lumbar: Code(s): M51.36 - Other intervertebral disc degeneration, lumbar region Category: Medical (3) Spondylosis of lumbar region without myelopathy or radiculopathy: Code(s): M47.816 - Spondylosis without myelopathy or radiculopathy, lumbar region Category: Medical (4) Idiopathic peripheral neuropathy: Code(s): G60.9 - Hereditary and idiopathic neuropathy, unspecified Category: Medical (5) Chronic pain syndrome: Code(s): G89.4 - Chronic pain syndrome Category: Medical (6) Seropositive rheumatoid arthritis: Comment: -ve ++CCP Humira- 09/2013-02/2014 Methotrexate - 05/2016-11/2015 Sulfasalazine 09/2012-02/2014 Arava- 04/2016-04/2017 Xeljanz- 12/2013-06/2014 -tunnel vision Kevzara- 06/2018-03/2020 Olumiant- 05/2020- present MTX added 09/2023-DC 11/2023 due to Pleuritis/pneumonitis episode Code(s): M05.9 - Rheumatoid arthritis with rheumatoid factor, unspecified Category: Medical (7) Spondylosis of thoracic spine: Code(s): M47.814 - Spondylosis without myelopathy or radiculopathy, thoracic region Category: Medical (8) Spondylosis of thoracic region without myelopathy or radiculopathy: Code(s): M47.814 - Spondylosis without myelopathy or radiculopathy, thoracic region Category: Medical Plan Masspat was reviewed and without concerns. No obvious signs of diversion, abuse or misuse of the opioid medications. Will send in prescription for Oxycodone 10mg PQ Q6H PRN Continue with amitriptyline 25mg po QHS Will increase baclofen to 10mg twice daily as needed for muscle spasms All questions and concerns have been answered and patient agrees with the plan. Patient to follow-up in the office in 1 month, sooner if needed. 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
== END 2024-05-07 11:22 | disposition home or self-care (01) ==
LOC: HO.PMC 10:32
PROVIDERS: PCP Internal Medicine; Visit Provider Registered Nurse Emergency
DX: M46.1 Sacroiliitis, not elsewhere classified (principal); M51.369 Other intervertebral disc degeneration, lumbar region without mention of lumbar back pain or lower extremity pain; M47.816 Spondylosis without myelopathy or radiculopathy, lumbar region; G60.9 Hereditary and idiopathic neuropathy, unspecified; G89.4 Chronic pain syndrome; M05.9 Rheumatoid arthritis with rheumatoid factor, unspecified; M47.814 Spondylosis without myelopathy or radiculopathy, thoracic region
CPT/HCPCS: 99214; G2211

== ENCOUNTER → 2024-05-07 10:32 | Outpatient (BNVA) | payer MEDICARE, BC, SELFPAY | PROVIDERS: PCP Internal Medicine; Visit Provider Registered Nurse Emergency | DX: Z51.81 Encounter for therapeutic drug level monitoring (principal); F11.20 Opioid dependence, uncomplicated; M46.1 Sacroiliitis, not elsewhere classified; M51.360 Other intervertebral disc degeneration, lumbar region with discogenic back pain only; M47.816 Spondylosis without myelopathy or radiculopathy, lumbar region; M05.9 Rheumatoid arthritis with rheumatoid factor, unspecified; M47.814 Spondylosis without myelopathy or radiculopathy, thoracic region; G60.9 Hereditary and idiopathic neuropathy, unspecified; G89.4 Chronic pain syndrome | CPT/HCPCS: 99212 ==

== ENCOUNTER 2024-05-10 09:47 | Outpatient (AMB) | payer MEDICARE, BC, SELFPAY ==
--- NOTE | 2024-05-10 09:48 | MHC.OFFVIS ---
Vital Signs 05/10/24 09:52 Height 5 ft 5 in Weight 183 lb 13.848 oz BMI 30.6 BP 122/60 Blood Pressure Location Lt brachial Position Sitting Pulse 80 Pulse Source Pulse Oximeter Pulse Oximetry (%) 98 Oxygen Delivery Method Room Air Intake Visit Reasons: RA/lm Intake Note: Patient presents for RA. Allergies sarilumab [From Kevzara] Allergy (Severe, Verified 05/10/24 09:51) blistery rash gabapentin Allergy (Intermediate, Verified 05/10/24 09:51) rash pregabalin Allergy (Intermediate, Verified 05/10/24 09:51) rash tofacitinib [Xeljanz] Allergy (Intermediate, Verified 05/10/24 09:51) Rash Medication List - Last Reconciled 05/10/24 by Ronny Don MD alendronate 70 mg PO QWEEK amitriptyline 25 mg PO BEDTIME atorvastatin 10 mg PO DAILY baclofen 10 mg PO BID PRN 90 days duloxetine 60 mg PO DAILY 30 days ibuprofen 200 mg PO Q6H PRN naloxone 4 mg/actuation (Narcan) 4 mg intranasal Q2M PRN Olumiant (baricitinib) 2 mg PO DAILY NS oxycodone 10 mg PO Q6H PRN 30 days topiramate 100 mg PO BID trazodone 200 mg PO BEDTIME PRN varenicline 1 ea PO BID varenicline (Chantix) 1 mg PO BID HPI Comments Details: This is a 64-year-old female with seropositive RA who presents for follow-up. She remains on Olumiant 2 mg daily. She states that she feels about the same overall. Continues to have intermittent flare-ups of stiffness of her hands. Morning stiffness usually lasting 1 hour. She states that she gets a flare-up about once a week. 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 analgesic Spondylosis of lumbar region without myelopathy or radiculopathy Disc degeneration, lumbar Sacroiliac joint dysfunction of right side Sacroiliitis Seropositive rheumatoid arthritis Carpal tunnel syndrome, bilateral Surgical History Hx of shoulder surgery History of meniscectomy of left knee H/O lithotripsy History of left knee replacement H/O hernia repair Hx of laparoscopy Family History Father Esophagus cancer Mother CVD (cardiovascular disease) Brother CVD (cardiovascular disease) Diabetes Social History Alcohol intake: never Comment: chronic back pain Patient Tobacco Use Status: Current everyday Tobacco user Tobacco use type: Cigarette Cigarettes Per Day: 12 Years Smoked: 40 Advance Directives Date on File: 04/11/20 Review of Systems [facility] [place] Reports arthralgias, Reports joint swelling and Reports stiffness Physical Exam Vital Signs: Last Vital Signs Pulse 80 05/10/24 09:52 BP 122/60 05/10/24 09:52 Pulse Ox 98 05/10/24 09:52 Oxygen Delivery Method Room Air 05/10/24 09:52 BMI result Body Mass Index 30.6 Const General: cooperative, healthy appearing and comfortable Nutritional Appearance: overweight Orientation/consciousness: patient oriented x3 Limitations: no limitations HEENT Head: Yes normocephalic and Yes atraumatic Mouth: moist mucous membranes Resp Effort & Inspection: normal respiratory effort and able to speak in complete sentences Skin General skin exam: no rashes or lesions noted Neuro General: patient oriented x3 Extrem Other: Osteoarthritic changes of both hands with no swollen joints Bilateral wrist tenderness and pain with flexion and extension but no swelling Bilateral 1st MCP joint tenderness without swelling Negative MCP squeeze test Bilateral 3rd and 5th PIP tenderness without much swelling Normal range of motion of elbows and shoulders without pain Left knee crepitus No ankle swelling or tenderness bilaterally Normal nailfold capillaroscopy Assessment & Plan Assessment & Plan (1) Seropositive rheumatoid arthritis: Comment: -ve ++CCP Humira- 09/2013-02/2014 Methotrexate - 05/2016-11/2015 Sulfasalazine 09/2012-02/2014 Arava- 04/2016-04/2017 Xeljanz- 12/2013-06/2014 -tunnel vision Kevzara- 06/2018-03/2020 Olumiant- 05/2020- present MTX added 09/2023-DC 11/2023 due to Pleuritis/pneumonitis episode Code(s): M05.9 - Rheumatoid arthritis with rheumatoid factor, unspecified Category: Medical Plan: This is a 64-year-old female with seropositive RA who presents for follow-up. She remains on Olumiant 2 mg daily. She continues to have multiple tender joints on exam, no significant swelling, intermittent flare-ups. I think there is some room for improvement. Discussed risks and benefits of hydroxychloroquine. Patient will call her eye doctor and see if she can get an earlier appointment. She would let us know when she is ready to start it Continue Olumiant 2 mg daily Labs today and before next visit in 4 months (2) Long-term use of immunosuppressant medication: Code(s): Z79.60 - correction (current) use of unspecified immunomodulators and immunosuppressants Category: Medical Plan: Monitor safety labs. Patient receives Shingrix vaccine in 2019 (3) Osteopenia with high risk of fracture: Comment: 10/2022 T-score-1.5 in the femoral neck, major risk for fracture 19.1%, hip fracture 3.7%. Alendronate: 10/2022 - present Code(s): M85.80 - Other specified disorders of bone density and structure, unspecified site Category: Medical Plan: Continue with alendronate. Plan to repeat DEXA 10/2024 (4) Long-term use of hydroxychloroquine: Code(s): Z79.899 - Other retirement (current) drug therapy Category: Medical Plan: Discussed risk of retinopathy associated with hydroxychloroquine. 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
[2024-05-10 09:52] VITALS: BP 122/60; PULSE 80; O2SAT 98; BMI 30.6
== END 2024-05-10 10:19 | disposition home or self-care (01) ==
LOC: HO.RHE 09:47
PROVIDERS: PCP Internal Medicine; Visit Provider Student in an Organized Health Care Education/Training Program
DX: M05.79 Rheumatoid arthritis with rheumatoid factor of multiple sites without organ or systems involvement (principal); Z79.60 Long term (current) use of unspecified immunomodulators and immunosuppressants; M85.80 Other specified disorders of bone density and structure, unspecified site; Z79.899 Other long term (current) drug therapy
CPT/HCPCS: 99214; G2211

== ENCOUNTER → 2024-05-10 09:47 | Outpatient (BNVA) | payer MEDICARE, BC, SELFPAY | PROVIDERS: PCP Internal Medicine; Visit Provider Student in an Organized Health Care Education/Training Program | DX: M05.9 Rheumatoid arthritis with rheumatoid factor, unspecified (principal); M85.80 Other specified disorders of bone density and structure, unspecified site; Z79.60 Long term (current) use of unspecified immunomodulators and immunosuppressants; Z79.899 Other long term (current) drug therapy | CPT/HCPCS: 99212 ==

== ENCOUNTER 2024-05-10 10:31 | Outpatient (REF) | payer MEDICARE, SELFPAY ==
[2024-05-10 13:13] LABS: MANUAL DIFF FLAG NO
[2024-05-10 13:18] LABS: Basophils Absolute Auto 0.1 X10*3/uL (0.0-0.2); Basophils Percent Auto 0.5 % (0-2); Eosinophils Absolute Auto 0.1 X10*3/uL (0.0-0.4); Eosinophils Percent Auto 0.5 % (0-4); Hematocrit 38.1 % (37.0-47.0); Hemoglobin 12.7 g/dl (12.0-16.0); Imm Gran Abs Auto 0.03 X10*3/uL (0.00-0.03); Imm Gran Pct Auto 0.3 % (0.0-0.4); Lymphocytes Absolute Auto 1.4 X10*3/uL (1.2-4.9); Lymphocytes Percent Auto 13.6 % (20-40); Mean Corpuscular HGB Conc 33.3 g/dl (31.0-35.0); Mean Corpuscular Hemoglobin 31.2 pg (27.0-33.0); Mean Corpuscular Volume 93.6 fL (80.0-98.0); Mean Platelet Volume 9.2 fL (9.4-12.3); Monocytes Absolute Auto 0.5 X10*3/uL (0.1-1.2); Monocytes Percent Auto 5.1 % (2-11); Neutrophils Absolute Auto 8.1 x10*3/uL (2.0-8.3); Platelet Count 233 X10*3/uL (160-400); Red Blood Count 4.07 X10*6/uL (4.20-5.50); Red Cell Distribution Width 13.1 % (11.0-16.0); White Blood Count 10.1 X10*3/uL (4.8-10.8)
[2024-05-10 13:57] LABS: Erythrocyte Sedimentation Rate 14 MM/HR (0-20)
[2024-05-10 14:05] LABS: Alanine Aminotransferase 14 U/L (0-31); Albumin Level 4.1 g/dL (3.5-5.0); Alkaline Phosphatase 72 U/L (39-117); Anion Gap 11 (12-20); Aspartate Amino Transferase 23 U/L (5-31); Bilirubin Total 0.4 mg/dL (0.0-1.0); Blood Urea Nitrogen 24 mg/dL (9-16); C Reactive Protein 0.45 mg/dL (< or = 0.50); Calcium 9.4 mg/dL (8.4-10.2); Carbon Dioxide 23 mmol/L (22-29); Chloride 112 mmol/L (96-108); Estimated Glomerular Filt Rate 52; Glucose Random 108 mg/dL (60-115); Potassium 4.4 mmol/L (3.3-5.1); Sodium 142 mmol/L (135-145); Total Protein 7.1 g/dL (6.5-8.0)
[2024-05-11 04:03] LABS: HBS Num1 0.54 mIU/mL (0-7.99); HBsAGNum1 0.32 S/CO (0.00-0.99); Hepatitis A Antibody IgM 0.15 Index (0-0.79); Hepatitis B Core Antibody Nonreactive (Nonreactive); Hepatitis B Surface Antigen Negative (Negative); ~HepC Num1 0.14 S/CO (0.00-0.79); ~Hepatitis A Antibody IgM Nonreactive (Nonreactive); ~Hepatitis B Surface Antibody NONREACTIVE (Nonreactive); ~Hepatitis C Antibody Nonreactive (Nonreactive)
[2024-05-12 23:49] LABS: TS Negative Control Passed; TS Panel A 0; TS Panel B 0; TS Positive Control Passed; TSpotTB Negative (Negative)
== END 2024-05-10 10:32 | disposition home or self-care (01) ==
LOC: HO.10HDL 10:31
PROVIDERS: Visit Provider Student in an Organized Health Care Education/Training Program
DX: Z11.59 Encounter for screening for other viral diseases (principal); Z11.7 Encounter for testing for latent tuberculosis infection; M05.9 Rheumatoid arthritis with rheumatoid factor, unspecified; Z72.89 Other problems related to lifestyle
CPT/HCPCS: 36415; 80053; 85025; 85652; 86140; 86481; 86704; 86706; 86709; 86803; 87340

== ENCOUNTER 2024-06-09 10:30 | Outpatient (AMB) | payer MEDICARE, BC, SELFPAY ==
--- NOTE | 2024-06-09 10:31 | MHC.OFFVIS ---
Vital Signs 06/09/24 10:39 Height 5 ft 5 in Weight 177 lb 4 oz BMI 29.5 BP 122/71 Blood Pressure Location Rt brachial Position Sitting Pulse 84 Pulse Source Pulse Oximeter Pulse Oximetry (%) 98 Oxygen Delivery Method Room Air Intake Visit Reasons: Medication Count Intake Note: Raquel comes in today for a pill count to oxycodone, patient should have 4 tablets and presents with 2 tablets which she last took today 06/09/24 at 9am. 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 Patient is prescribed Oxycodone 10mg take 1 tablet four times daily as needed. Patient arrived today with the expectation of having 4 pills, she presented 2 pills which were counted in the presence of two staff members and returned to the patient in the original prescription bottle. This demonstrates responsible attitude toward patient's opioid medications. Pain is reported today as 5/10 and last dose of pain medication was taken at 9am. Patient denies side effects including somnolence, constipation, itching, dyspnea, rash, dizziness or weakness. Baclofen increased to 5 mg twice daily at last visit. She has noted improvement in her symptoms with the increased dose. Continues with amitriptyline with good relief of her neuropathy. Previous visit with Dr Ceron: Raquel is in the office for t the follow-up and pill count.? She came today for the pill count: She is supposed to have 80 pills in her possession. She presented with 78 pills in her possession. She reported that she took couple of extra pain medications yesterday because she had to go for very large shopping. I advised her that the next time if she feels some extra pain it better if she will take some NSAIDs and or Tylenol. We performed 10 days ago therapeutic T8-T9 T10 medial branch block bilateral. She reports in general very good pain relief in the area she reports in the projection of T5 vertebra still significant tenderness and pain. We could not possibly be able to do the procedure on her this widespread. But overall she reports that her pain in the lower thoracic spine is much better. She had therapeutic SI joint injection which was performed on 09/24/2022.? She reported 4 weeks of pain reduction about 50% her pain level became 3/10 before the injection it was 6/10.? She reports about her sacroiliac joint pain that the pain is more it tends now however it is less frequent. In the past we discussed PNS for sacroiliac joint. she stated that she would not accept any implantable device. Prior:? the results of sacroiliac joint injections which was done on 08/20/2022.She reports this particular pain 100% pain relief to hours after the procedure.? She enjoyed very minimal pain in the right joint area for the next 4 hours after the procedure.? She reported very good pain relief for total of 6 hours after the procedure and she said that she was able to sleep through the night without waking up from the pain the night after the injection.? I gave her options of peripheral nerve stimulation versus steroid injections and she chose to go for steroid injections.? I will schedule her for this procedure without sedation.? he patient complains on pain in the right side of the lower back with radiation into the right buttock.? Jay test pelvis destruction test and pelvis compression test as well as Stinchfield test are positive for right sacroiliac joint information.? I offered her to perform sacroiliac joint injection diagnostic on the right.? ?From time to time she is riding 5 miles on her stationary bike.?. 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 Spondylosis of lumbar region without myelopathy or radiculopathy Disc degeneration, lumbar Sacroiliac joint dysfunction of right side Sacroiliitis Seropositive rheumatoid arthritis Carpal tunnel syndrome, bilateral Surgical History Hx of shoulder surgery History of meniscectomy of left knee H/O lithotripsy History of left knee replacement H/O hernia repair Hx of laparoscopy Family History Father Esophagus cancer Mother CVD (cardiovascular disease) Brother CVD (cardiovascular disease) Diabetes Social History Alcohol intake: never Comment: chronic back pain Patient Tobacco Use Status: Current everyday Tobacco user Tobacco use type: Cigarette Cigarettes Per Day: 12 Years Smoked: 40 Advance Directives Date on File: 04/11/20 Review of Systems Const All systems reviewed & are unremarkable except as noted in HPI and below Physical Exam Vital Signs: Last Vital Signs Pulse 84 06/09/24 10:39 BP 122/71 06/09/24 10:39 Pulse Ox 98 06/09/24 10:39 Oxygen Delivery Method Room Air 06/09/24 10:39 BMI result Body Mass Index 29.5 General: awake, alert, oriented. Answers questions appropriately. Fully engaged in examination. Skin: warm, dry, intact HEENT: Normocephalic. Hearing intact. Cardiac: External chest normal in appearance. Respiratory: No cough, audible wheezing or stridor. Abdomen: without gross distension. MS: No obvious swelling or deformities. Able to transition from sit to stand unassisted. Ambulates with bilaterally normal heel strike and toe off Neurological: Oriented to person, place, time and situation. Thought process intact. No gait abnormalities appreciated. Psychiatric: Appropriate mood and affect. Good judgment and insight. Results Reviewed Results Reviewed: LUMBAR SPINE XRAY 2014 FINDINGS: Normal overall alignment. Normal vertebral body heights. Degenerative changes with osteophyte formation and mild decrease in the intervertebral disc space noted at multiple levels. It appears to be worse at L1-L2 and L2-L3 levels. Multilevel facet arthropathy. No acute osseous abnormality. Incidental note is made of bilateral renal calcifications, right greater than left. Surgical clips noted in the left upper quadrant. Postoperative changes compatible with prior hernia repair noted in the left mid abdomen. IMPRESSION: 1. No acute osseous abnormality. 2. Moderate degenerative changes upper to mid lumbar spine. 3. Bilateral renal calcifications. Assessment & Plan Assessment & Plan (1) Sacroiliitis: Code(s): M46.1 - Sacroiliitis, not elsewhere classified Category: Medical (2) Disc degeneration, lumbar: Code(s): M51.36 - Other intervertebral disc degeneration, lumbar region Category: Medical (3) Spondylosis of lumbar region without myelopathy or radiculopathy: Code(s): M47.816 - Spondylosis without myelopathy or radiculopathy, lumbar region Category: Medical (4) Idiopathic peripheral neuropathy: Code(s): G60.9 - Hereditary and idiopathic neuropathy, unspecified Category: Medical (5) Chronic pain syndrome: Code(s): G89.4 - Chronic pain syndrome Category: Medical (6) Seropositive rheumatoid arthritis: Comment: -ve ++CCP Humira- 09/2013-02/2014 Methotrexate - 05/2016-11/2015 Sulfasalazine 09/2012-02/2014 Arava- 04/2016-04/2017 Xeljanz- 12/2013-06/2014 -tunnel vision Kevzara- 06/2018-03/2020 Olumiant- 05/2020- present MTX added 09/2023-DC 11/2023 due to Pleuritis/pneumonitis episode Code(s): M05.9 - Rheumatoid arthritis with rheumatoid factor, unspecified Category: Medical (7) Spondylosis of thoracic spine: Code(s): M47.814 - Spondylosis without myelopathy or radiculopathy, thoracic region Category: Medical (8) Spondylosis of thoracic region without myelopathy or radiculopathy: Code(s): M47.814 - Spondylosis without myelopathy or radiculopathy, thoracic region Category: Medical Plan [facility] was reviewed and without concerns. No obvious signs of diversion, abuse or misuse of the opioid medications. Will send in prescription for Oxycodone 10mg PQ Q6H PRN Continue with amitriptyline 25mg po QHS Continue with baclofen 10mg twice daily as needed for muscle spasms All questions and concerns have been answered and patient agrees with the plan. Patient to follow-up in the office in 1 month, sooner if needed. Medications: Refilled oxycodone 10 mg PO Q6H PRN 120 tabs 0RF pain, severe 30 days G89.4 - Chronic pain syndrome, M25.551 - Pain in right hip, M25.552 - Pain in left hip, M47.27 - Other spondylosis with radiculopathy, lumbosacral region, M54.2 - Cervicalgia, Z79.891 - detention (current) use of opiate analgesic Coding Level of Care Code Est Pt Level 4 (66182) Complex EM visit Add On G2211 Diagnoses Sacroiliitis M46.1 Disc degeneration, lumbar M51.36 Spondylosis of lumbar region without myelopathy or radiculopathy M47.816 Idiopathic peripheral neuropathy G60.9 Chronic pain syndrome G89.4 Seropositive rheumatoid arthritis M05.9 Spondylosis of thoracic spine M47.814 Spondylosis of thoracic region without myelopathy or radiculopathy M47.814
[2024-06-09 10:39] VITALS: BP 122/71; PULSE 84; O2SAT 98; BMI 29.5
== END 2024-06-09 11:07 | disposition home or self-care (01) ==
PROVIDERS: PCP Internal Medicine; Visit Provider Registered Nurse Emergency
DX: M46.1 Sacroiliitis, not elsewhere classified (principal); M51.369 Other intervertebral disc degeneration, lumbar region without mention of lumbar back pain or lower extremity pain; M47.816 Spondylosis without myelopathy or radiculopathy, lumbar region; G60.9 Hereditary and idiopathic neuropathy, unspecified; G89.4 Chronic pain syndrome; M05.9 Rheumatoid arthritis with rheumatoid factor, unspecified; M47.814 Spondylosis without myelopathy or radiculopathy, thoracic region
CPT/HCPCS: 99214; G2211

== ENCOUNTER → 2024-06-09 10:30 | Outpatient (BNVA) | payer MEDICARE, BC, SELFPAY | PROVIDERS: PCP Internal Medicine; Visit Provider Registered Nurse Emergency | DX: Z51.81 Encounter for therapeutic drug level monitoring (principal); F11.20 Opioid dependence, uncomplicated; M46.1 Sacroiliitis, not elsewhere classified; M51.360 Other intervertebral disc degeneration, lumbar region with discogenic back pain only; M47.816 Spondylosis without myelopathy or radiculopathy, lumbar region; M05.9 Rheumatoid arthritis with rheumatoid factor, unspecified; M47.814 Spondylosis without myelopathy or radiculopathy, thoracic region; G60.9 Hereditary and idiopathic neuropathy, unspecified; G89.4 Chronic pain syndrome | CPT/HCPCS: 99212 ==

== ENCOUNTER 2024-07-08 10:23 | Outpatient (AMB) | payer MEDICARE, BC, SELFPAY ==
--- NOTE | 2024-07-08 10:26 | MHC.OFFVIS ---
Vital Signs 07/08/24 10:34 Height 5 ft 5 in Weight 185 lb 6 oz BMI 30.8 BP 149/79 H Blood Pressure Location Rt brachial Position Sitting Pulse 61 Pulse Source Pulse Oximeter Pulse Oximetry (%) 97 Oxygen Delivery Method Room Air Intake Visit Reasons: Pill Count/ Random UDS Intake Note: Raquel comes in today for a pill count to oxycodone, patient should have 4 tablets and presents with 4 tablets which she last took today 07/08/24 at 9am. Pain today 5.5/10 Patient resigned opioid contract in office today and copy of signed contract was provided to patient. Patient will also have a random UDS done. 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 Patient is prescribed Oxycodone 10mg take 1 tablet four times daily as needed. Patient arrived today with the expectation of having 4 pills, she presented 4 pills which were counted in the presence of two staff members and returned to the patient in the original prescription bottle. This demonstrates responsible attitude toward patient's opioid medications. Pain is reported today as 5.5/10 and last dose of pain medication was taken today at 9am. Patient denies side effects including somnolence, constipation, itching, dyspnea, rash, dizziness or weakness. Concerned that she may need increase in opiate dosing as she does not feel like current dose is covering her throughout the entire day. Denies recent imaging, PT, HEP or chiropractor. Continues with amitriptyline and baclofen with good relief Previous visit with Dr Ceron: Raquel is in the office for t the follow-up and pill count.? She came today for the pill count: She is supposed to have 80 pills in her possession. She presented with 78 pills in her possession. She reported that she took couple of extra pain medications yesterday because she had to go for very large shopping. I advised her that the next time if she feels some extra pain it better if she will take some NSAIDs and or Tylenol. We performed 10 days ago therapeutic T8-T9 T10 medial branch block bilateral. She reports in general very good pain relief in the area she reports in the projection of T5 vertebra still significant tenderness and pain. We could not possibly be able to do the procedure on her this widespread. But overall she reports that her pain in the lower thoracic spine is much better. She had therapeutic SI joint injection which was performed on 09/24/2022.? She reported 4 weeks of pain reduction about 50% her pain level became 3/10 before the injection it was 6/10.? She reports about her sacroiliac joint pain that the pain is more it tends now however it is less frequent. In the past we discussed PNS for sacroiliac joint. she stated that she would not accept any implantable device. Prior:? the results of sacroiliac joint injections which was done on 08/20/2022.She reports this particular pain 100% pain relief to hours after the procedure.? She enjoyed very minimal pain in the right joint area for the next 4 hours after the procedure.? She reported very good pain relief for total of 6 hours after the procedure and she said that she was able to sleep through the night without waking up from the pain the night after the injection.? I gave her options of peripheral nerve stimulation versus steroid injections and she chose to go for steroid injections.? I will schedule her for this procedure without sedation.? he patient complains on pain in the right side of the lower back with radiation into the right buttock.? Jay test pelvis destruction test and pelvis compression test as well as Stinchfield test are positive for right sacroiliac joint information.? I offered her to perform sacroiliac joint injection diagnostic on the right.? ?From time to time she is riding 5 miles on her stationary bike.?. 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 Spondylosis of lumbar region without myelopathy or radiculopathy Disc degeneration, lumbar Sacroiliac joint dysfunction of right side Sacroiliitis Seropositive rheumatoid arthritis Carpal tunnel syndrome, bilateral Surgical History Hx of shoulder surgery History of meniscectomy of left knee H/O lithotripsy History of left knee replacement H/O hernia repair Hx of laparoscopy Family History Father Esophagus cancer Mother CVD (cardiovascular disease) Brother CVD (cardiovascular disease) Diabetes Social History Alcohol intake: never Comment: chronic back pain Patient Tobacco Use Status: Current everyday Tobacco user Tobacco use type: Cigarette Cigarettes Per Day: 12 Years Smoked: 40 Advance Directives Date on File: 04/11/20 Review of Systems Const All systems reviewed & are unremarkable except as noted in HPI and below Physical Exam Vital Signs: Last Vital Signs Pulse 61 07/08/24 10:34 BP 149/79 H 07/08/24 10:34 Pulse Ox 97 07/08/24 10:34 Oxygen Delivery Method Room Air 07/08/24 10:34 BMI result Body Mass Index 30.8 General: awake, alert, oriented. Answers questions appropriately. Fully engaged in examination. Skin: warm, dry, intact HEENT: Normocephalic. Hearing intact. Cardiac: External chest normal in appearance. Respiratory: No cough, audible wheezing or stridor. Abdomen: without gross distension. MS: No obvious swelling or deformities. Able to transition from sit to stand unassisted. Ambulates with bilaterally normal heel strike and toe off Facet loading positive Tender midline lumbar vertebrae lumbar paraspinal muscles Minimally tender over right PSIS. Thigh thrust negative, Gaenslen negative Neurological: Oriented to person, place, time and situation. Thought process intact. No gait abnormalities appreciated. Psychiatric: Appropriate mood and affect. Good judgment and insight. Results Reviewed Results Reviewed: LUMBAR SPINE XRAY 2014 FINDINGS: Normal overall alignment. Normal vertebral body heights. Degenerative changes with osteophyte formation and mild decrease in the intervertebral disc space noted at multiple levels. It appears to be worse at L1-L2 and L2-L3 levels. Multilevel facet arthropathy. No acute osseous abnormality. Incidental note is made of bilateral renal calcifications, right greater than left. Surgical clips noted in the left upper quadrant. Postoperative changes compatible with prior hernia repair noted in the left mid abdomen. IMPRESSION: 1. No acute osseous abnormality. 2. Moderate degenerative changes upper to mid lumbar spine. 3. Bilateral renal calcifications. Assessment & Plan Assessment & Plan (1) Sacroiliitis: Code(s): M46.1 - Sacroiliitis, not elsewhere classified Category: Medical (2) Disc degeneration, lumbar: Code(s): M51.36 - Other intervertebral disc degeneration, lumbar region Category: Medical (3) Spondylosis of lumbar region without myelopathy or radiculopathy: Code(s): M47.816 - Spondylosis without myelopathy or radiculopathy, lumbar region Category: Medical (4) Idiopathic peripheral neuropathy: Code(s): G60.9 - Hereditary and idiopathic neuropathy, unspecified Category: Medical (5) Chronic pain syndrome: Code(s): G89.4 - Chronic pain syndrome Category: Medical (6) Seropositive rheumatoid arthritis: Comment: -ve ++CCP Humira- 09/2013-02/2014 Methotrexate - 05/2016-11/2015 Sulfasalazine 09/2012-02/2014 Arava- 04/2016-04/2017 Xeljanz- 12/2013-06/2014 -tunnel vision Kevzara- 06/2018-03/2020 Olumiant- 05/2020- present MTX added 09/2023-DC 11/2023 due to Pleuritis/pneumonitis episode Code(s): M05.9 - Rheumatoid arthritis with rheumatoid factor, unspecified Category: Medical (7) Spondylosis of thoracic spine: Code(s): M47.814 - Spondylosis without myelopathy or radiculopathy, thoracic region Category: Medical (8) Spondylosis of thoracic region without myelopathy or radiculopathy: Code(s): M47.814 - Spondylosis without myelopathy or radiculopathy, thoracic region Category: Medical [facility]. No obvious signs of diversion, abuse or misuse of the opioid medications. Random UDS collected today Will send in prescription for Oxycodone 10mg PQ Q6H PRN Continue with amitriptyline 25mg po QHS Continue with baclofen 10mg twice daily as needed for muscle spasms X-ray lumbar spine ordered for evaluation Will place referrals for physical therapy and chiropractor. Patient would like these to be performed in [place] though she is not certain of the names of the facilities at this time. She will call from home to update us on where she would like the referral sent. If no improvement with physical therapy/chiropractor will plan for fluoroscopy guided bilateral diagnostic L3-L4 DR L5 medial branch blocks with local anesthetic. If she finds good relief with this will plan for bilateral sprint. All questions and concerns have been answered and patient agrees with the plan. Patient to follow-up in the office in 1 month, sooner if needed. Orders: Orders XR lumbar spine 4V min Today M54.9 - Dorsalgia, unspecified Medications: Refilled oxycodone 10 mg PO Q6H PRN 120 tabs 0RF pain, severe 30 days G89.4 - Chronic pain syndrome, M25.551 - Pain in right hip, M25.552 - Pain in left hip, M47.27 - Other spondylosis with radiculopathy, lumbosacral region, M54.2 - Cervicalgia, Z79.891 - senior living (current) use of opiate analgesic Coding Level of Care Code Est Pt Level 4 (86799) Complex EM visit Add On G2211 Diagnoses Sacroiliitis M46.1 Disc degeneration, lumbar M51.36 Spondylosis of lumbar region without myelopathy or radiculopathy M47.816 Idiopathic peripheral neuropathy G60.9 Chronic pain syndrome G89.4 Seropositive rheumatoid arthritis M05.9 Spondylosis of thoracic spine M47.814 Spondylosis of thoracic region without myelopathy or radiculopathy M47.814
[2024-07-08 10:34] VITALS: BP 149/79; PULSE 61; O2SAT 97; BMI 30.8
== END 2024-07-08 11:33 | disposition home or self-care (01) ==
PROVIDERS: PCP Internal Medicine; Visit Provider Registered Nurse Emergency
DX: M46.1 Sacroiliitis, not elsewhere classified (principal); M51.369 Other intervertebral disc degeneration, lumbar region without mention of lumbar back pain or lower extremity pain; M47.816 Spondylosis without myelopathy or radiculopathy, lumbar region; G60.9 Hereditary and idiopathic neuropathy, unspecified; G89.4 Chronic pain syndrome; M05.9 Rheumatoid arthritis with rheumatoid factor, unspecified; M47.814 Spondylosis without myelopathy or radiculopathy, thoracic region
CPT/HCPCS: 99214; G2211

== ENCOUNTER → 2024-07-08 10:23 | Outpatient (BNVA) | payer MEDICARE, SELFPAY | PROVIDERS: PCP Internal Medicine; Visit Provider Registered Nurse Emergency | DX: Z51.81 Encounter for therapeutic drug level monitoring (principal); F11.20 Opioid dependence, uncomplicated; M46.1 Sacroiliitis, not elsewhere classified; M51.360 Other intervertebral disc degeneration, lumbar region with discogenic back pain only; M47.816 Spondylosis without myelopathy or radiculopathy, lumbar region; M05.9 Rheumatoid arthritis with rheumatoid factor, unspecified; M47.814 Spondylosis without myelopathy or radiculopathy, thoracic region; G89.4 Chronic pain syndrome | CPT/HCPCS: 99212 ==

== ENCOUNTER → 2024-08-03 10:03 | Outpatient (BNVA) | payer MEDICARE, BC, SELFPAY | PROVIDERS: PCP Internal Medicine; Visit Provider Registered Nurse Emergency ==

== ENCOUNTER 2024-09-02 09:54 | Outpatient (REF) | payer MEDICARE, BC, SELFPAY ==
--- NOTE | ~2024-09-02 | XR_ITS ---
EXAMINATION: XR LUMBAR SPINE 4 OR MORE VIEWS HISTORY: M54.9 - Dorsalgia, unspecified COMPARISON: Comparison is made with the prior examination dated 02/25/2022. FINDINGS: AP, lateral, bilateral oblique, and coned down views of the lumbar spine are submitted. Osseous mineralization is normal. Five nonrib-bearing lumbar vertebral bodies are identified, maintaining normal height and alignment without evidence of fracture or spondylolisthesis. There is mild degenerative disc disease with disc space narrowing and anterior spurring, most prominently involving the upper lumbar spine. The posterior elements are intact. There is no spondylolysis. The visualized paraspinal soft tissues are unremarkable. XR/XR lumbar spine 4V min IMPRESSION: Degenerative changes of the lumbar spine as described. Electronically signed by: Randy Ivan MD 09/02/2024 11:58 AM NNAMDI ARIAS
== END 2024-09-02 09:55 | disposition home or self-care (01) ==
LOC: HO.XRAY 09:54
PROVIDERS: Absent Provider Registered Nurse Emergency; PCP Internal Medicine; Visit Provider Nurse Practitioner Family
DX: M54.9 Dorsalgia, unspecified (principal)
CPT/HCPCS: 72110

== ENCOUNTER 2024-09-02 09:54 | Outpatient (AMB) | payer MEDICARE, BC, SELFPAY ==
--- NOTE | 2024-09-02 09:55 | A.OFFVIS_ITS ---
Vital Signs 09/02/24 10:07 Height 5 ft 5 in Weight 181 lb 5 oz BMI 30.2 BP 159/80 H Blood Pressure Location Rt brachial Position Sitting Pulse 84 Pulse Source Pulse Oximeter Pulse Oximetry (%) 98 Oxygen Delivery Method Room Air Intake Visit Reasons: Pill Count Intake Note: Raquel comes in today for a pill count to oxycodone, patient should have 4 tablets and presents with 10 tablets which she last took today 09/02/24 at 9am. Pain today 12/14 Maintenance Service Dispatcher Required: No Accompanied by: Self / Same As Patient Allergies sarilumab [From Kevzara] Allergy (Severe, Verified 09/02/24 10:08) blistery rash gabapentin Allergy (Intermediate, Verified 09/02/24 10:08) rash pregabalin Allergy (Intermediate, Verified 09/02/24 10:08) rash tofacitinib [Xeljanz] Allergy (Intermediate, Verified 09/02/24 10:08) Rash Medication List - Last Reconciled 09/02/24 by MARY Bradshaw alendronate 70 mg PO QWEEK amitriptyline 25 mg PO BEDTIME atorvastatin 10 mg PO DAILY baclofen 10 mg PO BID PRN 90 days baricitinib (Olumiant) 2 mg PO DAILY duloxetine 60 mg PO DAILY 30 days ibuprofen 200 mg PO Q6H PRN krill oil mg PO mecobalamin (vitamin B12) 2,000 mcg PO DAILY multivitamin 1 tab PO DAILY naloxone 4 mg/actuation (Narcan) 4 mg intranasal Q2M PRN omega-3 fatty acids 500 mg PO DAILY oxycodone 10 mg PO Q6H PRN 30 days topiramate 100 mg PO BID trazodone 200 mg PO BEDTIME PRN varenicline tartrate 1 ea PO BID varenicline tartrate (Chantix) 1 mg PO BID HPI Comments Details: Patient is a pleasant 64 years old female who has been previously evaluated in this office by Brittney HERNANDEZ and Dr. Ceron for chronic pain with medical pain management. Today, she is here for a pill count. Patient is supposed to have #4 pills, in her possession has #10 pills. This demonstrates a responsible attitude in regards to the medication regimen. Patient continues to report adequate analgesia on her regimen of oxycodone 10 mg Q6H prn with no noted side effects. Denies any constipation, nausea, sedation, dizziness, or urinary retention. She reports increased ability to perform activities of daily living, better sleep, better interact socially and be more functional. Denies any changes to medications, medical history or recent hospitalizations. Patient was reminded to complete lumbar spine xrays. She has not been scheduled for physical therapy since last visit. PRIOR Brittney HERNANDEZ: Raquel presents to the office today for follow up chronic pain and chronic opioid therapy management. Patient is prescribed Oxycodone 10mg take 1 tablet four times daily as needed. Patient arrived today with the expectation of having 4 pills, she presented 4 pills which were counted in the presence of two staff members and returned to the patient in the original prescription bottle. This demonstrates responsible attitude toward patient's opioid medications. Pain is reported today as 5.5/10 and last dose of pain medication was taken today at 9am. Patient denies side effects including somnolence, constipation, itching, dyspnea, rash, dizziness or weakness. Concerned that she may need increase in opiate dosing as she does not feel like current dose is covering her throughout the entire day. Denies recent imaging, PT, HEP or chiropractor. Continues with amitriptyline and baclofen with good relief. 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 Spondylosis of lumbar region without myelopathy or radiculopathy Disc degeneration, lumbar Sacroiliac joint dysfunction of right side Sacroiliitis Seropositive rheumatoid arthritis Carpal tunnel syndrome, bilateral Surgical History Hx of shoulder surgery History of meniscectomy of left knee H/O lithotripsy History of left knee replacement H/O hernia repair Hx of laparoscopy Family History Father Esophagus cancer Mother CVD (cardiovascular disease) Brother CVD (cardiovascular disease) Diabetes Social History Alcohol intake: never Comment: chronic back pain Patient Tobacco Use Status: Current everyday Tobacco user Tobacco use type: Cigarette Cigarettes Per Day: 12 Years Smoked: 40 Advance Directives Date on File: 04/11/20 Review of Systems Const All systems reviewed & are unremarkable except as noted in HPI and below Physical Exam General: Appears afebrile. Alert and oriented. Mood and affect appropriate. Follows and participates in conversation appropriately. Respiratory effort is unlabored. No cough. Able to transition from sit to stand unassisted. Ambulates with bilaterally normal heel strike and toe off. Psych Appearance: grossly normal and well kempt Mental Status: mental status grossly normal Speech and movement: Normal speech and movement present and Clear speech present Affect: normal affect Attitude: cooperative Thought process: Normal thought process present Thought content: Normal thought content present, suicidality (none), no hallucinations and No Depressive thoughts present Insight: Good insight present (Psych) Judgement: Good judgement present (Psych) Results Reviewed Results Reviewed: LUMBAR SPINE XRAY 2014 FINDINGS: Normal overall alignment. Normal vertebral body heights. Degenerative changes with osteophyte formation and mild decrease in the intervertebral disc space noted at multiple levels. It appears to be worse at L1-L2 and L2-L3 levels. Multilevel facet arthropathy. No acute osseous abnormality. Incidental note is made of bilateral renal calcifications, right greater than left. Surgical clips noted in the left upper quadrant. Postoperative changes compatible with prior hernia repair noted in the left mid abdomen. IMPRESSION: 1. No acute osseous abnormality. 2. Moderate degenerative changes upper to mid lumbar spine. 3. Bilateral renal calcifications. Assessment & Plan Assessment & Plan (1) Disc degeneration, lumbar: Code(s): M51.36 - Other intervertebral disc degeneration, lumbar region Category: Medical (2) Spondylosis of lumbar region without myelopathy or radiculopathy: Code(s): M47.816 - Spondylosis without myelopathy or radiculopathy, lumbar region Category: Medical (3) Idiopathic peripheral neuropathy: Code(s): G60.9 - Hereditary and idiopathic neuropathy, unspecified Category: Medical (4) Chronic pain syndrome: Code(s): G89.4 - Chronic pain syndrome Category: Medical (5) Spondylosis of thoracic spine: Code(s): M47.814 - Spondylosis without myelopathy or radiculopathy, thoracic region Category: Medical (6) Sacroiliac dysfunction: Code(s): M53.3 - Sacrococcygeal disorders, not elsewhere classified Category: Medical (7) 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 There is no evidence of misuse, abuse or diversion at this time. [employer] reviewed. Random UDS was positive for THC, otherwise it was concordant. Will send in prescription for Oxycodone 10mg PQ Q6H PRN with an advanced date of 09/04/24. Patient has Narcan at home. Continue with amitriptyline and baclofen. Patient was reminded to complete lumbar spine xray. She is aware of pending PT order. All questions and concerns have been answered and patient agrees with the plan. Patient to follow-up in the office in 1 month with Brittney HERNANDEZ and sooner as needed. 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
[2024-09-02 10:07] VITALS: BP 159/80; PULSE 84; O2SAT 98; BMI 30.2
--- OUTSIDE RECORDS SUMMARY | 2024-09-02 11:22 | XMS_ITS | Clinical Summary ---
Author Organization [email or web address] Address [address] [place] [address] 7 [place] [address] Care Team Providers Care Porter Head Name Role Phone Unavailable Primary Care Provider Unavailabl e Social History Tobacco Use Types Packs/Day Years Used Date Smoking Tobacco: Never Assessed Comments Unknown Sex and Gender Information Value Date Recorded Sex Assigned at Female 05/06/2022 10:34 AM EDT Legal Sex Female 10:34 AM EDT Gender Identity Female 05/06/2022 10:34 AM EDT Sexual Orientation Lesbian or Alva 05/06/2022 10 :34 AM EDT Plan of Treatment Health Maintenance Due Date Last Done Comments CT Colonography 1958 Colonoscopy 1958 Colorectal Cancer Screening 1958 Depression Screening 1958 FIT DNA/Cologuard 1958 FIT 1958 FOBT 1958 Sigmoidoscopy 1958 Alcohol/Substance Use Screening 1970 Tobacco Screening 1970 DTaP/Tdap/Td Vaccines (1 - Tdap) 1977 Mammogram 1998 Pneumococcal Vaccine: 50+ Ye ars (1 of 1 - PCV) 2008 Zoster Vaccines (1 of 2) 2008 COVID-19 Vaccine ( - 2023-2 5 season) 2024 Influenza Vaccine (#1) 2024 RSV Patients and Pa tients Aged 60 years or older (1 - 1-dose 75+ series) 2033 HIB Vaccines Aged Out No longer eligi ble based on patient's age to complete this topic HPV Vaccines Aged Out No longer eligi ble based on patient's age to complete this topic Hepatitis A Vaccines Aged Out No long er eligible based on patient's age to complete this topic Hepatitis B Vaccines Aged Out No long er eligible based on patient's age to complete this topic IPV Vaccines Aged Out No longer eligi ble based on patient's age to complete this topic Meningococcal Vaccine Aged Out No diane miles eligible based on patient's age to complete this topic RSV under 20 months Aged Out No longe r eligible based on patient's age to complete this topic Rotavirus Vaccines Aged Out No longer eligible based on patient's age to complete this topic
--- OUTSIDE RECORDS SUMMARY | 2024-09-02 11:22 | XMS_ITS | Continuity of Care Document ---
Author Organization [facility] Address [address] [place] [id number]- Care Team Providers Care Ecology Professor Name Role Phone Maria T LAZO, Diana Plata Primary Care Physician Encounter [facility] [place] [place] Date(s): 07/20/24 - 08/19/24 [facility] Pulmonary Medicine [address] [place] [id number] Encounter Type: Triage Allergies, Adverse Reactions, Alerts Substance Criticality Severity Reaction Reaction Severity Status gabapentin Active Kevzara Active Lyrica Active Immunizations Given and Recorded Vaccine Date Status Refusal Reason tetanus/diphtheria/pertussis, acel(Tdap) 02/10/23 Given pneumococcal 20-valent conjugate vaccine 02/10/23 Given [id number] bivalent booster vax 08/12/22 Given influenza virus vaccine, inactivated 08/12/22 Give n influenza virus vaccine, inactivated 05/02/21 Mumtaz rded influenza virus vaccine, inactivated 04/28/20 Give n influenza virus vaccine, inactivated 06/10/19 Mumtaz rded SARS-CoV-2 (COVID-19) mRNA-1273 vaccine 1 03/05/22 Given SARS-CoV-2 (COVID-19) mRNA-1273 vaccine 05/02/21 R ecorded SARS-CoV-2 (COVID-19) mRNA-1273 vaccine 10/21/20 R ecorded SARS-CoV-2 (COVID-19) mRNA-1273 vaccine 09/23/20 R ecorded zoster vaccine, inactivated 07/31/18 Recorded 1Result Comment: [facility]: [id number] LOT: [id number] EXP: 04/04/22 Medications alendronate 70 mg oral tablet TAKE 1 TABLET BY MOUTH EVERY WEEK Start Date: 02/10/23 Status: Ordered Repeat number: 1 amitriptyline 25 mg oral tablet 25 mg, 1, tablet, By Mouth, Daily at bedtime, Refills 0, Maintenance, 12/02/23 10:12:00 AM EDT, Partial fill upon patient request if the prescription is for a schedule II opioid drug. Start Date: 12/02/23 Status: Ordered Repeat number: 1 atorvastatin 10 mg oral tablet 1 tablet, By Mouth, Daily, # 90 tablet, 0 Refills, Maintenance, 07/21/24 10:26:00 AM EST, [facility]/pharmacy #[id number], Please ask patient to call the office and schedule an appt for further refills, 168, cm, 06/15/24 9:13:00 EST, Height, 80, kg, 06/15/24 9:13:00 EST, Dry Weight Start Date: 07/21/24 Status: Ordered Quantity: 90.0 Unit: tablet Repeat number: 1 BACLOFEN 5 MG TABLET BACLOFEN 5 MG TABLET, TAKE 1 TAB ORALLY 2 TIMES A DAY NEEDED FOR MUSCLE SPASM FOR 90 DAYS Start Date: 10/06/23 Status: Ordered Repeat number: 1 duloxetine 60 mg oral enteric coated capsule 1 capsule = 60 mg, By Mouth, Daily at bedtime, # 90 capsule, 3 Refills, Maintenance, 08/03/20 11:43:00 AM EST, Capsule, [facility][id number], Partial fill upon patient request if the prescription is fora schedule II opioid drug., 165, cm, 08/01/20 10:12:00 EST, Height, 93, kg, 05/04/19 8:45:00 EDT, Dry Weight Start Date: 08/03/20 Status: Ordered Quantity: 90.0 Unit: capsule Repeat number: 4 methotrexate 2.5 mg oral tablet 1 tablet = 2.5 mg, By Mouth, Every week, # 4 tablet, 0 Refills, Maintenance, 10/06/23 10:42:00 AM EDT, Tablet, Partial fill upon patient request if the prescription is for a schedule II opioid drug. Start Date: 10/06/23 Status: Ordered Quantity: 4.0 Unit: tablet Repeat number: 1 Olumiant 2 mg oral tablet 1 tablet = 2 mg, By Mouth, Daily, # 30 tablet, 0 Refills, Maintenance, 11/17/21 9:54:00 AM EDT, Tablet, Partial fill upon patient request if the prescription is for a schedule II opioid drug. Start Date: 11/17/21 Status: Ordered Quantity: 30.0 Unit: tablet Repeat number: 1 oxyCODONE 10 mg oral tablet 1 tablet = 10 mg, By Mouth, Every 6 hours, 0 Refills, Maintenance, 10/06/23 10:41:00 AM EDT, Tablet, Partial fill upon patient request if the prescription is for a schedule II opioid drug. Start Date: 10/06/23 Status: Ordered Repeat number: 1 topiramate 100 mg oral tablet 1 tablet, By Mouth, 2 times a day, # 180 tablet, 0 Refills, Maintenance, 07/21/24 10:27:00 AM EST, [facility]/pharmacy #[id number], Please ask patient to call the office and schedule an appt for further refills, 168, cm, 06/15/24 9:13:00 EST, Height, 80, kg, 06/15/24 9:13:00 EST, Dry Weight Start Date: 07/21/24 Status: Ordered Quantity: 180.0 Unit: tablet Repeat number: 1 traZODone 100 mg oral tablet 1 TO 2 TABLETS, By Mouth, Daily at bedtime, # 180 tablet, Refills 1, Maintenance, 07/21/24 11:42:00 AM EST, Route to Pharmacy Electronically, [id number], 168, cm, 06/15/24 9:13:00 EST, Height, 80, kg, 06/15/24 9:13:00 EST, Dry Weight Start Date: 07/21/24 Status: Ordered Quantity: 180.0 Unit: tablet Repeat number: 1 Varenicline By Mouth, 2 times a day, 0 Refills, Maintenance, 12/02/23 10:13:00 AM EDT, Partial fill upon patientrequest if the prescription is for a schedule II opioid drug. Start Date: 12/02/23 Status: Ordered Repeat number: 1 Problem List Condition Confirmation Course Effective Dates Status Health Status Informant Elevated alkaline phosphatase level Confirmed Active Allergic rhinitis Confirmed Active Ankle pain, right Confirmed Active Breast cancer screening Confirmed Active Chronic alcoholism in remission Confirmed Active Chronic low back pain Confirmed Active Chronic low back pain Confirmed Active Vaccine counseling Confirmed Active Tinea Confirmed Active Disorder of rotator cuff Confirmed Active Diverticular disease Confirmed Active Exertional dyspnea Confirmed Active Edema leg Confirmed Active Fibromyalgia Confirmed Active Abnormal iron saturation Confirmed Active H/O: pneumonia Confirmed Active Hearing loss Confirmed Active History of Helicobacter pylori infection Confirmed Active Hypercalcemia Confirmed Active Hypercholesterolemia Confirmed Active Hypertensive disorder Confirmed Active Hypertensive renal disease Confirmed Active Immunosuppression due to drug therapy Confirmed Active Insomnia Confirmed Active Kidney stone Confirmed Active Metabolic syndrome X Confirmed Active Microalbuminuria Confirmed Active Microscopic hematuria Confirmed Active Multiple nodules of lung Confirmed Active Nausea with vomiting Confirmed Active Neuropathy due to type 2 diabetes mellitus Confirmed Active Nicotine dependence Confirmed Active Rt facial numbness Confirmed Active DJD (degenerative joint disease) Confirmed Active Osteoarthritis of knee Confirmed Active Osteopenia Confirmed Active Osteoporosis Confirmed Active Pain, axillary Confirmed Active Healthcare maintenance Confirmed Active Polyp of corpus uteri Confirmed Active Polyp of sigmoid colon Confirmed Active Postmenopausal state Confirmed Active Recurrent kidney stones Confirmed Active Recurrent major depression Confirmed Active RA (rheumatoid arthritis) Confirmed Active Sleep walking disorder Confirmed Active Persistent moderate somatic symptom disorder with predominant pain Confirmed Active Spondylolysis Confirmed Active Trigeminal neuralgia Confirmed Active Tubular adenoma of colon 1, 2 Confirmed 05/07/19 Active Type 2 diabetes mellitus Confirmed Active Unintentional weight loss Confirmed Active Viral screening status Confirmed Active Vitamin D deficiency Confirmed Active 1tublular adenomas of colon, repeat screening colonoscopy in 2024 2repeat screening colonoscopy in 2021 Social History Social History Type Response Smoking Status Former smoker, quit more than 30 days ago entered on: 12/02/23 Sex Female Sex Representation Female (finding) Patient Care team information Care Team Personnel Name: Diana Live MD Position: [facility] Physician - Primary Care Member Role: PCP Address: [address] [place] [address], [address] [place], [place] [address] Telecom: Name: Deborah Kelly RN Position: [facility] RN Member Role: Primary Care Nurse Name: Farrah Romano [place] Position: [facility] Outreach Member Role: Lifetime Consulting Physician Name: Soco Dixon RN Position: [facility] RN Member Role: Primary Care Nurse Name: Vandana Kendrick RN Position: [facility] RN Member Role: Primary Care Nurse Name: Domitila Aponte RN Position: [facility] RN Member Role: Primary Care Nurse Name: Anay Gunter RN Position: [facility] Hospital Attic Fans Mechanic Member Role: Primary Care Nurse Care Team Related Persons Name: PADMINI NOGUEIRA Name: CHADWICK WHITTINGTON Insurance Providers Guarantor name: PADMINI [facility] Plan Information #: 1 Payer: NA Member Number: NA Policy Number: NA Group Number: NA
--- OUTSIDE RECORDS SUMMARY | 2024-09-02 11:22 | XMS_ITS | Encounter Summary ---
Author Organization [employer] [facility] Address [address] [place] [address] [place] [address] Care Team Providers Care Integrity Analyst Name Role Phone Unavailable Primary Care Provider Unavailabl e Encounter Details Date Type Department Care Team (Latest Contact Info) Description 07/28/2018 Abstract [facility] CONVERSIONS Dental, Provider, DDS Social History Tobacco Use Types Packs/Day Years Used Date Smoking Tobacco: Never Assessed Comments Unknown Sex and Gender Information Value Date Recorded Sex Assigned at Female 05/06/2022 10:34 AM EDT Legal Sex Female 10:34 AM EDT Gender Identity Female 05/06/2022 10:34 AM EDT Sexual Orientation Lesbian or Alva 05/06/2022 10 :34 AM EDT documented as of this encounter Plan of Treatment Not on file documented as of this encounter Visit Diagnoses Not on filedocumented in this encounter
--- OUTSIDE RECORDS SUMMARY | 2024-09-02 11:23 | XMS_ITS | Continuity of Care Document ---
Author Organization [facility] Address [address] [place] [id number]- Care Team Providers Care President & Ceo Name Role Phone Maria T LAZO, Diana Plata Primary Care Physician Encounter [facility] [place] Date(s): 07/20/24 - 08/19/24 [facility] Pulmonary Medicine [address] [place] [id number] Encounter Type: Triage Allergies, Adverse Reactions, Alerts Substance Criticality Severity Reaction Reaction Severity Status gabapentin Active Lyrica Active Kevzara Active Immunizations Given and Recorded Vaccine Date Status Refusal Reason tetanus/diphtheria/pertussis, acel(Tdap) 02/10/23 Given pneumococcal 20-valent conjugate vaccine 02/10/23 Given [id number] bivalent booster vax 08/12/22 Given influenza virus [...] zoster vaccine, inactivated 07/31/18 Recorded 1Result Comment: [facility] [place]: [id number] LOT: [id number] EXP: 04/04/22 Medications alendronate 70 mg oral [...] 0 Refills, Maintenance, 07/21/24 10:26:00 AM EST, [facility]/pharmacy #[id number], Please ask patient to call [...] 0 Refills, Maintenance, 07/21/24 10:27:00 AM EST, [facility]/pharmacy #[id number], Please ask patient to call [...] 11:42:00 AM EST, Route to Pharmacy Electronically, [facility] STORE [id number], 168, cm, 06/15/24 9:13:00 EST, Height, 80, [...] Team Personnel Name: Diana Live MD Position: [facility] Physician - Primary Care Member Role: PCP Address: [address] [place] [address], [address] [place], [place] [address] Telecom: Name: Deborah Kelly RN Position: [facility] RN Member Role: Primary Care Nurse Name: Farrah Romano [place] Position: [facility] Outreach Member Role: Lifetime Consulting Physician Name: Soco Dixon RN Position: [facility] RN Member Role: Primary Care Nurse Name: Vandana Kendrick RN Position: [facility] RN Member Role: Primary Care Nurse Name: Domitila Aponte RN Position: [facility] RN Member Role: Primary Care Nurse Name: Anay Gunter RN Position: [facility] Hospital Hot Metal Crane Operator Member Role: Primary Care Nurse Care Team Related Persons Name: PADMINI NOGUEIRA Name: CHADWICK WHITTINGTON Insurance Providers Guarantor name: PADMINI [facility] Plan Information #: 1 Payer: NA Member Number: NA Policy Number: NA Group Number: NA
== END 2024-09-02 10:15 | disposition home or self-care (01) ==
PROVIDERS: PCP Internal Medicine; Visit Provider Nurse Practitioner Family
DX: G89.4 Chronic pain syndrome (principal); M51.369 Other intervertebral disc degeneration, lumbar region without mention of lumbar back pain or lower extremity pain; M47.816 Spondylosis without myelopathy or radiculopathy, lumbar region; Z79.891 Long term (current) use of opiate analgesic; G60.9 Hereditary and idiopathic neuropathy, unspecified; M47.814 Spondylosis without myelopathy or radiculopathy, thoracic region; M53.3 Sacrococcygeal disorders, not elsewhere classified
CPT/HCPCS: 99214; G2211

== ENCOUNTER 2024-09-02 10:14 | Outpatient (REF) | payer MEDICARE, SELFPAY ==
[2024-09-02 11:09] LABS: MANUAL DIFF FLAG NO
[2024-09-02 11:10] LABS: Basophils Percent Auto 0.5 % (0-2); Eosinophils Absolute Auto 0.1 X10*3/uL (0.0-0.4); Eosinophils Percent Auto 0.6 % (0-4); Hemoglobin 13.7 g/dl (12.0-16.0); Imm Gran Abs Auto 0.01 X10*3/uL (0.00-0.03); Imm Gran Pct Auto 0.1 % (0.0-0.4); Lymphocytes Absolute Auto 2.2 X10*3/uL (1.2-4.9); Lymphocytes Percent Auto 27.1 % (20-40); Mean Corpuscular HGB Conc 34.3 g/dl (31.0-35.0); Mean Corpuscular Volume 93.5 fL (80.0-98.0); Mean Platelet Volume 9.5 fL (9.4-12.3); Monocytes Absolute Auto 0.5 X10*3/uL (0.1-1.2); Monocytes Percent Auto 6.7 % (2-11); Neutrophils Absolute Auto 5.2 x10*3/uL (2.0-8.3); Platelet Count 202 X10*3/uL (160-400); Red Blood Count 4.28 X10*6/uL (4.20-5.50); Red Cell Distribution Width 13.7 % (11.0-16.0)
[2024-09-02 11:23] LABS: Alanine Aminotransferase 20 U/L (0-31); Albumin Level 4.4 g/dL (3.5-5.0); Alkaline Phosphatase 65 U/L (39-117); Anion Gap 11 (12-20); Aspartate Amino Transferase 23 U/L (5-31); Bilirubin Total 0.5 mg/dL (0.0-1.0); Blood Urea Nitrogen 22 mg/dL (9-16); C Reactive Protein < 0.10 mg/dL (< or = 0.50); Calcium 9.5 mg/dL (8.4-10.2); Carbon Dioxide 25 mmol/L (22-29); Chloride 110 mmol/L (96-108); Estimated Glomerular Filt Rate 60; Glucose Random 104 mg/dL (60-115); Sodium 141 mmol/L (135-145); Total Protein 7.7 g/dL (6.5-8.0)
[2024-09-02 11:48] LABS: Erythrocyte Sedimentation Rate 7 MM/HR (0-20)
--- OUTSIDE RECORDS SUMMARY | 2024-09-02 11:52 | XMS_ITS | Clinical Summary ---
Author Organization [employer] Address [address] [place] [address] [address] [place] [address] Care Team Providers Care Cheese Cutter Name Role Phone Unavailable Primary Care Provider [...]
--- OUTSIDE RECORDS SUMMARY | 2024-09-02 11:52 | XMS_ITS | Encounter Summary ---
Author Organization [employer] [facility] Address [address] [place] [address] [place] [address] Care Team Providers Care Electromechanical Assembler Name Role Phone Unavailable Primary Care Provider Unavailabl e Encounter Details Date Type Department Care Team (Latest Contact Info) Description 07/28/2018 Abstract [facility] CONVERSIONS Dental, Provider, DDS Social History Tobacco [...]
== END 2024-09-02 10:15 | disposition home or self-care (01) ==
LOC: HO.10HDL 10:14
PROVIDERS: Visit Provider Student in an Organized Health Care Education/Training Program
DX: M05.9 Rheumatoid arthritis with rheumatoid factor, unspecified (principal); Z79.60 Long term (current) use of unspecified immunomodulators and immunosuppressants
CPT/HCPCS: 36415; 80053; 85025; 85652; 86140; 99212

== ENCOUNTER → 2024-09-02 10:32 | Outpatient (BNV) | payer MEDICARE, MEDICAID, SELFPAY | PROVIDERS: Absent Provider Registered Nurse Emergency; PCP Internal Medicine; Visit Provider Radiology Diagnostic Radiology | DX: M51.360 Other intervertebral disc degeneration, lumbar region with discogenic back pain only (principal) | CPT/HCPCS: 72110 ==

== ENCOUNTER 2024-09-08 09:59 | Outpatient (AMB) | payer MEDICARE, BC, SELFPAY ==
--- NOTE | 2024-09-08 10:01 | MHC.OFFVIS ---
Vital Signs 09/08/24 10:05 Height 5 ft 5 in Weight 186 lb 11.704 oz BMI 31.1 BP 115/72 Blood Pressure Location Lt brachial Position Sitting Pulse 75 Pulse Source Pulse Oximeter Pulse Oximetry (%) 98 Oxygen Delivery Method Room Air Intake Visit Reasons: RA Intake Note: Patient presents today for RA. Allergies sarilumab [From Kevzara] Allergy (Severe, Verified 09/08/24 10:04) blistery rash gabapentin Allergy (Intermediate, Verified 09/08/24 10:04) rash pregabalin Allergy (Intermediate, Verified 09/08/24 10:04) rash tofacitinib [Xeljanz] Allergy (Intermediate, Verified 09/08/24 10:04) Rash Medication List - Last Reconciled 09/08/24 by Erin Pina MD alendronate 70 mg PO QWEEK amitriptyline 25 mg PO BEDTIME atorvastatin 10 mg PO DAILY baclofen 10 mg PO BID PRN 90 days baricitinib (Olumiant) 2 mg PO DAILY duloxetine 60 mg PO DAILY 30 days ibuprofen 200 mg PO Q6H PRN krill oil mg PO mecobalamin (vitamin B12) 2,000 mcg PO DAILY multivitamin 1 tab PO DAILY naloxone 4 mg/actuation (Narcan) 4 mg intranasal Q2M PRN omega-3 fatty acids 500 mg PO DAILY oxycodone 10 mg PO Q6H PRN 30 days topiramate 100 mg PO BID trazodone 200 mg PO BEDTIME PRN varenicline tartrate 1 ea PO BID varenicline tartrate (Chantix) 1 mg PO BID HPI Comments Details: Patient is a 64-year-old female with hyperlipidemia, osteopenia with high fracture risk, polyarticular OA (knee, hands) s/p right TKR, seropositive rheumatoid arthritis here today for follow up Interval History: Patient last seen 05/10/[address] Don. At that time she was on Olumiant 2 mg daily noting she continues to have intermittent flare-ups of her stiffness lasting about an hour. She would have these flare-ups once a week. She continued to have multiple tender joints on examination without significant swelling. Hydroxychloroquine was added to her regimen. Patient decided not to start the medication because of finances and concern for her eyes Continues to have tender and swollen joints AM stiffness 1-2 hours Rheumatologic History: Seropositive rheumatoid arthritis -ve ++CCP Humira - 09/2013 - 02/2014 Methotrexate - 05/2016-11/2015 Sulfasalazine 09/2012 - 02/2014 Arava - 04/2016-04/2017 Xeljanz- 12/2013-06/2014 -tunnel vision Kevzara- 06/2018-03/2020 Olumiant- 05/2020- present MTX added 09/2023 - DC 11/2023 due to Pleuritis/pneumonitis episode Plaquenil patient refused to try due to concern for her eyes Osteopenia 10/2022 T-score-1.5 in the femoral neck, major risk for fracture 19.1%, hip fracture 3.7%. Alendronate: 10/2022 - present Current Rheumatology Medication(s): Olumiant 2 mg daily Plaquenil 200 mg b.i.d. 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 Spondylosis of lumbar region without myelopathy or radiculopathy Disc degeneration, lumbar Sacroiliac joint dysfunction of right side Sacroiliitis Seropositive rheumatoid arthritis Carpal tunnel syndrome, bilateral Surgical History Hx of shoulder surgery History of meniscectomy of left knee H/O lithotripsy History of left knee replacement H/O hernia repair Hx of laparoscopy Family History Father Esophagus cancer Mother CVD (cardiovascular disease) Brother CVD (cardiovascular disease) Diabetes Social History Alcohol intake: never Comment: chronic back pain Patient Tobacco Use Status: Current everyday Tobacco user Tobacco use type: Cigarette Cigarettes Per Day: 12 Years Smoked: 40 Advance Directives Date on File: 04/11/20 Review of Systems Const Details: Review of Systems Constitutional: Denies fever, chills, weight loss ENT: Denies vision changes, eye pain or eye redness, dental caries, dry mouth GI: Denies nausea, vomiting, diarrhea, abdominal pain, change in BM Pulm: Denies SOB, GUEVRAA, hemoptysis, wheezing Cards: Denies chest pain, palpitations Skin: Denies Raynaud's, rash, nail changes, photosensitivity, INHALATION THERAPY TEACHER: Denies headaches, weakness, paresthesias, recurrent falls MSK: as per HPI All other systems reviewed and are unremarkable except noted above Physical Exam Vital Signs: Last Vital Signs Pulse 75 09/08/24 10:05 BP 115/72 09/08/24 10:05 Pulse Ox 98 09/08/24 10:05 Oxygen Delivery Method Room Air 09/08/24 10:05 BMI result Body Mass Index 31.1 Vital signs reviewed Physical Examination CONSTITUITIONAL Patient alert and cooperative. Well appearing and in no apparent painful distress HEENT Conjunctiva and sclera clear. ?Pupils equal round and reactive to light. ?No lymphadenopathy. ? CHEST/RESPIRATORY SYSTEM Normal respiratory effort and able to speak in complete sentences. ?Clear to auscultation bilaterally. ?No crackles, rales, rhonchi, wheezes heard. CARDIAC SYSTEM Regular rate and rhythm. ?S1 and S2 heard no murmurs. ?Radial pulses intact bilaterally MSK Hands: ?able to make a fist. prominent herbeden's nodes with ulnar deviation at the level of the 2nd DIP. TTP 2nd and 3rd PIP on the left and right. MCPs on the right without TTP but the MCPs on the left with TTP 2nd - 4th. Wrists: ?Full range of motion at the wrists. TTP Elbows: Full range of motion without pain. No tenderness, weakness, swelling, increased warmth or erythema. Shoulders: Full range of motion without pain. No tenderness, weakness, swelling, increased warmth or erythema. Hips: Full range of motion without pain. Hip bursa: No tenderness to palpation Knees: ?Full range of motion. ?No tenderness, swelling, increased warmth or erythema.?Crepitations felt in the right knee Ankles: Full range of motion. ?No tenderness, swelling, increased warmth or erythema.? Feet: ?Negative squeeze test. ?No tenderness to palpation or swelling of the MTPs. Tender points:?No tenderness to palpation of the bilateral trapezius, supraspinatus, greater trochanters, anterior costochondral junctions, bilateral gluteal areas, bilateral suboccipital muscle insertions SKIN Skin intact without rashes. Results Reviewed Results Reviewed: Laboratory Tests 09/02/24 10:21 WBC 8.0 RBC 4.28 Hgb 13.7 Hct 40.0 Plt Count 202 ESR 7 Sodium 141 Potassium 5.0 Chloride 110 H Carbon Dioxide 25 BUN 22 H Creatinine 0.94 AST 23 ALT 20 Alkaline Phosphatase 65 C-Reactive Protein < 0.10 Total Protein 7.7 Albumin 4.4 Laboratory Tests 05/10/24 10:40 Hepatitis A IgM Ab Nonreactive Hep Bs Antigen Negative Hep Bs Antibody NONREACTIVE Hep B Core Total Ab Nonreactive Hepatitis C Ab (EIA) Nonreactive TB Test (T-Spot) Com Negative DEXA 10/2022 FINDINGS: AP SPINE L1-L4 (excluding L3): The data of L1-L4 has been changed to exclude the L3 vertebral body, because degenerative changes at this level may cause overestimation of lumbar spine density. Current: BMD 1.004 g/cm2, Z-score 0.1, T-score -1.4, osteopenia, 13.3% decrease from previous, 11.5% decrease from baseline (<5% change is not significant). Prior: BMD 1.158 g/cm2. Baseline: BMD 1.134 g/cm2. LEFT FEMUR, NECK: Current: BMD 0.833 g/cm2, Z-score -0.1, T-score -1.5, osteopenia. Prior: BMD 0.929 g/cm2. Baseline: BMD 0.907 g/cm2. LEFT FEMUR, TOTAL: Current: BMD 0.849 g/cm2, Z-score -0.2, T-score -1.3, osteopenia, 15.7% decrease from previous, 17.9% decrease from baseline (<5% change is not significant). Prior: BMD 1.007 g/cm2. Baseline: BMD 1.034 g/cm2. IMPRESSION: 1. DIAGNOSIS: Osteopenia based on the lowest T-score value of -1.5 in the femoral neck applying World Health Organization criteria. 2. 10-YEAR FRACTURE RISK PREDICTION, FRAX: Major osteoporotic fracture (clinical spine, forearm, hip or shoulder) 19.1%. Hip fracture 3.7%. Assessment & Plan Assessment & Plan (1) Seropositive rheumatoid arthritis: Comment: -ve ++CCP Humira- 09/2013-02/2014 Methotrexate - 05/2016-11/2015 Sulfasalazine 09/2012-02/2014 Arava- 04/2016-04/2017 Xeljanz- 12/2013-06/2014 -tunnel vision Kevzara- 06/2018-03/2020 Olumiant- 05/2020- present MTX added 09/2023-DC 11/2023 due to Pleuritis/pneumonitis episode Plaquenil added but patient did not start due to concern for the eye side effects Code(s): M05.9 - Rheumatoid arthritis with rheumatoid factor, unspecified Category: Medical Plan: #Seropositive RA Patient is a 64-year-old female with seropositive rheumatoid arthritis currently on autoimmune and. She is not at low disease activity with multiple tender and swollen joints. Discussed about adding an additional medication. Patient does not want to start Plaquenil out of concerns of the eye issues and she said that adding a specialist appointment to the year would not be financially appropriate for her because she is on social security and each measures appointment is $45 I discussed that the medications that we can try are methotrexate, leflunomide, sulfasalazine and Plaquenil. Patient is willing to restart methotrexate stating that the last time she took it she actually took it daily and end up with the pneumonitis. I discussed with the patient about the appropriate way to take methotrexate that is once a week and the folic acid should be taken once a day. Patient verbalized understanding. Prior to starting the methotrexate I would like to get a chest x-ray just to make sure that she does not have any issues with her lungs. Patient will also forward her low-dose CT scan that she gets yearly due to her smoking history. Plan - Start Methotrexate 10mg weekly - Folic acid 1mg daily - Continue Olumiant 2mg daily - Get CXR prior to starting methotrexate - RTC 4-6 months - Labs before visit: CBC, CMP, ESR, CRP, hepatitis panel, T spot (2) Osteopenia with high risk of fracture: Comment: 10/2022 T-score-1.5 in the femoral neck, major risk for fracture 19.1%, hip fracture 3.7%. Alendronate: 10/2022 - present Code(s): M85.80 - Other specified disorders of bone density and structure, unspecified site Category: Medical Plan: #Osteopenia with high FRAX Patient with osteopenia and high FRAX. Tolerating the alendronate. 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 of unspecified immunomodulators and immunosuppressants Category: Medical Plan: #Long-term Use of SANJAY inhibitor: Olumiant Discussed with patient the benefits and risks of SANJAY inhibitors for the management of the rheumatic condition Benefits include reduce pain, maintenance of remission and reduction of flares Risks include thromboembolic events, skin cancer and nonmelanoma skin cancers, other forms of cancer, cardiovascular alcohol and mortality Advise patient that they are to hold the medication and for up to 1 week after a febrile illness or an open skin wound (4) Encounter for monitoring alendronate therapy: Code(s): Z51.81 - Encounter for therapeutic drug level monitoring; Z79.83 - 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 of bisphosphonates Plan: #Long-term Use of Bisphosphonates Risks and benefits of bisphosphonates in the management of osteoporosis Benefits include improved bone density, decreased fracture risk Risks include atypical femoral fractures, GI upset, esophageal strictures Contraindicated in patients with a creatinine clearance < 30 to 35 ml/min Keep vitamin-D at least 35 ng/mL (5) Encounter for methotrexate monitoring: Code(s): Z51.81 - Encounter for therapeutic drug level monitoring; Z79.631 - longterm (current) use of antimetabolite agent Plan: #Long-term Current Use of Methotrexate Discussed with patient the benefits and risks of methotrexate for managing their rheumatic condition Benefits include reduced pain, reduced mortality, maintenance of remission and reduction of flares Risks include oral ulcers, photosensitivity, hepatotoxicity, hematologic toxicity, pneumonitis, flu-like symptoms (especially day after administration), nodulosis, lymphomas ? Limit alcohol and avoid Bactrim ? Monitoring: ?CBC, BMP, LFTs every 3-4 months and hepatitis serologies as needed Plan I spent 35 minutes reviewing the record and labs, taking a history, examining the patient, discussing the treatment plan and documenting in the medical record Orders: Orders Comprehensive Met. Panel 6 Months E55.9 - Vitamin D deficiency, unspecified, M05.9 - Rheumatoid arthritis with rheumatoid factor, unspecified C Reactive Protein 6 Months E55.9 - Vitamin D deficiency, unspecified, M05.9 - Rheumatoid arthritis with rheumatoid factor, unspecified Erythrocyte Sedimentation Rate 6 Months E55.9 - Vitamin D deficiency, unspecified, M05.9 - Rheumatoid arthritis with rheumatoid factor, unspecified Hepatitis A,B,C Profile 6 Months E55.9 - Vitamin D deficiency, unspecified, M05.9 - Rheumatoid arthritis with rheumatoid factor, unspecified T Spot TB 6 Months E55.9 - Vitamin D deficiency, unspecified, M05.9 - Rheumatoid arthritis with rheumatoid factor, unspecified XR chest 2V Today J98.4 - Other disorders of lung XR DEXA axial skeleton Today M85.80 - Other specified disorders of bone density and structure, unspecified site Complete Blood Count Auto Diff 6 Months E55.9 - Vitamin D deficiency, unspecified, M05.9 - Rheumatoid arthritis with rheumatoid factor, unspecified Vitamin D 25-OH (D2 and D3) 6 Months E55.9 - Vitamin D deficiency, unspecified, M05.9 - Rheumatoid arthritis with rheumatoid factor, unspecified Medications: New methotrexate sodium 10 mg (4 x 2.5 mg) PO QWEEK 90 days 52 tabs 1RF M05.9 - Rheumatoid arthritis with rheumatoid factor, unspecified folic acid 1 mg PO DAILY 90 tabs 1RF M05.9 - Rheumatoid arthritis with rheumatoid factor, unspecified Refilled baricitinib (Olumiant) 2 mg PO DAILY 30 tabs 5RF M05.9 - Rheumatoid arthritis with rheumatoid factor, unspecified alendronate 70 mg PO QWEEK 12 tabs 1RF M85.80 - Other specified disorders of bone density and structure, unspecified site Coding Level of Care Code Est Pt Level 4 (48268) Complex EM visit Add On G2211 Diagnoses Seropositive rheumatoid arthritis M05.9 Osteopenia with high risk of fracture M85.80 Long-term use of immunosuppressant medication Z79.60 Encounter for monitoring alendronate therapy Z51.81; Z79.83 Encounter for methotrexate monitoring Z51.81; Z79.631
[2024-09-08 10:05] VITALS: BP 115/72; PULSE 75; O2SAT 98; BMI 31.1
--- OUTSIDE RECORDS SUMMARY | 2024-09-08 11:46 | XMS_ITS | Encounter Summary ---
Author Organization [employer] [facility] Address [address] [place] [address] [place] [address] Care Team Providers Care Director Phone Name Role Phone Unavailable Primary Care Provider Unavailabl e Encounter Details Date Type Department Care Team (Latest Contact Info) Description 07/28/2018 Abstract [facility] CONVERSIONS Dental, Provider, DDS Social History Tobacco [...]
--- OUTSIDE RECORDS SUMMARY | 2024-09-08 11:46 | XMS_ITS | Clinical Summary ---
Author Organization [employer] Address [address] [place] [address] [address] [place] [address] Care Team Providers Care Street Supervisor Name Role Phone Unavailable Primary Care Provider [...]
== END 2024-09-08 10:45 | disposition home or self-care (01) ==
PROVIDERS: PCP Internal Medicine; Visit Provider Student in an Organized Health Care Education/Training Program
DX: M05.79 Rheumatoid arthritis with rheumatoid factor of multiple sites without organ or systems involvement (principal); M85.80 Other specified disorders of bone density and structure, unspecified site; Z79.60 Long term (current) use of unspecified immunomodulators and immunosuppressants; Z51.81 Encounter for therapeutic drug level monitoring; Z79.83 Long term (current) use of bisphosphonates; Z79.631 Long term (current) use of antimetabolite agent
CPT/HCPCS: 99214; G2211

== ENCOUNTER → 2024-09-08 09:59 | Outpatient (BNVA) | payer MEDICARE, SELFPAY | PROVIDERS: PCP Internal Medicine; Visit Provider Student in an Organized Health Care Education/Training Program | DX: M15.9 Polyosteoarthritis, unspecified (principal); M05.9 Rheumatoid arthritis with rheumatoid factor, unspecified; M85.80 Other specified disorders of bone density and structure, unspecified site; E55.9 Vitamin D deficiency, unspecified; J98.4 Other disorders of lung; Z51.81 Encounter for therapeutic drug level monitoring; Z79.60 Long term (current) use of unspecified immunomodulators and immunosuppressants; Z79.83 Long term (current) use of bisphosphonates; Z79.631 Long term (current) use of antimetabolite agent | CPT/HCPCS: 99212 ==

== ENCOUNTER 2024-09-16 11:37 | Outpatient (REF) | payer MEDICARE, SELFPAY ==
--- NOTE | ~2024-09-16 | XR_ITS ---
EXAMINATION: XR CHEST 2 VIEWS HISTORY: J98.4 - Other disorders of lung COMPARISON: Comparison is made with the prior examination dated 11/07/2011. FINDINGS: PA and lateral views of the chest are submitted. The lungs are expanded and clear. There is no pleural effusion, pneumothorax, or pulmonary vascular congestion. The heart is normal in size. There is degenerative disc disease of the spine. XR/XR chest 2V IMPRESSION: No acute cardiopulmonary abnormality. Electronically signed by: Randy Ivan MD 09/16/2024 12:29 PM EDT
--- OUTSIDE RECORDS SUMMARY | 2024-09-16 15:03 | XMS_ITS | Clinical Summary ---
Author Organization [employer] Address [address] [place] [address] [address] [place] [address] Care Team Providers Care Electric Fan Assembler Name Role Phone Unavailable Primary Care [...]
--- OUTSIDE RECORDS SUMMARY | 2024-09-16 15:04 | XMS_ITS | Encounter Summary ---
Author Organization [employer] [facility] Address [address] [place] [address] [place] [address] Care Team Providers Care [employer] Haul Truck Driver Name Role Phone Unavailable Primary Care Provider Unavailabl e Encounter Details Date Type Department Care Team (Latest Contact Info) Description 07/28/2018 Abstract [facility] CONVERSIONS Dental, Provider, DDS Social History [...]
== END 2024-09-16 11:38 | disposition home or self-care (01) ==
LOC: HO.XRAY 11:37
PROVIDERS: PCP Internal Medicine; Visit Provider Student in an Organized Health Care Education/Training Program
DX: J98.4 Other disorders of lung (principal)
CPT/HCPCS: 71046

== ENCOUNTER → 2024-09-16 11:43 | Outpatient (BNV) | payer MEDICARE, SELFPAY | PROVIDERS: PCP Internal Medicine; Visit Provider Radiology Diagnostic Radiology | DX: J98.4 Other disorders of lung (principal) | CPT/HCPCS: 71046 ==

== ENCOUNTER 2024-10-01 11:08 | Outpatient (AMB) | payer MEDICARE, MEDICAID, SELFPAY ==
--- NOTE | 2024-10-01 11:14 | A.OFFVIS_ITS ---
Vital Signs 10/01/24 11:20 Height 5 ft 5 in Weight 174 lb 2 oz BMI 29.0 BP 128/77 Blood Pressure Location Rt brachial Position Sitting Pulse 102 H Pulse Source Pulse Oximeter Pulse Oximetry (%) 97 Oxygen Delivery Method Room Air Intake Visit Reasons: Pill Count Intake Note: Raquel comes in today for a pill count to oxycodone, patient should have 12 tablets and presents with 9 tablets which she last took today 10/01/24 at 9am. Pain today 6/10 Allergies sarilumab [From Kevzara] Allergy (Severe, Verified 10/01/24 11:21) blistery rash gabapentin Allergy (Intermediate, Verified 10/01/24 11:21) rash pregabalin Allergy (Intermediate, Verified 10/01/24 11:21) rash tofacitinib [Xeljanz] Allergy (Intermediate, Verified 10/01/24 11:21) Rash HPI Comments Details: Raquel presents to the office today for follow up chronic pain and chronic opioid therapy management. Patient is prescribed Oxycodone 10mg take 1 tablet four times daily as needed. Patient arrived today with the expectation of having 12 pills, she presented 9 pills which were counted in the presence of two staff members and returned to the patient in the original prescription bottle. This demonstrates responsible attitude toward patient's opioid medications. Pain is reported today as 6/10 and last dose of pain medication was taken today at 9am. Patient denies side effects including somnolence, constipation, itching, dyspnea, rash, dizziness or weakness. Has been taking baclofen with minimal improvement. She would consider trying alternative muscle relaxer. Recent lumbar spine x-ray reviewed, results as per below Currently reports pain of thoracic spine is the most bothersome to her daily life. Previously underwent T8-T9 T10 therapeutic medial branch blocks 03/2023 with good results. She would like to repeat these injections. Prior visit with Clara STEAMER BLOCKER: Patient is a pleasant 64 years old female who has been previously evaluated in this office by Brittney HERNANDEZ and Dr. Ceron for chronic pain with medical pain management. Today, she is here for a pill count. Patient is supposed to have #4 pills, in her possession has #10 pills. This demonstrates a responsible attitude in regards to the medication regimen. Patient continues to report adequate analgesia on her regimen of oxycodone 10 mg Q6H prn with no noted side effects. Denies any constipation, nausea, sedation, dizziness, or urinary retention. She reports increased ability to perform activities of daily living, better sleep, better interact socially and be more functional. Denies any changes to medications, medical history or recent hospitalizations. Patient was reminded to complete lumbar spine xrays. She has not been scheduled for physical therapy since last visit.. 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 Spondylosis of lumbar region without myelopathy or radiculopathy Disc degeneration, lumbar Sacroiliac joint dysfunction of right side Sacroiliitis Seropositive rheumatoid arthritis Carpal tunnel syndrome, bilateral Surgical History Hx of shoulder surgery History of meniscectomy of left knee H/O lithotripsy History of left knee replacement H/O hernia repair Hx of laparoscopy Family History Father Esophagus cancer Mother CVD (cardiovascular disease) Brother CVD (cardiovascular disease) Diabetes Social History Alcohol intake: never Comment: chronic back pain Patient Tobacco Use Status: Current everyday Tobacco user Tobacco use type: Cigarette Cigarettes Per Day: 12 Years Smoked: 40 Advance Directives Date on File: 04/11/20 Review of Systems Const All systems reviewed & are unremarkable except as noted in HPI and below Physical Exam Vital Signs: Last Vital Signs Pulse 102 H 10/01/24 11:20 BP 128/77 10/01/24 11:20 Pulse Ox 97 10/01/24 11:20 Oxygen Delivery Method Room Air 10/01/24 11:20 BMI result Body Mass Index 29.0 General: awake, alert, oriented. Answers questions appropriately. Fully engaged in examination. Skin: warm, dry, intact HEENT: Normocephalic. Hearing intact. Cardiac: External chest normal in appearance. Respiratory: No cough, audible wheezing or stridor. Abdomen: without gross distension. MS: No obvious swelling or deformities. Neurological: Oriented to person, place, time and situation. Thought process intact. No gait abnormalities appreciated. Psychiatric: Appropriate mood and affect. Good judgment and insight. Results Reviewed Results Reviewed: 08/2024 XR/XR lumbar spine 4V min FINDINGS: AP, lateral, bilateral oblique, and coned down views of the lumbar spine are submitted. Osseous mineralization is normal. Five nonrib-bearing lumbar vertebral bodies are identified, maintaining normal height and alignment without evidence of fracture or spondylolisthesis. There is mild degenerative disc disease with disc space narrowing and anterior spurring, most prominently involving the upper lumbar spine. The posterior elements are intact. There is no spondylolysis. The visualized paraspinal soft tissues are unremarkable. IMPRESSION: Degenerative changes of the lumbar spine as described. LUMBAR SPINE XRAY 2014 FINDINGS: Normal overall alignment. Normal vertebral body heights. Degenerative changes with osteophyte formation and mild decrease in the intervertebral disc space noted at multiple levels. It appears to be worse at L1-L2 and L2-L3 levels. Multilevel facet arthropathy. No acute osseous abnormality. Incidental note is made of bilateral renal calcifications, right greater than left. Surgical clips noted in the left upper quadrant. Postoperative changes compatible with prior hernia repair noted in the left mid abdomen. IMPRESSION: 1. No acute osseous abnormality. 2. Moderate degenerative changes upper to mid lumbar spine. 3. Bilateral renal calcifications. Assessment & Plan Assessment & Plan (1) Disc degeneration, lumbar: Code(s): M51.36 - Other intervertebral disc degeneration, lumbar region Category: Medical (2) Spondylosis of lumbar region without myelopathy or radiculopathy: Code(s): M47.816 - Spondylosis without myelopathy or radiculopathy, lumbar region Category: Medical (3) Idiopathic peripheral neuropathy: Code(s): G60.9 - Hereditary and idiopathic neuropathy, unspecified Category: Medical (4) Chronic pain syndrome: Code(s): G89.4 - Chronic pain syndrome Category: Medical (5) Spondylosis of thoracic spine: Code(s): M47.814 - Spondylosis without myelopathy or radiculopathy, thoracic region Category: Medical (6) Sacroiliac dysfunction: Code(s): M53.3 - Sacrococcygeal disorders, not elsewhere classified Category: Medical (7) FDC (current) use of opiate analgesic: Code(s): Z79.891 - 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 No obvious signs of diversion, abuse or misuse of the opioid medications. Will send in prescription for Oxycodone 10mg PQ Q6H PRN with an advanced date of 10/04/24. Patient has Narcan at home. Discontinue baclofen, new prescription for methocarbamol 500 mg p.o. t.i.d.. Will schedule for repeat fluoroscopy guided bilateral therapeutic T8-T9 T10 medial branch blocks with local anesthetic. All questions and concerns have been answered and patient agrees with the plan. Patient to follow-up in the office in 1 month, sooner if needed. Medications: New methocarbamol Discontinue use of Baclofen No driving while taking this medication. 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 500 mg PO TID PRN 90 tabs 1RF muscle spasm Refilled oxycodone 10 mg PO Q6H 30 days PRN 120 tabs 0RF pain, severe G89.4 - Chronic pain syndrome, M25.551 - Pain in right hip, M25.552 - Pain in left hip, M47.27 - Other spondylosis with radiculopathy, lumbosacral region, Z79.891 - FDC (current) use of opiate analgesic Discontinued baclofen Discontinued Reason: Doctor's Order 10 mg PO BID 90 days PRN 180 tabs 1RF muscle spasm Coding Level of Care Code Est Pt Level 4 (84637) Complex EM visit Add On G2211 Diagnoses Disc degeneration, lumbar M51.36 Spondylosis of lumbar region without myelopathy or radiculopathy M47.816 Idiopathic peripheral neuropathy G60.9 Chronic pain syndrome G89.4 Spondylosis of thoracic spine M47.814 Sacroiliac dysfunction M53.3 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
[2024-10-01 11:20] VITALS: BP 128/77; PULSE 102; O2SAT 97; BMI 29.0
== END 2024-10-01 11:58 | disposition home or self-care (01) ==
LOC: HO.PMC 11:08
PROVIDERS: PCP Internal Medicine; Visit Provider Registered Nurse Emergency
DX: M51.369 Other intervertebral disc degeneration, lumbar region without mention of lumbar back pain or lower extremity pain (principal); M47.816 Spondylosis without myelopathy or radiculopathy, lumbar region; G60.9 Hereditary and idiopathic neuropathy, unspecified; G89.4 Chronic pain syndrome; M47.814 Spondylosis without myelopathy or radiculopathy, thoracic region; M53.3 Sacrococcygeal disorders, not elsewhere classified; Z79.891 Long term (current) use of opiate analgesic
CPT/HCPCS: 99214; G2211

== ENCOUNTER → 2024-10-01 11:08 | Outpatient (BNVA) | payer MEDICARE, MEDICAID, SELFPAY | PROVIDERS: PCP Internal Medicine; Visit Provider Registered Nurse Emergency | DX: Z51.81 Encounter for therapeutic drug level monitoring (principal); M51.360 Other intervertebral disc degeneration, lumbar region with discogenic back pain only; M47.816 Spondylosis without myelopathy or radiculopathy, lumbar region; M47.814 Spondylosis without myelopathy or radiculopathy, thoracic region; M53.3 Sacrococcygeal disorders, not elsewhere classified; G60.9 Hereditary and idiopathic neuropathy, unspecified; G89.4 Chronic pain syndrome; Z79.891 Long term (current) use of opiate analgesic | CPT/HCPCS: 99212 ==

== ENCOUNTER 2024-10-28 11:25 | Outpatient (REF) | payer MEDICARE, MEDICAID, SELFPAY ==
--- NOTE | ~2024-10-28 | MM_ITS ---
EXAMINATION: DXA BONE DENSITY AXIAL HISTORY: M81.0 Osteoporosis TECHNIQUE: DTI - [employer] Dual energy absorptiometry (DEXA) of the lumbar spine, total left hip, and femoral neck was performed. COMPARISON: Comparison is made with the prior examination dated 10/18/2022. FINDINGS: The bone mineral density of the lumbar spine is 0.992 with a T-score of -1.4, and a Z-score of -0.3. This is indicative of osteopenia. This represents a BMD change of 2.9% compared to the prior exam. This is not statistically significant. The bone mineral density of the left total hip is 0.852 with a T-score of -1.2, and a Z-score of -0.3. This is indicative of osteopenia. This represents a BMD change of 0.4% compared to the prior exam. This is not statistically significant. The bone mineral density of the left femoral neck is 0.881 with a T-score of -1.1, and a Z-score of 0.1. This is indicative of osteopenia. This represents a BMD change of 5.8% compared to the prior exam. FRACTURE RISK: The FRAX index suggests a ten year probability of major osteoporotic fracture of 10.7%, and of hip fracture 1.7%. MM/XR DEXA axial skeleton IMPRESSION: Based on bone mineral density, and according to World Health Organization (WHO) criteria, the diagnosis is consistent with osteopenia. All bone density values are in grams per centimeter squared (g/cm2). Statistically, 68% of repeat scans fall within 1 SD (+/- 0.010 g/cm2 for AP spine L1-L4) and 1 SD (+/- 0.012 g/cm2 for femur total) FRAX is a trademark of the [employer]'s [employer] Metabolic Bone Disease, a World Health Organization (WHO) Collaborating Center. Electronically signed by: Randy Ivan MD 10/29/2024 07:50 AM EDT
--- OUTSIDE RECORDS SUMMARY | 2024-10-28 13:41 | XMS_ITS | Clinical Summary ---
Author Organization [employer] Address [address] [place] [address] [address] [place] [address] Care Team Providers Care Ground Support Equipment Assembler Name Role Phone Unavailable Primary Care [...]
--- OUTSIDE RECORDS SUMMARY | 2024-10-28 13:41 | XMS_ITS | Encounter Summary ---
Author Organization [email or web address] [facility] Address [address] [place] [address] [place] [address] Care Team Providers Care Box Finisher Name Role Phone Unavailable Primary Care Provider Unavailabl e Encounter Details Date Type Department Care Team (Latest Contact Info) Description 07/28/2018 Abstract [facility] CONVERSIONS Dental, Provider, DDS Social History Tobacco [...]
== END 2024-10-28 11:26 | disposition home or self-care (01) ==
LOC: HO.MAMMO 11:25
PROVIDERS: PCP Internal Medicine; Visit Provider Student in an Organized Health Care Education/Training Program
DX: M81.0 Age-related osteoporosis without current pathological fracture (principal)
CPT/HCPCS: 77080

== ENCOUNTER → 2024-10-28 11:30 | Outpatient (BNV) | payer MEDICARE, MEDICAID, SELFPAY | PROVIDERS: PCP Internal Medicine; Visit Provider Radiology Diagnostic Radiology | DX: E28.39 Other primary ovarian failure (principal) | CPT/HCPCS: 77080 ==

== ENCOUNTER 2024-10-29 09:58 | Outpatient (AMB) | payer MEDICARE, MEDICAID, SELFPAY ==
--- NOTE | 2024-10-29 10:03 | A.OFFVIS_ITS ---
Vital Signs 10/29/24 10:10 Height 5 ft 5 in Weight 173 lb 4 oz BMI 28.8 BP 120/69 Blood Pressure Location Lt brachial Position Sitting Pulse 89 Pulse Source Pulse Oximeter Pulse Oximetry (%) 97 Oxygen Delivery Method Room Air Intake Visit Reasons: Pill Count Intake Note: Raquel comes in today for a pill count to oxycodone, patient should have 20 tablets and presents with 16 tablets which she last took today 10/29/24 at 8am. 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 The patient describes previous management of muscle spasms with baclofen and has been switched to a different muscle relaxant, suspected to be methocarbamol, due to insurance coverage changes. The patient was advised about upcoming injections, with an understanding of needing to bring her medication for a pill count at the time of this appointment, while expressing a preference for minimal disruption. Patient is prescribed Oxycodone 10mg take 1 tablet four times daily as needed. Patient arrived today with the expectation of having 20 pills, she presented 16 pills which were counted in the presence of two staff members and returned to the patient in the original prescription bottle. This demonstrates responsible attitude toward patient's opioid medications. Pain is reported today as 610 and last dose of pain medication was taken today at 8am. Patient denies side effects including somnolence, constipation, itching, dyspnea, rash, dizziness or weakness. - Onset and Timing: Not explicitly discussed. - Quality and Character: Muscle spasms. - Primary Location: Not explicitly stated. - Exacerbating/Relieving Factors: Difficulty with insurance coverage for methocarbamol. - Interference with Activities: Concerns about how medications are managed and associated anxiety. - Affect: The patient expresses anxiety related to account security and medication management. - Analgesia: Previously on baclofen, currently using a muscle relaxant, likely methocarbamol. - Adverse Effects: No specific side effects mentioned. - Activities of Daily Living: Concerns about medication security management and appointment logistics. - Aberrant Drug Related Behaviors: Not discussed. 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 Spondylosis of lumbar region without myelopathy or radiculopathy Disc degeneration, lumbar Sacroiliac joint dysfunction of right side Sacroiliitis Seropositive rheumatoid arthritis Carpal tunnel syndrome, bilateral Surgical History Hx of shoulder surgery History of meniscectomy of left knee H/O lithotripsy History of left knee replacement H/O hernia repair Hx of laparoscopy Family History Father Esophagus cancer Mother CVD (cardiovascular disease) Brother CVD (cardiovascular disease) Diabetes Social History Alcohol intake: never Comment: chronic back pain Patient Tobacco Use Status: Current everyday Tobacco user Tobacco use type: Cigarette Cigarettes Per Day: 12 Years Smoked: 40 Advance Directives Date on File: 04/11/20 Review of Systems Const Details: - Musculoskeletal: Reports muscle spasms. Physical Exam Vital Signs: Last Vital Signs Pulse 89 10/29/24 10:10 BP 120/69 10/29/24 10:10 Pulse Ox 97 10/29/24 10:10 Oxygen Delivery Method Room Air 10/29/24 10:10 BMI result Body Mass Index 28.8 General: awake, alert, oriented. Answers questions appropriately. Fully engaged in examination. Skin: warm, dry, intact HEENT: Normocephalic. Hearing intact. Cardiac: External chest normal in appearance. Respiratory: No cough, audible wheezing or stridor. Abdomen: without gross distension. MS: No obvious swelling or deformities. Neurological: Oriented to person, place, time and situation. Thought process intact. No gait abnormalities appreciated. Psychiatric: Appropriate mood and affect. Good judgment and insight. Results Reviewed Results Reviewed: 08/2024 XR/XR lumbar spine 4V min FINDINGS: AP, lateral, bilateral oblique, and coned down views of the lumbar spine are submitted. Osseous mineralization is normal. Five nonrib-bearing lumbar vertebral bodies are identified, maintaining normal height and alignment without evidence of fracture or spondylolisthesis. There is mild degenerative disc disease with disc space narrowing and anterior spurring, most prominently involving the upper lumbar spine. The posterior elements are intact. There is no spondylolysis. The visualized paraspinal soft tissues are unremarkable. IMPRESSION: Degenerative changes of the lumbar spine as described. LUMBAR SPINE XRAY 2014 FINDINGS: Normal overall alignment. Normal vertebral body heights. Degenerative changes with osteophyte formation and mild decrease in the intervertebral disc space noted at multiple levels. It appears to be worse at L1-L2 and L2-L3 levels. Multilevel facet arthropathy. No acute osseous abnormality. Incidental note is made of bilateral renal calcifications, right greater than left. Surgical clips noted in the left upper quadrant. Postoperative changes compatible with prior hernia repair noted in the left mid abdomen. IMPRESSION: 1. No acute osseous abnormality. 2. Moderate degenerative changes upper to mid lumbar spine. 3. Bilateral renal calcifications. Assessment & Plan Assessment & Plan (1) Disc degeneration, lumbar: Code(s): M51.36 - Other intervertebral disc degeneration, lumbar region Category: Medical (2) Spondylosis of lumbar region without myelopathy or radiculopathy: Code(s): M47.816 - Spondylosis without myelopathy or radiculopathy, lumbar region Category: Medical (3) Idiopathic peripheral neuropathy: Code(s): G60.9 - Hereditary and idiopathic neuropathy, unspecified Category: Medical (4) Chronic pain syndrome: Code(s): G89.4 - Chronic pain syndrome Category: Medical (5) Spondylosis of thoracic spine: Code(s): M47.814 - Spondylosis without myelopathy or radiculopathy, thoracic region Category: Medical (6) Sacroiliac dysfunction: Code(s): M53.3 - Sacrococcygeal disorders, not elsewhere classified Category: Medical (7) skilled nursing (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 Her upcoming injections were confirmed for November 30 with arrangements to bring her medications for a concurrent pill count to avoid additional appointments. During the visit, we discussed the patient's switch from baclofen to methocarbamol due to insurance coverage challenges and her upcoming scheduled injections. I confirmed the importance of bringing medications for a pill count at her procedure appointment, and we reviewed the logistics to mitigate any inconvenience. [employer] was reviewed and without concerns. No obvious signs of diversion, abuse or misuse of the opioid medications. Will send in prescription for Oxycodone 10mg PQ Q6H PRN. Patient has Narcan at home. Continue with methocarbamol 500 mg p.o. t.i.d Patient was informed and verbally consented to the use of an ambient scribe for clinic note documentation during this visit. 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 - Bring prescribed medication for a pill count during the scheduled appointment. - Contact the office with any further problems regarding medication coverage. 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
[2024-10-29 10:10] VITALS: BP 120/69; PULSE 89; O2SAT 97; BMI 28.8
== END 2024-10-29 10:28 | disposition home or self-care (01) ==
LOC: HO.PMC 09:58
PROVIDERS: PCP Internal Medicine; Visit Provider Registered Nurse Emergency
DX: M51.369 Other intervertebral disc degeneration, lumbar region without mention of lumbar back pain or lower extremity pain (principal); M47.816 Spondylosis without myelopathy or radiculopathy, lumbar region; G60.9 Hereditary and idiopathic neuropathy, unspecified; G89.4 Chronic pain syndrome; M47.814 Spondylosis without myelopathy or radiculopathy, thoracic region; M53.3 Sacrococcygeal disorders, not elsewhere classified; Z79.891 Long term (current) use of opiate analgesic
CPT/HCPCS: 99213; G2211

== ENCOUNTER → 2024-10-29 09:58 | Outpatient (BNVA) | payer MEDICARE, MEDICAID, SELFPAY | PROVIDERS: PCP Internal Medicine; Visit Provider Registered Nurse Emergency | DX: Z51.81 Encounter for therapeutic drug level monitoring (principal); M51.360 Other intervertebral disc degeneration, lumbar region with discogenic back pain only; M47.816 Spondylosis without myelopathy or radiculopathy, lumbar region; M47.814 Spondylosis without myelopathy or radiculopathy, thoracic region; M53.3 Sacrococcygeal disorders, not elsewhere classified; G60.9 Hereditary and idiopathic neuropathy, unspecified; G89.4 Chronic pain syndrome; Z79.891 Long term (current) use of opiate analgesic | CPT/HCPCS: 99212 ==

== ENCOUNTER 2024-11-30 06:35 | Outpatient (REF) | payer MEDICARE, MEDICAID, SELFPAY ==
--- NOTE | ~2024-11-30 | FL_ITS ---
EXAMINATION: FL GUIDANCE ONLY HISTORY: M47.814 - Spondylosis without myelopathy or radiculopathy, thoracic region COMPARISON: None available. TECHNIQUE: Fluoroscopy time: 0.6 minutes. Cumulative Dose: 6.82 mGy. DAP: 0.0903 mGym2 Images: 5. FINDINGS: Multiple fluoroscopic spot films of the thoracic spine in the AP projection demonstrate needles and contrast material in the regions of bilateral costovertebral junctions. FL/FL guidance in treatment room IMPRESSION: Fluoroscopy during procedure. Please see procedure report for additional information. Electronically signed by: Randy Ivan MD 11/30/2024 12:30 PM EDT
--- OUTSIDE RECORDS SUMMARY | 2024-11-30 06:38 | XMS_ITS | Clinical Summary ---
Author Organization [employer] Address [address] [place] [address] Care Team Providers Care Instructional Supervisor Name Role Phone Unavailable Primary Care [...] patient's age to complete this topic Meningococcal B Vaccine Aged Out No l onger eligible based on patient's age to complete [...]
== END 2024-11-30 06:36 | disposition home or self-care (01) ==
LOC: CF 06:35
PROVIDERS: Visit Provider Anesthesiology
DX: M47.814 Spondylosis without myelopathy or radiculopathy, thoracic region (principal); G89.4 Chronic pain syndrome; M47.27 Other spondylosis with radiculopathy, lumbosacral region; M25.552 Pain in left hip; M25.551 Pain in right hip; Z79.891 Long term (current) use of opiate analgesic
CPT/HCPCS: 64490; 64491; J2003; J2795; J3301; Q9967

== ENCOUNTER 2024-11-30 10:20 | Outpatient (AMB) | payer MEDICARE, MEDICAID, SELFPAY ==
[2024-11-30 10:28] VITALS: BP 124/72; PULSE 81; RESP 18; O2SAT 98
--- NOTE | 2024-11-30 10:28 | MHC.OFFVIS ---
Vital Signs 11/30/24 10:28 11/30/24 11:42 Weight 172 lb BP 124/72 136/78 Blood Pressure Location Lt brachial Lt brachial Position Sitting Sitting Respiration 18 Pulse 81 68 Pulse Source Pulse Oximeter Pulse Oximeter Pulse Oximetry (%) 98 100 Oxygen Delivery Method Room Air Room Air Intake Visit Reasons: BILATERAL THERAPEUTIC T8, T9, T10 MBB/Pill Count Intake Note: Patient also here for a pill count of oxycodone 10mg. She states she took two today 11/30 one at 5am and another at 9a. She was to has 12 pills, count was 9. Certified Registered Dental Assistant Required: No Allergies sarilumab [From Kevzara] Allergy (Severe, Verified 11/30/24 10:30) blistery rash gabapentin Allergy (Intermediate, Verified 11/30/24 10:30) rash pregabalin Allergy (Intermediate, Verified 11/30/24 10:30) rash tofacitinib [Xeljanz] Allergy (Intermediate, Verified 11/30/24 10:30) Rash PFSH Medical History Chronic pain syndrome Fluid retention in legs COVID-19 vaccine series completed Rheumatoid arthritis Idiopathic peripheral neuropathy residential (current) use of opiate analgesic Spondylosis of lumbar region without myelopathy or radiculopathy Disc degeneration, lumbar Sacroiliac joint dysfunction of right side Sacroiliitis Seropositive rheumatoid arthritis Carpal tunnel syndrome, bilateral Surgical History Hx of shoulder surgery History of meniscectomy of left knee H/O lithotripsy History of left knee replacement H/O hernia repair Hx of laparoscopy Family History Father Esophagus cancer Mother CVD (cardiovascular disease) Brother CVD (cardiovascular disease) Diabetes Social History Alcohol intake: never Comment: chronic back pain Patient Tobacco Use Status: Current everyday Tobacco user Tobacco use type: Cigarette Cigarettes Per Day: 12 Years Smoked: 40 Advance Directives Date on File: 04/11/20 Physical Exam Vital Signs: Last Vital Signs Pulse 68 11/30/24 11:42 Resp 18 11/30/24 10:28 BP 136/78 05/27/25 11:42 Pulse Ox 100 11/30/24 11:42 Oxygen Delivery Method Room Air 11/30/24 11:42 Assessment & Plan Assessment & Plan (1) Spondylosis of thoracic region without myelopathy or radiculopathy: Code(s): M47.814 - Spondylosis without myelopathy or radiculopathy, thoracic region Category: Medical Plan Diagnostic medial branch block T8, T9, T10 bilateral.? ? ?Informed consent was explained to the patient. All questions were explained and? answered.? The patient was taken inside the operating room where she was positioned prone on the operating table. Time-out was performed delineating correct site, side, the nature of the procedure, patient's allergy, . All operating room staff was participating in OR time-out procedure. ? ? The lower back was prepped with ChloraPrep and draped with sterile towels.? C-arm was brought over the operating field and sq picture of T8, T9, T10 AREA were delineated on the screen.? Point of interest were delineated as most superior and most lateral points of the transfers processes of the aforementioned vertebras.? The projection of the point of interest to the skin were injected with the small amount of local anesthetic lidocaine 2% mixed with ropivacaine 0.5% 1-1 approcimately 1 cc.? After that 22 gauge 3.5 inch spinal needle was driven sequentially to the points of interest in tunnel vision fashion. After needles gently contacted the bone at the point of interests the needle was injected with small amount of the contrast.? The injection of the contrast did not demonstrate any intravascular, intrapleural or intrathecal spread of the contrast.? After that injection of the? ropivacaine 0.5%-1cc was performed at each needle location.? ?after that the needles were removed and Bandaids were applied. ? Upon completion of the injections? needle was? removed and sterile Band-Aids were applied.? The patient tolerated procedure very well. 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 Do no take with alcohol or other CONTINUUM OF CARE MANAGER Depressants Discontinued Reason: Insurance Denied 500 mg PO TID PRN 90 tabs 1RF muscle spasm Coding Level of Care Code Procedure Only Diagnoses Spondylosis of thoracic region without myelopathy or radiculopathy M47.814
[2024-11-30 11:42] VITALS: BP 136/78; PULSE 68; O2SAT 100
== END 2024-11-30 11:42 | disposition home or self-care (01) ==
LOC: HO.PMCPRC 10:20
PROVIDERS: PCP Internal Medicine; Visit Provider Anesthesiology
DX: M47.814 Spondylosis without myelopathy or radiculopathy, thoracic region (principal)
CPT/HCPCS: 64490; 64491

== ENCOUNTER 2024-12-22 10:28 | Outpatient (AMB) | payer MEDICARE, MEDICAID, SELFPAY ==
[2024-12-22 10:40] VITALS: BP 123/65; PULSE 78; RESP 16; O2SAT 99; BMI 28.6
--- NOTE | 2024-12-22 10:40 | A.OFFVIS_ITS ---
Vital Signs 12/22/24 10:40 Height 5 ft 5 in Weight 172 lb BMI 28.6 BP 123/65 Blood Pressure Location Rt brachial Position Sitting Respiration 16 Pulse 78 Pulse Source Pulse Oximeter Pulse Oximetry (%) 99 Oxygen Delivery Method Room Air Intake Visit Reasons: BILATERAL THERAPEUTIC T8, T9, T10 MBB/Pill Count Intake Note: Patient presents today for routine pill count of Oxycodone. Per directions patient should have 44 pill. She presented 42 pills. She took one pill at 1am and other at 9am. Marketing Project Coordinator Required: No Accompanied by: Self / Same As Patient Allergies sarilumab (From Kevzara) Allergy (Severe, Verified 12/22/24 10:40) blistery rash gabapentin Allergy (Intermediate, Verified 12/22/24 10:40) rash pregabalin Allergy (Intermediate, Verified 12/22/24 10:40) rash tofacitinib (Xeljanz) Allergy (Intermediate, Verified 12/22/24 10:40) Rash HPI Comments Details: The patient is a 64-year-old female presenting with lumbar back pain. She reports a 70% improvement in middle back pain following bilateral therapeutic T8, T9, and T10 medial branch blocks performed three weeks prior. Initial post- procedure relief was associated with a numbing agent, while ongoing improvement is attributed to steroids. The blocks have enabled her to perform activities such as lawn mowing and walks with significantly less discomfort. Prior to the intervention, standing and walking exacerbated her pain, leading to hunching. Currently, the hunching has decreased significantly. The patient also uses oxycodone 10 mg four times daily as needed. There was a noted discrepancy in the pill count, with two pills fewer than expected, but no indications of misuse or significant side effects were reported. Expected 44 pills, patient presented 42 pills. These were count in the presence of 2 staff members and returned to the patient in the original prescription bottle. - Onset and Timing: Chronic lumbar back pain, relieved significantly post-recent intervention. - Quality and Character: Dull, aching pain predominantly in the middle back. - Primary Location: Lumbar region, specifically middle back. - Exacerbating Factors: Standing, walking, and physical activities such as lawn mowing. - Alleviating Factors: Bilateral therapeutic medial branch blocks, oxycodone usage. - Impact: Previously caused hunching and aggravated by physical activities. Post-intervention, significant reduction in discomfort during activities. - Affect: Positive impact on mood with significant relief of 70% reported in middle back pain after recent bilateral T8-T9 T10 therapeutic medial branch blocks. - Analgesia: Oxycodone 10 mg used 4 times daily as needed, with recent procedural intervention providing substantial pain relief. - Adverse Effects: No adverse effects to current opioid regimen reported. - Activities of Daily Living: Improvement in daily function, with decreased hunching and ability to perform yard and walking activities. - Aberrant Drug-Related Behaviors: Discrepancy in pill count noted but no s ignificant misuse reported. 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 Spondylosis of lumbar region without myelopathy or radiculopathy Disc degeneration, lumbar Sacroiliac joint dysfunction of right side Sacroiliitis Seropositive rheumatoid arthritis Carpal tunnel syndrome, bilateral Surgical History Hx of shoulder surgery History of meniscectomy of left knee H/O lithotripsy History of left knee replacement H/O hernia repair Hx of laparoscopy Family History Father Esophagus cancer Mother CVD (cardiovascular disease) Brother CVD (cardiovascular disease) Diabetes Social History Alcohol intake: never Comment: chronic back pain Patient Tobacco Use Status: Current everyday Tobacco user Tobacco use type: Cigarette Cigarettes Per Day: 12 Years Smoked: 40 Advance Directives Date on File: 04/11/20 Review of Systems Const Details: - Musculoskeletal: Reports improvement in back pain, previously exacerbated by physical activities. Physical Exam Vital Signs: Last Vital Signs Pulse 78 12/22/24 10:40 Resp 16 12/22/24 10:40 BP 123/65 12/22/24 10:40 Pulse Ox 99 12/22/24 10:40 Oxygen Delivery Method Room Air 12/22/24 10:40 BMI result Body Mass Index 28.6 General: awake, alert, oriented. Answers questions appropriately. Fully engaged in examination. Skin: warm, dry, intact HEENT: Normocephalic. Hearing intact. Cardiac: External chest normal in appearance. Respiratory: No cough, audible wheezing or stridor. Abdomen: without gross distension. MS: No obvious swelling or deformities. Neurological: Oriented to person, place, time and situation. Thought process intact. No gait abnormalities appreciated. Psychiatric: Appropriate mood and affect. Good judgment and insight. Results Reviewed Results Reviewed: 08/2024 XR/XR lumbar spine 4V min FINDINGS: AP, lateral, bilateral oblique, and coned down views of the lumbar spine are submitted. Osseous mineralization is normal. Five nonrib-bearing lumbar vertebral bodies are identified, maintaining normal height and alignment without evidence of fracture or spondylolisthesis. There is mild degenerative disc disease with disc space narrowing and anterior spurring, most prominently involving the upper lumbar spine. The posterior elements are intact. There is no spondylolysis. The visualized paraspinal soft tissues are unremarkable. IMPRESSION: Degenerative changes of the lumbar spine as described. LUMBAR SPINE XRAY 2014 FINDINGS: Normal overall alignment. Normal vertebral body heights. Degenerative changes with osteophyte formation and mild decrease in the intervertebral disc space noted at multiple levels. It appears to be worse at L1-L2 and L2-L3 levels. Multilevel facet arthropathy. No acute osseous abnormality. Incidental note is made of bilateral renal calcifications, right greater than left. Surgical clips noted in the left upper quadrant. Postoperative changes compatible with prior hernia repair noted in the left mid abdomen. IMPRESSION: 1. No acute osseous abnormality. 2. Moderate degenerative changes upper to mid lumbar spine. 3. Bilateral renal calcifications. Assessment & Plan Assessment & Plan (1) Disc degeneration, lumbar: Code(s): M51.36 - Other intervertebral disc degeneration, lumbar region Category: Medical (2) Spondylosis of lumbar region without myelopathy or radiculopathy: Code(s): M47.816 - Spondylosis without myelopathy or radiculopathy, lumbar region Category: Medical (3) Idiopathic peripheral neuropathy: Code(s): G60.9 - Hereditary and idiopathic neuropathy, unspecified Category: Medical (4) Chronic pain syndrome: Code(s): G89.4 - Chronic pain syndrome Category: Medical (5) Spondylosis of thoracic spine: Code(s): M47.814 - Spondylosis without myelopathy or radiculopathy, thoracic region Category: Medical (6) Sacroiliac dysfunction: Code(s): M53.3 - Sacrococcygeal disorders, not elsewhere classified Category: Medical (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 The patient has substantially benefited from the bilateral therapeutic T8, T9, and T10 medial branch blocks. The observed discrepancy in pill count will be monitored to prevent potential misuse. Further evaluation will be considered if pain persists or new symptoms arise. During the consultation, we reviewed the effectiveness of the previous bilateral therapeutic medial branch blocks, with the patient reporting a 70% improvement in lumbar back pain. I discussed the expected duration of relief, explaining that this could last several months. We addressed the pill count discrepancy, confirming no current signs of misuse. The benefits, risks, and continued use of oxycodone were discussed, with emphasis on monitoring intake. Future steps were briefly covered, indicating further evaluation if pain relief decreases. Patient was informed and verbally consented to the use of an ambient scribe for clinic note documentation during this visit. 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 - Monitor pain levels and any changes in back pain symptoms. - Keep track of medication usage to avoid discrepancies. - Report any increases in pain or new symptoms immediately. - Follow up if relief from injections decreases or if new pain arises. 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
--- OUTSIDE RECORDS SUMMARY | 2024-12-22 11:55 | XMS_ITS | Clinical Summary ---
Author Organization [employer] Address [address] [place] [address] Care Team Providers Care Binder Operator Name Role Phone Unavailable Primary Care Provider [...] - 2023-2 5 season) 2024 Influenza Vaccine (Season Ended) 2025 RSV Patients and Pa tients Aged 60 [...]
== END 2024-12-22 11:15 | disposition home or self-care (01) ==
LOC: HO.PMC 10:29
PROVIDERS: PCP Internal Medicine; Visit Provider Registered Nurse Emergency
DX: M51.369 Other intervertebral disc degeneration, lumbar region without mention of lumbar back pain or lower extremity pain (principal); M47.816 Spondylosis without myelopathy or radiculopathy, lumbar region; G60.9 Hereditary and idiopathic neuropathy, unspecified; G89.4 Chronic pain syndrome; M47.814 Spondylosis without myelopathy or radiculopathy, thoracic region; M53.3 Sacrococcygeal disorders, not elsewhere classified; Z79.891 Long term (current) use of opiate analgesic
CPT/HCPCS: 99213; G2211

== ENCOUNTER → 2024-12-22 10:28 | Outpatient (BNVA) | payer MEDICARE, MEDICAID, SELFPAY | PROVIDERS: PCP Internal Medicine; Visit Provider Registered Nurse Emergency | DX: M47.816 Spondylosis without myelopathy or radiculopathy, lumbar region (principal); M51.360 Other intervertebral disc degeneration, lumbar region with discogenic back pain only; G60.9 Hereditary and idiopathic neuropathy, unspecified; G89.4 Chronic pain syndrome; M47.814 Spondylosis without myelopathy or radiculopathy, thoracic region; M53.3 Sacrococcygeal disorders, not elsewhere classified; Z79.891 Long term (current) use of opiate analgesic | CPT/HCPCS: 99212 ==

== ENCOUNTER 2025-01-19 10:22 | Outpatient (AMB) | payer MEDICARE, MEDICAID, SELFPAY ==
[2025-01-19 10:34] VITALS: BP 135/74; PULSE 81; RESP 16; O2SAT 99; BMI 27.8
--- NOTE | 2025-01-19 10:34 | MHC.OFFVIS ---
Vital Signs 01/19/25 10:34 Height 5 ft 5 in Weight 167 lb BMI 27.8 BP 135/74 Blood Pressure Location Rt brachial Position Sitting Respiration 16 Pulse 81 Pulse Source Pulse Oximeter Pulse Oximetry (%) 99 Oxygen Delivery Method Room Air Intake Visit Reasons: Pill Count/ random UDS Intake Note: Patient here for a pill count routine of Oxycodone. Per directions patient should have 52 pills. Patient presented 49 pills. Last took 8am. Patient stated took extra on FridayJanuary 16. Patient is going to Lab to do a random UDS. Optical Lab Technician Required: No Accompanied by: Self / Same As Patient Allergies sarilumab (From Kevzara) Allergy (Severe, Verified 01/19/25 10:34) blistery rash gabapentin Allergy (Intermediate, Verified 01/19/25 10:34) rash pregabalin Allergy (Intermediate, Verified 01/19/25 10:34) rash tofacitinib (Xeljanz) Allergy (Intermediate, Verified 01/19/25 10:34) Rash HPI Comments Details: The patient is a 64-year-old female presenting with lumbar back pain and chronic opioid medication management. The patient also uses oxycodone 10 mg four times daily as needed. There was a noted discrepancy in the pill count, with 3 pills fewer than expected, but no indications of misuse or significant side effects were reported. Expected 52 pills, patient presented 49 pills. These were count in the presence of 2 staff members and returned to the patient in the original prescription bottle. Pain today is rated as a 6/10, her last dose was taken at 08:00 this morning. - Onset and Timing: Chronic lumbar back pain - Quality and Character: Dull, aching pain predominantly in the middle back. - Primary Location: Lumbar region, specifically middle back. - Exacerbating Factors: Standing, walking, and physical activities such as lawn mowing. - Alleviating Factors: oxycodone usage. - Impact: Previously caused hunching and aggravated by physical activities. Post-intervention, significant reduction in discomfort during activities. - Affect: Thoracic back pain improved after recent therapeutic medial branch blocks however lumbar back pain persists - Analgesia: Oxycodone 10 mg used 4 times daily as needed - Adverse Effects: No adverse effects to current opioid regimen reported. - Activities of Daily Living: Improvement in daily function, with decreased hunching and ability to perform yard and walking activities. - Aberrant Drug-Related Behaviors: Discrepancy in pill count noted but no significant misuse reported. PFSH Medical History Chronic pain syndrome Fluid retention in legs COVID-19 vaccine series completed Rheumatoid arthritis Idiopathic peripheral neuropathy [facility] (current) use of opiate analgesic Spondylosis of lumbar region without myelopathy or radiculopathy Disc degeneration, lumbar Sacroiliac joint dysfunction of right side Sacroiliitis Seropositive rheumatoid arthritis Carpal tunnel syndrome, bilateral Surgical History Hx of shoulder surgery History of meniscectomy of left knee H/O lithotripsy History of left knee replacement H/O hernia repair Hx of laparoscopy Family History Father Esophagus cancer Mother CVD (cardiovascular disease) Brother CVD (cardiovascular disease) Diabetes Social History Alcohol intake: never Comment: chronic back pain Patient Tobacco Use Status: Current everyday Tobacco user Tobacco use type: Cigarette Cigarettes Per Day: 12 Years Smoked: 40 Advance Directives Date on File: 04/11/20 Review of Systems Const All systems reviewed & are unremarkable except as noted in HPI and below Physical Exam Vital Signs: Last Vital Signs Pulse 81 01/19/25 10:34 Resp 16 01/19/25 10:34 BP 135/74 01/19/25 10:34 Pulse Ox 99 01/19/25 10:34 Oxygen Delivery Method Room Air 01/19/25 10:34 BMI result Body Mass Index 27.8 General: awake, alert, oriented. Answers questions appropriately. Fully engaged in examination. Skin: warm, dry, intact HEENT: Normocephalic. Hearing intact. Cardiac: External chest normal in appearance. Respiratory: No cough, audible wheezing or stridor. Abdomen: without gross distension. MS: No obvious swelling or deformities. Tenderness to palpation midline lumbar vertebrae and lumbar paraspinal muscles Lumbar facet loading positive bilaterally Ambulates with antalgic gait with slight forward flexion Neurological: Oriented to person, place, time and situation. Thought process intact. No gait abnormalities appreciated. Psychiatric: Appropriate mood and affect. Good judgment and insight. Results Reviewed Results Reviewed: 08/2024 XR/XR lumbar spine 4V min FINDINGS: AP, lateral, bilateral oblique, and coned down views of the lumbar spine are submitted. Osseous mineralization is normal. Five nonrib-bearing lumbar vertebral bodies are identified, maintaining normal height and alignment without evidence of fracture or spondylolisthesis. There is mild degenerative disc disease with disc space narrowing and anterior spurring, most prominently involving the upper lumbar spine. The posterior elements are intact. There is no spondylolysis. The visualized paraspinal soft tissues are unremarkable. IMPRESSION: Degenerative changes of the lumbar spine as described. LUMBAR SPINE XRAY 2014 FINDINGS: Normal overall alignment. Normal vertebral body heights. Degenerative changes with osteophyte formation and mild decrease in the intervertebral disc space noted at multiple levels. It appears to be worse at L1-L2 and L2-L3 levels. Multilevel facet arthropathy. No acute osseous abnormality. Incidental note is made of bilateral renal calcifications, right greater than left. Surgical clips noted in the left upper quadrant. Postoperative changes compatible with prior hernia repair noted in the left mid abdomen. IMPRESSION: 1. No acute osseous abnormality. 2. Moderate degenerative changes upper to mid lumbar spine. 3. Bilateral renal calcifications. Assessment & Plan Assessment & Plan (1) Disc degeneration, lumbar: Code(s): M51.36 - Other intervertebral disc degeneration, lumbar region Category: Medical (2) Spondylosis of lumbar region without myelopathy or radiculopathy: Code(s): M47.816 - Spondylosis without myelopathy or radiculopathy, lumbar region Category: Medical (3) Idiopathic peripheral neuropathy: Code(s): G60.9 - Hereditary and idiopathic neuropathy, unspecified Category: Medical (4) Chronic pain syndrome: Code(s): G89.4 - Chronic pain syndrome Category: Medical (5) Spondylosis of thoracic spine: Code(s): M47.814 - Spondylosis without myelopathy or radiculopathy, thoracic region Category: Medical (6) Sacroiliac dysfunction: Code(s): M53.3 - Sacrococcygeal disorders, not elsewhere classified Category: Medical (7) [facility] (current) use of opiate analgesic: Code(s): Z79.891 - [facility] (current) use of opiate analgesic Category: Medical Plan I advise continued management of lumbar back pain through current strategies, including oxycodone 10 mg usage up to four times daily, ensuring compliance. The observed discrepancy in pill count will be monitored to prevent potential misuse. Random UDS collected today. Patient has exhausted conservative therapy for lower back pain including previous attempts at physical therapy, current home exercise program, [id number] medications, prescription medications, heat, ice, stretching all without improvement of her symptoms. Will plan for fluoroscopy guided bilateral diagnostic L3-L4 DR L5 medial branch blocks with local anesthetic. If patient reports good relief consider radiofrequency ablation. All questions and concerns were answered, patient agrees with the plan. Follow up in 1 month for a pill count, sooner if needed Patient was informed and verbally consented to the use of an ambient scribe for clinic note documentation during this visit. 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
--- OUTSIDE RECORDS SUMMARY | 2025-01-19 10:57 | XMS_ITS | Clinical Summary ---
Author Organization [employer] Address [address] [place] [address] Care Team Providers Care Hospice Clinical Marketer Name Role Phone Unavailable Primary Care Provider [...] 2023-2 5 season) 2024 Influenza Vaccine (#1) 2025 RSV Patients and Pa tients Aged [...]
== END 2025-01-19 11:01 | disposition home or self-care (01) ==
LOC: HO.PMC 10:23
PROVIDERS: PCP Internal Medicine; Visit Provider Registered Nurse Emergency
DX: M51.369 Other intervertebral disc degeneration, lumbar region without mention of lumbar back pain or lower extremity pain (principal); M47.816 Spondylosis without myelopathy or radiculopathy, lumbar region; G60.9 Hereditary and idiopathic neuropathy, unspecified; G89.4 Chronic pain syndrome; M47.814 Spondylosis without myelopathy or radiculopathy, thoracic region; M53.3 Sacrococcygeal disorders, not elsewhere classified; Z79.891 Long term (current) use of opiate analgesic
CPT/HCPCS: 99214; G2211

== ENCOUNTER → 2025-01-19 10:22 | Outpatient (BNVA) | payer MEDICARE, MEDICAID, SELFPAY | PROVIDERS: PCP Internal Medicine; Visit Provider Registered Nurse Emergency | DX: Z51.81 Encounter for therapeutic drug level monitoring (principal); M51.369 Other intervertebral disc degeneration, lumbar region without mention of lumbar back pain or lower extremity pain; M47.816 Spondylosis without myelopathy or radiculopathy, lumbar region; M47.814 Spondylosis without myelopathy or radiculopathy, thoracic region; G60.9 Hereditary and idiopathic neuropathy, unspecified; M53.3 Sacrococcygeal disorders, not elsewhere classified; M25.552 Pain in left hip; M25.551 Pain in right hip; M47.27 Other spondylosis with radiculopathy, lumbosacral region; G89.4 Chronic pain syndrome; Z79.891 Long term (current) use of opiate analgesic | CPT/HCPCS: 99212 ==

== ENCOUNTER 2025-03-04 13:32 | Outpatient (AMB) | payer MEDICARE, MEDICAID, SELFPAY ==
[2025-03-04 13:34] VITALS: PULSE 82; RESP 16; O2SAT 93; BMI 27.8
--- NOTE | 2025-03-04 13:34 | A.OFFVIS_ITS ---
Vital Signs 03/04/25 13:34 Height 5 ft 5 in Weight 167 lb BMI 27.8 Blood Pressure Location Rt brachial Position Sitting Respiration 16 Pulse 82 Pulse Source Pulse Oximeter Pulse Oximetry (%) 93 Oxygen Delivery Method Room Air Intake Visit Reasons: Discussion regarding alternative medication for pa It Service Manager Required: No Accompanied by: self Allergies sarilumab (From Kevzara) Allergy (Severe, Verified 03/04/25 13:38) blistery rash gabapentin Allergy (Intermediate, Verified 03/04/25 13:38) rash pregabalin Allergy (Intermediate, Verified 03/04/25 13:38) rash tofacitinib (Xeljanz) Allergy (Intermediate, Verified 03/04/25 13:38) Rash HPI Comments Details: The patient is a 64-year-old female presenting with chronic pain management. She has been experiencing chronic pain, which has been difficult to manage due after recent discontinuation of her chronic opioids due to violation of the contract. The patient has been using ibuprofen and baclofen, but they provide limited relief. The patient has a history of rheumatoid arthritis, for which she is on methotrex ate and another older medication. She reports that medications like gabapentin and Lyrica caused rashes, leading to discontinuation. The patient also experienced a severe reaction to Xeljanz, a rheumatoid arthritis medication, which caused visual disturbances. - Chronic pain with muscle tension, exacerbated by reduced medication efficacy - Pain management complicated by insurance coverage issues - Baclofen provides limited relief, requiring occasional dosage increase - Affect: Pain impacts daily activities and requires careful medication management. - Analgesia: Current medications include baclofen, duloxetine, and amitriptyline, with limited relief from baclofen. - Adverse Effects: Rash from gabapentin and Lyrica, visual disturbances from xeljanx. - Activities of Daily Living: Pain limits ability to relax and perform daily tasks. - Aberrant Drug Related Behaviors: None reported. 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 Spondylosis of lumbar region without myelopathy or radiculopathy Disc degeneration, lumbar Sacroiliac joint dysfunction of right side Sacroiliitis Seropositive rheumatoid arthritis Carpal tunnel syndrome, bilateral Surgical History Hx of shoulder surgery History of meniscectomy of left knee H/O lithotripsy History of left knee replacement H/O hernia repair Hx of laparoscopy Family History Father Esophagus cancer Mother CVD (cardiovascular disease) Brother CVD (cardiovascular disease) Diabetes Social History Alcohol intake: never Comment: chronic back pain Patient Tobacco Use Status: Current everyday Tobacco user Tobacco use type: Cigarette Cigarettes Per Day: 12 Years Smoked: 40 Advance Directives Date on File: 04/11/20 Review of Systems Const Details: - Musculoskeletal: Reports chronic pain and muscle tension. - Dermatological: Reports rash with certain medications. - Neurological: Reports visual disturbances with xeljanz Physical Exam Exam Exam: General: awake, alert, oriented. Answers questions appropriately. Fully engaged in examination. Skin: warm, dry, intact HEENT: Normocephalic. Hearing intact. Cardiac: External chest normal in appearance. Respiratory: No cough, audible wheezing or stridor. Abdomen: without gross distension. MS: No obvious swelling or deformities. Neurological: Oriented to person, place, time and situation. Thought process intact. No gait abnormalities appreciated. Psychiatric: Appropriate mood and affect. Good judgment and insight. Vital Signs: Last Vital Signs Pulse 82 03/04/25 13:34 Resp 16 03/04/25 13:34 Pulse Ox 93 03/04/25 13:34 Oxygen Delivery Method Room Air 03/04/25 13:34 BMI result Body Mass Index 27.8 Results Reviewed Results Reviewed: 08/2024 XR/XR lumbar spine 4V min FINDINGS: AP, lateral, bilateral oblique, and coned down views of the lumbar spine are submitted. Osseous mineralization is normal. Five nonrib-bearing lumbar vertebral bodies are identified, maintaining normal height and alignment without evidence of fracture or spondylolisthesis. There is mild degenerative disc disease with disc space narrowing and anterior spurring, most prominently involving the upper lumbar spine. The posterior elements are intact. There is no spondylolysis. The visualized paraspinal soft tissues are unremarkable. IMPRESSION: Degenerative changes of the lumbar spine as described. LUMBAR SPINE XRAY 2014 FINDINGS: Normal overall alignment. Normal vertebral body heights. Degenerative changes with osteophyte formation and mild decrease in the intervertebral disc space noted at multiple levels. It appears to be worse at L1-L2 and L2-L3 levels. Multilevel facet arthropathy. No acute osseous abnormality. Incidental note is made of bilateral renal calcifications, right greater than left. Surgical clips noted in the left upper quadrant. Postoperative changes compatible with prior hernia repair noted in the left mid abdomen. IMPRESSION: 1. No acute osseous abnormality. 2. Moderate degenerative changes upper to mid lumbar spine. 3. Bilateral renal calcifications. Assessment & Plan Assessment & Plan (1) Disc degeneration, lumbar: Code(s): M51.36 - Other intervertebral disc degeneration, lumbar region Category: Medical (2) Spondylosis of lumbar region without myelopathy or radiculopathy: Code(s): M47.816 - Spondylosis without myelopathy or radiculopathy, lumbar region Category: Medical (3) Idiopathic peripheral neuropathy: Code(s): G60.9 - Hereditary and idiopathic neuropathy, unspecified Category: Medical (4) Chronic pain syndrome: Code(s): G89.4 - Chronic pain syndrome Category: Medical (5) Spondylosis of thoracic spine: Code(s): M47.814 - Spondylosis without myelopathy or radiculopathy, thoracic region Category: Medical (6) Sacroiliac dysfunction: Code(s): M53.3 - Sacrococcygeal disorders, not elsewhere classified Category: Medical Plan I discussed with the patient the plan to discontinue baclofen and try tizanidine as a new muscle relaxer, pending insurance approval. We also considered Celebrex as an alternative to Toradol for better pain and inflammation management. I advised the patient to avoid NSAIDs while on Celebrex and to follow up in six weeks to assess the effectiveness of the new medications. Follow up as scheduled for next injection. Patient was informed and verbally consented to the use of an ambient scribe for clinic note documentation during this visit Medications: New celecoxib (Celebrex) Take with food, do not take with any other nonsteroidal anti-inflammatory medications 50 mg PO BID 60 caps 0RF tizanidine Do not take with other muscle relaxants. No driving or alcohol use while taking this medication. 2 mg PO TID PRN 90 tabs 3RF muscle spasticity Discontinued baclofen Discontinued Reason: More recent result 10 mg PO BID 60 tabs 3RF Patient Instructions: - Stop taking baclofen and ibuprofen. - Start taking tizanidine and Celebrex as prescribed, pending insurance approval. - Avoid NSAIDs like ibuprofen and naproxen while on Celebrex. - Follow up in six weeks to evaluate the effectiveness of the new medications. Coding Level of Care Code Est Pt Level 3 (59118) Complex EM visit Add On G2211 Diagnoses Disc degeneration, lumbar M51.36 Spondylosis of lumbar region without myelopathy or radiculopathy M47.816 Idiopathic peripheral neuropathy G60.9 Chronic pain syndrome G89.4 Spondylosis of thoracic spine M47.814 Sacroiliac dysfunction M53.3
--- OUTSIDE RECORDS SUMMARY | 2025-03-04 13:41 | XMS_ITS | Clinical Summary ---
Author Organization [employer] Address [address] [facility] [address] [place] [address] Care Team Providers Care Educational Administration Teacher Name Role Phone Unavailable Primary Care Provider [...]
--- OUTSIDE RECORDS SUMMARY | 2025-03-04 13:41 | XMS_ITS | Encounter Summary ---
Author Organization [employer] [facility] Address [address] [place] [address] Care Team Providers Care Felt Hat Flanging Operator Name Role Phone Unavailable Primary Care Provider Unavailabl e Encounter Details Date Type Department Care Team (Latest Contact Info) Description 07/28/2018 Abstract [facility] CONVERSIONS Dental, Provider, DDS [...]
== END 2025-03-04 14:07 | disposition home or self-care (01) ==
LOC: HO.PMC 13:33
PROVIDERS: PCP Internal Medicine; Visit Provider Registered Nurse Emergency
DX: M51.369 Other intervertebral disc degeneration, lumbar region without mention of lumbar back pain or lower extremity pain (principal); M47.816 Spondylosis without myelopathy or radiculopathy, lumbar region; G60.9 Hereditary and idiopathic neuropathy, unspecified; G89.4 Chronic pain syndrome; M47.814 Spondylosis without myelopathy or radiculopathy, thoracic region; M53.3 Sacrococcygeal disorders, not elsewhere classified
CPT/HCPCS: 99213; G2211

== ENCOUNTER → 2025-03-04 13:32 | Outpatient (BNVA) | payer MEDICARE, MEDICAID, SELFPAY | PROVIDERS: PCP Internal Medicine; Visit Provider Registered Nurse Emergency | DX: M51.369 Other intervertebral disc degeneration, lumbar region without mention of lumbar back pain or lower extremity pain (principal); M47.816 Spondylosis without myelopathy or radiculopathy, lumbar region; M47.814 Spondylosis without myelopathy or radiculopathy, thoracic region; G60.9 Hereditary and idiopathic neuropathy, unspecified; M53.3 Sacrococcygeal disorders, not elsewhere classified; G89.4 Chronic pain syndrome | CPT/HCPCS: 99212 ==

== ENCOUNTER 2025-03-08 11:40 | Outpatient (REF) | payer MEDICARE, MEDICAID, SELFPAY ==
--- OUTSIDE RECORDS SUMMARY | 2025-03-08 13:14 | XMS_ITS | Encounter Summary ---
Author Organization [employer] [facility] Address [address] [place] [address] [place] [address] Care Team Providers Care Software Quality Test Engineer Name Role Phone Unavailable Primary Care Provider Unavailabl e Encounter Details Date Type Department Care Team (Latest Contact Info) Description 07/28/2018 Abstract [facility] CONVERSIONS Dental, Provider, DDS Social [...]
--- OUTSIDE RECORDS SUMMARY | 2025-03-08 13:14 | XMS_ITS | Clinical Summary ---
Author Organization [employer] Address [address] [facility] [address] [place] [address] Care Team Providers Care Rubber Goods Supervisor Name Role Phone Unavailable Primary Care [...]
[2025-03-08 14:26] LABS: MANUAL DIFF FLAG NO
[2025-03-08 14:33] LABS: Hematocrit 37.7 % (37.0-47.0); Hemoglobin 13.2 g/dl (12.0-16.0); Imm Gran Abs Auto 0.02 X10*3/uL (0.00-0.03); Imm Gran Pct Auto 0.2 % (0.0-0.4); Lymphocytes Absolute Auto 1.6 X10*3/uL (1.2-4.9); Mean Corpuscular HGB Conc 35.0 g/dl (31.0-35.0); Mean Corpuscular Hemoglobin 35.6 pg (27.0-33.0); Mean Corpuscular Volume 101.6 fL (80.0-98.0); NRBC Abs Auto 0.000 X10*3/uL (0.0-0.012); NRBC Pct Auto 0.0 /100WBC (0.0-0.2); Platelet Count 193 X10*3/uL (160-400); Red Blood Count 3.71 X10*6/uL (4.20-5.50); White Blood Count 8.7 X10*3/uL (4.8-10.8)
[2025-03-08 14:48] LABS: Alanine Aminotransferase 13 U/L (0-31); Albumin Level 4.3 g/dL (3.5-5.0); Alkaline Phosphatase 63 U/L (39-117); Anion Gap 12 (12-20); Aspartate Amino Transferase 23 U/L (5-31); Blood Urea Nitrogen 18 mg/dL (9-16); Calcium 9.1 mg/dL (8.4-10.2); Carbon Dioxide 24 mmol/L (22-29); Chloride 107 mmol/L (96-108); Estimated Glomerular Filt Rate 59; Potassium 4.4 mmol/L (3.3-5.1); Sodium 139 mmol/L (135-145); Total Protein 6.9 g/dL (6.5-8.0)
[2025-03-09 08:23] LABS: HBS Num1 0.82 mIU/mL (0-7.99); HBc Num1 0.09 S/CO (0.00-0.79); HBsAGNum1 0.55 S/CO (0.00-0.99); Hepatitis A Antibody IgM 0.13 Index (0-0.79); Hepatitis B Surface Antigen Negative (Negative); ~HepC Num1 0.12 S/CO (0.00-0.79); ~Hepatitis A Antibody IgM Nonreactive (Nonreactive); ~Hepatitis B Surface Antibody NONREACTIVE (Nonreactive); ~Hepatitis C Antibody Nonreactive (Nonreactive)
[2025-03-10 21:19] LABS: TS Negative Control Passed; TS Panel A 0; TS Panel B 0; TS Positive Control Passed; TSpotTB Negative (Negative)
[2025-03-12 15:24] LABS: Vitamin D 25-OH, D2 <4 ng/mL; Vitamin D 25-OH, D3 56 ng/mL; Vitamin D 25-OH, Total 56 ng/mL (30-100)
== END 2025-03-08 11:41 | disposition home or self-care (01) ==
LOC: HO.WFDLDS 11:40
PROVIDERS: Visit Provider Student in an Organized Health Care Education/Training Program
DX: M05.9 Rheumatoid arthritis with rheumatoid factor, unspecified (principal); E55.9 Vitamin D deficiency, unspecified; Z11.1 Encounter for screening for respiratory tuberculosis
CPT/HCPCS: 36415; 80053; 82306; 85025; 85652; 86140; 86481; 86704; 86706; 86709; 86803; 87340

== ENCOUNTER 2025-03-10 09:49 | Outpatient (AMB) | payer MEDICARE, MEDICAID, SELFPAY ==
--- NOTE | 2025-03-10 10:16 | A.OFFVIS_ITS ---
Vital Signs 03/10/25 10:20 Height 5 ft 5 in Weight 169 lb 1.513 oz BMI 28.1 BP 120/72 Blood Pressure Location Rt brachial Position Sitting Pulse 68 Pulse Source Pulse Oximeter Pulse Oximetry (%) 99 Oxygen Delivery Method Room Air Intake Visit Reasons: RA Intake Note: Patient presents for RA follow. Allergies sarilumab (From Kevzara) Allergy (Severe, Verified 03/10/25 10:19) blistery rash gabapentin Allergy (Intermediate, Verified 03/10/25 10:19) rash pregabalin Allergy (Intermediate, Verified 03/10/25 10:19) rash tofacitinib (Xeljanz) Allergy (Intermediate, Verified 03/10/25 10:19) Rash Medication List - Last Reconciled 03/10/25 by Erin Pina MD alendronate 70 mg PO QWEEK amitriptyline 25 mg PO BEDTIME atorvastatin 10 mg PO DAILY baricitinib (Olumiant) 2 mg PO DAILY celecoxib (Celebrex) 50 mg PO BID duloxetine 60 mg PO DAILY 30 days folic acid 1 mg PO DAILY krill oil mg PO mecobalamin (vitamin B12) 2,000 mcg PO DAILY methotrexate sodium 10 mg (4 x 2.5 mg) PO QWEEK 90 days multivitamin 1 tab PO DAILY naloxone 4 mg/actuation (Narcan) 4 mg intranasal Q2M PRN omega-3 fatty acids 500 mg PO DAILY tizanidine 2 mg PO TID PRN topiramate 100 mg PO BID trazodone 200 mg PO BEDTIME PRN varenicline tartrate 1 ea PO BID varenicline tartrate (Chantix) 1 mg PO BID HPI Comments Details: Patient is a 64-year-old female with hyperlipidemia, osteopenia with high fracture risk, polyarticular OA (knee, hands) s/p right TKR, seropositive rheumatoid arthritis here today for follow up Interval History: Patient last seen 09/08/24 with me - On Olumiant, Plaquenil and alendronate - She did not start plaquenil due to concerns for eye issues and not being able to see a specialist yearly which would be an additional 45 dollars. - Continues to have tender and swollen joints - AM stiffness 1-2 hours - multiple tender and swollen joints on examination - added Mtx 10mg Today, - On Olumiant, methotrexate 10mg, folic acid, and alendronate - Has noticed improvement on the addition of the methotrexate: no flares and improved stiffness - Has diarrhea on the day of the methotrexate but that resolves within 24 hours Rheumatologic History: Seropositive rheumatoid arthritis -ve ++CCP Humira - 09/2013 - 02/2014 Methotrexate - 05/2016-11/2015 Sulfasalazine 09/2012 - 02/2014 Arava - 04/2016-04/2017 Xeljanz- 12/2013-06/2014 -tunnel vision Kevzara- 06/2018-03/2020 Olumiant- 05/2020- present MTX added 09/2023 - DC 11/2023 due to Pleuritis/pneumonitis episode Plaquenil patient refused to try due to concern for her eyes Osteopenia 10/2022 T-score-1.5 in the femoral neck, major risk for fracture 19.1%, hip fracture 3.7%. Alendronate: 10/2022 - present Current Rheumatology Medication(s): Olumiant 2 mg daily Methotrexate 10mg weekly Folic acid 1mg daily Alendronate 70 mg weekly [facility] Medical History Chronic pain syndrome Fluid retention in legs COVID-19 vaccine series completed Rheumatoid arthritis Idiopathic peripheral neuropathy assisted (current) use of opiate analgesic Spondylosis of lumbar region without myelopathy or radiculopathy Disc degeneration, lumbar Sacroiliac joint dysfunction of right side Sacroiliitis Seropositive rheumatoid arthritis Carpal tunnel syndrome, bilateral Surgical History Hx of shoulder surgery History of meniscectomy of left knee H/O lithotripsy History of left knee replacement H/O hernia repair Hx of laparoscopy Family History Father Esophagus cancer Mother CVD (cardiovascular disease) Brother CVD (cardiovascular disease) Diabetes Social History Alcohol intake: never Comment: chronic back pain Patient Tobacco Use Status: Current everyday Tobacco user Tobacco use type: Cigarette Cigarettes Per Day: 12 Years Smoked: 40 Advance Directives Date on File: 04/11/20 Review of Systems Const Details: Review of Systems Constitutional: Denies fever, chills, weight loss ENT: Denies vision changes, eye pain or eye redness, dental caries, dry mouth GI: Denies nausea, vomiting, diarrhea, abdominal pain, change in BM Pulm: Denies SOB, GUEVARA, hemoptysis, wheezing Cards: Denies chest pain, palpitations Skin: Denies Raynaud's, rash, nail changes, photosensitivity, TECHNICAL PROJECT COORDINATOR: Denies headaches, weakness, paresthesias, recurrent falls MSK: as per HPI All other systems reviewed and are unremarkable except noted above Physical Exam Exam Exam: Vital signs reviewed Physical Examination CONSTITUITIONAL Patient alert and cooperative. Well appearing and in no apparent painful distress MSK Hands * Right Hand: Able to make a fist. No swelling or tenderness to palpation of the MCPs, PIPs or DIPs. * Left Hand: Able to make a fist. No swelling or tenderness to palpation of the MCPs, PIPs or DIPs. * Prominent Herbedens nodes noted bilaterally with ulnar deviation at the DIPs of 2nd digits Wrists * Right Wrist: Full ROM to flexion and extension. No swelling of the wrist proper but more proximal fullness noted without TTP * Left Wrist: Full ROM to flexion and extension. No swelling of the wrist proper but more proximal fullness noted without TTP Elbows * Right Elbow: Full ROM. No swelling or TTP. No TTP of the medial epicondyle. No TTP of the lateral epicondyle * Left Elbow: Full ROM. No swelling or TTP. No TTP of the medial epicondyle. No TTP of the lateral epicondyle Shoulders * Right shoulder: Full ROM. No swelling noted. No TTP of the AC joint. No TTP of the subacromial bursa. No TTP of the posterior shoulder * Left shoulder: Full ROM. No swelling noted. No TTP of the AC joint. No TTP of the subacromial bursa. No TTP of the posterior shoulder Knees * Right knee: Full ROM. No swelling noted. No TTP of the knee joint line. No TTP of pes anserine bursa * Left knee: Full ROM. No swelling noted. No TTP of the knee joint line. No TTP of pes anserine bursa. * Crepitations felt bilaterally Ankles * Right ankle: Good ankle dorsiflexion and plantar flexion. No TTP of the ankle joint. Swelling noted to the lateral ankle over the lateral malleolus * Left ankle: Good ankle dorsiflexion and plantar flexion. . No TTP of the ankle joint. Swelling noted to the lateral ankle over the lateral malleolus Feet * Right foot: Negative squeeze test * Left foot: Negative squeeze test Tender points? * No tenderness to palpation of the bilateral trapezius, supraspinatus, anterior costochondral junctions, bilateral suboccipital muscle insertions SKIN No rashes Results Reviewed Results Reviewed: Laboratory Tests 10/25/22 03/08/25 08:39 11:43 WBC 8.7 RBC 3.71 L Hgb 13.2 Hct 37.7 Plt Count 193 ESR 13 Sodium 139 Potassium 4.4 Chloride 107 Carbon Dioxide 24 BUN 18 H Creatinine 0.95 AST 23 ALT 13 C-Reactive Protein 0.16 25-OH Vitamin D Total 54.7 Pending Laboratory Tests 05/10/24 10:40 Hepatitis A IgM Ab Nonreactive Hep Bs Antigen Negative Hep Bs Antibody NONREACTIVE Hep B Core Total Ab Nonreactive Hepatitis C Ab (EIA) Nonreactive TB Test (T-Spot) Com Negative CXR 09/2024 FINDINGS: PA and lateral views of the chest are submitted. The lungs are expanded and clear. There is no pleural effusion, pneumothorax, or pulmonary vascular congestion. The heart is normal in size. There is degenerative disc disease of the spine. IMPRESSION: No acute cardiopulmonary abnormality. DEXA 10/2024 FINDINGS: The bone mineral density of the lumbar spine is 0.992 with a T-score of -1.4, and a Z-score of -0.3. This is indicative of osteopenia. This represents a BMD change of 2.9% compared to the prior exam. This is not statistically significant. The bone mineral density of the left total hip is 0.852 with a T-score of -1.2, and a Z-score of -0.3. This is indicative of osteopenia. This represents a BMD change of 0.4% compared to the prior exam. This is not statistically significant. The bone mineral density of the left femoral neck is 0.881 with a T-score of -1.1, and a Z-score of 0.1. This is indicative of osteopenia. This represents a BMD change of 5.8% compared to the prior exam. FRACTURE RISK: The FRAX index suggests a ten year probability of major osteoporotic fracture of 10.7%, and of hip fracture 1.7%. Assessment & Plan Assessment & Plan (1) Seropositive rheumatoid arthritis: Comment: -ve ++CCP Humira- 09/2013-02/2014 Methotrexate - 05/2016-11/2015 Sulfasalazine 09/2012-02/2014 Arava- 04/2016-04/2017 Xeljanz- 12/2013-06/2014 -tunnel vision Kevzara- 06/2018-03/2020 Olumiant- 05/2020- present MTX added 09/2023-DC 11/2023 due to Pleuritis/pneumonitis episode Plaquenil added but patient did not start due to concern for the eye side effects Code(s): M05.9 - Rheumatoid arthritis with rheumatoid factor, unspecified Category: Medical Plan: #Seropositive RA Patient is a 64-year-old female with seropositive rheumatoid arthritis here today for follow up. Doing better on the addition of methotrexate but still with some residual stiffness. Will increase to therapeutic dose of 15mg weekly. Increased FOlic acid to 3mg on the 2 days prior to methotrexate dose Plan - Increase Methotrexate 15mg weekly - Folic acid 1mg daily. 3mg on the 2 days prior to the dose - Continue Olumiant 2mg daily - RTC 6 months - Labs before visit: CBC, CMP, ESR, CRP (2) Osteopenia with high risk of fracture: Comment: 10/2022. AP Spine -1.4, Left femur neck -1.5, Left femur total -1.3. FRAX 19/3.7 10/2024. AP Spine -1.4, Left femur neck -1.1, Left femur total -1.2 Alendronate: 10/2022 - present Code(s): M85.80 - Other specified disorders of bone density and structure, unspecified site Category: Medical Plan: #Osteopenia with high FRAX Patient with osteopenia and high FRAX. Tolerating the alendronate. 6% increase in bone density of the left femoral neck. About a 3% improvement in the lumbar spine but this is not statistically significant Plan - Continue alendronate (3) Long-term use of immunosuppressant medication: Code(s): Z79.60 - intermission coordinator (current) use of unspecified immunomodulators and immunosuppressants Category: Medical Plan: #Long-term Use of SANJAY inhibitor: Olumiant Discussed with patient the benefits and risks of SANJAY inhibitors for the management of the rheumatic condition Benefits include reduce pain, maintenance of remission and reduction of flares Risks include thromboembolic events, skin cancer and nonmelanoma skin cancers, other forms of cancer, cardiovascular alcohol and mortality Advise patient that they are to hold the medication and for up to 1 week after a febrile illness or an open skin wound (4) Encounter for monitoring alendronate therapy: Code(s): Z51.81 - Encounter for therapeutic drug level monitoring; Z79.83 - assisted (current) use of bisphosphonates Plan: #Long-term Use of Bisphosphonates Risks and benefits of bisphosphonates in the management of osteoporosis Benefits include improved bone density, decreased fracture risk Risks include atypical femoral fractures, GI upset, esophageal strictures Contraindicated in patients with a creatinine clearance < 30 to 35 ml/min Keep vitamin-D at least 35 ng/mL (5) Encounter for methotrexate monitoring: Code(s): Z51.81 - Encounter for therapeutic drug level monitoring; Z79.631 - assisted (current) use of antimetabolite agent Plan: #Long-term Current Use of Methotrexate Discussed with patient the benefits and risks of methotrexate for managing their rheumatic condition Benefits include reduced pain, reduced mortality, maintenance of remission and reduction of flares Risks include oral ulcers, photosensitivity, hepatotoxicity, hematologic toxicity, pneumonitis, flu-like symptoms (especially day after administration), nodulosis, lymphomas ? Limit alcohol and avoid Bactrim ? Monitoring: ?CBC, BMP, LFTs every 3-4 months and hepatitis serologies as needed Plan I spent 30 minutes reviewing the record and labs, taking a history, examining the patient, discussing the treatment plan and documenting in the medical record Orders: Orders Complete Blood Count Auto Diff 6 Months Z - Other custodial (current) drug therapy Vitamin D 25-OH Total 6 Months E55.9 - Vitamin D deficiency, unspecified Comprehensive Met. Panel 6 Months Z - Other extermination supervisor (current) drug therapy C Reactive Protein 6 Months Z. - Other custodial (current) drug therapy Erythrocyte Sedimentation Rate 6 Months Z. - Other extermination supervisor (current) drug therapy Medications: Changed From methotrexate sodium 10 mg (4 x 2.5 mg) PO QWEEK 90 days 52 tabs 1RF M05.9 - Rheumatoid arthritis with rheumatoid factor, unspecified To methotrexate sodium 15 mg (6 x 2.5 mg) PO QWEEK 78 tabs 1RF 90 days M05.9 - Rheumatoid arthritis with rheumatoid factor, unspecified From folic acid 1 mg PO DAILY 90 tabs 1RF M05.9 - Rheumatoid arthritis with rheumatoid factor, unspecified To folic acid Take 1 daily except the 2 days prior to methotrexate where you should take 3 tablets 1 mg PO DAILY 100 tabs 1RF M05.9 - Rheumatoid arthritis with rheumatoid factor, unspecified Refilled baricitinib (Olumiant) 2 mg PO DAILY 30 tabs 5RF M05.9 - Rheumatoid arthritis with rheumatoid factor, unspecified alendronate 70 mg PO QWEEK 12 tabs 1RF M85.80 - Other specified disorders of bone density and structure, unspecified site Coding Level of Care Code Est Pt Level 4 (83741) Complex EM visit Add On G2211 Diagnoses Seropositive rheumatoid arthritis M05.9 Osteopenia with high risk of fracture M85.80 Long-term use of immunosuppressant medication Z79.60 Encounter for monitoring alendronate therapy Z51.81; Z79.83 Encounter for methotrexate monitoring Z51.81; Z79.631
[2025-03-10 10:20] VITALS: BP 120/72; PULSE 68; O2SAT 99; BMI 28.1
--- OUTSIDE RECORDS SUMMARY | 2025-03-10 10:45 | XMS_ITS | Clinical Summary ---
Author Organization [employer] Address [address] [facility] [address] [place] [address] Care Team Providers Care Baton Twirler Name Role Phone Unavailable Primary Care Provider [...]
--- OUTSIDE RECORDS SUMMARY | 2025-03-10 10:45 | XMS_ITS | Encounter Summary ---
Author Organization [employer] [facility] Address [address] [place] [address] Care Team Providers Care Bone Grinder Name Role Phone Unavailable Primary Care Provider Unavailabl e Encounter Details Date Type Department Care Team (Latest Contact Info) Description 07/28/2018 Abstract [facility] CONVERSIONS Dental, Provider, DDS Social [...]
== END 2025-03-10 10:42 | disposition home or self-care (01) ==
LOC: HO.RHES 09:49
PROVIDERS: PCP Internal Medicine; Visit Provider Student in an Organized Health Care Education/Training Program
DX: M05.9 Rheumatoid arthritis with rheumatoid factor, unspecified (principal); M85.80 Other specified disorders of bone density and structure, unspecified site; Z79.60 Long term (current) use of unspecified immunomodulators and immunosuppressants; Z51.81 Encounter for therapeutic drug level monitoring; Z79.83 Long term (current) use of bisphosphonates; Z79.631 Long term (current) use of antimetabolite agent
CPT/HCPCS: 99214; G2211

== ENCOUNTER → 2025-03-10 09:49 | Outpatient (BNVA) | payer MEDICARE, MEDICAID, SELFPAY | PROVIDERS: PCP Internal Medicine; Visit Provider Student in an Organized Health Care Education/Training Program | DX: M05.9 Rheumatoid arthritis with rheumatoid factor, unspecified (principal); M85.80 Other specified disorders of bone density and structure, unspecified site; E55.9 Vitamin D deficiency, unspecified; Z51.81 Encounter for therapeutic drug level monitoring; Z79.83 Long term (current) use of bisphosphonates; Z79.899 Other long term (current) drug therapy; Z79.631 Long term (current) use of antimetabolite agent | CPT/HCPCS: 99212 ==

== ENCOUNTER 2025-03-22 06:28 | Outpatient (REF) | payer MEDICARE, MEDICAID, SELFPAY ==
--- NOTE | ~2025-03-22 | FL_ITS ---
EXAMINATION: FL GUIDANCE ONLY HISTORY: M47.816 - Spondylosis without myelopathy or radiculopathy, lumbar region COMPARISON: None available. TECHNIQUE: Fluoroscopy time: 38.3 seconds. Cumulative Dose: 9.08 mGy. Images: 5. FINDINGS: Fluoroscopic spot films of the lumbar spine in the AP projection demonstrate needles and contrast material in the regions of the bilateral L3-4, L4-5, and L5-S1 facet joints. FL/FL guidance in treatment room IMPRESSION: Fluoroscopy during procedure. Please see procedure report for additional information. Electronically signed by: Randy Ivan MD 03/22/2025 02:47 PM EDT
--- OUTSIDE RECORDS SUMMARY | 2025-03-22 06:30 | XMS_ITS | Clinical Summary ---
Author Organization [employer] Address [address] [facility] [address] [place] [address] Care Team Providers Care Ve Teacher Name Role Phone Unavailable Primary Care [...] Vaccines (1 of 2) 2008 COVID-19 Vaccine (1 - 2023-2 5 season) 2025 Influenza Vaccine (#1) 2025 RSV Patients and [...]
--- OUTSIDE RECORDS SUMMARY | 2025-03-22 06:30 | XMS_ITS | Encounter Summary ---
Author Organization [facility] Address [address] [place] [address] Care Team Providers Care Owner Operator Tanker Truck Driver Name Role Phone Unavailable Primary Care Provider Unavailabl e Encounter Details Date Type Department Care Team (Latest Contact Info) Description 07/28/2018 Abstract [facility] CONVERSIONS Dental, Provider, DDS Social History [...]
== END 2025-03-22 06:29 | disposition home or self-care (01) ==
LOC: CF 06:28
PROVIDERS: Visit Provider Anesthesiology
DX: M47.816 Spondylosis without myelopathy or radiculopathy, lumbar region (principal)
CPT/HCPCS: 64493; 64494; J2003; J2795; Q9967

== ENCOUNTER 2025-03-22 12:25 | Outpatient (AMB) | payer MEDICARE, MEDICAID, SELFPAY ==
--- NOTE | 2025-03-22 12:43 | MHC.OFFVIS ---
Vital Signs 03/22/25 12:44 Weight 169 lb BP 123/69 Blood Pressure Location Lt brachial Position Sitting Respiration 18 Pulse 70 Pulse Source Pulse Oximeter Pulse Oximetry (%) 99 Oxygen Delivery Method Room Air Intake Visit Reasons: Bilateral Diagnostic L3-L4-DR L5 MBB Senior Account Representative Required: No Allergies sarilumab (From Kevzara) Allergy (Severe, Verified 03/10/25 10:19) blistery rash gabapentin Allergy (Intermediate, Verified 03/10/25 10:19) rash pregabalin Allergy (Intermediate, Verified 03/10/25 10:19) rash tofacitinib (Xeljanz) Allergy (Intermediate, Verified 03/10/25 10:19) Rash PFSH Medical History Chronic pain syndrome Fluid retention in legs COVID-19 vaccine series completed Rheumatoid arthritis Idiopathic peripheral neuropathy 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 Spondylosis of lumbar region without myelopathy or radiculopathy Disc degeneration, lumbar Sacroiliac joint dysfunction of right side Sacroiliitis Seropositive rheumatoid arthritis Carpal tunnel syndrome, bilateral Surgical History Hx of shoulder surgery History of meniscectomy of left knee H/O lithotripsy History of left knee replacement H/O hernia repair Hx of laparoscopy Family History Father Esophagus cancer Mother CVD (cardiovascular disease) Brother CVD (cardiovascular disease) Diabetes Social History Alcohol intake: never Comment: chronic back pain Patient Tobacco Use Status: Current everyday Tobacco user Tobacco use type: Cigarette Cigarettes Per Day: 12 Years Smoked: 40 Advance Directives Date on File: 04/11/20 Physical Exam Vital Signs: Last Vital Signs Pulse 70 03/22/25 12:44 Resp 18 03/22/25 12:44 BP 123/69 03/22/25 12:44 Pulse Ox 99 03/22/25 12:44 Oxygen Delivery Method Room Air 03/22/25 12:44 Assessment & Plan Assessment & Plan (1) Spondylosis of lumbar region without myelopathy or radiculopathy: Code(s): M47.816 - Spondylosis without myelopathy or radiculopathy, lumbar region Category: Medical Plan Diagnostic medial branch block L3,L4 dorsal ramus L5 bilateral.? ? ?Informed consent was explained to the patient. All questions were explained and? answered.? The patient was taken inside the operating room where she was positioned prone on the operating table. Time-out was performed delineating correct site, side, the nature of the procedure, patient's allergy, . All operating room staff was participating in OR time-out procedure. ? ? The lower back was prepped with ChloraPrep and draped with sterile utility towels.? C-arm was brought over the operating field and sq picture of L4-, L5 vertebra and S1 AREA were delineated on the screen.? Point of interest were delineated as confluence of superior articular process of L4 and L5 vertebra bilaterally with corresponding transverse processes as well as confluence of the sacral alae bilaterally with superior articular process of S1.? The projection of the point of interest to the skin were injected with the small amount of local anesthetic lidocaine 2% mixed with ropivacaine 0.5% 1-1 approximately 1 cc.? After that 22 gauge 3.5 inch spinal needle was driven sequentially to the points of interest in tunnel vision fashion. After needles gently contacted the bone at the point of interests the needle was injected with small amount of the contrast.? The injection of the contrast did not demonstrate any intravascular or intrathecal spread of the contrast.? After that injection of the? ropivacaine 0.5%-1cc was performed at each needle location.?After that the needles were removed and Bandaids were applied. Orders: Orders FL guidance in treatment room Today M47.816 - Spondylosis without myelopathy or radiculopathy, lumbar region Medications: New memantine 7 mg PO DAILY 30 ea 3RF Discontinued celecoxib (Celebrex) Take with food, do not take with any other nonsteroidal anti-inflammatory medications Discontinued Reason: Doctor's Order 50 mg PO BID 60 caps 0RF Coding Level of Care Code Procedure Only Diagnoses Spondylosis of lumbar region without myelopathy or radiculopathy M47.816
[2025-03-22 12:44] VITALS: BP 123/69; PULSE 70; RESP 18; O2SAT 99
--- OUTSIDE RECORDS SUMMARY | 2025-03-22 16:27 | XMS_ITS | Encounter Summary ---
Author Organization [facility] Address [address] [place] [address] Care Team Providers Care Boot Trimmer Name Role Phone Unavailable Primary Care Provider Unavailabl e Encounter Details Date Type Department Care Team (Latest Contact Info) Description 07/28/2018 Abstract [facility] CONVERSIONS Dental, Provider, DDS Social [...]
--- OUTSIDE RECORDS SUMMARY | 2025-03-22 16:27 | XMS_ITS | Clinical Summary ---
Author Organization [employer] Address [address] [facility] 7[address] [place] [address] Care Team Providers Care Expressive Art Therapist Name Role Phone Unavailable Primary Care Provider [...]
== END 2025-03-22 13:21 | disposition home or self-care (01) ==
LOC: HO.PMCPRC 12:25
PROVIDERS: PCP Internal Medicine; Visit Provider Anesthesiology
DX: M47.816 Spondylosis without myelopathy or radiculopathy, lumbar region (principal)
CPT/HCPCS: 64493; 64494

== ENCOUNTER 2025-03-25 10:20 | Outpatient (AMB) | payer MEDICARE, MEDICAID, SELFPAY ==
--- NOTE | 2025-03-25 10:23 | A.OFFVIS_ITS ---
Vital Signs 03/25/25 10:24 Height 5 ft 5 in Weight 169 lb BMI 28.1 BP 130/76 Blood Pressure Location Rt brachial Position Sitting Respiration 16 Pulse 63 Pulse Source Pulse Oximeter Pulse Oximetry (%) 100 Oxygen Delivery Method Room Air Intake Visit Reasons: S/P Bilateral Diagnostic L3-L4-DR L5 MBB Optician Manager Required: No Accompanied by: Self / Same As Patient Allergies sarilumab (From Kevzara) Allergy (Severe, Verified 03/25/25 10:24) blistery rash gabapentin Allergy (Intermediate, Verified 03/25/25 10:24) rash pregabalin Allergy (Intermediate, Verified 03/25/25 10:24) rash tofacitinib (Xeljanz) Allergy (Intermediate, Verified 03/25/25 10:24) Rash HPI Comments Details: The patient is a 64-year-old female presenting with chronic pain management 3 days status post bilateral diagnostic L3-L4 DR L5 medial branch blocks. The patient reports experiencing significant relief from recent diagnostic injections, achieving 100% pain relief for at least 8 hours post-procedure. However, the relief was temporary, and the pain gradually returned, reaching a level of discomfort after prolonged activity starting the day after the injections. The patient has a history of degenerative joint disease, particularly affecting the lower spine, which is identified as a primary source of her chronic pain. She describes the pain as being most intense in the lower back, with exacerbation upon prolonged standing or walking. - Onset: Chronic pain with a history of degenerative joint disease - Quality: Intense pain primarily in the lower back - Exacerbating factors: Prolonged standing or walking - Relieving factors: Diagnostic injections provided temporary relief - Affect: Pain impacts daily activities, causing discomfort after prolonged activity - Analgesia: Diagnostic injections provided 100% relief temporarily - Adverse Effects: None reported from current pain management - Activities of Daily Living: Pain limits prolonged standing or walking - Aberrant Drug Related Behaviors: None reported [facility] Medical History Chronic pain syndrome Fluid retention in legs COVID-19 vaccine series completed Rheumatoid arthritis Idiopathic peripheral neuropathy 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 Spondylosis of lumbar region without myelopathy or radiculopathy Disc degeneration, lumbar Sacroiliac joint dysfunction of right side Sacroiliitis Seropositive rheumatoid arthritis Carpal tunnel syndrome, bilateral Surgical History Hx of shoulder surgery History of meniscectomy of left knee H/O lithotripsy History of left knee replacement H/O hernia repair Hx of laparoscopy Family History Father Esophagus cancer Mother CVD (cardiovascular disease) Brother CVD (cardiovascular disease) Diabetes Social History Alcohol intake: never Comment: chronic back pain Patient Tobacco Use Status: Current everyday Tobacco user Tobacco use type: Cigarette Cigarettes Per Day: 12 Years Smoked: 40 Advance Directives Date on File: 04/11/20 Review of Systems Const Details: - Musculoskeletal: Reports chronic lower back pain, exacerbated by prolonged standing or walking - Renal: Denies current symptoms related to kidney stones Physical Exam Exam Exam: General: awake, alert, oriented. Answers questions appropriately. Fully engaged in examination. Skin: warm, dry, intact HEENT: Normocephalic. Hearing intact. Cardiac: External chest normal in appearance. Respiratory: No cough, audible wheezing or stridor. Abdomen: without gross distension. MS: No obvious swelling or deformities. Neurological: Oriented to person, place, time and situation. Thought process intact. No gait abnormalities appreciated. Psychiatric: Appropriate mood and affect. Good judgment and insight. Vital Signs: Last Vital Signs Pulse 63 03/25/25 10:24 Resp 16 03/25/25 10:24 BP 130/76 03/25/25 10:24 Pulse Ox 100 03/25/25 10:24 Oxygen Delivery Method Room Air 03/25/25 10:24 BMI result Body Mass Index 28.1 Results Reviewed Results Reviewed: 08/2024 XR/XR lumbar spine 4V min FINDINGS: AP, lateral, bilateral oblique, and coned down views of the lumbar spine are submitted. Osseous mineralization is normal. Five nonrib-bearing lumbar vertebral bodies are identified, maintaining normal height and alignment without evidence of fracture or spondylolisthesis. There is mild degenerative disc disease with disc space narrowing and anterior spurring, most prominently involving the upper lumbar spine. The posterior elements are intact. There is no spondylolysis. The visualized paraspinal soft tissues are unremarkable. IMPRESSION: Degenerative changes of the lumbar spine as described. LUMBAR SPINE XRAY 2014 FINDINGS: Normal overall alignment. Normal vertebral body heights. Degenerative changes with osteophyte formation and mild decrease in the intervertebral disc space noted at multiple levels. It appears to be worse at L1-L2 and L2-L3 levels. Multilevel facet arthropathy. No acute osseous abnormality. Incidental note is made of bilateral renal calcifications, right greater than left. Surgical clips noted in the left upper quadrant. Postoperative changes compatible with prior hernia repair noted in the left mid abdomen. IMPRESSION: 1. No acute osseous abnormality. 2. Moderate degenerative changes upper to mid lumbar spine. 3. Bilateral renal calcifications. Assessment & Plan Assessment & Plan (1) Disc degeneration, lumbar: Code(s): M51.36 - Other intervertebral disc degeneration, lumbar region Category: Medical (2) Spondylosis of lumbar region without myelopathy or radiculopathy: Code(s): M47.816 - Spondylosis without myelopathy or radiculopathy, lumbar region Category: Medical (3) Idiopathic peripheral neuropathy: Code(s): G60.9 - Hereditary and idiopathic neuropathy, unspecified Category: Medical (4) Chronic pain syndrome: Code(s): G89.4 - Chronic pain syndrome Category: Medical (5) Spondylosis of thoracic spine: Code(s): M47.814 - Spondylosis without myelopathy or radiculopathy, thoracic region Category: Medical (6) Sacroiliac dysfunction: Code(s): M53.3 - Sacrococcygeal disorders, not elsewhere classified Category: Medical Plan The plan includes submitting for insurance approval for lumbar medial branch radiofrequency ablation to manage chronic pain, particularly targeting the lower back where degenerative joint disease is most pronounced. If insurance requires, repeat diagnostic injections may be performed to confirm the efficacy of the treatment. The patient is advised to continue monitoring kidney function, given the history of kidney stones, although current function is stable and improved. Patient was informed and verbally consented to the use of an ambient scribe for clinic note documentation during this visit. Patient Instructions: - Await insurance approval for radiofrequency ablation. - Monitor kidney function regularly and report any changes. - Follow up if insurance requires repeat diagnostic injections. Coding Level of Care Code Est Pt Level 3 (98953) Complex EM visit Add On G2211 Diagnoses Disc degeneration, lumbar M51.36 Spondylosis of lumbar region without myelopathy or radiculopathy M47.816 Idiopathic peripheral neuropathy G60.9 Chronic pain syndrome G89.4 Spondylosis of thoracic spine M47.814 Sacroiliac dysfunction M53.3
[2025-03-25 10:24] VITALS: BP 130/76; PULSE 63; RESP 16; O2SAT 100; BMI 28.1
--- OUTSIDE RECORDS SUMMARY | 2025-03-25 10:54 | XMS_ITS | Clinical Summary ---
Author Organization [employer] Address [address] [facility] [address]t [place] [address] Care Team Providers Care Apparel Sales Associate Name Role Phone Unavailable Primary Care Provider [...]
--- OUTSIDE RECORDS SUMMARY | 2025-03-25 10:54 | XMS_ITS | Encounter Summary ---
Author Organization [facility] Address [address] [place] [address] Care Team Providers Care Commercial Collector Name Role Phone Unavailable Primary Care Provider Unavailabl e Encounter Details Date Type Department Care Team (Latest Contact Info) Description 07/28/2018 Abstract [facility] CONVERSIONS Dental, Provider, DDS Social [...]
== END 2025-03-25 10:49 | disposition home or self-care (01) ==
LOC: HO.PMC 10:20
PROVIDERS: PCP Internal Medicine; Visit Provider Registered Nurse Emergency
DX: M51.369 Other intervertebral disc degeneration, lumbar region without mention of lumbar back pain or lower extremity pain (principal); M47.816 Spondylosis without myelopathy or radiculopathy, lumbar region; G60.9 Hereditary and idiopathic neuropathy, unspecified; G89.4 Chronic pain syndrome; M47.814 Spondylosis without myelopathy or radiculopathy, thoracic region; M53.3 Sacrococcygeal disorders, not elsewhere classified
CPT/HCPCS: 99213; G2211

== ENCOUNTER → 2025-03-25 10:20 | Outpatient (BNVA) | payer MEDICARE, MEDICAID, SELFPAY | PROVIDERS: PCP Internal Medicine; Visit Provider Registered Nurse Emergency | DX: M47.816 Spondylosis without myelopathy or radiculopathy, lumbar region (principal); G60.9 Hereditary and idiopathic neuropathy, unspecified; G89.4 Chronic pain syndrome; M47.814 Spondylosis without myelopathy or radiculopathy, thoracic region; M53.3 Sacrococcygeal disorders, not elsewhere classified; M51.360 Other intervertebral disc degeneration, lumbar region with discogenic back pain only | CPT/HCPCS: 99212 ==

== ENCOUNTER 2025-05-06 13:51 | Outpatient (AMB) | payer MEDICARE, MEDICAID, SELFPAY ==
--- NOTE | 2025-05-06 13:57 | A.OFFVIS_ITS ---
Vital Signs 05/06/25 14:00 Height 5 ft 5 in Weight 175 lb 4 oz BMI 29.2 BP 126/60 Blood Pressure Location Rt brachial Position Sitting Pulse 72 Pulse Source Pulse Oximeter Pulse Oximetry (%) 100 Oxygen Delivery Method Room Air Intake Visit Reasons: FOLLOW UP Intake Note: Pain today 6.5 Metalizing Machine Operator Required: No Accompanied by: Self / Same As Patient Allergies sarilumab (From Kevzara) Allergy (Severe, Verified 05/06/25 14:00) blistery rash gabapentin Allergy (Intermediate, Verified 05/06/25 14:00) rash pregabalin Allergy (Intermediate, Verified 05/06/25 14:00) rash tofacitinib (Xeljanz) Allergy (Intermediate, Verified 05/06/25 14:00) Rash HPI Comments Details: The patient is a 65-year-old female presenting for follow-up on pain management medications. The patient reports chronic pain management with medication, noting that the muscle relaxer is effective but causes sedation, limiting its use. Memantine provides relief but does not last throughout the day, leading to a discussion on increasing the dosage. The patient is scheduled for a procedure on May 13, which will involve sedation and be conducted in the operating room. She understands that the procedure will not involve burning nerves in the middle back due to risks, but other areas such as the neck may be treated. A follow-up appointment is planned approximately one month after the procedure to assess outcomes and discuss further management. - Chronic pain managed with medication - Muscle relaxer effective but causes sedation - Other medication provides relief but does not last throughout the day - Affect: No specific impact on mood or psychological wellbeing discussed - Analgesia: Muscle relaxer effective but causes sedation; other medication provides relief but does not last - Adverse Effects: Sedation from muscle relaxer - Activities of Daily Living: No specific impact discussed - Aberrant Drug Related Behaviors: None reported [facility] Medical History Chronic pain syndrome Fluid retention in legs COVID-19 vaccine series completed Rheumatoid arthritis Idiopathic peripheral neuropathy 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 Spondylosis of lumbar region without myelopathy or radiculopathy Disc degeneration, lumbar Sacroiliac joint dysfunction of right side Sacroiliitis Seropositive rheumatoid arthritis Carpal tunnel syndrome, bilateral Surgical History Hx of shoulder surgery History of meniscectomy of left knee H/O lithotripsy History of left knee replacement H/O hernia repair Hx of laparoscopy Family History Father Esophagus cancer Mother CVD (cardiovascular disease) Brother CVD (cardiovascular disease) Diabetes Social History Alcohol intake: never Comment: chronic back pain Patient Tobacco Use Status: Current everyday Tobacco user Tobacco use type: Cigarette Cigarettes Per Day: 12 Years Smoked: 40 Advance Directives Date on File: 04/11/20 Review of Systems Const All systems reviewed & are unremarkable except as noted in HPI and below Physical Exam Exam Exam: General: awake, alert, oriented. Answers questions appropriately. Fully engaged in examination. Skin: warm, dry, intact HEENT: Normocephalic. Hearing intact. Cardiac: External chest normal in appearance. Respiratory: No cough, audible wheezing or stridor. Abdomen: without gross distension. MS: No obvious swelling or deformities. Neurological: Oriented to person, place, time and situation. Thought process intact. No gait abnormalities appreciated. Psychiatric: Appropriate mood and affect. Good judgment and insight. Vital Signs: Last Vital Signs Pulse 72 05/06/25 14:00 BP 126/60 05/06/25 14:00 Pulse Ox 100 05/06/25 14:00 Oxygen Delivery Method Room Air 05/06/25 14:00 BMI result Body Mass Index 29.2 Results Reviewed Results Reviewed: 08/2024 XR/XR lumbar spine 4V min FINDINGS: AP, lateral, bilateral oblique, and coned down views of the lumbar spine are submitted. Osseous mineralization is normal. Five nonrib-bearing lumbar vertebral bodies are identified, maintaining normal height and alignment without evidence of fracture or spondylolisthesis. There is mild degenerative disc disease with disc space narrowing and anterior spurring, most prominently involving the upper lumbar spine. The posterior elements are intact. There is no spondylolysis. The visualized paraspinal soft tissues are unremarkable. IMPRESSION: Degenerative changes of the lumbar spine as described. LUMBAR SPINE XRAY 2014 FINDINGS: Normal overall alignment. Normal vertebral body heights. Degenerative changes with osteophyte formation and mild decrease in the intervertebral disc space noted at multiple levels. It appears to be worse at L1-L2 and L2-L3 levels. Multilevel facet arthropathy. No acute osseous abnormality. Incidental note is made of bilateral renal calcifications, right greater than left. Surgical clips noted in the left upper quadrant. Postoperative changes compatible with prior hernia repair noted in the left mid abdomen. IMPRESSION: 1. No acute osseous abnormality. 2. Moderate degenerative changes upper to mid lumbar spine. 3. Bilateral renal calcifications. Assessment & Plan Assessment & Plan (1) Disc degeneration, lumbar: Code(s): M51.36 - Other intervertebral disc degeneration, lumbar region Category: Medical (2) Spondylosis of lumbar region without myelopathy or radiculopathy: Code(s): M47.816 - Spondylosis without myelopathy or radiculopathy, lumbar region Category: Medical (3) Idiopathic peripheral neuropathy: Code(s): G60.9 - Hereditary and idiopathic neuropathy, unspecified Category: Medical (4) Chronic pain syndrome: Code(s): G89.4 - Chronic pain syndrome Category: Medical (5) Spondylosis of thoracic spine: Code(s): M47.814 - Spondylosis without myelopathy or radiculopathy, thoracic region Category: Medical (6) Sacroiliac dysfunction: Code(s): M53.3 - Sacrococcygeal disorders, not elsewhere classified Category: Medical Plan The patient will have her Memantine dosage increased from 7mg daily to 14mg daily to provide longer-lasting relief from chronic pain. She is scheduled for a procedure on May 13, which will involve sedation and be conducted in the operating room. The procedure will not involve burning nerves in the middle back due to associated risks, but other areas such as the neck may be treated. A follow-up appointment is planned approximately one month after the procedure to assess outcomes and discuss further management. Patient was informed and verbally consented to the use of an ambient scribe for clinic note documentation during this visit. Medications: Changed From memantine 7 mg PO DAILY 30 ea 3RF To memantine 14 mg PO DAILY 30 ea 3RF Patient Instructions: - Follow the updated medication regimen as discussed. - Attend the scheduled procedure on May 13. - Schedule a follow-up appointment approximately one month after the procedure. Coding Level of Care Code Est Pt Level 3 (72750) Complex EM visit Add On G2211 Diagnoses Disc degeneration, lumbar M51.36 Spondylosis of lumbar region without myelopathy or radiculopathy M47.816 Idiopathic peripheral neuropathy G60.9 Chronic pain syndrome G89.4 Spondylosis of thoracic spine M47.814 Sacroiliac dysfunction M53.3
[2025-05-06 14:00] VITALS: BP 126/60; PULSE 72; O2SAT 100; BMI 29.2
--- OUTSIDE RECORDS SUMMARY | 2025-05-06 14:45 | XMS_ITS | Encounter Summary ---
Author Organization [employer] [facility] Address [address] [place] [address] [place] [address] Care Team Providers Care Manager Perioperative Name Role Phone Unavailable Primary Care Provider Unavailabl e Encounter Details Date Type Department Care Team (Latest Contact Info) Description 07/28/2018 Abstract [facility] CONVERSIONS Dental, Provider, DDS Social History [...]
--- OUTSIDE RECORDS SUMMARY | 2025-05-06 14:45 | XMS_ITS | Clinical Summary ---
Author Organization [employer] Address [address] [facility] [address] [place] [address] Care Team Providers Care Seal Extrusion Operator Name Role Phone Unavailable Primary Care [...]
== END 2025-05-06 14:37 | disposition home or self-care (01) ==
LOC: HO.PMC 13:51
PROVIDERS: PCP Internal Medicine; Visit Provider Registered Nurse Emergency
DX: M51.369 Other intervertebral disc degeneration, lumbar region without mention of lumbar back pain or lower extremity pain (principal); M47.816 Spondylosis without myelopathy or radiculopathy, lumbar region; G60.9 Hereditary and idiopathic neuropathy, unspecified; G89.4 Chronic pain syndrome; M47.814 Spondylosis without myelopathy or radiculopathy, thoracic region; M53.3 Sacrococcygeal disorders, not elsewhere classified
CPT/HCPCS: 99213; G2211

== ENCOUNTER → 2025-05-06 13:51 | Outpatient (BNVA) | payer MEDICARE, MEDICAID, SELFPAY | PROVIDERS: PCP Internal Medicine; Visit Provider Registered Nurse Emergency | DX: M51.360 Other intervertebral disc degeneration, lumbar region with discogenic back pain only (principal); M47.816 Spondylosis without myelopathy or radiculopathy, lumbar region; G60.9 Hereditary and idiopathic neuropathy, unspecified; G89.4 Chronic pain syndrome; M47.814 Spondylosis without myelopathy or radiculopathy, thoracic region; M53.3 Sacrococcygeal disorders, not elsewhere classified | CPT/HCPCS: 99212 ==

== ENCOUNTER 2025-05-13 10:50 | Day surgery (SDC) | payer MEDICARE, OTHER, SELFPAY ==
[2025-05-11 12:16] VITALS: BMI 29.1
--- NOTE | 2025-05-12 11:59 | HO.ANESPROP2 ---
Documented by User: Felicia Hernandez NP 05/12/25 12:00 HPI - Anesthesia Eval Consult details Narrative: 65yo F for Bilateral L3-L4 Dorsal Ramus L5 RFA PMFSH Active Problems Active Problems: All Active Problems Back pain (Acute) Long-term use of hydroxychloroquine (Acute) Sacroiliac dysfunction (Acute) Long-term use of immunosuppressant medication (Acute) Spondylosis of thoracic region without myelopathy or radiculopathy (Acute) Osteopenia with high risk of fracture (Acute) Cervicalgia (Acute) Bilateral hip pain (Acute) Lateral epicondylitis of both elbows (Acute) Chronic pain syndrome (Acute) Idiopathic peripheral neuropathy (Acute) skilled nursing (current) use of opiate analgesic (Acute) Spondylosis of lumbar region without myelopathy or radiculopathy (Acute) Sacroiliac joint dysfunction of right side (Acute) Seropositive rheumatoid arthritis (Acute) Past Medical History Medical History Chronic pain syndrome Fluid retention in legs Rheumatoid arthritis Idiopathic peripheral neuropathy skilled nursing (current) use of opiate analgesic Spondylosis of lumbar region without myelopathy or radiculopathy Disc degeneration, lumbar Sacroiliac joint dysfunction of right side Sacroiliitis Seropositive rheumatoid arthritis Carpal tunnel syndrome, bilateral Family History Family History Father Esophagus cancer Mother CVD (cardiovascular disease) Brother CVD (cardiovascular disease) Diabetes Family history of problems with anesthesia: No Surgical History Surgical History Hx of shoulder surgery History of meniscectomy of left knee H/O lithotripsy History of left knee replacement H/O hernia repair Hx of laparoscopy History of Problems with Anesthesia: No Social History Social History Are you a primary acute care certified nursing assistant to a significant other at home: No Do you presently have visiting nurse or other home services: No Alcohol intake: never Comment: chronic back pain Patient Tobacco Use Status: Current everyday Tobacco user Tobacco use type: Cigarette Cigarettes Per Day: 10 Years Smoked: 40 Second Hand Smoke Exposure: No Use of substances other than those prescribed or required for medical reasons: Yes Substance Use Type Other:: medical marijuana Substance Use Frequency: Daily Have you been hit, kicked, punched, or otherwise hurt by someone within the past year? If so, by whom?: No Are you DNR?: No Advance Directives: No Advance Directives Information Provided: No Advance Directives on File: Yes Advance Directives Date on File: 04/11/20 Patient : No : No Meds Allergies Allergy/AdvReac Type Severity Reaction Status Date / Time sarilumab (From Tomás) Allergy Severe blistery Verified 05/06/25 14:00 rash gabapentin Allergy Intermediate rash Verified 05/06/25 14:00 pregabalin Allergy Intermediate rash Verified 05/06/25 14:00 tofacitinib (Xeljanz) Allergy Intermediate Rash Verified 05/06/25 14:00 Home Medications ?Medication ?Instructions ?Recorded ?Confirmed ?Last Taken ?Type atorvastatin 10 mg tablet 10 mg PO DAILY 05/23/20 05/13/25 Unknown History topiramate 100 mg tablet 100 mg PO BID 02/07/22 05/13/25 Unknown History trazodone 100 mg tablet 200 mg PO BEDTIME PRN Insomnia 02/07/22 05/13/25 Unknown History varenicline tartrate 1 mg tablet 1 mg PO BID 11/26/22 05/13/25 05/13/25 History (Chantix) varenicline tartrate 0.5 mg (11)-1 1 ea PO BID 04/24/23 05/13/25 Unknown History mg (42) tablets in a dose pack mecobalamin (vitamin B12) 1,000 2,000 mcg PO DAILY 06/09/24 05/13/25 Unknown History mcg chewable tablet multivitamin 1 tab PO DAILY 06/09/24 05/13/25 Unknown History krill oil 500 mg capsule 500 mg PO DAILY 09/02/24 05/13/25 Unknown History omega-3 fatty acids 500 mg capsule 500 mg PO DAILY 09/02/24 05/13/25 Unknown History Exam Height,Weight and Vital Signs: Height 5 ft 5 in Weight 79.379 kg Assessment and Plan Assessment Anesthesia Assessment: Chart Reviewed Final Anesthetic Review Family History of Problems with Anesthesia: No History of Problems with Anesthesia: No Documented by User: Javed Houston MD 05/13/25 13:46 PMFSH Past Medical History Medical History Chronic pain syndrome Fluid retention in legs Rheumatoid arthritis Idiopathic peripheral neuropathy skilled nursing (current) use of opiate analgesic Spondylosis of lumbar region without myelopathy or radiculopathy Disc degeneration, lumbar Sacroiliac joint dysfunction of right side Sacroiliitis Seropositive rheumatoid arthritis Carpal tunnel syndrome, bilateral Family History Family History Father Esophagus cancer Mother CVD (cardiovascular disease) Brother CVD (cardiovascular disease) Diabetes Surgical History Surgical History Hx of shoulder surgery History of meniscectomy of left knee H/O lithotripsy History of left knee replacement H/O hernia repair Hx of laparoscopy Social History Social History Are you a primary acute care certified nursing assistant to a significant other at home: No Do you presently have visiting nurse or other home services: No Alcohol intake: never Comment: chronic back pain Patient Tobacco Use Status: Current everyday Tobacco user Tobacco use type: Cigarette Cigarettes Per Day: 10 Years Smoked: 40 Second Hand Smoke Exposure: No Use of substances other than those prescribed or required for medical reasons: Yes Substance Use Type Other:: medical marijuana Substance Use Frequency: Daily Have you been hit, kicked, punched, or otherwise hurt by someone within the past year? If so, by whom?: No Are you DNR?: No Advance Directives: No Advance Directives Information Provided: No Advance Directives on File: Yes Advance Directives Date on File: 04/11/20 Patient : No : No Meds Allergies Allergy/AdvReac Type Severity Reaction Status Date / Time sarilumab (From Kevzara) Allergy Severe blistery Verified 05/06/25 14:00 rash gabapentin Allergy Intermediate rash Verified 05/06/25 14:00 pregabalin Allergy Intermediate rash Verified 05/06/25 14:00 tofacitinib (Xeljanz) Allergy Intermediate Rash Verified 05/06/25 14:00 Home Medications ?Medication ?Instructions ?Recorded ?Confirmed ?Last Taken ?Type atorvastatin 10 mg tablet 10 mg PO DAILY 05/23/20 05/13/25 Unknown History topiramate 100 mg tablet 100 mg PO BID 02/07/22 05/13/25 Unknown History trazodone 100 mg tablet 200 mg PO BEDTIME PRN Insomnia 02/07/22 05/13/25 Unknown History varenicline tartrate 1 mg tablet 1 mg PO BID 11/26/22 05/13/25 05/13/25 History (Chantix) varenicline tartrate 0.5 mg (11)-1 1 ea PO BID 04/24/23 05/13/25 Unknown History mg (42) tablets in a dose pack mecobalamin (vitamin B12) 1,000 2,000 mcg PO DAILY 06/09/24 05/13/25 Unknown History mcg chewable tablet multivitamin 1 tab PO DAILY 06/09/24 05/13/25 Unknown History krill oil 500 mg capsule 500 mg PO DAILY 09/02/24 05/13/25 Unknown History omega-3 fatty acids 500 mg capsule 500 mg PO DAILY 09/02/24 05/13/25 Unknown History Exam Exam Date and Time: 05/13/2025 Airway Mallampati Class: II TM Dist: >3cm Neck ROM: Full Partial: Upper and Lower Heart: rrr Lungs: ctab vesicular Assessment and Plan Assessment Anesthesia Assessment: Anesthesia Plan Discussed and Smoking Cess. Discussed Final Anesthetic Review NPO: Yes ASA Class: III Final Preanesthetic Review: No Changes in Pt Med Stat, Meds/Allgs Chart Reviewed, Consent Obtained/Reviewed and Anes Risks/Benef Reviewed Patient Risk: Low Procedure Risk: Low Anesthetic Plan Anesthetic Plan: MAC: Disposition: Standard PACU
--- OUTSIDE RECORDS SUMMARY | 2025-05-12 12:12 | XMS_ITS | Encounter Summary ---
Author Organization [employer] [facility] Address [address] [place] [address] [place] [address] Care Team Providers Care Sulfur Chloride Operator Name Role Phone Unavailable Primary Care Provider Unavailabl e Encounter Details Date Type Department Care Team (Latest Contact Info) Description 07/28/2018 Abstract [facility] CONVERSIONS Dental, Provider, DDS Social History [...]
--- OUTSIDE RECORDS SUMMARY | 2025-05-12 12:12 | XMS_ITS | Clinical Summary ---
Author Organization [facility] Address [address] [place] [address] Care Team Providers Care Belt Loop Machine Operator Name Role Phone Unavailable Primary Care [...]
--- NOTE | ~2025-05-13 | FL_ITS ---
EXAMINATION: FLUOROSCOPY GUIDANCE FOR NEEDLE PLACEMENT CLINICAL INFORMATION: l3 l4 dr l5 rfa bilateral COMPARISON: Previous fluoroscopy exam March 2025 and lumbar spine x-ray August 2024 TECHNIQUE: Fluoroscopic guidance was provided for bilateral L3-L5 RFA FINDINGS: Images demonstrate probe placement adjacent to the bilateral lateral L3, L4 and L5 vertebrae. See procedure note for detailed findings. FLUOROSCOPY TIME: 1 minute 17 seconds. 9 submitted images. DOSE AREA PRODUCT: 565 uGy-m2 (microgray-meter squared) FL/FL guidance in OR IMPRESSION: Fluoroscopy guidance for pain management procedure. Electronically signed by: Clarissa Cespedes MD 05/13/2025 03:11 PM NNAMDI
[2025-05-13 11:12] VITALS: BP 112/64; PULSE 68; RESP 16; TEMP 36.9; O2SAT 98
[2025-05-13] MEDS: Lactated Ringers 1,000 ML 100 ML IVCONT (11:22)
--- NOTE | 2025-05-13 12:10 | MHC.SHP ---
Pre-Procedural Eval Section A - 24 Hr Update-Section A only Date of Service: 05/13/25 Section B - Complete if H&P > 30 days Chief Complaint: Spondylosis without myelopathy or radiculopathy, Details of Present Illness: as above Relevant Family History (Specify if Yes): No Relevant Social History: None Present Medications: None Medical History: Significant History History of Previous Operations: No relevant previous surgery Allergies: Allergies Allergy/AdvReac Type Severity Reaction Status Date / Time sarilumab (From Martinezzara) Allergy Severe blistery Verified 05/06/25 14:00 rash gabapentin Allergy Intermediate rash Verified 05/06/25 14:00 pregabalin Allergy Intermediate rash Verified 05/06/25 14:00 tofacitinib (Xeljanz) Allergy Intermediate Rash Verified 05/06/25 14:00 Review of Systems Sugical H&P ROS: Negative: Constitution, Cardiovascular, Respiratory, Neurological, Psychiatric, Hem-Onc, Allergic/Immunologic, Gastrointestinal, Genitourinary, Integumentary, Endocrine and Eyes/Ears/Nose/Throat and Yes, Specify: Musculoskeletal (Spondylosis lumbar) Exam Surgical H&P Exam: Normal: HEENT, Normal: Heart, Normal: Lungs, Normal: Extremities, Normal: Abdomen, Normal: Skin and Normal: Neurological Plan Diagnosis/Plan: Unchanged I have reviewed the history and physical and performed a pertinent physical examination on my patient. No changes have occurred unless specified. Time Spent With Patient Time: Total time managing care of this patient today ____ minutes.
--- NOTE | 2025-05-13 13:03 | P.OP_ITS ---
Operative Note Operative Note Date of Service: 05/13/25 Narrative: Radiofrequency ablation bilateral L3- L4- DRL5 medial branches. Informed consent was explained to the patient. All questions were explained and answered.? The patient was taken inside of the operating room where she was positioned prone on the operating table.? Time-out was performed delineating patient's name and date of , correct site, side, the nature of the procedure, patient's allergy..? All operating room staff was participating in OR time-out procedure.? [place] [employer] monitors were applied.? Patient was minimally sedated and I was able to maintain the verbal contact with the patient throughout the procedure. Her lower back was prepped with ChloraPrep and draped with sterile towels.? C- arm was brought over the operating field and sq picture of L4-5 vertebra as and S1 vertebra were delineated on the screen. Severe scoliosis and rotational spondyloarthritis and scoliosis were noted on the screen. Extreme positioned of the C-arms were required to delineate proper targets. Points of interest were delineated as connection of superior articular process of L4 and L5 vertebra bilaterally with corresponding transverse processes as well as connection of the sacral alae bilaterally with superior articular process of S1.? The projection of the point of interest to the skin were injected with the small amount of local anesthetic lidocaine 2% 1-1.5 cc.? And after that 18 gauge 100 mm radiofrequency cannulas were driven to the point of interest in tunnel vision fashion under oblique view After needles gently contacted the bone at the point of interests the stylets were removed from the needles and electrodes were inserted into the needles.? Electrodes were connected to the radiofrequency machine and testing was performed for the patient's motor function.? There were no pathological motor response indicating stimulation of somatic nerves.? After that electrodes were removed and each needle was injected with small amount of mixture of lidocaine 2% and ropivacaine 0.5% one-to-one 1-1.5 cc mixed with trace amount of Kenalog.? Upon completion of the injections the electrodes were reinserted and energy of 89 degree centigrade for 90 seconds was applied to each needle 1st on the right side and then on the leftt.??Upon completion of the injections needles were removed and sterile dressings were applied patient was taken outside of the operating room to recovery room.
--- NOTE | 2025-05-13 14:01 | PM.OP ---
Brief Operative Note Date of Service: 05/13/25 Pre-op diagnosis: Spondylosis lumbar without myelopathy or radiculopathy Post-op diagnosis: same Procedure: Radiofrequency ablation L3, L4, DR L5 medial branches bilateral Surgeon: Jason Ceron MD Anesthesia: MAC Was an Bottling Equipment Sales Representative used for this Procedure?: No Estimated blood loss (mL): 4 Condition: stable Disposition: PACU
[2025-05-13 14:02] VITALS: BP 120/57; PULSE 71; RESP 12; TEMP 36.8; O2SAT 100
[2025-05-13 14:15] VITALS: BP 127/49; PULSE 81; RESP 12; O2SAT 100
== END 2025-05-13 14:36 | disposition home or self-care (01) ==
PROVIDERS: PCP Family Medicine; Visit Provider Anesthesiology
PROC: (CPT 64635; principal; 2025-05-13 12:40)
DX: M47.816 Spondylosis without myelopathy or radiculopathy, lumbar region (principal); M51.360 Other intervertebral disc degeneration, lumbar region with discogenic back pain only; G89.4 Chronic pain syndrome; M53.3 Sacrococcygeal disorders, not elsewhere classified; M46.1 Sacroiliitis, not elsewhere classified; R26.2 Difficulty in walking, not elsewhere classified; M47.814 Spondylosis without myelopathy or radiculopathy, thoracic region; G60.9 Hereditary and idiopathic neuropathy, unspecified; M05.9 Rheumatoid arthritis with rheumatoid factor, unspecified; Z96.652 Presence of left artificial knee joint; Z79.891 Long term (current) use of opiate analgesic; Z88.8 Allergy status to other drugs, medicaments and biological substances; Z98.890 Other specified postprocedural states; F17.210 Nicotine dependence, cigarettes, uncomplicated
CPT/HCPCS: 64635; 64636 ×2; J2003; J2250; J2405; J2795; J3010; J3301

== ENCOUNTER → 2025-05-13 10:50 | Outpatient (BNV) | payer MEDICARE, MEDICAID, SELFPAY | PROVIDERS: PCP Family Medicine; Visit Provider Anesthesiology | DX: M47.816 Spondylosis without myelopathy or radiculopathy, lumbar region (principal) | CPT/HCPCS: 64635; 64636 ==

== ENCOUNTER 2025-06-10 11:25 | Outpatient (AMB) | payer MEDICARE, MEDICAID, SELFPAY ==
--- NOTE | 2025-06-10 11:26 | A.OFFVIS_ITS ---
Vital Signs 06/10/25 11:27 Height 5 ft 5 in Weight 176 lb BMI 29.3 BP 130/63 Blood Pressure Location Rt brachial Position Sitting Respiration 16 Pulse 70 Pulse Source Pulse Oximeter Pulse Oximetry (%) 100 Oxygen Delivery Method Room Air Intake Visit Reasons: FOLLOW UP Java Solutions Architect Required: No Accompanied by: Self / Same As Patient Allergies sarilumab (From Kevzara) Allergy (Severe, Verified 06/10/25 11:32) blistery rash gabapentin Allergy (Intermediate, Verified 06/10/25 11:32) rash pregabalin Allergy (Intermediate, Verified 06/10/25 11:32) rash tofacitinib (Xeljanz) Allergy (Intermediate, Verified 06/10/25 11:32) Rash HPI Comments Details: The patient is a 65 year old female presenting for a follow-up visit after a lumbar radiofrequency ablation performed last month. She reports the procedure went very well, resulting in approximately 90% relief of her lower back pain. Following the procedure, she has noticed weakness in her left leg, which occurs with increased activity such as walking through a grocery store without her c ane. She describes the sensation as the leg feeling like it is dragging, which suggests muscle fatigue, and the symptom resolves when she stops the activity. The patient's remaining pain is now located in her mid and upper back, and she also has neck pain. She recalls undergoing physical therapy for her neck a long time ago, which included traction. - Location: The patient reports current pain in her mid and upper back, as well as her neck. - Relief: She experiences approximately 90% pain relief in her lower back following a radiofrequency ablation. - Associated Symptoms: She notes left leg weakness that feels like it's worse when she walks too much. - Alleviating Factors: The leg weakness resolves when she stops her activity. - Analgesia: The patient reports approximately 90% pain relief in the lower back following her recent radiofrequency ablation. - Activities of Daily Living: She experiences left leg weakness when walking extensively, such as through a grocery store without her cane. - Adverse Effects: She reports a new symptom of left leg weakness post- procedure, which is thought to be muscular fatigue from increased activity. [facility] Medical History (Updated 06/10/25 @ 11:48 by Brittney Arvizu, EVENT OPERATIONS MANAGER, REGRINDER OPERATOR) Chronic pain syndrome Fluid retention in legs Rheumatoid arthritis Idiopathic peripheral neuropathy shelter (current) use of opiate analgesic Spondylosis of lumbar region without myelopathy or radiculopathy Disc degeneration, lumbar Sacroiliac joint dysfunction of right side Sacroiliitis Seropositive rheumatoid arthritis Carpal tunnel syndrome, bilateral Surgical History Hx of shoulder surgery History of meniscectomy of left knee H/O lithotripsy History of left knee replacement H/O hernia repair Hx of laparoscopy Family History Father Esophagus cancer Mother CVD (cardiovascular disease) Brother CVD (cardiovascular disease) Diabetes Social History Are you a primary child care centre manager to a significant other at home: No Do you presently have visiting nurse or other home services: No Alcohol intake: never Comment: chronic back pain Patient Tobacco Use Status: Current everyday Tobacco user Tobacco use type: Cigarette Cigarettes Per Day: 10 Years Smoked: 40 Second Hand Smoke Exposure: No Advance Directives Date on File: 04/11/20 Review of Systems Narrative - Musculoskeletal: Reports mid-back, upper back, and neck pain. - Neurological: Reports left leg weakness that feels like it is worse with activity. Physical Exam Vital Signs: Last Vital Signs Pulse 70 06/10/25 11:27 Resp 16 06/10/25 11:27 BP 130/63 06/10/25 11:27 Pulse Ox 100 06/10/25 11:27 Oxygen Delivery Method Room Air 06/10/25 11:27 BMI result Body Mass Index 29.3 Results Reviewed Results Reviewed: 08/2024 XR/XR lumbar spine 4V min FINDINGS: AP, lateral, bilateral oblique, and coned down views of the lumbar spine are submitted. Osseous mineralization is normal. Five nonrib-bearing lumbar vertebral bodies are identified, maintaining normal height and alignment without evidence of fracture or spondylolisthesis. There is mild degenerative disc disease with disc space narrowing and anterior spurring, most prominently involving the upper lumbar spine. The posterior elements are intact. There is no spondylolysis. The visualized paraspinal soft tissues are unremarkable. IMPRESSION: Degenerative changes of the lumbar spine as described. LUMBAR SPINE XRAY 2014 FINDINGS: Normal overall alignment. Normal vertebral body heights. Degenerative changes with osteophyte formation and mild decrease in the intervertebral disc space noted at multiple levels. It appears to be worse at L1-L2 and L2-L3 levels. Multilevel facet arthropathy. No acute osseous abnormality. Incidental note is made of bilateral renal calcifications, right greater than left. Surgical clips noted in the left upper quadrant. Postoperative changes compatible with prior hernia repair noted in the left mid abdomen. IMPRESSION: 1. No acute osseous abnormality. 2. Moderate degenerative changes upper to mid lumbar spine. 3. Bilateral renal calcifications. Assessment & Plan Assessment & Plan (1) Cervicalgia: Code(s): M54.2 - Cervicalgia Category: Medical (2) Spondylosis of thoracic region without myelopathy or radiculopathy: Code(s): M47.814 - Spondylosis without myelopathy or radiculopathy, thoracic region Category: Medical (3) Chronic pain syndrome: Code(s): G89.4 - Chronic pain syndrome Category: Medical (4) Cervical spondylolysis: Code(s): M43.02 - Spondylolysis, cervical region Category: Medical (5) Disc degeneration, lumbar: Code(s): M51.36 - Other intervertebral disc degeneration, lumbar region Category: Medical (6) Spondylosis of lumbar region without myelopathy or radiculopathy: Code(s): M47.816 - Spondylosis without myelopathy or radiculopathy, lumbar region Category: Medical (7) Idiopathic peripheral neuropathy: Code(s): G60.9 - Hereditary and idiopathic neuropathy, unspecified Category: Medical (8) Spondylosis of thoracic spine: Code(s): M47.814 - Spondylosis without myelopathy or radiculopathy, thoracic region Category: Medical (9) Sacroiliac dysfunction: Code(s): M53.3 - Sacrococcygeal disorders, not elsewhere classified Category: Medical Plan A referral for physical therapy will be sent to [facility] in [place] for the patient's neck and mid-back pain. The patient was informed that this is a required step by her insurance before further interventions can be approved. Following the completion of physical therapy, if her neck pain persists, the plan is to proceed with diagnostic injections. Contingent upon successful diagnostic blocks, she would then be a candidate for a cervical radiofrequency ablation (RFA). It was explained that nerve ablation procedures are not performed on the thoracic spine (mid-back) due to the risk of damaging nerves that control organ function and breathing. Regarding the left leg weakness, it is believed to be secondary to muscle fatigue from increased activity, now that her low back pain has significantly improved post-ablation. She should continue her current medications for any residual pain. The patient will follow up after completing physical therapy and can call the office to arrange for injections, which would save her a visit. Patient was informed and verbally consented to the use of an ambient scribe for clinic note documentation during this visit. Orders: Orders PT Evaluation and Treatment Today G89.4 - Chronic pain syndrome, M43.02 - Spondylolysis, cervical region, M47.814 - Spondylosis without myelopathy or radiculopathy, thoracic region, M54.2 - Cervicalgia Patient Instructions: - I have placed a referral for you to attend physical therapy at [facility] in [place] for your neck and mid-back pain. - The physical therapy office should call you to schedule an appointment. If you do not hear from them within a week, please call them to schedule. - After you have completed physical therapy, please call our office. If you are still having neck pain, we will schedule you for test injections. - It is normal to feel some leg muscle fatigue or weakness now that you are more active after your back procedure. Rest when this happens. - Continue to take your current pain medications as needed for any remaining pain. Coding Level of Care Code Est Pt Level 3 (17879) Complex visit Add On G2211 Diagnoses Cervicalgia M54.2 Spondylosis of thoracic region without myelopathy or radiculopathy M47.814 Chronic pain syndrome G89.4 Cervical spondylolysis M43.02 Disc degeneration, lumbar M51.36 Spondylosis of lumbar region without myelopathy or radiculopathy M47.816 Idiopathic peripheral neuropathy G60.9 Spondylosis of thoracic spine M47.814 Sacroiliac dysfunction M53.3
[2025-06-10 11:27] VITALS: BP 130/63; PULSE 70; RESP 16; O2SAT 100; BMI 29.3
== END 2025-06-10 11:47 | disposition home or self-care (01) ==
LOC: HO.PMC 11:26
PROVIDERS: PCP Internal Medicine; Visit Provider Registered Nurse Emergency
DX: M54.2 Cervicalgia (principal); M47.814 Spondylosis without myelopathy or radiculopathy, thoracic region; G89.4 Chronic pain syndrome; M43.02 Spondylolysis, cervical region; M51.369 Other intervertebral disc degeneration, lumbar region without mention of lumbar back pain or lower extremity pain; M47.816 Spondylosis without myelopathy or radiculopathy, lumbar region; G60.9 Hereditary and idiopathic neuropathy, unspecified; M53.3 Sacrococcygeal disorders, not elsewhere classified
CPT/HCPCS: 99213; G2211

== ENCOUNTER → 2025-06-10 11:25 | Outpatient (BNVA) | payer MEDICARE, MEDICAID, SELFPAY | PROVIDERS: PCP Internal Medicine; Visit Provider Registered Nurse Emergency | DX: M54.2 Cervicalgia (principal); M47.816 Spondylosis without myelopathy or radiculopathy, lumbar region; G89.4 Chronic pain syndrome; M47.814 Spondylosis without myelopathy or radiculopathy, thoracic region; M43.02 Spondylolysis, cervical region; M53.3 Sacrococcygeal disorders, not elsewhere classified; F17.210 Nicotine dependence, cigarettes, uncomplicated; G60.9 Hereditary and idiopathic neuropathy, unspecified | CPT/HCPCS: 99212 ==